=== PATIENT | male | born 1955 | race Caucasian/White ===

== ENCOUNTER 2018-07-03 15:00 | Outpatient (CLI) | payer BC ==
[~2018-07-03 15:00] MED LIST: Sodium Chloride 0.9% 15 ML NEB ONE
--- NOTE | 2018-07-04 00:37 | HP ---
HISTORY OF PRESENT ILLNESS: Mr. Travon Ballard is a very pleasant 63-year-old gentleman, accompanied by his mother, who presents to the [facility] for evaluation of right and left lower extremity edema associated with an ulceration of the left lateral lower leg. The patient states he has had ulcerations of the right and left lower extremities present on an intermittent basis for the past 3 years. The patient was referred to the Wound Center by Dr. Sherman on 06/09/2018. The patient has no other complaints today. He denies any fever or chills. PAST MEDICAL HISTORY: 1. Hypertension. 2. Obstructive sleep apnea. 3. History of hepatitis C. 4. Osteoarthritis. PAST SURGICAL HISTORY: Circumcision as an adult. MEDICATIONS: 1. Imipramine. 2. Hydrochlorothiazide. 3. Metoprolol. 4. Balanced B-100. 5. Allopurinol. 6. Hyzaar. 7. Bactrim. ALLERGIES: NO KNOWN DIAGNOSED ALLERGIES. SOCIAL HISTORY: Social history is negative for tobacco or EtOH use. FAMILY HISTORY: Family history is significant for coronary artery disease. The patient's father was diagnosed with coronary artery disease. PHYSICAL EXAMINATION: VITAL SIGNS: Temperature 97.8, pulse 75, respirations 21, blood pressure 150/68. GENERAL: A 63-year-old gentleman sitting on chair in examination room, in no acute distress. HEENT: Normocephalic and atraumatic. NECK: No nuchal rigidity. CHEST: Clear to auscultation. CV: Regular rate and rhythm. ABDOMEN: Soft. EXTREMITIES: An ulceration of the left lateral lower leg is present which measures approximately 3.0 x 4.0 cm. Granulation tissue was present within the wound margins. Nonviable tissue present within the wound margins was debrided with an excisional full-thickness debridement. No purulent drainage is associated with the granulating wound. Erythema of the left lower leg is present consistent with resolving cellulitis. No maceration of the skin of the periwound is noted. Dorsalis pedis pulse is palpable on the right and on the left. Edema of the right and left lower extremities is present on exam today. NEURO: Grossly nonfocal. ASSESSMENT AND PLAN: 1. Chronic venous hypertension with ulcer and inflammation: Xeroform gauze, Webril, and the 3M Coban 2-Layer Compression System will be applied to the ulceration of the left lower leg today. Webril and the 3M Coban 2- Layer Compression System will be applied to the right foot and lower leg also. The patient is to continue Bactrim as previously prescribed. I will see Mr. Ballard again in 1 week. 2. Hypertension. 3. Obstructive sleep apnea. 4. History of hepatitis C. 5. Osteoarthritis. Job ID: [id number]
== END 2018-07-03 15:01 | disposition home or self-care (01) ==
LOC: WCC 15:00
PROVIDERS: ATTEND Family Medicine
DX: I87.332 Chronic venous hypertension (idiopathic) with ulcer and inflammation of left lower extremity (principal); L97.929 Non-pressure chronic ulcer of unspecified part of left lower leg with unspecified severity; I10 Essential (primary) hypertension; G47.33 Obstructive sleep apnea (adult) (pediatric); M19.90 Unspecified osteoarthritis, unspecified site; Z86.19 Personal history of other infectious and parasitic diseases; Z98.890 Other specified postprocedural states; Z79.899 Other long term (current) drug therapy
CPT/HCPCS: 11042; 99203; A4218; G0463

== ENCOUNTER 2018-07-11 14:32 | Outpatient (CLI) | payer BC | END 2018-07-11 14:33 | disposition home or self-care (01) | LOC: WCC 14:32 | PROVIDERS: ATTEND Family Medicine | DX: I87.313 Chronic venous hypertension (idiopathic) with ulcer of bilateral lower extremity (principal); L97.929 Non-pressure chronic ulcer of unspecified part of left lower leg with unspecified severity; L97.919 Non-pressure chronic ulcer of unspecified part of right lower leg with unspecified severity | CPT/HCPCS: 29581 ==

== ENCOUNTER 2018-07-12 20:54 | Emergency (ER) | payer BC | END 2018-07-12 22:22 | disposition home or self-care (01) | LOC: ERS 20:54 | DX: M54.5 Low back pain (principal); M10.9 Gout, unspecified; I10 Essential (primary) hypertension; E66.9 Obesity, unspecified; F32.9 Major depressive disorder, single episode, unspecified; Z79.899 Other long term (current) drug therapy; Z79.82 Long term (current) use of aspirin | CPT/HCPCS: 99283 ==

== ENCOUNTER 2018-07-18 13:12 | Outpatient (CLI) | payer BC | END 2018-07-18 13:13 | disposition home or self-care (01) | LOC: WCC 13:12 | PROVIDERS: ATTEND Family Medicine | DX: I87.313 Chronic venous hypertension (idiopathic) with ulcer of bilateral lower extremity (principal) | CPT/HCPCS: 29581 ==

== ENCOUNTER 2018-07-24 15:43 | Outpatient (CLI) | payer BC | END 2018-07-24 15:44 | disposition home or self-care (01) | LOC: WCC 15:43 | PROVIDERS: ATTEND Family Medicine | DX: I87.313 Chronic venous hypertension (idiopathic) with ulcer of bilateral lower extremity (principal); L97.929 Non-pressure chronic ulcer of unspecified part of left lower leg with unspecified severity; L97.919 Non-pressure chronic ulcer of unspecified part of right lower leg with unspecified severity | CPT/HCPCS: 29581 ==

== ENCOUNTER 2018-07-30 14:51 | Outpatient (CLI) | payer BC ==
--- NOTE | 2018-07-30 17:11 | PRG ---
DATE OF SERVICE: 07/30/2018 HISTORY: Mr. Travon Ballard is a very pleasant 63-year-old gentleman, accompanied by his mother who presents to the [facility] for evaluation of right and left lower extremity edema associated with an ulceration of the left lateral lower leg. At the time of the patient's initial presentation to the Wound Center, Mr. Ballard stated that he had ulcerations of the right and left lower extremities present on an intermittent basis for the previous 3 years. The patient was referred to the Wound Center by Dr. Sherman on 06/09/2018. After being seen in the Wound Center, dressing changes of Xeroform, Webril, and the 3M Coban 2 Layer Compression System were initiated for the ulceration of the left lower leg. The patient has been receiving dressing changes of Webril and the 3M Coban 2 Layer Compression System for the right foot and lower leg. OBJECTIVE: VITAL SIGNS: Temperature 98.2, pulse 61, respirations 19, blood pressure 138/65. EXTREMITIES: The ulceration of the left lower leg has healed completely. No open wounds are present over the right or left lower legs. No cellulitis of the right or left lower leg is present. No maceration of the skin of the right or left lower leg is present. A dorsalis pedis pulse is palpable on the right and on the left. Edema of the right and left lower extremities is again noted on today's exam. Circumferences of the right lower extremity at the foot, ankle, and calf are 26 cm, 26 cm, and 48 cm. Circumferences of the left lower extremity at the foot, ankle, and calf are 24 cm, 25.5 cm, and 44 cm. ASSESSMENT AND PLAN: 1. Chronic venous hypertension with ulcer and inflammation. As stated above, the ulceration of the left lateral lower leg has healed completely. Webril and the 3M Coban 2 Layer Compression System will be applied to the right and left feet and lower legs today. I will see Mr. Ballard again in one week. The patient has been given a prescription for compression garments, knee-high, open or closed toe to yield a compression of 30 to 40 mmHg. 2. Lymphedema tarda. Arrangements will be made for the initiation of in-home lymphedema therapy with a pneumatic pump. The patient has hyperpigmentation of the skin of the right and left lower legs secondary to hemosiderin deposition. 3. Hypertension. 4. Obstructive sleep apnea. 5. History of hepatitis C. 6. Osteoarthritis. Job ID: [id number]
== END 2018-07-30 14:52 | disposition home or self-care (01) ==
LOC: WCC 14:51
PROVIDERS: ATTEND Family Medicine
DX: R60.0 Localized edema (principal); I89.0 Lymphedema, not elsewhere classified; I10 Essential (primary) hypertension; G47.33 Obstructive sleep apnea (adult) (pediatric); M19.90 Unspecified osteoarthritis, unspecified site; Z86.19 Personal history of other infectious and parasitic diseases

== ENCOUNTER 2018-08-06 14:36 | Outpatient (CLI) | payer BC ==
[2018-08-06] MEDS ORDERED: Sodium Chloride 0.9% 15 ML NEB ONE ×2 (15:43→20:05)
--- NOTE | 2018-08-06 16:51 | PRG ---
DATE OF SERVICE: 08/06/2018 HISTORY: Mr. Travon Ballard is a very pleasant 63-year-old gentleman, accompanied by his mother, who presents to the [facility] for evaluation of right and left lower extremity edema associated with an ulceration of the left lateral lower leg. At the time of the patient's initial presentation to the [facility] Center, Mr. Ballard stated that he had had ulcerations of the right and left lower extremities present on an intermittent basis for the previous 3 years. The patient was referred to the Wound Center by Dr. Sherman on 06/09/2018. After being seen in the Wound Center, dressing changes of Xeroform, Webril, and the 3M Coban 2 Layer Compression System were initiated for the ulceration of the left lower leg. The patient has been receiving dressing changes of Webril and the 3M Coban 2 Layer Compression System for the right foot and lower leg. PHYSICAL EXAMINATION: VITAL SIGNS: Temperature 97.9, pulse 60, respirations 20, blood pressure 152/70. EXTREMITIES: The ulceration of the left lower leg has healed completely and remains healed. No open wounds are present over the right or left lower leg. No cellulitis of the right or left lower leg is present. No maceration of the skin of the right or left lower leg is present. Edema of the right and left lower extremities is again noted on exam today. Circumferences of the right lower extremity at the ankle, calf, and knee are 36 cm, 42 cm, and 39 cm. Circumferences of the left lower extremity at the ankle, calf, and knee are 27 cm, 43.5 cm, and 42.5 cm. ASSESSMENT AND PLAN: 1. Chronic venous hypertension with ulcer and inflammation. As stated above, the ulceration of the left lateral lower leg has healed completely and remains healed. Webril and the 3M Coban 2 Layer Compression System will be applied to the right and left feet and lower legs today. I will see Mr. Ballard again in 1 week. The patient has been given a prescription again for compression garments, knee-high, open or closed toe to yield a compression of 30 to 40 mmHg. 2. Lymphedema tarda. Arrangements will be made for the initiation of in-home lymphedema therapy with a pneumatic pump. The patient has hyperpigmentation of the skin of the right and left lower leg secondary to hemosiderin deposition. Arrangements will also be made for evaluation for venous ablation. 3. Hypertension. 4. Obstructive sleep apnea. 5. History of hepatitis C. 6. Osteoarthritis. Job ID: [id number]
== END 2018-08-06 14:37 | disposition home or self-care (01) ==
LOC: WCC 14:36
PROVIDERS: ATTEND Family Medicine
DX: I87.323 Chronic venous hypertension (idiopathic) with inflammation of bilateral lower extremity (principal); I89.0 Lymphedema, not elsewhere classified; G47.33 Obstructive sleep apnea (adult) (pediatric); I10 Essential (primary) hypertension; M19.90 Unspecified osteoarthritis, unspecified site; Z86.19 Personal history of other infectious and parasitic diseases
CPT/HCPCS: A4218

== ENCOUNTER 2018-08-12 14:21 | Outpatient (CLI) | payer BC | END 2018-08-12 14:22 | disposition home or self-care (01) | LOC: WCC 14:21 | PROVIDERS: ATTEND Family Medicine | DX: I87.313 Chronic venous hypertension (idiopathic) with ulcer of bilateral lower extremity (principal); L97.929 Non-pressure chronic ulcer of unspecified part of left lower leg with unspecified severity; L97.919 Non-pressure chronic ulcer of unspecified part of right lower leg with unspecified severity | CPT/HCPCS: 99211; G0463 ==

== ENCOUNTER 2018-08-14 11:08 | Outpatient (CLI) | payer BC ==
--- NOTE | 2018-08-14 12:10 | PRG ---
DATE OF SERVICE: 08/14/2018 HISTORY: Mr. Travon Ballard is a very pleasant 63-year-old gentleman, accompanied by his mother, who presents to the [facility] Center for evaluation of right and left lower extremity associated with an ulceration of the left lateral lower leg. At the time of the patient's initial presentation to the Wound Center, Mr. Ballard stated that he has had ulcerations of the right and left lower extremities present on an intermittent basis for the previous 3 years. The patient was referred to the Wound Center by Dr. Sherman on 06/09/2018. After being seen in the Wound Center, dressing changes of Xeroform, Webril, and the 3M Coban 2 Layer Compression System were initiated for the ulceration of the left lower leg. The patient has been receiving dressing changes of Webril and the 3M Coban 2 Layer Compression System for the right foot and lower leg. PHYSICAL EXAMINATION: VITAL SIGNS: Stable, afebrile. EXTREMITIES: No open wounds are present over the right or left lower leg. No cellulitis of the right or left lower leg is present. No maceration of the skin of the right or left lower leg is present. Edema of the right and left lower extremities is again noted on exam today. Circumferences of the right lower extremity at the ankle, calf, and knee are 24.5 cm, 46 cm, and 42 cm. Circumferences of the left lower extremity at the ankle, calf, and knee are 25 cm, 48 cm, and 42 cm. Hyperpigmentation of the skin of the right and left lower legs is present secondary to hemosiderin deposition. ASSESSMENT AND PLAN: 1. Chronic venous hypertension with ulcer and inflammation. As stated above, the ulceration of the left lateral lower leg has healed completely and remains healed. The patient has obtained compression garments. The patient has been instructed to remove the garments at night. I will see Mr. Ballard again on 08/21/2018. 2. Lymphedema tarda. Arrangements will continue for the initiation of in-home lymphedema therapy with a pneumatic pump. As stated above, the patient has hyperpigmentation of the skin of the right and left lower legs secondary to hemosiderin deposition. 3. Hypertension. 4. Obstructive sleep apnea. 5. History of hepatitis C. 6. Osteoarthritis. Job ID: [id number]
== END 2018-08-14 11:09 | disposition home or self-care (01) ==
LOC: WCC 11:08
PROVIDERS: ATTEND Family Medicine
DX: I87.322 Chronic venous hypertension (idiopathic) with inflammation of left lower extremity (principal); I89.0 Lymphedema, not elsewhere classified; I10 Essential (primary) hypertension; G47.33 Obstructive sleep apnea (adult) (pediatric); M19.90 Unspecified osteoarthritis, unspecified site; Z86.19 Personal history of other infectious and parasitic diseases
CPT/HCPCS: 29581

== ENCOUNTER 2018-09-01 15:34 | Outpatient (CLI) | payer BC ==
[2018-09-01] MEDS ORDERED: Sodium Chloride 0.9% 15 ML NEB ONE (18:47)
--- NOTE | 2018-09-02 07:49 | PRG ---
DATE OF SERVICE: 09/01/2018 HISTORY: Mr. Travon Ballard is a very pleasant 63-year-old gentleman, accompanied by his mother and sister, who presents to the [facility] Center for evaluation of right and left lower extremity edema associated with an ulceration of the left lateral lower leg. At the time of the patient's initial presentation to the Wound Center, Mr. Ballard stated that he had ulcerations of the right and left lower extremities present on an intermittent basis for the previous 3 years. The patient was referred to the Wound Center by Dr. Sherman on 06/09/2018. After being seen in the Wound Center, dressing changes of Xeroform, Webril, and the 3M Coban 2 Layer Compression System were initiated for the ulceration of the left lower leg. The patient has been receiving dressing changes of Webril and the 3M Coban 2 Layer Compression System for the right foot and lower leg. PHYSICAL EXAMINATION: VITAL SIGNS: Temperature 98.0, pulse 60, respirations are 22, and blood pressure 172/75. EXTREMITIES: Two lesions are present over the right and left lower legs, one over the right lower leg and one over the left lower leg. A blister is present over the right lower leg. A wound is present over the left anterior lower leg, superficial, which measures approximately 4.0 x 2.3 cm. No cellulitis of the right or left lower leg is present. No maceration of the skin of the right or left lower leg is present. Edema of the right and left lower extremities is again noted on today's exam. Hyperpigmentation of the skin of the right and left lower legs is present secondary to hemosiderin deposition. ASSESSMENT AND PLAN: 1. Chronic venous hypertension with ulcer and inflammation. The ulceration previously present over the left lateral lower leg has healed completely and remains healed. PolyMem Silver followed by the 3M Coban 2 Layer Compression System will be applied to the lesions of the right and left lower legs today. Arrangements will be made for the home delivery of Farrowwraps. The patient has obtained compression garments, but has not been able to use them because of difficulty in applying the garments. I will see Mr. Ballard again in 1 week. 2. Lymphedema tarda. Arrangements were previously initiated for in-home lymphedema therapy with a pneumatic pump. As stated above, the patient has hyperpigmentation of the skin of the right and left lower leg secondary to hemosiderin deposition. 3. Hypertension. 4. Obstructive sleep apnea. 5. History of hepatitis C. 6. Osteoarthritis. Job ID: [id number]
== END 2018-09-01 15:35 | disposition home or self-care (01) ==
LOC: WCC 15:34
PROVIDERS: ATTEND Family Medicine
DX: I87.333 Chronic venous hypertension (idiopathic) with ulcer and inflammation of bilateral lower extremity (principal); L97.929 Non-pressure chronic ulcer of unspecified part of left lower leg with unspecified severity; L97.919 Non-pressure chronic ulcer of unspecified part of right lower leg with unspecified severity; I89.0 Lymphedema, not elsewhere classified; I10 Essential (primary) hypertension; G47.33 Obstructive sleep apnea (adult) (pediatric); M19.90 Unspecified osteoarthritis, unspecified site; Z86.19 Personal history of other infectious and parasitic diseases
CPT/HCPCS: 97602; A4218

== ENCOUNTER 2018-09-08 15:32 | Outpatient (CLI) | payer BC | END 2018-09-08 15:33 | disposition home or self-care (01) | LOC: WCC 15:32 | PROVIDERS: ATTEND Family Medicine | DX: I87.313 Chronic venous hypertension (idiopathic) with ulcer of bilateral lower extremity (principal) | CPT/HCPCS: 29581 ==

== ENCOUNTER 2018-09-15 14:53 | Outpatient (CLI) | payer BC | END 2018-09-15 14:54 | disposition home or self-care (01) | LOC: WCC 14:53 | PROVIDERS: ATTEND Family Medicine | DX: I87.311 Chronic venous hypertension (idiopathic) with ulcer of right lower extremity (principal); I87.312 Chronic venous hypertension (idiopathic) with ulcer of left lower extremity | CPT/HCPCS: 29581; A4218 ==

== ENCOUNTER 2018-10-30 10:35 | Outpatient (CLI) | payer BC ==
--- NOTE | 2018-10-30 17:17 | PRG ---
DATE OF SERVICE: 10/30/2018 HISTORY OF PRESENT ILLNESS: Mr. Travon Ballrad is a very pleasant 63-year-old gentleman, accompanied by his sister, who presents to the Wound Center for evaluation of venous ulcerations of the right and left lower legs. The patient has 1 ulceration over the right lower leg and 1 ulceration over the left lower leg. At the time of the patient's last visit, arrangements were made for the home delivery of FarrowWraps, which the patient apparently has been utilizing. The patient has no other complaints today. He denies any fever or chills. PHYSICAL EXAMINATION: VITAL SIGNS: Temperature 97.8, pulse 71, respirations 22, blood pressure 175/75. EXTREMITIES: One ulceration is present over the right lower leg, which measures approximately 8.0 x 4.0 cm. An ulceration is present over the left lower leg, which measures approximately 3.0 x 2.0 cm. Granulation tissue is present within the margins of each wound. No purulent drainage is associated with either wound. No cellulitis of the right or left lower leg is present. No maceration of the skin of the right or left lower leg is present. Edema of the right and left lower extremities is present on today's exam. Hyperpigmentation of the skin of the right and left lower legs is present secondary to hemosiderin deposition. ASSESSMENT AND PLAN: 1. Chronic venous hypertension with ulcerations and inflammation. Dressing changes of PolyMem Silver followed by the 3M Coban 2 Layer Compression System are to be performed 2 times per week after cleansing and irrigation with the assistance of Home Health. I will see Mr. Ballard again in 8 weeks. 2. Lymphedema tarda. Arrangements were previously initiated for in-home lymphedema therapy with a pneumatic pump. As stated above, the patient has hyperpigmentation of the skin of the right and left lower legs secondary to hemosiderin deposition. 3. Hypertension. 4. Obstructive sleep apnea. 5. History of hepatitis C. 6. Osteoarthritis. Job ID: [id number]
[2018-10-30] MEDS ORDERED: Sodium Chloride 0.9% 15 ML NEB ONE (17:22)
== END 2018-10-30 10:36 | disposition home or self-care (01) ==
LOC: WCC 10:35
PROVIDERS: ATTEND Family Medicine
DX: I87.332 Chronic venous hypertension (idiopathic) with ulcer and inflammation of left lower extremity (principal); L97.919 Non-pressure chronic ulcer of unspecified part of right lower leg with unspecified severity; I89.0 Lymphedema, not elsewhere classified; I10 Essential (primary) hypertension; G47.33 Obstructive sleep apnea (adult) (pediatric); M19.90 Unspecified osteoarthritis, unspecified site
CPT/HCPCS: 97602; A4218

== ENCOUNTER 2018-11-17 14:52 | Outpatient (CLI) | payer BC ==
--- NOTE | 2018-11-17 16:29 | PRG ---
DATE OF SERVICE: 11/17/2018 HISTORY: Mr. Travon Ballard is a very pleasant 63-year-old gentleman, accompanied by his sister, who presents to the Wound Center for evaluation of venous ulcerations of the right and left lower legs. The patient has one ulceration over the right lower leg and one ulceration over the left lower leg. The patient has received FarrowWraps. The patient's sister is presently trying to arrange for dressing changes with the assistance of Home Health. Mr. Ballard has no complaints today. He denies any fever or chills. PHYSICAL EXAMINATION: VITAL SIGNS: Temperature 97.5, pulse 59, blood pressure 172/79. EXTREMITIES: No ulcerations over the right or left lower leg are present. Both ulcerations present at the time of the patient's last visit have healed completely. Hyperpigmentation of the skin of the right and left lower legs is present secondary to hemosiderin deposition. ASSESSMENT AND PLAN: 1. Chronic venous hypertension with ulcers and inflammation as stated above, both ulcerations present at the time of the patient's last visit have healed completely. Arrangements will continue for dressing changes of the 3M Coban 2 Layer Compression System on a weekly basis with the assistance of Home Health. Mr. Ballard will be seen by Cardiology in the near future. The patient's sister states she will enquire as to whether the patient is a candidate for venous ablation. 2. Lymphedema tarda. Arrangements were previously initiated for in-home lymphedema therapy with a pneumatic pump. The patient and his sister state they would like to proceed with trying to acquire a lymphedema pump. 3. Hypertension. 4. Obstructive sleep apnea. 5. History of hepatitis C. 6. Osteoarthritis. Job ID: [id number]
== END 2018-11-17 14:53 | disposition home or self-care (01) ==
LOC: WCC 14:52
PROVIDERS: ATTEND Family Medicine
DX: Z09 Encounter for follow-up examination after completed treatment for conditions other than malignant neoplasm (principal); I89.0 Lymphedema, not elsewhere classified; M19.90 Unspecified osteoarthritis, unspecified site; G47.33 Obstructive sleep apnea (adult) (pediatric); I10 Essential (primary) hypertension; Z87.2 Personal history of diseases of the skin and subcutaneous tissue; Z86.19 Personal history of other infectious and parasitic diseases
CPT/HCPCS: 29581

== ENCOUNTER 2018-12-02 15:14 | Inpatient (IN) | payer BC ==
[2018-12-02 15:53] LABS: #Eosinphils 0.1 thou/uL (0.0-0.7); #Lymphocytes 1.4 thou/uL (1.20-3.40); #Neutrophils 10.9 thou/uL (1.40-6.50); %Basophils 0.3 % (0.0-1.0); %Eosinophils 0.4 % (0.0-10.0); %Lymphocytes 10.3 % (21.0-51.0); %Monocytes 7.4 % (0.0-10.0); %Neutrophils 81.6 % (42.0-75.0); Hemoglobin 13.1 g/dL (14.0-18.0); Mean Corpuscular Hemoglobin 31.6 pg (27.0-31.0); Mean Corpuscular Volume 95.6 fL (78.0-98.0); Mean Platelet Volume 6.4 fL (7.4-10.4); Platelet Count 285 thou/uL (130-400); RBC Distribution Width 14.2 % (11.5-14.5); Red Blood Cell (RBC) Count 4.16 mill/uL (4.70-6.10); White Blood Cell (WBC) Count 13.4 thou/uL (4.8-10.8)
[2018-12-02 16:11] LABS: ALT (SGPT) 25 U/L (8-55); AST (SGOT) 18 U/L (5-34); Albumin 3.8 g/dL (3.4-4.8); Alkaline Phosphatase 86 U/L (40-150); Anion Gap 13 mmol/L (10-20); BUN (Urea Nitrogen) 27 mg/dL (8.4-25.7); Bilirubin, Total 2.3 mg/dL (0.2-1.2); Calc. Creatinine Clearance 0 mL/min (70-130); Calcium 9.6 mg/dL (7.8-10.44); Carbon Dioxide 25 mmol/L (23-31); Chloride 104 mmol/L (98-107); Estimated GFR-MDRD 65; Globulin 3.4 g/dL (2.4-3.5); Glucose 129 mg/dL (80-115); Potassium 4.2 mmol/L (3.5-5.1); Protein, Total 7.2 g/dL (5.8-8.1); Sodium 138 mmol/L (136-145)
[2018-12-02 16:19] LABS: Bilirubin Small (Negative); Blood, Urine Moderate (Negative); Clarity CLEAR (Clear); Glucose, Urine (Dipstick) Negative (Negative); Leukocyte Trace (Negative); Nitrite Negative (Negative); Protein, Urine (Dipstick) Trace mg/dL (Neg-Trace)
[2018-12-02 16:21] LABS: Bacteria/HPF None Seen HPF (None Seen); Hyaline Casts/LPF 4-6 HYALINE CAST LPF (0-3 Hyaline); Pathc Cast-AUWi Flag 1.22 (0-2.49); Squamous Epithelial 0-3 HPF (0-3); WBC/HPF 0-3 HPF (0-3)
--- NOTE | 2018-12-02 16:38 | RAD ---
Chest one view HISTORY: Dyspnea. COMPARISON: 11/08/2010. FINDINGS: Cardiac silhouette is markedly enlarged. Dense bilateral infiltrates are predominantly cent ral. Pulmonary vasculature is engorged. Mediastinum is midline. No evidence of pneumothorax. IMPRESSION: Given the cardiomegaly, the dense Central infiltrates may be related to severe pulmonary edema. Superimposed consolidative or masslike process may still be present. Please consider close radiographic follow-up.
--- NOTE | 2018-12-02 16:48 | ULT ---
ULTRASOUND DOPPLER DUPLEX VENOUS BILATERAL LOWER EXTREMITIES: DATE: 12/02/2018 HISTORY: Bilateral lower extremity edema and dyspnea in 63-year-old male. Dr. Dangelo reported the finding of DVT by telephone to Dr. Hali Harrell of the emergency Department at 4 :34 PM on 12/02/2018. TECHNIQUE: Grayscale, color-flow, and spectral analysis, of the bilateral common femoral, profunda femoral, grea ter saphenous, femoral, popliteal, and posterior tibial, veins. FINDINGS: This study is limited because of body habitus, and because the patient is unable to lie supine becaus e of dyspnea. There is noncompressibility/partial compressibility, but with some blood flow present, in the left po sterior tibial vein, proximal portion of left popliteal vein, and questionably distal portion of left femoral vein. There is poor visualization or nonvisualization of the bilateral common femoral veins for reasons giv en above. No DVT found in right lower extremity. IMPRESSION: 1) positive for acute deep venous thrombosis in the left lower extremity. 2) bilateral common femoral veins could not be visualized for reasons given above.
[2018-12-02 16:58] LABS: INR-International Normal Ratio 1.4; Prothrombin Time 17.5 SEC (12.0-14.7)
[2018-12-02] MEDS ORDERED: Ondansetron PF 4 MG/2 ML Vial IVP PRN (18:07)
[2018-12-02] MEDS ORDERED: Ondansetron ODT 4 MG TAB SL PRN (18:07)
[2018-12-02] MEDS ORDERED: Albuterol Sulfate 2.5 mg/3 ml Neb NEB PRN (18:08)
[2018-12-02] MEDS ORDERED: Lorazepam 2 MG/ML VIAL SLOW IVP PRN (19:36)
[2018-12-02 20:07] LABS: Lactic Acid 1.4 mmol/L (0.5-2.2)
[2018-12-02 20:13] LABS: Troponin I Less than 0.010 ng/mL (< 0.028)
[2018-12-02] MEDS ORDERED: Furosemide 20 MG/2 ML VIAL SLOW IVP SCH (20:15)
[2018-12-02] MEDS: Apixaban 5 MG TAB PO SCH (20:30)
[2018-12-02] MEDS: cefTRIAXone\\ROCEPHIN 1 GM in Sodium Chloride 0.9% 100 ML IVPB SCH (20:31)
[2018-12-02] MEDS: Allopurinol 100 MG TAB PO SCH (20:31)
[2018-12-02] MEDS ORDERED: IMIPRAMINE PAMOATE 100 MG PO SCH (21:00)
[2018-12-02] MEDS: Azithromycin 500 MG in Sodium Chloride 0.9% 250 ML 250 ML IVPB SCH (21:28)
[2018-12-02 23:16] LABS: Troponin I Less than 0.010 ng/mL (< 0.028)
--- NOTE | 2018-12-03 02:00 | HP ---
HISTORY OF PRESENT ILLNESS: This patient is a 63-year-old male with some type of developmental delay and cognitive impairment, although seems to be very highly functional. The patient has been living with his mother for many years, who has been his primary caregiver. The patient presented to the emergency department today with shortness of breath. The patient has morbid obesity and chronic lower extremity stasis dermatitis with stasis ulcers, [facility]. The patient has reported dyspnea on exertion for a number of years according to his sister who is with him now. He has recently, however, become significantly worse. The patient's sister reports that he is followed with Dr. Bolaños and has had a number of tests recommended over the years, but the patient's mother has been somewhat resistant and even to the point of barrier to getting some of the workup done over the years. He apparently did recently have an echocardiogram on 11/14, which was reportedly negative. He also has recently been diagnosed with atrial fibrillation and has had some medications changed including Eliquis. The patient's mother has recently suffered another hip fracture and is out of the home and the patient is now staying by himself for the first time ever and apparently there was some anxiety associated with that. The patient's sister realized when the patient was calling her 20 times a day as part of his obsessive behavior that there was something really wrong with him, so they have followed up to check on him and his breathing has been worse. Therefore, he presented to the hospital. The patient has had a cough, but it has been nonproductive. He denies chest pains or fevers or chills. He has severe orthopnea. There was recommendations for further cardiac testing including stress testing, but the patient has not been able to consider those because he is unable to lie flat and has profound panic whenever he even attempts to do so. REVIEW OF SYSTEMS: The patient has been eating and drinking adequately. He has had a normal urine output. His bowels have been a bit sluggish. Denies other significant musculoskeletal symptoms. The remainder of systems were reviewed, all pertinent positives and negatives noted in the history of present illness. PAST MEDICAL HISTORY: Notable for the developmental delay, hypertension, obstructive sleep apnea, history of hepatitis C per the patient's records, although the family is not sure about that, and osteoarthritis, as well as chronic stasis dermatitis and chronic stasis ulcers of lower extremity. PAST SURGICAL HISTORY: Adult circumcision. FAMILY HISTORY: Notable for coronary artery disease in his father. SOCIAL HISTORY: The patient is a nonsmoker, nondrinker, and nondrug user. Other social history as noted above. His sister is only here part of the year and lives in [place] throughout the summer. For now, they would like to keep him full code, but will be considering their options there. HOME MEDICATIONS: Vitamin D, B complex vitamin, vitamin B12, Benadryl, Tylenol, hydrochlorothiazide, allopurinol, Eliquis 5 mg b.i.d., imipramine 100 mg at bedtime, metoprolol 25 mg daily, and amlodipine 10 mg daily. PHYSICAL EXAMINATION: GENERAL APPEARANCE: Age-appropriate male. He is morbidly obese. He is sitting up in a chair with a face mask oxygen on and appears to be comfortable, and not tachypneic. HEENT: PERRL. No acute lesions. NECK: Supple and symmetric with no lymphadenopathy, JVD, or bruits. HEART: Regular rate and rhythm. No murmurs, gallops, or rubs. LUNGS: Clear to auscultation. His lungs actually have diffuse scattered rales in all lung ramírez with diminished breath sounds. ABDOMEN: Soft, nontender, and nondistended. Positive bowel sounds. No masses. No organomegaly. EXTREMITIES: He has 2 to 3+ pitting edema from the level of the knee down. He has chronic stasis discoloration of both lower extremities. He has some weeping on the right with some superficial denuded areas on the right as well laterally on the calf. LABORATORY DATA: White count is 13.4, hemoglobin 13.1, platelets 285. INR 1.4. Sodium 138, potassium 4.2, chloride 104, CO2 is 25, BUN 27, creatinine is 1.14, glucose 129, lactic acid 2.2, calcium 9.6, total bilirubin is 2.3, AST 18, ALT 25, alkaline phosphatase 86. Troponin less than 0.01. Albumin 3.8. Urinalysis shows trace ketones, moderate blood, small bilirubin, trace leukocyte esterase, 7-10 red cells 0-3 white cells. Chest x-ray shows cardiomegaly, which is significant, central infiltrates may be related to severe pulmonary edema superimposed on consolidative or masslike process and recommended followup. Lower extremity venogram shows acute DVT in the left lower extremity. Bilateral common femoral veins could not be well visualized. IMPRESSION AND PLAN: 1. Acute hypoxic respiratory failure. Patient's initial saturations on presentation were in the 60s and documented in the 80s. He is still requiring significant amount of oxygen support. 2. Pulmonary infiltrates. Differential at this point includes pulmonary embolus with potential infarction based on the fact that he has a pulmonary embolus. The fact that he is on Eliquis for atrial fibrillation mitigates against that possibility. Also possibility of pneumonia with potential aspiration related to sleep and sleep apnea versus community-acquired pneumonia versus decompensated heart failure, although he has a normal BNP, which would mitigate against that as well. We will cover the patient with broad-spectrum antibiotics and give a dose of Lasix. 3. Cardiac: The patient has severe cardiomegaly based on his chest x-ray. The family reports that he recently had an echocardiogram, which was unremarkable. I attempted to reach out to Dr. Bolaños. We will continue to try to followup to see if he has insight. In the meantime, we will repeat the echocardiogram and give a dose of Lasix. 4. Deep venous thrombosis. The patient is already on appropriate dose of Eliquis. Not entirely clear how compliant he might have been with that recently, though he seems to have very good family support so far at home. 5. Obstructive sleep apnea. We will continue positive pressure support as needed. 6. Hypertension. Resume usual home medications, although I believe this patient would benefit from going off the amlodipine as it is very likely contributing to his lower extremity edema. Job ID: [id number]
[2018-12-03 06:52] LABS: #Eosinphils 0.1 thou/uL (0.0-0.7); #Lymphocytes 1.4 thou/uL (1.20-3.40); #Monocytes 1.7 thou/uL (0.11-0.59); #Neutrophils 13.2 thou/uL (1.40-6.50); %Basophils 0.2 % (0.0-1.0); %Eosinophils 0.4 % (0.0-10.0); %Lymphocytes 8.4 % (21.0-51.0); %Monocytes 10.6 % (0.0-10.0); %Neutrophils 80.4 % (42.0-75.0); Mean Corpuscular HGB CONC 32.5 g/dL (32.0-36.0); Mean Corpuscular Hemoglobin 31.3 pg (27.0-31.0); Mean Corpuscular Volume 96.3 fL (78.0-98.0); Mean Platelet Volume 6.3 fL (7.4-10.4); Platelet Count 293 thou/uL (130-400); RBC Distribution Width 14.2 % (11.5-14.5); Red Blood Cell (RBC) Count 3.83 mill/uL (4.70-6.10); White Blood Cell (WBC) Count 16.5 thou/uL (4.8-10.8)
[2018-12-03 07:09] LABS: Anion Gap 14 mmol/L (10-20); BUN (Urea Nitrogen) 25 mg/dL (8.4-25.7); Calc. Creatinine Clearance 171 mL/min (70-130); Calcium 9.3 mg/dL (7.8-10.44); Carbon Dioxide 25 mmol/L (23-31); Chloride 104 mmol/L (98-107); Estimated GFR-MDRD 74; Glucose 137 mg/dL (80-115); Sodium 139 mmol/L (136-145)
[2018-12-03] MEDS: Apixaban 5 MG TAB PO SCH ×2 (09:45→20:35)
[2018-12-03] MEDS: Allopurinol 100 MG TAB PO SCH ×2 (09:45→20:35)
[2018-12-03] MEDS: Amlodipine 10 MG TAB PO SCH (09:45)
[2018-12-03] MEDS: Hydrochlorothiazide 25 MG TAB PO SCH (09:46)
--- NOTE | 2018-12-03 10:39 | PRG ---
DATE OF SERVICE: 12/03/2018 SUBJECTIVE: The patient was seen and examined at the bedside. The patient's sister is present in the room during my visit. He is doing somewhat better since he was placed on oxygen, but he is not able to rest in a horizontal position, so he is sitting in the chair while we visit. OBJECTIVE: VITAL SIGNS: Blood pressure is 149/62, pulse is 66, respiratory rate is 20, O2 saturation is 99% on 5 L by nasal cannula. He is obese. His weight is 330 pounds. HEENT: His head is atraumatic and normocephalic. Pupils are responding to light properly. Sclerae are nonicteric. Conjunctivae are pinkish. Oral mucosa is moist. NECK: Obese. LUNGS: Bilateral rales and crackles present in the mid and lower parts of both lungs. HEART: S1 and S2, somewhat irregular. No S3. No S4. ABDOMEN: Obese, somewhat distended, and nontender. Bowel sounds are present. EXTREMITIES: 1 to 2+ peripheral edema present, both legs wrapped above both ankles. NEUROLOGIC: He is alert and oriented x3. There are no any motor deficits. He follows my commands. LABORATORY DATA: Labs showed white count of 16.5, hemoglobin 12.0, hematocrit 36.9, platelet count is 293,000. Chemistry within normal limits. Calcium 9.3. Three troponin-I within normal limits. Urinalysis showed 15 ketones, moderate blood, small amount of bilirubin, trace leukocyte esterases, 7 to 10 rbc's, 0 to 3 wbc's, hyaline casts 4 to 6. Microbiology, none. IMPRESSION: 1. Acute hypoxic respiratory failure, improved on O2. Etiology still unclear. Dr. Aguilar just saw the patient for Pulmonary consultation. Differential is wide. We are going to obtain echocardiogram. The patient received one dose of Lasix 20 mg IV push last night. We will wait for further management until we have more evidence of etiology of this process. For now, he will be covered with antibiotics and O2. 2. Cardiomegaly. Apparently, the patient was seen by Dr. Bolaños, approximately 2 weeks ago for Cardiology evaluation. He had echocardiogram done, but this was not good quality testing. He was started on apixaban at this time for atrial fibrillation, new onset. His EKG on admission showed wide QRS complex rhythm. We will obtain Cardiology consultation. 3. Deep venous thrombosis based on ultrasound/Doppler of the lower extremities. 4. Obstructive sleep apnea. 5. Hypertension. 6. Venous stasis of both lower extremities. Job ID: [id number]
--- NOTE | 2018-12-03 19:06 | CON ---
DATE OF CONSULTATION: 12/03/2018 INDICATION FOR CONSULTATION: A 63-year-old gentleman with lower extremity edema, shortness of breath, and DVTs. HISTORY OF PRESENT ILLNESS: This is a very unfortunate 63-year-old gentleman, who has been followed apparently by Dr. Bolaños in the past. He had an echocardiogram, which was within normal limits, presented here after he had increasing shortness of breath and lower extremity edema. He has had some problems for the last several years with lower extremity edema. He has been seen by the [facility] both over at [facility] and then now over here at [place] due to edema and swelling of the lower extremities with ulcerations or blistering, which is helped by wrapping the legs and diuretics. He is morbidly obese, weighing over 300 pounds. He denies any chest pain, but mainly complains of shortness of breath. He lives at home. Apparently, his sister to help take care of him. He has some degree of cognitive impairment and needs care at home. He is able to mobilize. However, he did tell me he used to work in the data entry email processor apparently at [employer], uncertain exactly what position he or what amount of work he would like able to do. He said he had a recent cough. He has a hard time lying down. Again, he sits in the chair most of the time and has edema all the way up actually to the abdomen, but he actually has again morbid obesity with a large pannus making very difficult to fully evaluate this patient. He apparently gives a history also of having sleep apnea in the past, but he does not wear CPAP mask. He did have evaluation at this time, which showed left lower extremity DVT. Further evaluation was difficult to determine. He has not had a CT scan to look for pulmonary emboli due to his morbid obesity. At this time, his breathing is improved. His BNP was not elevated. Cardiac enzymes were unremarkable. He did have an echocardiogram, which shows ejection fraction appeared to be normal as far as his left ventricular systolic function. The right ventricle did not appear to be dilated. He did have trace tricuspid valve regurgitation. Further information could not be obtained from the echocardiogram due to the poor quality images obtain secondary to the obesity. PAST MEDICAL HISTORY: Significant for some developmental delay. He has a history of sleep apnea, hepatitis C. According to the records, he has a history of hypertension. He has a history of chronic lower extremity edema and dermatitis as well as osteoarthritis. He has had a circumcision in the past. FAMILY HISTORY: Positive for coronary artery disease. SOCIAL HISTORY: There is history of alcohol or tobacco abuse. He worked in the past, but now pretty much stays at home and is taken care of by the family members. His sister is now previously was taken care of by his mother. MEDICATIONS: Prior to admission include: 1. Vitamins. 2. Tylenol. 3. Benadryl. 4. Allopurinol. 5. Hydrochlorothiazide. 6. Eliquis 5 mg b.i.d. 7. Imipramine 100 mg q.p.m. 8. Metoprolol 25 mg a day. 9. Amlodipine 10 mg a day. REVIEW OF SYSTEMS: He mainly complains of having the lower extremity edema and some shortness of breath and occasional cough and some occasional constipation. PHYSICAL EXAMINATION: GENERAL: Reveals a morbidly obese gentleman. His blood pressure is 162/75, heart rate was in the 60s and shows a right bundle-branch block with atrial fibrillation, respiratory rate 20 to 27, and O2 saturations were 91% to 93%. HEENT: Showed the head to be normocephalic and atraumatic. NECK: Carotid pulses are present. I do not hear any significant bruits. I do not see any obvious JVD. CHEST: He has breath sounds throughout. However, he did have some what appeared to be some rales on the right side. However, with coughing, this did resolve, but otherwise did not hear any gross abnormalities. CARDIOVASCULAR: The heart rate is somewhat slow and appeared to be regular, but on further evaluation, appears to be irregular. By my evaluation of the EKGs, this is slightly off and is irregular and appears to be atrial fibrillation. Did not have any gross murmurs. Heart sounds are somewhat difficult to auscultate due to again the morbid obesity. ABDOMEN: Shows morbid obesity. I cannot palpate any tenderness. He has ascites up to the lower abdominal area with a large pannus. I cannot palpate femoral pulses. EXTREMITIES: Showed 2+ lower extremity edema with large legs. Also, cannot palpate pedal pulses due to the edema and obesity. NEUROLOGIC: The patient appears to be somewhat mentally challenged or has some cognitive impairment, but is able to communicate. SKIN: Warm and dry. Lower extremities are wrapped in Kerlix, but are dry at this time. LABORATORY DATA: Shows a hemoglobin of 12 with a WBC of 16.5, hematocrit was 36.9 with a platelet count of 293,000. Chemistry showed negative cardiac enzymes. Blood sugar was 129, BUN was 27 with a creatinine of 1.14. Sodium was 138 with potassium of 4.2. His BNP was 96. EKG shows atrial fibrillation with a right bundle-branch block. The rate is under good control. The heart rate actually was in the 60s. IMPRESSION: 1. Deep venous thrombosis and probable pulmonary emboli. His chest x-ray did have some abnormalities with a large heart, which may be due also to the obesity from the positioning of the film. There is some type of abnormality noted also in the right chest area of uncertain etiology unclear what it is. He has already been seen by the gas tester and they will address this matter. As far as his deep venous thrombosis and possible pulmonary embolism, he has been treated with Eliquis. I would agree with this. 2. Possible history of congestive heart failure. If he certainly may have some right-sided failure due to sleep apnea, it would suggest he will be re-evaluated to wear CPAP mask and see if this will improve some of his symptoms. 3. Morbid obesity. It is difficult to treat this patient, but dietary consultation may be in order with the family. 4. Right bundle-branch block of uncertain etiology nor we do not know how long it has been there, but he appears to be otherwise stable. He is not a candidate for a cardiac catheterization at this time. 5. Atrial fibrillation. I would agree with the Eliquis at this time. His rate is under good control and we will continue the present medications unless he become symptomatic. Again, this most likely is due to most likely underlying sleep apnea, which has not been treated. We will be more than happy to continue to follow the patient with you, but at this time, I would agree with the present management with his medications. He has also been placed on antibiotics for probable cellulitis of the lower extremities. 6. Cellulitis, being treated by the primary care service. I would agree with diuretics to decrease some of the lower extremity edema. Job ID: [id number]
--- NOTE | 2018-12-03 19:33 | CON ---
DATE OF CONSULTATION: 12/03/2018 HISTORY OF PRESENT ILLNESS: Mr. Ballard is a 63-year-old male. History is obtained from his sister, who is in the room with him and a friend. She lives in [place] six months out of the year, so she is not really familiar with him, but says that he has been declining since she has been here. He has a learning disability and lives in [facility]. His mother lives there as well. She is having health issues and has broken her hip twice. He reportedly has recently been checked by Dr. Bolaños, but he cannot lay down flat without getting short of breath, so he did not have a chemical stress test. His family was told his echocardiogram looks good. He has a history of atrial fibrillation, and 2 to 3 weeks ago, was started on Eliquis. He was transported to the emergency room because of tachypnea and shortness of breath. She says he is better now, and he says he feels better. PAST MEDICAL HISTORY: Remarkable for; 1. Learning disability and obsessive behavior. 2. History of hypertension. 3. History of sleep apnea that he has probably had for close to 15 years according to family and friends. He has never agreed to be worked up for this or treated for. 4. History of hepatitis. 5. History of degenerative arthritis. 6. History of chronic lower extremity edema. FAMILY HISTORY: Positive for vascular disease. SOCIAL HISTORY: He is a nonsmoker, nondrinker. He does not use drugs. MEDICATIONS: Prior to admission, he is on; 1. Hydrochlorothiazide. 2. Allopurinol. 3. Eliquis. 4. Imipramine. 5. Metoprolol. 6. Amlodipine. REVIEW OF SYSTEMS: 10 point review of systems completed, essentially negative other than what is mentioned above per family. PHYSICAL EXAMINATION: GENERAL: He is an obese, pleasant gentleman, sitting in a chair, in no distress. VITAL SIGNS: Heart rate 64, blood pressure 162/54, respiratory rates in the 20s , and oximetry is 97%. HEENT: Pupils are equal. Sclerae are anicteric. NECK: Supple. There is no lymphadenopathy. LUNGS: Remarkable for crackles in both lung bases. HEART: Regular rhythm, S1 and S2 are slightly distant. I do not hear murmur. ABDOMEN: Soft, protuberant. No masses or tenderness is elicited. EXTREMITIES: Without clubbing, cyanosis, or edema. He does have stasis changes and he has wounds that are being addressed by Wound Care. LABORATORY DATA: White count 16.5, hemoglobin 12.0, and platelets 293. Electrolytes are normal. Creatinine is 1.02. Chest radiograph reviewed by me, consistent with pulmonary edema as well as cardiomegaly. He has a venogram done of the left lower extremity, which showed a clot. He had no clot in his right lower extremity. IMPRESSION: Deep vein thrombus. It is unusual to see a deep vein thrombosis in someone who has been on anticoagulants for 2 to 3 weeks. I would wonder if he did not have this clot in his leg prior to the initiation of Eliquis. I would recommend that we increase his Eliquis to the loading dose, but not discontinue using this. With regard to what radiographically appears to be congestive heart failure, I have recommended repeating his echocardiogram. It is unclear whether or not his blood pressure is controlled in his care environment. I doubt his radiographic infiltrates are infectious and if his cultures are negative and his radiograph improves with diuresis, I would consider stopping his antimicrobial therapy. TIME SPENT: This is a 50-minute consult, with greater than 50% of the time spent on the unit coordinating care. Job ID: [id number] GAMA
[2018-12-03] MEDS: cefTRIAXone\\ROCEPHIN 1 GM in Sodium Chloride 0.9% 100 ML IVPB SCH (20:36)
[2018-12-03] MEDS: Azithromycin 500 MG in Sodium Chloride 0.9% 250 ML 250 ML IVPB SCH (21:23)
[2018-12-04] MEDS: Amlodipine 10 MG TAB PO SCH (08:54)
[2018-12-04] MEDS: Allopurinol 100 MG TAB PO SCH ×2 (08:54→20:03)
[2018-12-04] MEDS: Hydrochlorothiazide 25 MG TAB PO SCH (08:57)
[2018-12-04] MEDS: Apixaban 5 MG TAB PO SCH ×2 (08:57→20:03)
--- NOTE | 2018-12-04 09:44 | RAD ---
Exam: Chest one view: HISTORY: Edema COMPARISON: 12/02/2018 There is very extensive abnormal alveolar opacity changes throughout both lungs evidence for extensiv e bilateral pneumonia or pulmonary edema. Cardiomegaly. No significant pleural effusion. IMPRESSION: Very extensive bilateral alveolar opacity changes showing some worsening or progression from the prio r study. Continued short-term follow-up.
--- NOTE | 2018-12-04 14:38 | PDOC.CTH ---
Cardiology Progress Note - Subjective The pt seen and examined. No overnight events. No cardiac complaints. He is on 5LNC. - Objective Vital Signs Temp Pulse BP BP Pulse Ox Pulse Ox Pulse Ox 12/04/18 10:59 98.8 F 12/04/18 08:54 65 147/62 H 12/04/18 08:42 109/59 L 74 L 93 L 91 L 12/04/18 07:16 98.0 F 12/04/18 04:00 97.5 F L Admit Weight 350 lb Weight 350 lb 12/03/18 12/04/18 12/05/18 06:59 06:59 06:59 Intake Total 1070 1250 Output Total 1100 2070 200 Balance -30 -820 -200 - Physical Examination General/Neuro: alert & oriented x3 Neck: no JVD present Lungs: other: (very diminished at bases) Heart: other: (irregular) Abdomen: soft Extremities: other: (3+ pitting BLE edema) - Telemetry Telemetry Rhythm: AFib - Labs Result Diagrams: 12/03/18 06:30 12/03/18 06:30 Troponin/CKMB Troponin I Less than 0.010 ng/mL (< 0.028) 12/02/18 22:35 - Assessment/Plan 1. Prox Afib - well controlled HR with Metoplrolol 25mg qd; He has been on Eliquis for a few wks by Dr Bolaños. On Eliquis 10mg BID for DVT/PE. 2. DVT/PE - on Eliquis 10mg BID by outside plant cable engineer 3. RBBB with unknown etiology - He is not a good candidate for Cath 4. HTN - stable 5. BLE Cellulitis - 6. Sleep Apnea - may need sleep study as outpt 7. Hep C - 8. Obese MAR reviewed * Echo on 12/03/2018 with EF 50-55%, normal Rt ventricle cavity and Lt atrium. Pt. seen and eval. by me. I agree with the A/P by the SENIOR DATA ANALYST. The BNP is < 100. The CXR looks worse. There are no significant rales on exam. Continue antibiotics, agree with diuretics but he may become intravascularly dehydrated. Still waiting on records from Dr. Arana's office. md everardo Review of Systems - Review of Systems Constitutional: reports: no symptoms reported EENTM: reports: no symptoms reported Respiratory: reports: no symptoms reported Cardiac (ROS): reports: no symptoms reported ABD/GI: reports: no symptoms reported : reports: no symptoms reported
[2018-12-04] MEDS ORDERED: Furosemide 40 MG/4 ML VIAL SLOW IVP SCH (15:15)
--- NOTE | 2018-12-04 15:26 | PRG ---
DATE OF SERVICE: 12/04/2018 SUBJECTIVE: The patient is seen and examined at the bedside. He is not doing as good as he was yesterday. He did some walking, which exhausted him and he became quite short of breath while doing this. OBJECTIVE: VITAL SIGNS: Blood pressure is 148/69, pulse is 60, respiratory rate is 23, O2 saturation is 93%. He is on 5 L by nasal cannula. His BMI is 50. His weight is 350 pounds. HEENT: His head is atraumatic and normocephalic. His eyes are PERRLA. Sclerae are nonicteric. Oral mucosa is moist. NECK: Obese. LUNGS: Breath sounds diminished at both bases. HEART: S1 and S2 distant. No S3, no S4. Irregular. ABDOMEN: Very obese, nontender. EXTREMITIES: 1 to 2+ peripheral edema, seen similar bilaterally. Both calves are wrapped for his venous stasis in this area. NEUROLOGICAL: He follows my commands. He moves his all extremities. There are no any motor deficits. LABORATORY DATA: None today. Yesterday, procalcitonin was 0.06. Microbiology, nothing. IMAGING STUDIES: Chest x-ray showed increased bilateral alveolar opacities. showed extremely difficult study due to morbid obesity. Estimated, visually, LVEF at 50% to 55% with normal size right ventricular cavity, left atrium normal size, and structurally normal aortic valve. IMPRESSION: 1. Acute hypoxic respiratory failure. 2. Cardiomegaly. 3. Deep venous thrombosis. 4. Obstructive sleep apnea. 5. Morbid obesity. 6. Hypertension. 7. Venous stasis of both lower extremities. 8. History of hepatitis C. PLAN: Discontinue antibiotics. His procalcitonin came back at 0.06. We will start him on Lasix 40 q.12 hours IV push one dose now. We will check his BMP and CBC tomorrow morning. It is still unclear what is the etiology of his pulmonary findings and respiratory failure. We will continue supportive care. Apixaban dose was increased to 10 mg twice a day. Continue supportive care and O2 supplementation. PT and wound care of his lower extremities. Job ID: [id number]
--- NOTE | 2018-12-04 16:32 | PRG ---
DATE OF SERVICE: 12/04/2018 SUBJECTIVE: Travon Ballard has no complaints. He is in a chair. He walked a little in the room today. OBJECTIVE: VITAL SIGNS: He is afebrile. Blood pressure 152/69, respiratory rate is in the 20s. LUNGS: Distant and clear. HEART: Regular rhythm. ABDOMEN: Soft. EXTREMITIES: Remarkable for stasis changes. IMPRESSION: Chest x-ray suggestive of congestive heart failure. He reportedly has normal left ventricular systolic function. Repeat chest x-ray today shows ongoing alveolar infiltrates, but he looks comfortable. Echocardiogram was of poor quality, but it was estimated that he had a normal EF. He has no history of aspirating. He is on no drugs that would give him these infiltrates. I doubt this is alveolar hemorrhage based on the history, but it is certainly still in the differential. We need to continue to try to diurese him and follow him with serial radiographs. Job ID: [id number]
[2018-12-04] MEDS: Docusate 100 MG CAP PO SCH (20:03)
[2018-12-05] MEDS: Acetaminophen 325 MG TAB PO PRN (01:07)
[2018-12-05 05:54] LABS: Anion Gap 15 mmol/L (10-20); BUN (Urea Nitrogen) 32 mg/dL (8.4-25.7); Calc. Creatinine Clearance 183 mL/min (70-130); Carbon Dioxide 26 mmol/L (23-31); Chloride 101 mmol/L (98-107); Potassium 3.7 mmol/L (3.5-5.1); Sodium 138 mmol/L (136-145)
[2018-12-05 05:55] LABS: Calcium 9.6 mg/dL (7.8-10.44); Estimated GFR-MDRD 81; Glucose 111 mg/dL (80-115)
[2018-12-05] MEDS: Furosemide 40 MG/4 ML VIAL SLOW IVP SCH ×2 (06:11→13:59)
[2018-12-05] MEDS: Allopurinol 100 MG TAB PO SCH ×2 (08:57→21:31)
[2018-12-05] MEDS: Amlodipine 10 MG TAB PO SCH (08:58)
[2018-12-05] MEDS: Apixaban 5 MG TAB PO SCH ×2 (08:58→21:30)
[2018-12-05] MEDS: Docusate 100 MG CAP PO SCH ×2 (08:59→21:30)
[2018-12-05] MEDS: Hydrochlorothiazide 25 MG TAB PO SCH (08:59)
--- NOTE | 2018-12-05 11:21 | PDOC.CTH ---
Cardiology Progress Note - Subjective The pt seen and examined. No overnight events. No cardiac complaints. - Objective Vital Signs Temp Pulse BP Pulse Ox 12/05/18 11:05 96.7 F L 12/05/18 08:58 65 141/61 H 12/05/18 08:00 95 12/05/18 07:43 97.4 F L 12/05/18 03:45 97.6 F 12/04/18 23:25 97.6 F Admit Weight 350 lb Weight 350 lb 12/04/18 12/05/18 12/06/18 06:59 06:59 06:59 Intake Total 1250 1440 Output Total 2070 2150 300 Balance -820 710 -300 - Physical Examination General/Neuro: alert & oriented x3 Neck: no JVD present Lungs: CTA (very diminished at bases) Heart: other: (irregular) Extremities: other: (Dressing to BLE) - Telemetry Telemetry Rhythm: AFib - Labs Result Diagrams: 12/03/18 06:30 12/05/18 04:31 Troponin/CKMB Troponin I Less than 0.010 ng/mL (< 0.028) 12/02/18 22:35 - Assessment/Plan 1. Prox Afib - well controlled HR with Metoplrolol 25mg qd; He has been on Eliquis for a few wks by Dr Bolaños. On Eliquis 10mg BID for DVT/PE. 2. DVT/PE - on Eliquis 10mg BID by women's health care nurse practitioner 3. RBBB with unknown etiology - He is not a good candidate for Cath 4. HTN - stable 5. BLE Cellulitis - 6. Sleep Apnea - His HR tends to be down to 40s during sleep possible due to Sleep apnea. may need sleep study as outpt 7. Hep C - 8. Obese MAR reviewed * Echo on 12/03/2018 with EF 50-55%, normal Rt ventricle cavity and Lt atrium. * Still waiting on records from Dr. Arana's office. Pt. seen and eval. by me. No significant change symptomatically. Sitting up in the chair sleeping with CPAP. He has severe sleep apnea and needs to wear the mask. He has anxiety as well as difficulty to breath when lying down. I spoke with Dr. Bolaños and he confirmed that the Echo from earlier this year indicated an EF of 50-55% With a BNP of < 100 this is not likely CHF. The infiltrates in the lungs are not typical pulmonary edema finings. The diuresis has not produced a significant urine output but the BUN:creat. ratio is increasing. continue antibiotics and supportive care. ( Dr. Bolaños did state that he was unable to perform a PET scan on this pt. as he was unable to lie down for the study). Review of Systems - Review of Systems Constitutional: reports: no symptoms reported EENTM: reports: no symptoms reported Respiratory: reports: no symptoms reported Cardiac (ROS): reports: no symptoms reported ABD/GI: reports: no symptoms reported : reports: no symptoms reported
--- NOTE | 2018-12-05 12:29 | PRG ---
DATE OF SERVICE: 12/05/2018 SUBJECTIVE: Mr. Ballard is in no distress. He is sitting in a chair. He is hypersomnolent. He is having obstructive apnea and walked into the room. I have asked Respiratory to place BiPAP on him. He has always had a learning disability, but according to his sister, she thinks he has been worse in the last few years. I have explained to her this may be secondary to sleep deprivation chronically with untreated sleep apnea. I explained yesterday's x-ray had not changed him much, but he looks clinically much better than his x-ray. I would not recommend bronchoscopy for lavage or biopsies at this point. I would continue to work on keeping him in negative fluid balance and repeat his x-ray early next week. OBJECTIVE: LUNGS: He has distant breath sounds on lung exam. HEART: Regular rhythm. ABDOMEN: Soft and protuberant. EXTREMITIES: His both lower extremities are wrapped because of his stasis. LABORATORY DATA: Sodium 138, potassium 3.7, chloride 101, bicarb 26, BUN 32, and creatinine 0.95. IMPRESSION AND PLAN: 1. Clinical presentation consistent with congestive heart failure. His echocardiogram was poor technically. I suspect he has diastolic heart failure. 2. Probable obstructive sleep apnea. He does not have an elevated bicarb on admission suggesting he is not a chronic hypo ventilator. 3. Learning disability. 4. Deep venous thrombosis in his leg that I suspect is old. He was started on anticoagulants for atrial fibrillation two weeks ago. We will continue to follow clinically along with the other physicians caring for him. Job ID: [id number]
--- NOTE | 2018-12-05 19:33 | PDOC.PN ---
- Subjective Encounter Start Date: 12/05/18 Encounter Start Time: 19:31 Subjective: feels ok but very somnolent to asnwer any Qs completly -: chart reviewed and care discussed w RN - Objective Resuscitation Status - Order Detail: 12/02/18 18:58 Resuscitation Status Routine Resuscitation Status: FULL: Full Resuscitation MAR Reviewed: Yes Vital Signs & Weight: Vital Signs (12 hours) Temp Pulse Resp BP Pulse Ox 12/05/18 15:10 96.4 F L 12/05/18 14:54 58 L 19 96 12/05/18 12:00 97 12/05/18 11:05 96.7 F L 12/05/18 08:58 65 141/61 H 12/05/18 08:00 95 12/05/18 07:43 97.4 F L Weight Admit Weight 350 lb Weight 350 lb Most Recent Monitor Data Heart Rate from ECG 57 NIBP 138/69 NIBP BP-Mean 92 Respiration from ECG 20 SpO2 97 I&O: 12/04/18 12/05/18 12/06/18 06:59 06:59 06:59 Intake Total 1250 1440 1200 Output Total 2070 2150 2150 Balance -674 -599 -854 Result Diagrams: 12/03/18 06:30 12/05/18 04:31 Phys Exam - Physical Examination sitting up in chair and very somnolent HEENT: moist MMs, oral pharynx no lesions Neck: no JVD Respiratory: no wheezing, no rales reduced at bases Cardiovascular: RRR, no significant murmur Gastrointestinal: soft, non-tender, no distention, positive bowel sounds obese Musculoskeletal: no edema, pulses present Neurological: non-focal, normal sensation, moves all 4 limbs Psychiatric: normal affect Skin: no rash Dx/Plan (1) Acute hypoxemic respiratory failure Code(s): J96.01 - ACUTE RESPIRATORY FAILURE WITH HYPOXIA Status: Acute Comment: Bipap on and off .brittnyley due to sleep apnea (2) DVT (deep venous thrombosis) Code(s): I82.409 - ACUTE EMBOLISM AND THOMBOS UNSP DEEP VN UNSP LOWER EXTREMITY Status: Chronic Comment: on eliquis (3) Pulmonary infiltrate Code(s): R91.8 - OTHER NONSPECIFIC ABNORMAL FINDING OF LUNG FIELD Status: Acute Comment: Off of antibiotic. management per Pulmonary.? hemorrhage .pt on chr Eliquis OAC (4) NGA (obstructive sleep apnea) Code(s): G47.33 - OBSTRUCTIVE SLEEP APNEA (ADULT) (PEDIATRIC) Status: Chronic (5) Hepatitis C Code(s): B19.20 - UNSPECIFIED VIRAL HEPATITIS C WITHOUT HEPATIC COMA Status: Chronic (6) Paroxysmal atrial fibrillation Code(s): I48.0 - PAROXYSMAL ATRIAL FIBRILLATION Status: Chronic Comment: rate controlledcont toprol. .on OAC (7) Chronic anticoagulation Code(s): Z79.01 - HALF-WAY (CURRENT) USE OF ANTICOAGULANTS Status: Chronic (8) Morbid obesity Code(s): E66.01 - MORBID (SEVERE) OBESITY DUE TO EXCESS CALORIES Status: Chronic (9) HTN (hypertension) Code(s): I10 - ESSENTIAL (PRIMARY) HYPERTENSION Status: Chronic Comment: stable - Plan PT/OT, respiratory therapy, incentive spirometry, out of bed/ambulate, DVT proph w/SCDs Unclear etiology of Dysnea but suspected NGA.? PE.? Pulmonary hemmorhage -: Cont supportoive care.defer to Pulmonary -: cardiac work up unremarkable.apprecite cardiology input -: am labs.HD stable but high risk of decompensation * .
[2018-12-06] MEDS: Furosemide 40 MG/4 ML VIAL SLOW IVP SCH ×2 (06:45→13:26)
--- NOTE | 2018-12-06 08:18 | PRG ---
DATE OF SERVICE: 12/06/2018 SUBJECTIVE: Mr. Ballard sitting up in the chair. He cannot even come close to lying flat due to shortness of breath. OBJECTIVE: VITAL SIGNS: His blood pressure 144/68, pulse is in the 50s to 60s, it is irregularly irregular. LUNGS: Clear. CARDIAC: Irregular. ABDOMEN: Morbidly obese. EXTREMITIES: Severe edema. DIAGNOSTIC DATA: Potassium is 3.7. BUN is 32, creatinine 0.95. ASSESSMENT: 1. Atrial fibrillation with a slow ventricular response. 2. Respiratory insufficiency. 3. Morbid obesity. 4. Some element of diastolic heart failure. 5. Obstructive sleep apnea. 6. Deep venous thrombosis, possibly old. PLAN: 1. Stop metoprolol. Heart rate is too low. 2. He is on intravenous diuretics. 3. Consideration for intubation is being given. It is best to do further testing including CT scanning. Job ID: [id number]
[2018-12-06] MEDS: Docusate 100 MG CAP PO SCH ×2 (08:39→19:50)
[2018-12-06] MEDS: Hydrochlorothiazide 25 MG TAB PO SCH (08:39)
[2018-12-06] MEDS: Amlodipine 10 MG TAB PO SCH (08:39)
[2018-12-06] MEDS: Allopurinol 100 MG TAB PO SCH ×2 (08:39→19:50)
[2018-12-06] MEDS: Apixaban 5 MG TAB PO SCH ×2 (08:39→19:50)
[2018-12-06] MEDS ORDERED: SYSTANE 3.5 GM TUBE EA EYE PRN (10:10)
[2018-12-06] MEDS ORDERED: Ventilator Sedation Protocol 1 EACH FS SCH (10:15)
[2018-12-06] MEDS ORDERED: Fentanyl BOLUS 250 ML IVPB PRN (10:27)
[2018-12-06] MEDS ORDERED: Lorazepam 2 MG/ML VIAL SLOW IVP PRN (10:27)
[2018-12-06] MEDS ORDERED: DISCONTINUE PREVIOUS NARCOTIC PAIN MEDICATIONS AND BENZODIAZEPINES FS SCH (10:27)
[2018-12-06] MEDS ORDERED: Propofol BOLUS 1,000 MG/100 ML VIAL IV PRN (10:27)
[2018-12-06] MEDS ORDERED: Morphine 2 MG/ML SYRINGE SLOW IVP PRN (10:27)
--- NOTE | 2018-12-06 10:44 | PRG ---
DATE OF SERVICE: 12/06/2018 SERVICE: Pulmonary Service. INTERVAL HISTORY: The patient is doing poorly from respiratory standpoint. Oxygen requirements seem to be going up. He is having a hard time tolerating breaks from the BiPAP. He is awake and alert. He indicates that he is working a little hard to breathe. We talked about doing a possible CT scan. We tested this out by lying him flat on bed. He was unable to tolerate this maneuver. As such, we re- attempted on BiPAP. Once again, he could not tolerate lying flat. He is less sleepy than he was yesterday. He did not have any fevers or chills. There were no significant overnight events. PHYSICAL EXAMINATION: VITAL SIGNS: Afebrile currently. Pulse 61, blood pressure 140/78, respirations 20, and saturation 99% on 40% FiO2 delivered via BiPAP. GENERAL: The patient is awake and alert. He is in mild respiratory distress. HEENT: Normocephalic and atraumatic. Sclerae white. Conjunctivae pink. Oral and nasal mucosa is moist without lesions. LUNGS: There is a decreased air entry. No prolonged expiratory phase appreciated. There is crackles present. HEART: Normal rate. Regular. ABDOMEN: Soft, nontender, and nondistended. Bowel sounds are positive. MUSCULOSKELETAL: No cyanosis or clubbing. There is bilateral lower extremity edema. His legs are wrapped. : No Ennis catheter. NEUROLOGIC: Grossly nonfocal. LABORATORY DATA: WBC 16.5, hemoglobin 12.0, and platelets 293,000. INR 1.4. Urinalysis is unremarkable. IMAGING: Chest x-ray demonstrates evidence of extensive pulmonary edema. There seems to be some sparing along the diaphragm, in the periphery of the lung. ASSESSMENT: 1. Acute on chronic hypoxic and hypercapnic respiratory failure. 2. Obstructive sleep apnea, horrendous. 3. Acute on chronic diastolic heart failure. 4. Pulmonary edema, quite extensive. 5. Deep venous thrombosis. DISCUSSION AND PLAN: Since the patient's oxygen requirements are trending upward despite the fact that he is adequately diuresing, I would like to get a CT scan of his chest. The only feasible way that we can do this; however, is by intubating him. I will check connective tissue disease processes including getting an ERIN, IgG4 subclass, anti-Catia-1 antibodies, ANCA, and rheumatoid factor. We will send off a respiratory virus panel looking for viral pathogens. I will also send off an HIV. We will repeat laboratories tomorrow morning. If there is significant infiltrates not characteristic of volume overload, we will likely proceed with a bronchoscopy in the next 24 to 48 hours. We will make plans to move him to the ICU on a nonemergent basis and electively intubate him for these procedures. Family has been updated at bedside. Critical care time: 30 minutes, unbundled from the procedures. Job ID: [id number] MTDD
--- NOTE | 2018-12-06 12:30 | PDOC.PN ---
- Subjective Encounter Start Date: 12/06/18 Encounter Start Time: 12:27 Patient seen and examined, no new issues or complaints, family at bedside, all questions answered. - Objective Resuscitation Status - Order Detail: 12/02/18 18:58 Resuscitation Status Routine Resuscitation Status: FULL: Full Resuscitation Vital Signs & Weight: Vital Signs (12 hours) Temp Pulse Resp Pulse Ox 12/06/18 11:22 97.4 F L 12/06/18 07:49 99 12/06/18 07:16 96.7 F L 12/06/18 02:22 50 L 17 100 Weight Admit Weight 350 lb Weight 342 lb Most Recent Monitor Data Heart Rate from ECG 52 NIBP 126/64 NIBP BP-Mean 84 Respiration from ECG 19 SpO2 97 I&O: 12/05/18 12/06/18 12/07/18 06:59 06:59 06:59 Intake Total 1440 1560 50 Output Total 2150 2850 875 Balance -710 -1290 -825 Result Diagrams: 12/03/18 06:30 12/05/18 04:31 Phys Exam - Physical Examination Constitutional: NAD morbidly obese HEENT: PERRLA, moist MMs, sclera anicteric Neck: no nodes, no JVD, supple Respiratory: no wheezing, no rales, no rhonchi Cardiovascular: RRR, no significant murmur, no rub Gastrointestinal: soft, non-tender, no distention, positive bowel sounds Musculoskeletal: pulses present, edema present Dx/Plan (1) Shortness of breath Code(s): R06.02 - SHORTNESS OF BREATH Status: Acute (2) Acute hypoxemic respiratory failure Code(s): J96.01 - ACUTE RESPIRATORY FAILURE WITH HYPOXIA Status: Acute Comment: Bipap on and off .ion due to sleep apnea (3) DVT (deep venous thrombosis) Code(s): I82.409 - ACUTE EMBOLISM AND THOMBOS UNSP DEEP VN UNSP LOWER EXTREMITY Status: Chronic Comment: on eliquis (4) HTN (hypertension) Code(s): I10 - ESSENTIAL (PRIMARY) HYPERTENSION Status: Chronic Comment: stable (5) Morbid obesity Code(s): E66.01 - MORBID (SEVERE) OBESITY DUE TO EXCESS CALORIES Status: Chronic (6) NGA (obstructive sleep apnea) Code(s): G47.33 - OBSTRUCTIVE SLEEP APNEA (ADULT) (PEDIATRIC) Status: Chronic (7) Paroxysmal atrial fibrillation Code(s): I48.0 - PAROXYSMAL ATRIAL FIBRILLATION Status: Chronic Comment: rate controlledcont toprol. .on OAC - Plan * cont bipap * CT scan pending for today * family advised to discuss code status with the patient and also consider starting paperwork for MPOA and living will * the patient needs to lose weight, if he does not then he is a very high risk for readmission as well as afib, pulmonary HTN, stroke, sudden , etc * no changes in plan of care for now * await work up which has been started * case and plan d/w patient's family at length, they understood and agreed with this plan.
[2018-12-06] MEDS ORDERED: Midazolam HCl 2 mg/2 ml Vial ONE (13:18)
[2018-12-06] MEDS: fentaNYL Citrate/PF 2,000 MCG in Sodium Chloride 0.9% 60 ML IV SCH (13:32)
--- NOTE | 2018-12-06 14:35 | CT ---
EXAM: CT of the chest without contrast HISTORY: Noncardiogenic pulmonary edema COMPARISON: None TECHNIQUE: Multiple contiguous axial images were obtained in a CT the chest without contrast. Coronal reformats were performed. FINDINGS: HEART: Global cardiomegaly. Atherosclerotic calcification in the coronary arteries. MEDIASTINUM: No hilar or mediastinal lymphadenopathy. Evaluation of the mediastinum is limited withou t IV contrast. LUNGS: An endotracheal tube is seen with its tip above the roland. Diffuse central airspace opacities are consistent with pulmonary edema. PLEURAL SPACE: No pneumothorax or pleural effusion. CHEST WALL SOFT TISSUES: Bilateral gynecomastia. OSSEOUS STRUCTURES: Degenerative changes in the spine. VISUALIZED SUBDIAPHRAGMATIC STRUCTURES: Calcified gallstones in the gallbladder. IMPRESSION: Findings above are consistent with pulmonary edema. The mildly enlarged heart could suggest a cardiac cause for the pulmonary edema.
[2018-12-06] MEDS: Propofol 1,000 MG/100 ML VIAL IV PRN ×2 (16:00→19:46)
[2018-12-06] MEDS: Micafungin 100 MG in Sodium Chloride 0.9% 100 ML IVPB SCH (16:01)
[2018-12-06 16:23] LABS: Bilirubin Negative (Negative); Blood, Urine Moderate (Negative); Clarity CLEAR (Clear); Glucose, Urine (Dipstick) Negative (Negative); Leukocyte Negative (Negative); Nitrite Negative (Negative); Protein, Urine (Dipstick) 30 mg/dL (Neg-Trace)
[2018-12-06 16:25] LABS: Bacteria/HPF None Seen HPF (None Seen); Hyaline Casts/LPF 7-10 HYALINE CAST LPF (0-3 Hyaline); Pathc Cast-AUWi Flag 1.63 (0-2.49); Squamous Epithelial 0-3 HPF (0-3); WBC/HPF 0-3 HPF (0-3)
[2018-12-06 16:37] LABS: Actual Bicarbonate (HCO3a) 34.1 mEq/L (22-28); Base Excess (BEa) 6.6 mEq/L (-2.0 to +3.0); Calcium, Ionized 1.21 mmol/L (1.12-1.30); Carboxyhemoglobin (COHb) 1.1 gm% (0.0-3.0); Potassium - ABG Lab 3.64 mmol/L (3.70-5.30); pH, Arterial 7.35 (7.35-7.45)
[2018-12-06 16:38] LABS: CO2 Tension 63.1 mmHg (35.0-45.0); Puncture Site RRA
[2018-12-06 16:39] LABS: ALV-art Gradient 280.925 (0-20)
[2018-12-06 17:15] LABS: BF Color Red; Body Fluid Source Bronchioalveol Lavag; Clarity Cloudy/Turbid (Clear); Tube # EDTA
[2018-12-06 17:16] LABS: BF WBC/Nonhematics Ct. - Manua 293 /cumm; RBC Count-Automated 26000 /cumm
[2018-12-06 17:31] LABS: BF Segmented Neutrophils 47 %; Cell Count Non Hematic 51 %; Lymphocytes 2 %
[2018-12-06] MEDS: Famotidine 20 MG TAB PO SCH (19:50)
--- NOTE | 2018-12-07 00:19 | OP ---
DATE OF PROCEDURE: 12/06/2018 SERVICE: Pulmonary Medicine. PROCEDURE PERFORMED: Emergent endotracheal intubation. CONSENT: Procedure was performed emergently secondary to clinical deterioration and respiratory failure. MEDICATIONS USED: 1. Etomidate 40 mg IV push. 2. Versed 2 mg IV push. PREPROCEDURE DIAGNOSES: 1. Acute hypoxic respiratory failure. 2. Pulmonary infiltrate. POSTPROCEDURE DIAGNOSES: 1. Acute hypoxic respiratory failure. 2. Pulmonary infiltrate. 3. Oropharyngeal candidiasis, extending to the supraglottic region. DESCRIPTION OF PROCEDURE: Vital sign monitoring was accomplished by noninvasive hemodynamic monitoring, pulse oximetry, and telemetry. In the supine position, the patient was preoxygenated with BiPAP and maintained with saturations of 100%. Following induction of anesthesia, #4 GlideScope was inserted through the mouth, offering clear identification of the posterior fornix and laryngeal structures with a grade 2 view. An endotracheal tube was visualized passing through the vocal cords. Placement was confirmed by condensation in the endotracheal tube, colorimetric capnography, and bi-axillary chest auscultation. The endotracheal tube was secured at 25 cm, measured at the teeth. The patient was placed on mechanical ventilation with good return of volumes. Postprocedure CT of the chest demonstrated good location for the endotracheal tube within the trachea. ESTIMATED BLOOD LOSS: 5 mL. COMPLICATIONS: Small tongue laceration with self-limited bleeding. Job ID: [id number]
--- NOTE | 2018-12-07 00:26 | OP ---
DATE OF PROCEDURE: 12/06/2018 SERVICE: Pulmonary Medicine. PROCEDURES PERFORMED: 1. Fiberoptic bronchoscopy with. a. Visual airway inspection. b. Bronchoalveolar lavage from the posterior segment of the right upper lobe. PREPROCEDURE DIAGNOSES: 1. Acute hypoxic respiratory failure. 2. Pulmonary infiltrate. POSTPROCEDURE DIAGNOSES: 1. Acute hypoxic respiratory failure. 2. Pulmonary infiltrate. MEDICATIONS USED: Please refer to nursing documentation for the boluses from the pump. PREANESTHESIA ASSESSMENT: H and P had been performed. The patient's medications and allergies were reviewed. Informed consent was obtained after discussing risks, benefits, and rationale for performing the procedure with the patient's next of kin. DESCRIPTION OF PROCEDURE: A time-out was performed, identifying the correct procedure and patient with name and date of . A diagnostic fiberoptic bronchoscope was introduced through the 7.5-Sami endotracheal tube. The roland was identified as being sharp. Extensive white plaques were present throughout the trachea and involve much of the left mainstem bronchus. There was significant frothy white and pink tinged secretions. These were vigorously suctioned throughout bilateral lung ramírez. The mucosa was friable throughout. A tracheobronchial tree inspection was then carried out with clear identification of the right upper lobe, right middle lobe, right lower lobe, left upper lobe, lingula, and left lower lobe. There was no discrete endobronchial disease identified. A BAL was subsequently performed from the posterior segment of the right upper lobe. Hemostasis was verified and the bronchoscope was subsequently removed from the patient. The endotracheal tube was left at 2-3 cm above the level of the roland. FINDINGS: 1. Roland is sharp. 2. No discrete endobronchial disease was identified. 3. White plaques which were easily scraped away were studding the majority of the trachea and extended into the left and right mainstem bronchus. They tapered off in the more distal airways. 4. Secretions were heavy and white/creamy and tinged with blood. SPECIMENS OBTAINED: BAL from the posterior segment of the right upper lobe for routine Gram stain and culture, fungal stain and culture, AFB smear and culture , and cell count. COMPLICATIONS: None. ESTIMATED BLOOD LOSS: 2 mL. FLUOROSCOPY TIME: None. DISPOSITION: The patient will remain on mechanical ventilation in the ICU. Job ID: [id number] [facility]
[2018-12-07] MEDS: Propofol 1,000 MG/100 ML VIAL IV PRN ×6 (01:02→23:30)
[2018-12-07] MEDS: fentaNYL Citrate/PF 2,000 MCG in Sodium Chloride 0.9% 60 ML IV SCH (01:09)
[2018-12-07] MEDS: Furosemide 40 MG/4 ML VIAL SLOW IVP SCH ×2 (05:50→13:42)
[2018-12-07 06:36] LABS: #Basophils 0.1 thou/uL (0.0-0.2); #Eosinphils 0.4 thou/uL (0.0-0.7); #Lymphocytes 1.4 thou/uL (1.20-3.40); #Monocytes 0.9 thou/uL (0.11-0.59); #Neutrophils 6.5 thou/uL (1.40-6.50); %Basophils 0.6 % (0.0-1.0); %Eosinophils 3.9 % (0.0-10.0); %Lymphocytes 15.5 % (21.0-51.0); %Monocytes 9.3 % (0.0-10.0); %Neutrophils 70.6 % (42.0-75.0); Hemoglobin 12.7 g/dL (14.0-18.0); Mean Corpuscular HGB CONC 32.6 g/dL (32.0-36.0); Mean Corpuscular Hemoglobin 31.5 pg (27.0-31.0); Mean Corpuscular Volume 96.7 fL (78.0-98.0); Mean Platelet Volume 6.2 fL (7.4-10.4); Platelet Count 343 thou/uL (130-400); RBC Distribution Width 13.7 % (11.5-14.5); Red Blood Cell (RBC) Count 4.03 mill/uL (4.70-6.10); White Blood Cell (WBC) Count 9.2 thou/uL (4.8-10.8)
[2018-12-07 06:57] LABS: Anion Gap 14 mmol/L (10-20); BUN (Urea Nitrogen) 36 mg/dL (8.4-25.7); Calc. Creatinine Clearance 148 mL/min (70-130); Calcium 9.5 mg/dL (7.8-10.44); Carbon Dioxide 30 mmol/L (23-31); Chloride 99 mmol/L (98-107); Estimated GFR-MDRD 65; Glucose 90 mg/dL (80-115); Magnesium 2.2 mg/dL (1.6-2.6); Phosphorus 4.7 mg/dL (2.3-4.7); Potassium 3.7 mmol/L (3.5-5.1); Sodium 139 mmol/L (136-145)
[2018-12-07 07:16] LABS: HIV (1/2) Antibody/Antigen Non-Reactive (NonReactive); HIV 1/2 INDEX 0.14 S/CO (<1.00)
[2018-12-07] MEDS: Amlodipine 10 MG TAB PO SCH (08:10)
[2018-12-07] MEDS: Apixaban 5 MG TAB PO SCH ×2 (08:10→20:29)
[2018-12-07] MEDS: Hydrochlorothiazide 25 MG TAB PO SCH (08:10)
[2018-12-07] MEDS: Famotidine 20 MG TAB PO SCH ×2 (08:10→20:29)
[2018-12-07] MEDS: Docusate 100 MG CAP PO SCH ×2 (08:11→20:29)
[2018-12-07] MEDS: Allopurinol 100 MG TAB PO SCH ×2 (08:11→20:29)
--- NOTE | 2018-12-07 11:55 | RAD ---
EXAM: Single view of the chest HISTORY: Edema COMPARISON: 12/04/2018 FINDINGS: Single view of the chest shows an enlarged cardiomediastinal silhouette. Diffuse mixed joce eolar/interstitial opacities have slightly improved compared to the prior exam. IMPRESSION: Improvement in pulmonary infiltrates.
--- NOTE | 2018-12-07 12:20 | PRG ---
DATE OF SERVICE: 12/07/2018 SERVICE: Pulmonary Medicine. INTERVAL HISTORY: The patient is doing okay from respiratory standpoint. He is breathing comfortably. His oxygen requirements have creeped up a little bit overnight. We went up on the PEEP and the FiO2, but otherwise, the evening was uneventful. PHYSICAL EXAMINATION: VITAL SIGNS: Afebrile. Pulse 63, blood pressure 129/66, respirations 16, and saturation 95% on room air. GENERAL: The patient is awake and alert. No apparent distress. LUNGS: Rhonchi are present in bilateral lung ramírez. There is decent air entry with no prolonged expiratory phase present. I do not appreciate any crackles. HEART: Normal rate, regular. ABDOMEN: Soft, nontender, and nondistended. Bowel sounds are positive. MUSCULOSKELETAL: No cyanosis or clubbing. There is 1+ pitting in the bilateral lower extremities. NEUROLOGIC: Grossly nonfocal. LABORATORY DATA: WBC 9.2, hemoglobin 12.7, platelets 343,000. Basic metabolic profile is otherwise unremarkable. Creatinine is gently trending up to 1.15, BUN 36. Phosphorus and magnesium both fall within the normal limits. Procalcitonin was previously unremarkable. The BAL had lots of red blood cells, many white blood cells. It was a non-hematologic cell predominant with 47% neutrophils. No significant lymphocytosis was present. HIV 1 and 2 were negative. Bronchoalveolar lavage has a negative culture to date. Urine cultures negative at 12 hours. Respiratory virus PCR is unremarkable. ASSESSMENT: 1. Acute on chronic hypoxic and hypercapnic respiratory failure. 2. Obstructive sleep apnea, horrendous. 3. Obesity hypoventilation syndrome. 4. Acute on chronic diastolic heart failure. 5. Pulmonary edema, cardiogenic versus noncardiogenic. 6. Deep venous thrombosis. 7. Thrush. 8. Significant cutaneous candidiasis. 9. Suspected fungal disease of the lung. DISCUSSION AND PLAN: We will continue supportive measures including ventilatory support. We will keep sedation as minimal as possible. We will continue our empiric antifungal coverage. Multiple laboratories looking into interstitial lung diseases are currently pending. If oxygen requirements continue to go up despite decreasing volume, broad-spectrum antibiotics and steroids will be considered. CRITICAL CARE TIME: 30 minutes. Job ID: [id number]
--- NOTE | 2018-12-07 12:46 | PDOC.PN ---
- Subjective Encounter Start Date: 12/07/18 Encounter Start Time: 12:43 Patient seen and examined, no new issues overnight, intubated. - Objective Resuscitation Status - Order Detail: 12/02/18 18:58 Resuscitation Status Routine Resuscitation Status: FULL: Full Resuscitation Vital Signs & Weight: Vital Signs (12 hours) Temp Pulse Resp BP Pulse Ox 12/07/18 12:00 99.0 F 15 12/07/18 10:12 63 129/66 12/07/18 10:00 17 12/07/18 08:10 62 120/55 L 12/07/18 08:00 17 93 L 12/07/18 07:00 98.6 F 12/07/18 06:39 62 128/68 12/07/18 06:00 17 12/07/18 04:00 99.4 F 17 12/07/18 02:13 56 L 12/07/18 02:00 17 Weight Admit Weight 350 lb Weight 343 lb 0.628 oz Most Recent Monitor Data Heart Rate from ECG 59 NIBP 113/56 NIBP BP-Mean 75 Respiration from ECG 17 SpO2 94 I&O: 12/06/18 12/07/18 12/08/18 06:59 06:59 06:59 Intake Total 1560 763.8 150 Output Total 2850 2380 1390 Balance -1290 -1616.2 -1240 Result Diagrams: 12/07/18 06:08 12/07/18 06:08 Phys Exam - Physical Examination Constitutional: NAD obese intubated HEENT: PERRLA distant heart sounds no respiratory distress, intubated Cardiovascular: RRR, no significant murmur, no rub Gastrointestinal: soft, non-tender, no distention, positive bowel sounds Musculoskeletal: pulses present, edema present Dx/Plan (1) Shortness of breath Code(s): R06.02 - SHORTNESS OF BREATH Status: Acute (2) Acute hypoxemic respiratory failure Code(s): J96.01 - ACUTE RESPIRATORY FAILURE WITH HYPOXIA Status: Acute Comment: Bipap on and off .ion due to sleep apnea (3) DVT (deep venous thrombosis) Code(s): I82.409 - ACUTE EMBOLISM AND THOMBOS UNSP DEEP VN UNSP LOWER EXTREMITY Status: Chronic Comment: on eliquis (4) HTN (hypertension) Code(s): I10 - ESSENTIAL (PRIMARY) HYPERTENSION Status: Chronic Comment: stable (5) Morbid obesity Code(s): E66.01 - MORBID (SEVERE) OBESITY DUE TO EXCESS CALORIES Status: Chronic (6) NGA (obstructive sleep apnea) Code(s): G47.33 - OBSTRUCTIVE SLEEP APNEA (ADULT) (PEDIATRIC) Status: Chronic (7) Paroxysmal atrial fibrillation Code(s): I48.0 - PAROXYSMAL ATRIAL FIBRILLATION Status: Chronic Comment: rate controlledcont toprol. .on OAC - Plan * lengthy discussion held with family yesterday, overall poor prognosis due to compliance issues * at this point in time will consult hospice services for evaluation, this was discussed with both sisters yesterday and they agreed * the patient needs to lose weight and have a sleep apnea study, its possible that chronic hypercarbia and hypoxia may be causing his changes in mental status , but unless he loses weight his overall prognosis remains poor * for now it was decided, after discussion with family, that the patient will be evaluated for hospice services and taking it day to day * patient intubated for now for airway protection, defer management to pulmonary * cont current medical plan of care otherwise with no changes
--- NOTE | 2018-12-07 12:47 | PRG ---
DATE OF SERVICE: SUBJECTIVE: Mr. Ballard required emergency intubation as this outlined in the chart. This occurred yesterday. He is not sleeping. He is on the ventilator. OBJECTIVE: VITAL SIGNS: Blood pressure 113/56, pulse is 60. LUNGS: Clear, but lung sounds are distant. CARDIAC: Distant heart sounds. ABDOMEN: Obese, nontender. EXTREMITIES: Uvqaepsf-eh-lesdfr edema. ASSESSMENT: 1. Respiratory failure. 2. Probable obesity hypoventilation syndrome. PLAN: He is continuing diuretics. He is on amlodipine for blood pressure. We will go ahead and reduce the dose of that as it does have a tendency to have him one retained fluid. Prognosis is guarded in this gentleman. Job ID: [id number]
[2018-12-07] MEDS: Micafungin 100 MG in Sodium Chloride 0.9% 100 ML IVPB SCH (14:02)
[2018-12-08] MEDS: Acetaminophen 325 MG TAB PO PRN (04:12)
[2018-12-08 04:44] LABS: #Basophils 0.1 thou/uL (0.0-0.2); #Eosinphils 0.2 thou/uL (0.0-0.7); #Lymphocytes 1.3 thou/uL (1.20-3.40); %Basophils 0.8 % (0.0-1.0); %Eosinophils 2.4 % (0.0-10.0); %Lymphocytes 13.8 % (21.0-51.0); %Monocytes 10.2 % (0.0-10.0); %Neutrophils 72.8 % (42.0-75.0); Hemoglobin 12.8 g/dL (14.0-18.0); Mean Corpuscular HGB CONC 32.8 g/dL (32.0-36.0); Mean Corpuscular Hemoglobin 31.6 pg (27.0-31.0); Mean Corpuscular Volume 96.2 fL (78.0-98.0); Mean Platelet Volume 6.2 fL (7.4-10.4); Platelet Count 367 thou/uL (130-400); RBC Distribution Width 13.6 % (11.5-14.5); Red Blood Cell (RBC) Count 4.06 mill/uL (4.70-6.10); White Blood Cell (WBC) Count 9.7 thou/uL (4.8-10.8)
[2018-12-08 05:05] LABS: Anion Gap 15 mmol/L (10-20); BUN (Urea Nitrogen) 33 mg/dL (8.4-25.7); Calc. Creatinine Clearance 141 mL/min (70-130); Calcium 9.8 mg/dL (7.8-10.44); Carbon Dioxide 33 mmol/L (23-31); Chloride 97 mmol/L (98-107); Estimated GFR-MDRD 63; Glucose 94 mg/dL (80-115); Potassium 3.8 mmol/L (3.5-5.1); Sodium 141 mmol/L (136-145)
[2018-12-08] MEDS: Furosemide 40 MG/4 ML VIAL SLOW IVP SCH ×2 (06:00→13:38)
[2018-12-08 06:34] LABS: Actual Bicarbonate (HCO3a) 32.7 mEq/L (22-28); Base Excess (BEa) 6.8 mEq/L (-2.0 to +3.0); CO2 Tension 51.5 mmHg (35.0-45.0); Calcium, Ionized 1.18 mmol/L (1.12-1.30); Carboxyhemoglobin (COHb) 1.2 gm% (0.0-3.0); Hemoglobin (Hb) 13.3 g/dL (14.0-18.0); O2 Tension (PaO2) 86.6 mmHg (> 80.0); Potassium - ABG Lab 3.82 mmol/L (3.70-5.30); pH, Arterial 7.42 (7.35-7.45)
[2018-12-08 06:38] LABS: Puncture Site RRA
[2018-12-08 06:39] LABS: ALV-art Gradient 155.615 (0-20)
[2018-12-08] MEDS: fentaNYL Citrate/PF 2,000 MCG in Sodium Chloride 0.9% 60 ML IV SCH (07:25)
[2018-12-08] MEDS: Allopurinol 100 MG TAB PO SCH ×2 (07:46→20:40)
[2018-12-08] MEDS: Amlodipine 5 MG TAB PO SCH (07:47)
[2018-12-08] MEDS: Docusate 100 MG CAP PO SCH ×2 (07:47→20:40)
[2018-12-08] MEDS: Hydrochlorothiazide 25 MG TAB PO SCH (07:47)
[2018-12-08] MEDS: Famotidine 20 MG TAB PO SCH ×2 (07:48→20:40)
[2018-12-08] MEDS: Apixaban 5 MG TAB PO SCH ×2 (07:52→20:40)
[2018-12-08] MEDS ORDERED: Apixaban 5 MG TAB PO SCH (08:00)
[2018-12-08] MEDS: Cefepime 1 GM in Sodium Chloride 0.9% 100 ML IVPB SCH ×2 (08:39→20:39)
--- NOTE | 2018-12-08 08:47 | PRG ---
DATE OF SERVICE: 12/08/2018 SUBJECTIVE: Morbidly obese gentleman, intubated, sedated on fentanyl and Diprivan. He has severe obstructive sleep apnea and x-ray shows findings consistent with cardiogenic edema. He has stasis. OBJECTIVE: VITAL SIGNS: Blood pressure is 136/57, pulse 72, saturations are 95%, respirations 20. He is afebrile. CHEST: Extensive rhonchi and crackles. CARDIAC: Sinus tach. ABDOMEN: Massive. NEUROLOGIC: He is sedated. LABORATORY DATA: His PO2 is 86, pCO2 is 51, pH 7.42 on a rate of 15, 43% FiO2 tidal volume. White count 9.7. His lytes are normal. He had bronch washings done, so far cultures are negative. IMPRESSION: 1. Respiratory failure. 2. Morbid obesity. 3. Sleep apnea. 4. Diastolic dysfunction. 5. Possibly superimposed pneumonia. PLAN: He is clearly not weanable at this stage. We will start low-dose nutrition and broad-spectrum antibiotics, diuretics, neb treatments. I am going to start low-dose steroids. One-half hour of critical care time. Job ID: [id number]
--- NOTE | 2018-12-08 09:03 | RAD ---
PORTABLE CHEST 1 VIEW: DATE: 12/08/2018. TIME: 3:19 a.m. HISTORY: Respiratory failure. FINDINGS: Comparison is made with the exam of the previous day. Interval placement of an endotracheal tube is seen with tip at the level of the clavicular heads. Bi lateral parenchymal opacities are again seen. No pneumothoraces or large effusions are identified. There is an orogastric tube which can be traced to the level of the distal esophagus and not definite ly into the stomach. This was brought to the attention of the patient's nurse, Toby Jain, at 8:24 a.m. (over the tel ephone). CODE CR POS: [facility]
--- NOTE | 2018-12-08 09:20 | PDOC.CTH ---
Cardiology Progress Note - Subjective Intubated, sedated. No pressors. On ABx, ACT - Objective Vital Signs Temp Pulse Resp BP Pulse Ox 12/08/18 07:47 72 136/57 L 12/08/18 07:27 18 94 L 12/08/18 07:00 100.1 F H 12/08/18 06:26 72 136/57 L 12/08/18 06:00 18 12/08/18 04:00 100.7 F H 12/08/18 03:58 18 12/08/18 02:25 71 146/63 H 12/08/18 00:00 99.6 F 12/07/18 22:10 72 138/56 L Admit Weight 350 lb Weight 334 lb 0.005 oz 12/07/18 12/08/18 12/09/18 06:59 06:59 06:59 Intake Total 763.8 831 0 Output Total 2380 3850 760 Balance -1616.2 -6805 -428 - Physical Examination General/Neuro: NAD Neck: no JVD present Lungs: CTA, unlabored respirations Heart: PMI normal Abdomen: NT/ND, soft Extremities: + femoral B - Labs Result Diagrams: 12/08/18 04:13 12/08/18 04:13 Troponin/CKMB Troponin I Less than 0.010 ng/mL (< 0.028) 12/02/18 22:35 - Assessment/Plan Respiratory failure DVT Morbid obesity Pneumonia Afib on ACT Cellulitis Abx ACT Respiratory support per pulmonary
--- NOTE | 2018-12-08 10:01 | PDOC.PN ---
- Subjective Encounter Start Date: 12/08/18 Encounter Start Time: 12:10 -: non-verbal Subjective: Patient remains sedated on the vent - Objective Resuscitation Status - Order Detail: 12/02/18 18:58 Resuscitation Status Routine Resuscitation Status: FULL: Full Resuscitation MAR Reviewed: Yes Vital Signs & Weight: Vital Signs (12 hours) Temp Pulse Resp BP Pulse Ox 12/08/18 07:47 72 136/57 L 12/08/18 07:27 18 94 L 12/08/18 07:00 100.1 F H 12/08/18 06:26 72 136/57 L 12/08/18 06:00 18 12/08/18 04:00 100.7 F H 12/08/18 03:58 18 12/08/18 02:25 71 146/63 H 12/08/18 00:00 99.6 F 12/07/18 22:10 72 138/56 L Weight Admit Weight 350 lb Weight 334 lb 0.005 oz Most Recent Monitor Data Heart Rate from ECG 71 NIBP 144/66 NIBP BP-Mean 92 Respiration from ECG 13 SpO2 94 I&O: 12/07/18 12/08/18 12/09/18 06:59 06:59 06:59 Intake Total 763.8 831 0 Output Total 2380 0490 760 Balance -1616.2 -3019 -760 Result Diagrams: 12/08/18 04:13 12/08/18 04:13 Phys Exam - Physical Examination HEENT: moist MMs Respiratory: no wheezing, no rales, no rhonchi Cardiovascular: RRR Gastrointestinal: soft, positive bowel sounds Musculoskeletal: no edema Neurological: non-focal Deviation from normal: sedated on vent Dx/Plan (1) Acute on chronic respiratory failure with hypoxia and hypercapnia Code(s): J96.21 - ACUTE AND CHRONIC RESPIRATORY FAILURE WITH HYPOXIA; J96.22 - ACUTE AND CHRONIC RESPIRATORY FAILURE WITH HYPERCAPNIA Status: Acute Comment : likely due to NGA, diastolic CHF, currently intubated and not weanable (2) Morbid obesity Code(s): E66.01 - MORBID (SEVERE) OBESITY DUE TO EXCESS CALORIES Status: Chronic (3) NGA (obstructive sleep apnea) Code(s): G47.33 - OBSTRUCTIVE SLEEP APNEA (ADULT) (PEDIATRIC) Status: Chronic (4) Diastolic CHF Code(s): I50.30 - UNSPECIFIED DIASTOLIC (CONGESTIVE) HEART FAILURE Status: Acute Comment: normal EF - Plan cont current plan of care, continue antibiotics, respiratory therapy see note from yesterday and discussion with family, will consult -: palliative care * . - Discharge Day Encounter end time: 12:25
[2018-12-08] MEDS: methylPREDNISolone Sod Succ 40 MG VIAL IVP SCH ×3 (11:12→23:46)
[2018-12-08] MEDS: Micafungin 100 MG in Sodium Chloride 0.9% 100 ML IVPB SCH (14:57)
[2018-12-08 21:06] LABS: IgG Subclass 4 30 mg/dL (2-96)
[2018-12-08] MEDS: Propofol 1,000 MG/100 ML VIAL IV PRN (22:16)
[2018-12-09] MEDS: Propofol 1,000 MG/100 ML VIAL IV PRN ×3 (01:33→16:45)
[2018-12-09 05:07] LABS: #Lymphocytes 0.6 thou/uL (1.20-3.40); #Monocytes 0.2 thou/uL (0.11-0.59); #Neutrophils 10.7 thou/uL (1.40-6.50); %Basophils 0.1 % (0.0-1.0); %Eosinophils 0.2 % (0.0-10.0); %Lymphocytes 4.9 % (21.0-51.0); %Monocytes 1.9 % (0.0-10.0); %Neutrophils 92.9 % (42.0-75.0); Hemoglobin 13.1 g/dL (14.0-18.0); Mean Corpuscular HGB CONC 32.3 g/dL (32.0-36.0); Mean Corpuscular Hemoglobin 30.9 pg (27.0-31.0); Mean Corpuscular Volume 95.7 fL (78.0-98.0); Mean Platelet Volume 6.4 fL (7.4-10.4); Platelet Count 400 thou/uL (130-400); RBC Distribution Width 13.4 % (11.5-14.5); Red Blood Cell (RBC) Count 4.23 mill/uL (4.70-6.10); White Blood Cell (WBC) Count 11.5 thou/uL (4.8-10.8)
[2018-12-09 05:27] LABS: Anion Gap 15 mmol/L (10-20); BUN (Urea Nitrogen) 42 mg/dL (8.4-25.7); Calc. Creatinine Clearance 118 mL/min (70-130); Calcium 10.1 mg/dL (7.8-10.44); Carbon Dioxide 32 mmol/L (23-31); Chloride 97 mmol/L (98-107); Estimated GFR-MDRD 52; Glucose 207 mg/dL (80-115); Potassium 4.1 mmol/L (3.5-5.1); Sodium 140 mmol/L (136-145)
[2018-12-09] MEDS: Furosemide 40 MG/4 ML VIAL SLOW IVP SCH ×2 (05:54→13:06)
[2018-12-09] MEDS: methylPREDNISolone Sod Succ 40 MG VIAL IVP SCH ×3 (05:54→16:44)
[2018-12-09] MEDS: Hydrochlorothiazide 25 MG TAB PO SCH (07:56)
[2018-12-09] MEDS: Famotidine 20 MG TAB PO SCH ×2 (07:56→20:39)
[2018-12-09] MEDS: Docusate 100 MG CAP PO SCH ×2 (07:56→20:40)
[2018-12-09] MEDS: Apixaban 5 MG TAB PO SCH ×2 (07:56→20:39)
[2018-12-09] MEDS: Amlodipine 5 MG TAB PO SCH (07:56)
[2018-12-09] MEDS: Cefepime 1 GM in Sodium Chloride 0.9% 100 ML IVPB SCH ×2 (07:57→20:38)
[2018-12-09] MEDS: Allopurinol 100 MG TAB PO SCH ×2 (07:57→20:39)
--- NOTE | 2018-12-09 08:15 | PDOC.CTH ---
Cardiology Progress Note - Subjective The pt seen and examined. No overnight events. He is on Vent with vent sedation. - Objective Vital Signs Temp Pulse Resp BP Pulse Ox 12/09/18 07:56 75 12/09/18 07:04 75 15 96 12/09/18 06:59 14 96 12/09/18 06:00 14 12/09/18 04:00 100.3 F H 12 12/09/18 02:55 74 142/57 H 12/09/18 02:00 14 12/09/18 00:20 75 143/54 H 12/09/18 00:00 99.9 F H 14 12/08/18 22:00 79 14 148/70 H Admit Weight 350 lb Weight 327 lb 9.71 oz 12/08/18 12/09/18 12/10/18 06:59 06:59 06:59 Intake Total 831 1033.9 0 Output Total 3850 2805 160 Balance -3019 -1771.1 -160 - Physical Examination Lungs: other: (diminished at bases) Heart: other: (irregular) Abdomen: soft Extremities: other: (generalized edema; dressing to BLE) - Telemetry Telemetry Rhythm: AFib - Labs Result Diagrams: 12/09/18 04:52 12/09/18 04:52 Troponin/CKMB Troponin I Less than 0.010 ng/mL (< 0.028) 12/02/18 22:35 - Assessment/Plan 1. Prox Afib - well controlled HR with Metoplrolol 25mg qd; He has been on Eliquis for a few wks by Dr Bolaños. On Eliquis 10mg BID for DVT/PE since (may change to 5mg BID on 12/10/2018). 2. DVT/PE - on Eliquis 10mg BID by tax specialist 3. RBBB with unknown etiology - He is not a good candidate for Cath 4. HTN - stable 5. BLE Cellulitis - 6. Sleep Apnea with S/p intubation 7. Hep C - 8. Obese MAR reviewed * Echo on 12/03/2018 with EF 50-55%, normal Rt ventricle cavity and Lt atrium. * Per Dr Bolaños - Echo from earlier this year indicated an EF of 50-55% - He was unable to perform a PET scan on this pt. as he was unable to lie down for the study). Pt. seen and eval. by me. He is on the ventilator and comfortable. the CXR has improved over last week. I agree with the A/P by the DENTAL MECHANIC.He has severe sleep apnea and diastolic CHF. Continue present therapy but he may be getting to a dry weight for him. BUN/Cret is increasing. Will continue to follow carefully. Chest clear anteriorly. RRR this AM, apears to be sinus this AM. md everardo Review of Systems - Review of Systems Constitutional: reports: see HPI
--- NOTE | 2018-12-09 09:30 | RAD ---
CHEST ONE VIEW: Comparison: 12-08-18 History: Infiltrate follow up. FINDINGS: Redemonstration of an endotracheal tube. Nasogastric tube is also identified, the distal tip difficul t to evaluate. Heart is enlarged. There are patchy interstitial alveolar opacities throughout the sally g parenchyma. No pneumothorax or pleural effusion. IMPRESSION: 1. Persistent opacification lung parenchyma suggesting alveolar and interstitial infiltrate. 2. Endotracheal tube is unchanged. 3. Nasogastric tube is difficult to assess and the confirmation that this nasogastric tube is extende d beyond the diaphragm is difficult to determine on this exam. Correlate clinically. This recommendat ion was made on 12-08-18 as well. Code T POS: [facility]
--- NOTE | 2018-12-09 09:42 | PDOC.PN ---
- Subjective Encounter Start Date: 12/09/18 Encounter Start Time: 11:20 Subjective: Patient remains intubated and sedated. No events overnight. - Objective Resuscitation Status - Order Detail: 12/02/18 18:58 Resuscitation Status Routine Resuscitation Status: FULL: Full Resuscitation MAR Reviewed: Yes Vital Signs & Weight: Vital Signs (12 hours) Temp Pulse Resp BP Pulse Ox 12/09/18 07:56 75 12/09/18 07:04 75 15 96 12/09/18 06:59 14 96 12/09/18 06:00 14 12/09/18 04:00 100.3 F H 12 12/09/18 02:55 74 142/57 H 12/09/18 02:00 14 12/09/18 00:20 75 143/54 H 12/09/18 00:00 99.9 F H 14 12/08/18 22:00 79 14 148/70 H Weight Admit Weight 350 lb Weight 327 lb 9.71 oz Most Recent Monitor Data Heart Rate from ECG 80 NIBP 162/74 NIBP BP-Mean 103 Respiration from ECG 29 SpO2 95 I&O: 12/08/18 12/09/18 12/10/18 06:59 06:59 06:59 Intake Total 831 1033.9 0 Output Total 3850 2805 490 Balance -3019 -1771.1 -490 Result Diagrams: 12/09/18 04:52 12/09/18 04:52 Phys Exam - Physical Examination sedated on vent HEENT: moist MMs Respiratory: no rales, no rhonchi good air movement on the vent Cardiovascular: RRR, no significant murmur Gastrointestinal: soft, positive bowel sounds stasis ulcers to BLE Deviation from normal: sedated on vent Dx/Plan (1) Acute on chronic respiratory failure with hypoxia and hypercapnia Code(s): J96.21 - ACUTE AND CHRONIC RESPIRATORY FAILURE WITH HYPOXIA; J96.22 - ACUTE AND CHRONIC RESPIRATORY FAILURE WITH HYPERCAPNIA Status: Acute Comment : likely due to NGA, diastolic CHF, currently intubated and not weanable (2) Morbid obesity Code(s): E66.01 - MORBID (SEVERE) OBESITY DUE TO EXCESS CALORIES Status: Chronic (3) NGA (obstructive sleep apnea) Code(s): G47.33 - OBSTRUCTIVE SLEEP APNEA (ADULT) (PEDIATRIC) Status: Chronic (4) Diastolic CHF Code(s): I50.30 - UNSPECIFIED DIASTOLIC (CONGESTIVE) HEART FAILURE Status: Acute Comment: normal EF (5) DVT (deep venous thrombosis) Code(s): I82.409 - ACUTE EMBOLISM AND THOMBOS UNSP DEEP VN UNSP LOWER EXTREMITY Status: Chronic Comment: on eliquis initiation dose, can convert to 5mg BID 12/10 per cardiology (6) Paroxysmal atrial fibrillation Code(s): I48.0 - PAROXYSMAL ATRIAL FIBRILLATION Status: Chronic Comment: rate controlledcont toprol. On OAC (7) HTN (hypertension) Code(s): I10 - ESSENTIAL (PRIMARY) HYPERTENSION Status: Chronic Comment: stable (8) Hepatitis C Code(s): B19.20 - UNSPECIFIED VIRAL HEPATITIS C WITHOUT HEPATIC COMA Status: Chronic - Plan cont current plan of care, continue antibiotics, respiratory therapy wean vent as directed by Dr. Aguilar * . - Discharge Day Encounter end time: 11:30
[2018-12-09] MEDS: Micafungin 100 MG in Sodium Chloride 0.9% 100 ML IVPB SCH (14:10)
--- NOTE | 2018-12-09 15:44 | PRG ---
DATE OF SERVICE: 12/09/2018 SUBJECTIVE: Travon Ballard apparently deteriorated on Saturday and required intubation. He is stabilized over the weekend. He has been kept sedated. OBJECTIVE: VITAL SIGNS: His blood pressure is 135/54, heart rate is 81, and respiratory rates in the teens. GENERAL: His sedation is held. He apparently will awake. LUNGS: Clear anteriorly. HEART: Regular rhythm. S1 and S2 are normal. ABDOMEN: Soft and nontender. EXTREMITIES: Without clubbing, cyanosis, or edema. LABORATORY DATA: White count 11.5, hemoglobin 13.1, and platelets 400,000. Sodium 140, potassium 4.1, chloride 97, bicarb 32, BUN 42, and creatinine 1.38. Intake and outputs negative 1770. He has had a negative fluid balance of at least 1 L every day since the . Blood gas, pH 7.42, pCO2 of 51, and pO2 of 86. There is no blood gas today. IMPRESSION AND PLAN: Radiograph findings consistent with pulmonary edema, although we would have expected improvement in his x-ray. Other alveolar filling process is certainly in the differential including alveolar hemorrhage given recent initiation of anticoagulants. We will check a chest x-ray in the morning. If it is not improving, may consider bronchoscopy in the morning with lavage of his middle lobe looking for hemosiderin-laden macrophages. We may consider decreased ventilatory support. CRITICAL CARE TIME: 30 minutes. Job ID: [id number]
[2018-12-09 16:09] LABS: Cytoplasmic (C-ANCA) <1:20 titer (Neg:<1:20); Myeloperoxidase AutoAbs <9.0 U/mL (0.0-9.0); Perinuclear (P-ANCA) <1:20 titer (Neg:<1:20); Proteinase-3 AutoAbs Less than 3.5 U/mL (0.0-3.5)
[2018-12-09] MEDS: fentaNYL Citrate/PF 2,000 MCG in Sodium Chloride 0.9% 60 ML IV SCH (16:45)
[2018-12-09] MEDS: Acetaminophen 325 MG TAB PO PRN (20:39)
[2018-12-10] MEDS: methylPREDNISolone Sod Succ 40 MG VIAL IVP SCH ×4 (00:11→18:14)
[2018-12-10] MEDS: Acetaminophen 325 MG TAB PO PRN ×4 (01:35→22:00)
[2018-12-10] MEDS: Propofol 1,000 MG/100 ML VIAL IV PRN (03:59)
[2018-12-10] MEDS: Furosemide 40 MG/4 ML VIAL SLOW IVP SCH (05:06)
[2018-12-10 05:29] LABS: Anion Gap 13 mmol/L (10-20); BUN (Urea Nitrogen) 60 mg/dL (8.4-25.7); Calc. Creatinine Clearance 100 mL/min (70-130); Carbon Dioxide 36 mmol/L (23-31); Chloride 97 mmol/L (98-107); Estimated GFR-MDRD 43; Glucose 239 mg/dL (80-115); Potassium 3.8 mmol/L (3.5-5.1); Sodium 142 mmol/L (136-145)
[2018-12-10 05:40] LABS: Band 8 % (5-11); Hemoglobin 13.5 g/dL (14.0-18.0); Lymphocytes 5 % (21-51); MDiff Complete? YES; Mean Corpuscular Hemoglobin 29.9 pg (27.0-31.0); Mean Corpuscular Volume 96.4 fL (78.0-98.0); Mean Platelet Volume 6.5 fL (7.4-10.4); Monocytes 3 % (0-10); Neutrophil 84 % (42-75); Platelet Count 455 thou/uL (130-400); Red Blood Cell (RBC) Count 4.51 mill/uL (4.70-6.10); White Blood Cell (WBC) Count 17.9 thou/uL (4.8-10.8)
[2018-12-10 07:01] LABS: Actual Bicarbonate (HCO3a) 37.6 mEq/L (22-28); Base Excess (BEa) 10.9 mEq/L (-2.0 to +3.0); CO2 Tension 58.6 mmHg (35.0-45.0); Carboxyhemoglobin (COHb) 1.3 gm% (0.0-3.0); Hemoglobin (Hb) 13.8 g/dL (14.0-18.0); O2 Tension (PaO2) 105.7 mmHg (> 80.0); Potassium - ABG Lab 3.65 mmol/L (3.70-5.30); pH, Arterial 7.43 (7.35-7.45)
[2018-12-10 07:03] LABS: Puncture Site RRA
--- NOTE | 2018-12-10 07:51 | RAD ---
XR Chest 1 View Portable HISTORY: Respiratory failure COMPARISON: Previous day FINDINGS: No significant interval change is seen since the previous day's exam IMPRESSION: Stable exam
[2018-12-10] MEDS: Cefepime 1 GM in Sodium Chloride 0.9% 100 ML IVPB SCH ×2 (09:13→20:13)
[2018-12-10] MEDS: Amlodipine 5 MG TAB PO SCH (09:17)
[2018-12-10] MEDS: Famotidine 20 MG TAB PO SCH ×2 (09:17→20:14)
[2018-12-10] MEDS: Docusate 100 MG CAP PO SCH ×2 (09:17→20:14)
[2018-12-10] MEDS: Hydrochlorothiazide 25 MG TAB PO SCH (09:17)
[2018-12-10] MEDS: Apixaban 5 MG TAB PO SCH ×2 (09:19→20:14)
[2018-12-10] MEDS: Allopurinol 100 MG TAB PO SCH ×2 (09:19→20:14)
--- NOTE | 2018-12-10 11:03 | PDOC.CTH ---
Cardiology Progress Note - Subjective The pt seen and examined. No overnight events. He is still on Vent with Vent sedation. - Objective Vital Signs Temp Pulse Resp BP Pulse Ox 12/10/18 09:17 77 150/70 H 12/10/18 07:00 98.7 F 12/10/18 06:54 77 150/70 H 12/10/18 06:50 76 15 96 12/10/18 06:00 13 12/10/18 04:00 99.0 F 10 L 12/10/18 02:21 90 164/65 H 12/10/18 02:00 13 12/10/18 00:05 98 152/66 H 12/10/18 00:00 102.4 F H 17 Admit Weight 350 lb Weight 328 lb 4.293 oz 12/09/18 12/10/18 12/11/18 06:59 06:59 06:59 Intake Total 1033.9 1626 Output Total 2805 2565 250 Balance -1771.1 -939 -250 - Physical Examination Lungs: other: (diminished at bases) Heart: other: (irregular) Abdomen: soft Extremities: other: (No edema to BLE) - Telemetry Telemetry Rhythm: Afib with stable HR - Labs Result Diagrams: 12/10/18 04:24 12/10/18 04:24 Troponin/CKMB Troponin I Less than 0.010 ng/mL (< 0.028) 12/02/18 22:35 - Assessment/Plan 1. Prox Afib - well controlled HR with Metoplrolol 25mg qd; He has been on Eliquis for a few wks by Dr Bolaños. On Eliquis 10mg BID for DVT/PE since (may change to 5mg BID on 12/10/2018). 2. DVT/PE - on Eliquis 10mg BID by maternal fetal physician 3. RBBB with unknown etiology - He is not a good candidate for Cath 4. HTN - stable 5. BLE Cellulitis - 6. Sleep Apnea with S/p intubation 7. Hep C - 8. Obese 9. Elevated BUN/Cr level - decrease Lasix 40mg IV from BID to qd MAR reviewed * Echo on 12/03/2018 with EF 50-55%, normal Rt ventricle cavity and Lt atrium. * Per Dr Bolaños - Echo from earlier this year indicated an EF of 50-55% - He was unable to perform a PET scan on this pt. as he was unable to lie down for the study). Pt. seen and eval. by me. I agree with the A/P by the SWEEPER DRIVER. Still on ventilator. He has converted to NSR. Chest clear anteriorly. RRR. gjm Review of Systems - Review of Systems Constitutional: reports: see HPI
--- NOTE | 2018-12-10 12:03 | PDOC.PN ---
- Subjective Encounter Start Date: 12/10/18 Encounter Start Time: 12:00 Subjective: Patient remains intubated and sedated. Spiked a fever to 102 overnight. -: No bowel movements. - Objective Resuscitation Status - Order Detail: 12/02/18 18:58 Resuscitation Status Routine Resuscitation Status: FULL: Full Resuscitation MAR Reviewed: Yes Vital Signs & Weight: Vital Signs (12 hours) Temp Pulse Resp BP Pulse Ox 12/10/18 11:25 99 170/77 H 12/10/18 09:17 77 150/70 H 12/10/18 07:00 98.7 F 12/10/18 06:54 77 150/70 H 12/10/18 06:50 76 15 96 12/10/18 06:00 13 12/10/18 04:00 99.0 F 10 L 12/10/18 02:21 90 164/65 H 12/10/18 02:00 13 12/10/18 00:05 98 152/66 H Weight Admit Weight 350 lb Weight 328 lb 4.293 oz Most Recent Monitor Data Heart Rate from ECG 76 NIBP 145/66 NIBP BP-Mean 92 Respiration from ECG 12 SpO2 96 I&O: 12/09/18 12/10/18 12/11/18 06:59 06:59 06:59 Intake Total 1033.9 1626 Output Total 2805 2565 250 Balance -1771.1 -939 -250 Result Diagrams: 12/10/18 04:24 12/10/18 04:24 Phys Exam - Physical Examination HEENT: moist MMs ET tube in place Respiratory: no wheezing, no rales, no rhonchi Cardiovascular: RRR Gastrointestinal: soft, positive bowel sounds Musculoskeletal: no edema Deviation from normal: sedated on the vent Dx/Plan (1) Sepsis Code(s): A41.9 - SEPSIS, UNSPECIFIED ORGANISM Status: Acute Comment: Worsening leukocytosis, creatinine, and fever to 102 overnight . On Cefepime since 12/08/18. (2) Acute on chronic respiratory failure with hypoxia and hypercapnia Code(s): J96.21 - ACUTE AND CHRONIC RESPIRATORY FAILURE WITH HYPOXIA; J96.22 - ACUTE AND CHRONIC RESPIRATORY FAILURE WITH HYPERCAPNIA Status: Acute Comment : likely due to NGA, diastolic CHF, currently intubated and not weanable (3) Morbid obesity Code(s): E66.01 - MORBID (SEVERE) OBESITY DUE TO EXCESS CALORIES Status: Chronic (4) NGA (obstructive sleep apnea) Code(s): G47.33 - OBSTRUCTIVE SLEEP APNEA (ADULT) (PEDIATRIC) Status: Chronic (5) Diastolic CHF Code(s): I50.30 - UNSPECIFIED DIASTOLIC (CONGESTIVE) HEART FAILURE Status: Acute Comment: normal EF (6) DVT (deep venous thrombosis) Code(s): I82.409 - ACUTE EMBOLISM AND THOMBOS UNSP DEEP VN UNSP LOWER EXTREMITY Status: Chronic Comment: on eliquis initiation dose, converted to 5mg BID per cardiology recs (7) Paroxysmal atrial fibrillation Code(s): I48.0 - PAROXYSMAL ATRIAL FIBRILLATION Status: Chronic Comment: rate controlledcont toprol. On OAC (8) HTN (hypertension) Code(s): I10 - ESSENTIAL (PRIMARY) HYPERTENSION Status: Chronic Comment: stable (9) Hepatitis C Code(s): B19.20 - UNSPECIFIED VIRAL HEPATITIS C WITHOUT HEPATIC COMA Status: Chronic (10) Acute renal failure (ARF) Status: Acute Comment: possibly ATN - Plan cont current plan of care, continue antibiotics, respiratory therapy diuresing well, spiking fever and increased WBC concerning for infection -: on Cefepime, already on DVT prophylaxis with Eliquis * . - Discharge Day Encounter end time: 12:15
[2018-12-10 15:40] LABS: ANA Symphony (Qualitative) Negative (Negative); ANA Symphony (Quantitative) 0.1 Ratio (< 0.7 Negative); CCP IgG Antibody 0.8 EliAU/mL (<7 Negative); EliA RAS New Method **** NEW METHOD ****; Jo-1 IgG Antibody Less than 0.3 EliAU/mL (<7 Negative); Rheumatoid Factor IgA Antibody 8.4 IU/mL (<14 Negative); Rheumatoid Factor IgM Antibody Less than 0.5 IU/mL (<3.5 Negative); dsDNA IgG Antibody 0.6 IU/mL (<10 Negative)
--- NOTE | 2018-12-10 15:50 | PRG ---
DATE OF SERVICE: 12/10/2018 SUBJECTIVE: Mr. Ballard is little agitated if he is allowed to awaken. We started Precedex today and tried to wean him off propofol. He is doing well with pressure support ventilation. OBJECTIVE: VITAL SIGNS: Blood pressure 147/61, heart rate 88, respiratory rate in the teens, minute volume is 8 to 9 L a minute. LUNGS: Distant and clear. HEART: Regular rate and rhythm. ABDOMEN: Soft and nontender. EXTREMITIES: With chronic stasis changes. DIAGNOSTIC DATA: Chest radiograph still shows bilateral infiltrates. Bronchial lavage is growing multiple organisms. IMPRESSION: 1. Diffuse infiltrates, most likely secondary to diastolic dysfunction. 2. Untreated sleep apnea. 3. Life-threatening obesity. 4. Chronic stasis changes in bilateral lower extremities. 5. History of deep venous thrombosis diagnosed this admission, but probably present longer. Met with his sister and answered all of her questions. We will continue broad antimicrobial therapy for now, although I believe his infiltrates are secondary to alveolar edema. Alveolar hemorrhage is in the differential. Does not have a history suggestive of an immunocompromised host type infection. Cell count on his lavage showed 26,000 red cells, 293 white cells. His ankle workup and vasculitis workup were negative. His HIV was negative. I would consider doing another bronchoscopy to send to cytology looking for hemosiderin in his macrophages. Critical care time is 35 minutes. Job ID: [id number] MTDD
[2018-12-10] MEDS: Micafungin 100 MG in Sodium Chloride 0.9% 100 ML IVPB SCH (16:59)
[2018-12-11] MEDS: methylPREDNISolone Sod Succ 40 MG VIAL IVP SCH ×4 (00:48→18:00)
[2018-12-11] MEDS: Acetaminophen 325 MG TAB PO PRN ×4 (02:15→19:50)
[2018-12-11 05:57] LABS: #Lymphocytes 0.7 thou/uL (1.20-3.40); #Monocytes 0.9 thou/uL (0.11-0.59); %Eosinophils 0.2 % (0.0-10.0); %Lymphocytes 5.3 % (21.0-51.0); %Monocytes 6.3 % (0.0-10.0); %Neutrophils 88.3 % (42.0-75.0); Hemoglobin 14.2 g/dL (14.0-18.0); Mean Corpuscular HGB CONC 31.1 g/dL (32.0-36.0); Mean Corpuscular Hemoglobin 30.1 pg (27.0-31.0); Mean Platelet Volume 6.7 fL (7.4-10.4); Platelet Count 431 thou/uL (130-400); RBC Distribution Width 14.2 % (11.5-14.5); Red Blood Cell (RBC) Count 4.72 mill/uL (4.70-6.10); White Blood Cell (WBC) Count 13.6 thou/uL (4.8-10.8)
[2018-12-11 07:06] LABS: Actual Bicarbonate (HCO3a) 38.8 mEq/L (22-28); Base Excess (BEa) 13.4 mEq/L (-2.0 to +3.0); CO2 Tension 50.7 mmHg (35.0-45.0); Calcium, Ionized 1.22 mmol/L (1.12-1.30); Carboxyhemoglobin (COHb) 1.2 gm% (0.0-3.0); Hemoglobin (Hb) 15.2 g/dL (14.0-18.0); O2 Tension (PaO2) 70.2 mmHg (> 80.0); Potassium - ABG Lab 3.71 mmol/L (3.70-5.30)
[2018-12-11 07:07] LABS: ALV-art Gradient 151.625 (0-20); Puncture Site RRA
--- NOTE | 2018-12-11 07:54 | RAD ---
Single frontal view chest COMPARISON: Previous day INDICATION: Ventilated patient FINDINGS: Endotracheal tube remains in place, tip is at level of thoracic inlet. There is enlargement of cardiac silhouette with bilateral interstitial prominence and perihilar alveolar opacification. Shallow depth of inspiration limits visualization of lung bases. Extrinsic artifacts limit detail. IMPRESSION: Evidence of fluid overload.
[2018-12-11] MEDS ORDERED: Furosemide 40 MG/4 ML VIAL SLOW IVP SCH (09:00)
[2018-12-11 09:15] LABS: Fungus Stain Final report (.)
[2018-12-11] MEDS: Cefepime 1 GM in Sodium Chloride 0.9% 100 ML IVPB SCH ×2 (09:40→19:51)
[2018-12-11] MEDS: Allopurinol 100 MG TAB PO SCH ×2 (09:41→19:50)
[2018-12-11] MEDS: Amlodipine 5 MG TAB PO SCH (09:42)
[2018-12-11] MEDS: Apixaban 5 MG TAB PO SCH ×2 (09:42→19:50)
[2018-12-11] MEDS: Famotidine 20 MG TAB PO SCH ×2 (09:42→19:50)
[2018-12-11] MEDS: Hydrochlorothiazide 25 MG TAB PO SCH (09:42)
[2018-12-11] MEDS: Docusate 100 MG CAP PO SCH ×2 (09:42→19:59)
[2018-12-11] MEDS: fentaNYL Citrate/PF 2,000 MCG in Sodium Chloride 0.9% 60 ML IV SCH (10:42)
[2018-12-11 11:41] LABS: Chloride 99 mmol/L (98-107); Potassium 3.8 mmol/L (3.5-5.1); Sodium 145 mmol/L (136-145)
[2018-12-11 11:42] LABS: Calcium 10.2 mg/dL (7.8-10.44); Glucose 242 mg/dL (80-115)
[2018-12-11 11:44] LABS: Anion Gap 16 mmol/L (10-20); Carbon Dioxide 34 mmol/L (23-31)
[2018-12-11 11:46] LABS: Calc. Creatinine Clearance 109 mL/min (70-130); Estimated GFR-MDRD 47
[2018-12-11 11:47] LABS: BUN (Urea Nitrogen) 69 mg/dL (8.4-25.7)
--- NOTE | 2018-12-11 13:32 | PDOC.PN ---
- Subjective Encounter Start Date: 12/11/18 Encounter Start Time: 11:15 Subjective: sedated on vent -: not in distress - Objective Resuscitation Status - Order Detail: 12/02/18 18:58 Resuscitation Status Routine Resuscitation Status: FULL: Full Resuscitation MAR Reviewed: Yes Vital Signs & Weight: Vital Signs (12 hours) Temp Pulse Resp BP Pulse Ox 12/11/18 12:56 102 H 165/80 H 12/11/18 12:55 102 H 20 93 L 12/11/18 10:42 101 H 175/87 H 12/11/18 10:00 19 12/11/18 09:42 99 173/84 H 12/11/18 08:00 21 H 12/11/18 06:52 94 164/72 H 12/11/18 06:51 98 19 93 L 12/11/18 06:00 19 12/11/18 04:00 100.1 F H 19 12/11/18 02:35 98 179/84 H 12/11/18 02:00 19 Weight Admit Weight 350 lb Weight 332 lb 7.313 oz Most Recent Monitor Data Heart Rate from ECG 97 NIBP 144/70 NIBP BP-Mean 94 Respiration from ECG 22 SpO2 93 I&O: 12/10/18 12/11/18 12/12/18 06:59 06:59 06:59 Intake Total 1626 1537 Output Total 2565 2485 Balance -939 948 Result Diagrams: 12/11/18 04:34 12/11/18 07:50 Phys Exam - Physical Examination HEENT: PERRLA, sclera anicteric Neck: no JVD, supple Respiratory: no wheezing rales+ Cardiovascular: RRR, no significant murmur Gastrointestinal: soft, no distention, positive bowel sounds Musculoskeletal: pulses present, edema present Neurological: non-focal, moves all 4 limbs Dx/Plan (1) Acute on chronic respiratory failure with hypoxia and hypercapnia Code(s): J96.21 - ACUTE AND CHRONIC RESPIRATORY FAILURE WITH HYPOXIA; J96.22 - ACUTE AND CHRONIC RESPIRATORY FAILURE WITH HYPERCAPNIA Status: Acute Comment : likely due to NGA, diastolic CHF, currently intubated (2) Acute renal failure (ARF) Status: Acute (3) Diastolic CHF Code(s): I50.30 - UNSPECIFIED DIASTOLIC (CONGESTIVE) HEART FAILURE Status: Acute Comment: normal EF (4) DVT (deep venous thrombosis) Code(s): I82.409 - ACUTE EMBOLISM AND THOMBOS UNSP DEEP VN UNSP LOWER EXTREMITY Status: Chronic Qualifiers: DVT location: lower extremity Chronicity: acute Laterality: left Comment: on eliquis 5mg BID (5) HTN (hypertension) Code(s): I10 - ESSENTIAL (PRIMARY) HYPERTENSION Status: Chronic Qualifiers: Hypertension type: essential hypertension Qualified Code(s): I10 - Essential (primary) hypertension Comment: stable (6) Hepatitis C Code(s): B19.20 - UNSPECIFIED VIRAL HEPATITIS C WITHOUT HEPATIC COMA Status: Chronic Qualifiers: Viral hepatitis chronicity: chronic Hepatic coma status: without hepatic coma Qualified Code(s): B18.2 - Chronic viral hepatitis C (7) Morbid obesity Code(s): E66.01 - MORBID (SEVERE) OBESITY DUE TO EXCESS CALORIES Status: Chronic Comment: bmi of 47 (8) NGA (obstructive sleep apnea) Code(s): G47.33 - OBSTRUCTIVE SLEEP APNEA (ADULT) (PEDIATRIC) Status: Chronic (9) Paroxysmal atrial fibrillation Code(s): I48.0 - PAROXYSMAL ATRIAL FIBRILLATION Status: Chronic Comment: rate controlled, On OAC - Plan is on iv diuretic, has lost 18 lbs since admission -: weaning per pulm adv, might need trach if not weanable with morbid obesity -: on cefepime, steroids, micafungin, eliquis, norvasc and zoloft -: will need PT on bed when more awake and follows verbal stimuli -: renal function holding up * . Review of Systems - Medications/Allergies Allergies/Adverse Reactions: Allergies Allergy/AdvReac Type Severity Reaction Status Date / Time adhesive tape Allergy Verified 12/02/18 18:35 Medications: Current Medications Acetaminophen (Tylenol) 650 mg PO Q4H PRN PRN Reason: Headache/Fever or Pain Last Admin: 12/11/18 10:26 Dose: 650 mg Albuterol/Ipratropium (Duoneb) 3 ml NEB [id number] [facility] Last Admin: 12/11/18 12:55 Dose: 3 ml Allopurinol (Zyloprim) 100 mg PO BID [facility] Last Admin: 12/11/18 09:41 Dose: 100 mg Amlodipine Besylate (Norvasc) 5 mg PO DAILY [facility] Last Admin: 12/11/18 09:42 Dose: 5 mg Apixaban (Eliquis) 5 mg PO BID [facility] Last Admin: 12/11/18 09:42 Dose: 5 mg Diphenhydramine HCl (Benadryl) 25 mg PO HS PRN PRN Reason: Allergies Docusate Sodium (Colace) 100 mg PO BID [facility] Last Admin: 12/11/18 09:42 Dose: 100 mg Famotidine (Pepcid) 20 mg PO BID [facility] Last Admin: 12/11/18 09:42 Dose: 20 mg Furosemide (Lasix) 40 mg SLOW IVP DAILY [facility] Last Admin: 12/11/18 09:42 Dose: 40 mg Hydrochlorothiazide (Hydrochlorothiazide) 25 mg PO DAILY [facility] Last Admin: 12/11/18 09:42 Dose: 25 mg Fentanyl Citrate 2,000 mcg/ (Sodium Chloride) 100 mls @ 0 mls/hr IV INF [facility]; Protocol Stop: 01/05/19 10:27 Last Admin: 12/11/18 10:42 Dose: 100 mls Fentanyl Citrate (Fentanyl Bolus) 250 mls @ 0 mls/hr IVPB PRN PRN PRN Reason: Breakthrough pain/agitation Stop: 01/05/19 10:27 Micafungin Sodium 100 mg/ (Sodium Chloride) 100 mls @ 100 mls/hr IVPB Q24HR [facility] Last Admin: 12/10/18 16:59 Dose: 100 mls Cefepime HCl 1 gm/ Sodium (Chloride) 100 mls @ 200 mls/hr IVPB Q12HR [facility] Last Admin: 12/11/18 09:40 Dose: 100 mls Dexmedetomidine HCl 400 mcg/ (Sodium Chloride) 100 mls @ 0 mls/hr IVPB INF [facility] Last Admin: 12/11/18 09:40 Dose: 100 mls Lorazepam (Ativan) 0.5 mg SLOW IVP Q6H PRN PRN Reason: Anxiety/Agitation Last Admin: 12/06/18 10:00 Dose: 0.5 mg Lorazepam (Ativan) 2 mg SLOW IVP Q1H PRN PRN Reason: Breakthrough agitation Stop: 01/05/19 10:27 Last Admin: 12/07/18 14:02 Dose: 2 mg Methylprednisolone Sodium Succinate (Solu-Medrol) 40 mg IVP Q6HR [facility] Last Admin: 12/11/18 11:56 Dose: 40 mg Mineral Oil/White Petrolatum (Systane Nighttime Eye Ointment) 0 gm EA EYE PRN PRN PRN Reason: Dry Eyes Miscellaneous Medication (Ventilator Sedation Protocol) 1 each FS ONE [facility] Stop: 01/05/19 10:16 Morphine Sulfate (Morphine) 2 mg SLOW IVP Q1H PRN PRN Reason: BREAKTHROUGH PAIN/Agitation Stop: 01/05/19 10:27 Discontinue Previous Narcotic Pain Medications And Benzodiazepines 1 each FS .ONE [facility] Stop: 01/05/19 10:27 Sertraline HCl (Zoloft) 50 mg PO DAILY [facility] Last Admin: 12/11/18 09:41 Dose: 50 mg Sodium Chloride (Flush - Normal Saline) 10 ml IVF Q12HR [facility] Last Admin: 12/11/18 09:42 Dose: 10 ml Sodium Chloride (Flush - Normal Saline) 10 ml IVF PRN PRN PRN Reason: Saline Flush Last Admin: 12/06/18 10:02 Dose: 10 ml
[2018-12-11] MEDS: Micafungin 100 MG in Sodium Chloride 0.9% 100 ML IVPB SCH (15:16)
[2018-12-11] MEDS ORDERED: Ibuprofen 100 MG/5 ML UDCUP PO PRN (15:27)
[2018-12-11] MEDS ORDERED: Dextrose 5% in Water 1,000 ML IV PRN (16:57)
[2018-12-11] MEDS ORDERED: Dextrose 50% Abboject 50 ML SYRINGE IVP PRN (16:57)
[2018-12-11] MEDS: Vancomycin HCl 1 GM in Premix Bag 1 BAG IVPB SCH (17:14)
[2018-12-11] MEDS: HumaLOG 300 UNITS/3 ML VIAL SC PRN (17:14)
[2018-12-11] MEDS: Bisacodyl 10 MG SUPP PR PRN (17:59)
[2018-12-11] MEDS: Acetaminophen 650 MG/20.3 ML UDCUP PER TUBE PRN (17:59)
--- NOTE | 2018-12-11 18:44 | PRG ---
DATE OF SERVICE: 12/11/2018 SUBJECTIVE: Travon Ballard remains mechanically ventilated. Hemodynamically stable overnight. OBJECTIVE: VITAL SIGNS: ,He has had no low BP with diuresis respiratory rate is in 20s, minute volume is 8 to 9 L a minute. LUNGS: Clear. HEART: Regular rhythm. S1 and S2 are distant. ABDOMEN: Soft and nontender. EXTREMITIES: Without clubbing, cyanosis, or edema. LABORATORY DATA: White count 13.6, hemoglobin 14.2, platelets 431. Sodium 145, potassium 3.8, chloride 99, bicarb 34, BUN 69, and creatinine 1.52. Chest radiographs improved. PH 7.5, CO2 of 50, PO2 of 70. Via cell count, his bronchial lavage showed 26,000 red cells. This may be indicative of some degree of alveolar hemorrhage leading to his pulmonary infiltrate. I feel that he likely has diastolic dysfunction and some degree of alveolar hemorrhage since he was recently started on anticoagulants. He may have had elevated nocturnal blood pressures with his untreated sleep apnea. In any event, we will continue to try to progress slowly toward weaning as his radiograph improves. He appears to be stable at this time. CRITICAL CARE TIME: 30 minutes. Job ID: [id number] MTDD
--- NOTE | 2018-12-11 19:43 | PDOC.CTH ---
Cardiology Progress Note - Objective Vital Signs Temp Pulse Resp BP Pulse Ox 12/11/18 18:28 102 H 162/86 H 12/11/18 16:00 22 H 12/11/18 15:00 103.2 F H 12/11/18 14:27 102 H 167/82 H 12/11/18 14:00 24 H 12/11/18 12:56 102 H 165/80 H 12/11/18 12:55 102 H 20 93 L 12/11/18 12:00 101.4 F H 23 H 12/11/18 10:42 101 H 175/87 H 12/11/18 10:00 19 12/11/18 09:42 99 173/84 H 12/11/18 08:00 101.2 F H 21 H 97 Admit Weight 350 lb Weight 332 lb 7.313 oz 12/10/18 12/11/18 12/12/18 06:59 06:59 06:59 Intake Total 1626 1537 180 Output Total 2565 2485 1065 Balance -939 -948 -885 - Labs Result Diagrams: 12/11/18 04:34 12/11/18 07:50 Troponin/CKMB Troponin I Less than 0.010 ng/mL (< 0.028) 12/02/18 22:35 - Assessment/Plan 1. Parox. Afib - converted to NSR.well controlled HR with Metoplrolol 25mg qd; He has been on Eliquis for a few wks by Dr Bolaños. On Eliquis 10mg BID for DVT/PE since 12/03/2018 (may change to 5mg BID on 12/10/2018). 2. DVT/PE - on Eliquis 10mg BID by administrative supervisor 3. CHF/PNA. Pulmonary infiltrates. continue diuretics and antibiotics. 4. HTN - stable 5. BLE Cellulitis - 6. Sleep Apnea . S/p intubation 7. Hep C - 8. Obese 9. Elevated BUN/Cr level - decrease Lasix 10. Fever. He remains on antibiotics. 11. RBBB MAR reviewed * Echo on 12/03/2018 with EF 50-55%, normal Rt ventricle cavity and Lt atrium. * Per Dr Bolaños - Echo from earlier this year indicated an EF of 50-55% - He was unable to perform a PET scan on this pt. as he was unable to lie down for the study).
[2018-12-11] MEDS ORDERED: Insulin Glargine 10 UNITS in Pre-Filled Syringe SC SCH (21:00)
[2018-12-12] MEDS: methylPREDNISolone Sod Succ 40 MG VIAL IVP SCH ×4 (00:08→18:18)
[2018-12-12] MEDS: HumaLOG 300 UNITS/3 ML VIAL SC PRN ×4 (00:09→16:55)
[2018-12-12 04:48] LABS: Band 9 % (5-11); Hemoglobin 16.7 g/dL (14.0-18.0); Lymphocytes 7 % (21-51); MDiff Complete? YES; Mean Corpuscular HGB CONC 30.5 g/dL (32.0-36.0); Mean Corpuscular Hemoglobin 29.7 pg (27.0-31.0); Mean Corpuscular Volume 97.3 fL (78.0-98.0); Metamyelocyte 1 % (0-0); Monocytes 5 % (0-10); Neutrophil 78 % (42-75); Platelet Count 394 thou/uL (130-400); Platelet Morphology Comment Appears Adequate; RBC Distribution Width 14.3 % (11.5-14.5); Red Blood Cell (RBC) Count 5.61 mill/uL (4.70-6.10); White Blood Cell (WBC) Count 11.9 thou/uL (4.8-10.8)
[2018-12-12 04:59] LABS: Anion Gap 16 mmol/L (10-20); BUN (Urea Nitrogen) 88 mg/dL (8.4-25.7); Calc. Creatinine Clearance 77 mL/min (70-130); Calcium 10.1 mg/dL (7.8-10.44); Carbon Dioxide 33 mmol/L (23-31); Chloride 102 mmol/L (98-107); Estimated GFR-MDRD 32; Glucose 339 mg/dL (80-115); Potassium 3.4 mmol/L (3.5-5.1); Sodium 148 mmol/L (136-145)
[2018-12-12] MEDS: Vancomycin HCl 1 GM in Premix Bag 1 BAG IVPB SCH (05:12)
[2018-12-12 07:25] LABS: Actual Bicarbonate (HCO3a) 34.2 mEq/L (22-28); Base Excess (BEa) 8.2 mEq/L (-2.0 to +3.0); CO2 Tension 51.4 mmHg (35.0-45.0); Carboxyhemoglobin (COHb) 0.9 gm% (0.0-3.0); Hemoglobin (Hb) 16.7 g/dL (14.0-18.0); O2 Tension (PaO2) 96.5 mmHg (> 80.0); Potassium - ABG Lab 3.36 mmol/L (3.70-5.30); pH, Arterial 7.44 (7.35-7.45)
[2018-12-12 07:27] LABS: Puncture Site RB
--- NOTE | 2018-12-12 08:52 | PDOC.CTH ---
Cardiology Progress Note - Subjective The pt seen and examined. No overnight events. On Vent with vent sedation. - Objective Vital Signs Temp Pulse Resp BP 12/12/18 07:58 75 136/81 12/12/18 06:00 12 12/12/18 04:00 99.6 F 21 H 12/12/18 02:08 81 138/75 12/12/18 02:00 16 12/12/18 00:05 94 171/89 H 12/12/18 00:00 102.9 F H 18 12/11/18 22:13 97 174/90 H 12/11/18 22:00 23 H Admit Weight 350 lb Weight 327 lb 13.238 oz 12/11/18 12/12/18 12/13/18 06:59 06:59 06:59 Intake Total 1537 1781.1 Output Total 2485 2235 Balance -948 -453.9 - Physical Examination Lungs: other: (diminished at bases) Heart: RRR Abdomen: soft Extremities: other: (No edema to BLE) - Telemetry Telemetry Rhythm: SR - Labs Result Diagrams: 12/12/18 04:04 12/12/18 04:04 Troponin/CKMB Troponin I Less than 0.010 ng/mL (< 0.028) 12/02/18 22:35 - Assessment/Plan 1. Parox. Afib - converted to NSR. well controlled HR with Metoplrolol 25mg qd; He has been on Eliquis for a few wks by Dr Bolaños. On Eliquis 5mg BID. 2. DVT/PE - on Eliquis 5mg BID; by make up man 3. CHF/PNA. Pulmonary infiltrates. continue diuretics and antibiotics. 4. HTN - stable 5. BLE Cellulitis - 6. Sleep Apnea . S/p intubation 7. Hep C - 8. Obese 9. Elevated BUN/Cr level - decrease Lasix to 20mg via NG tube daily. 10. Fever. He remains on antibiotics. 11. RBBB MAR reviewed * Echo on 12/03/2018 with EF 50-55%, normal Rt ventricle cavity and Lt atrium. * Per Dr Bolaños - Echo from earlier this year indicated an EF of 50-55% - He was unable to perform a PET scan on this pt. as he was unable to lie down for the study). Pt. seen and eval. by me. I agree with the A/P by the ENFORCEMENT SAFETY OFFICER. Chest clear anteriorly. RRR. Minimal edema. Review of Systems - Review of Systems Constitutional: reports: see HPI
[2018-12-12] MEDS ORDERED: Furosemide 20 MG TAB PO SCH (09:00)
[2018-12-12] MEDS ORDERED: methylPREDNISolone Sod Succ 40 MG VIAL IVP SCH (09:08)
--- NOTE | 2018-12-12 09:31 | RAD ---
PORTABLE CHEST: Date: 12/12/18 HISTORY: Respiratory distress. COMPARISON: 12/11/18 study. FINDINGS: Patient is markedly rotated on this study. Heart size is enlarged. Pulmonary vessels and parahilar ma rkings appear slightly more prominent, but this is probably just technique related. Endotracheal tube is in satisfactory position. The tip of the NG tube is difficult to visualize on this exam. IMPRESSION: Cardiomegaly. Parahilar markings appear more prominent, but the patient is severely rotated. I am not certain how much of this is related to technique. Follow-up chest film would be recommended. POS: [facility]
[2018-12-12] MEDS: Apixaban 5 MG TAB PO SCH ×2 (10:01→21:10)
[2018-12-12] MEDS: Famotidine 20 MG TAB PO SCH ×2 (10:01→21:10)
[2018-12-12] MEDS: Docusate 100 MG CAP PO SCH ×2 (10:01→21:10)
[2018-12-12] MEDS: Allopurinol 100 MG TAB PO SCH ×2 (10:01→21:10)
[2018-12-12] MEDS: Amlodipine 5 MG TAB PO SCH (10:02)
[2018-12-12] MEDS: Insulin Glargine 15 UNITS in Pre-Filled Syringe 1 EACH SC SCH ×2 (10:02→21:10)
[2018-12-12] MEDS: Cefepime 1 GM in Sodium Chloride 0.9% 100 ML IVPB SCH ×2 (10:03→21:09)
[2018-12-12] MEDS ORDERED: Bacteriostatic Water 30 ML VIAL FS PRN (10:04)
[2018-12-12] MEDS: Sodium Chloride 0.45% 1,000 ML IV SCH (10:05)
--- NOTE | 2018-12-12 10:29 | PRG ---
DATE OF SERVICE: 12/12/2018 SUBJECTIVE: Mr. Ballard is unchanged. When he is sedated, he hypoventilates. If he is allowed to awaken even on Precedex, he gets hypertensive, tachycardic, and tachypneic. OBJECTIVE: VITAL SIGNS: Heart rate is 75, blood pressure 136/81, respiratory rate is 14. LUNGS: Clear are anteriorly and distant. HEART: Regular rhythm, distant, S1, S2. ABDOMEN: Soft and nontender. EXTREMITIES: Without clubbing, cyanosis, or edema. LABORATORY DATA: White count 11.9, hemoglobin 16.7, platelets 394. His creatinine is up to 2.14. His BUN is up to 88. His intake and output -948. He is -8 L since the and that should be 16+ pounds. I do not believe the bed scale weights are accurate. He weighs 332 today, but weighed 328 yesterday, and then lost a liter of fluid equivalent to 2.2 pounds. Chest radiograph is probably rotated. This is being repeated. Still has diffuse infiltrates. IMPRESSION: 1. Respiratory failure. 2. Untreated obstructive sleep apnea. 3. Probably diastolic dysfunction induced pulmonary edema mixed with alveolar hemorrhage given slow resolution of pulmonary infiltrates and the red cell predominant on bronchial lavage. 4. Significant learning disability. 5. Life-threatening obesity. 6. Acute on chronic kidney disease aggravated by diuresis. I have stopped his diuretics. His vasculitis workup is negative. He was febrile all day yesterday and grew coagulase-negative Staph and a Strep out of his bronchoalveolar lavage. The Dunia that grew out is likely a colonizer. His acid-fast smears were negative. I added vancomycin yesterday and he appears to have defervesced. I switched him to Zyvox today because of his rise in creatinine. I really have a hard time believing that we will be able to successfully wean him from mechanical ventilation without a tracheostomy. We will continue supportive care. We will leave him on his current ventilator settings and reassess renal function tomorrow. Continue antimicrobial therapy at night, and at this point in time, he is not weanable. CRITICAL CARE TIME: 30 minutes. Job ID: [id number]
--- NOTE | 2018-12-12 11:30 | RAD ---
AP CHEST: 12/12/18 HISTORY: Follow-up film earlier today which was suboptimal. Comparison made to that exam performed at 4:13 a.m. Current exam is better positioned. ET tube appears adequately positioned above roland. There is card iomegaly and mild vascular congestion with evidence of mild interstitial edema. Probable small effusi ons. IMPRESSION: Cardiomegaly with congestive changes. POS: [facility]
[2018-12-12] MEDS: Linezolid 600 MG in Premix Bag 1 BAG IVPB SCH ×2 (11:32→21:09)
--- NOTE | 2018-12-12 14:26 | PDOC.PN ---
- Subjective Encounter Start Date: 12/12/18 Encounter Start Time: 11:45 Subjective: on vent, mild sedation - Objective Resuscitation Status - Order Detail: 12/02/18 18:58 Resuscitation Status Routine Resuscitation Status: FULL: Full Resuscitation MAR Reviewed: Yes Vital Signs & Weight: Vital Signs (12 hours) Temp Pulse Pulse Pulse Resp BP BP 12/12/18 12:39 75 145/88 H 12/12/18 12:00 15 12/12/18 10:40 75 174/92 H 12/12/18 10:15 85 74 174/93 H 12/12/18 10:02 75 144/85 H 12/12/18 10:00 17 12/12/18 08:00 12 12/12/18 07:58 75 136/81 12/12/18 06:00 12 12/12/18 04:00 99.6 F 21 H BP Pulse Ox Pulse Ox 12/12/18 12:39 12/12/18 12:00 12/12/18 10:40 12/12/18 10:15 139/80 96 96 12/12/18 10:02 12/12/18 10:00 12/12/18 08:00 12/12/18 07:58 12/12/18 06:00 12/12/18 04:00 Weight Admit Weight 350 lb Weight 327 lb 13.238 oz Most Recent Monitor Data Heart Rate from ECG 77 NIBP 154/90 NIBP BP-Mean 111 Respiration from ECG 15 SpO2 94 I&O: 12/11/18 12/12/18 12/13/18 06:59 06:59 06:59 Intake Total 1537 1781.1 Output Total 2485 2235 Balance -948 -453.9 Result Diagrams: 12/12/18 04:04 12/12/18 04:04 Additional Labs: Accuchecks 12/12/18 12/12/18 12/12/18 10:11 05:24 00:10 POC Glucose 386 H 337 H 283 H 12/11/18 17:11 POC Glucose 270 H Phys Exam - Physical Examination HEENT: PERRLA, sclera anicteric Neck: no JVD, supple Respiratory: no wheezing, no rales rhonchi++ Cardiovascular: RRR, no significant murmur Gastrointestinal: soft, non-tender, positive bowel sounds Musculoskeletal: no edema, pulses present Neurological: non-focal, moves all 4 limbs Dx/Plan (1) Acute on chronic respiratory failure with hypoxia and hypercapnia Code(s): J96.21 - ACUTE AND CHRONIC RESPIRATORY FAILURE WITH HYPOXIA; J96.22 - ACUTE AND CHRONIC RESPIRATORY FAILURE WITH HYPERCAPNIA Status: Acute Comment : likely due to NGA, diastolic CHF, currently intubated (2) Acute renal failure (ARF) Status: Acute (3) Diastolic CHF Code(s): I50.30 - UNSPECIFIED DIASTOLIC (CONGESTIVE) HEART FAILURE Status: Acute Comment: normal EF (4) DVT (deep venous thrombosis) Code(s): I82.409 - ACUTE EMBOLISM AND THOMBOS UNSP DEEP VN UNSP LOWER EXTREMITY Status: Chronic Qualifiers: DVT location: lower extremity Chronicity: acute Laterality: left Comment: on eliquis 5mg BID (5) HTN (hypertension) Code(s): I10 - ESSENTIAL (PRIMARY) HYPERTENSION Status: Chronic Qualifiers: Hypertension type: essential hypertension Qualified Code(s): I10 - Essential (primary) hypertension Comment: stable (6) Hepatitis C Code(s): B19.20 - UNSPECIFIED VIRAL HEPATITIS C WITHOUT HEPATIC COMA Status: Chronic Qualifiers: Viral hepatitis chronicity: chronic Hepatic coma status: without hepatic coma Qualified Code(s): B18.2 - Chronic viral hepatitis C (7) Morbid obesity Code(s): E66.01 - MORBID (SEVERE) OBESITY DUE TO EXCESS CALORIES Status: Chronic Comment: bmi of 47 (8) NGA (obstructive sleep apnea) Code(s): G47.33 - OBSTRUCTIVE SLEEP APNEA (ADULT) (PEDIATRIC) Status: Chronic (9) Paroxysmal atrial fibrillation Code(s): I48.0 - PAROXYSMAL ATRIAL FIBRILLATION Status: Chronic Comment: rate controlled, On OAC - Plan is on zyvox, cefepime, micafungin, steroids, nebs -: off lasix due to litzy -: continue eliquis, zoloft, lantus 15 u bid and norvasc -: weaning as tolerated -: prognosis guarded, mother is caregiver and 80 yrs old, pt has intell disabi * . Review of Systems - Medications/Allergies Allergies/Adverse Reactions: Allergies Allergy/AdvReac Type Severity Reaction Status Date / Time adhesive tape Allergy Verified 12/02/18 18:35 Medications: Current Medications Acetaminophen (Tylenol) 650 mg PO Q4H PRN PRN Reason: Headache/Fever or Pain Last Admin: 12/11/18 19:50 Dose: 650 mg Acetaminophen (Tylenol Elixir) 1,000 mg PER TUBE Q6H PRN PRN Reason: Fever > 101 Last Admin: 12/11/18 17:59 Dose: 1,000 mg Albuterol/Ipratropium (Duoneb) 3 ml NEB [id number] [facility] Last Admin: 12/12/18 12:38 Dose: 3 ml Allopurinol (Zyloprim) 100 mg PO BID [facility] Last Admin: 12/12/18 10:01 Dose: 100 mg Amlodipine Besylate (Norvasc) 5 mg PO DAILY [facility] Last Admin: 12/12/18 10:02 Dose: 5 mg Apixaban (Eliquis) 5 mg PO BID [facility] Last Admin: 12/12/18 10:01 Dose: 5 mg Bisacodyl (Dulcolax) 10 mg MD PRN PRN PRN Reason: Constipation Last Admin: 12/11/18 17:59 Dose: 10 mg Dextrose/Water (Dextrose 50%) 25 gm IVP PRN PRN PRN Reason: HYPOGLYCEMIA PROTOCOL Diphenhydramine HCl (Benadryl) 25 mg PO HS PRN PRN Reason: Allergies Docusate Sodium (Colace) 100 mg PO BID [facility] Last Admin: 12/12/18 10:01 Dose: 100 mg Famotidine (Pepcid) 20 mg PO BID [facility] Last Admin: 12/12/18 10:01 Dose: 20 mg Glucagon (Glucagon) 1 mg IM PRN PRN PRN Reason: HYPOGLYCEMIA PROTOCOL Fentanyl Citrate 2,000 mcg/ (Sodium Chloride) 100 mls @ 0 mls/hr IV INF [facility]; Protocol Stop: 01/05/19 10:27 Last Admin: 12/11/18 10:42 Dose: 100 mls Fentanyl Citrate (Fentanyl Bolus) 250 mls @ 0 mls/hr IVPB PRN PRN PRN Reason: Breakthrough pain/agitation Stop: 01/05/19 10:27 Micafungin Sodium 100 mg/ (Sodium Chloride) 100 mls @ 100 mls/hr IVPB Q24HR [facility] Last Admin: 12/11/18 15:16 Dose: 100 mls Cefepime HCl 1 gm/ Sodium (Chloride) 100 mls @ 200 mls/hr IVPB Q12HR [facility] Last Admin: 12/12/18 10:03 Dose: 100 mls Dexmedetomidine HCl 400 mcg/ (Sodium Chloride) 100 mls @ 0 mls/hr IVPB INF [facility] Last Admin: 12/12/18 13:06 Dose: 100 mls Dextrose/Water (D5w) 1,000 mls @ 0 mls/hr IV INF PRN PRN Reason: HYPOGLYCEMIA PROTOCOL Sodium Chloride (1/2 Normal Saline) 1,000 mls @ 50 mls/hr IV .Q20H [facility] Last Admin: 12/12/18 10:05 Dose: 1,000 mls Insulin Glargine 15 units/ (Miscellaneous Medication) 0.15 mls @ 0 mls/hr SC BID [facility] Last Admin: 12/12/18 10:02 Dose: 0.15 mls Linezolid 600 mg/ Device 300 mls @ 150 mls/hr IVPB Q12HR [facility] Last Admin: 12/12/18 11:32 Dose: 300 mls Insulin Human Lispro (Humalog) 0 units SC .MODERATE SLIDING SC PRN; Protocol PRN Reason: MODERATE SLIDING SCALE Last Admin: 12/12/18 10:12 Dose: 10 unit Lorazepam (Ativan) 0.5 mg SLOW IVP Q6H PRN PRN Reason: Anxiety/Agitation Last Admin: 12/06/18 10:00 Dose: 0.5 mg Lorazepam (Ativan) 2 mg SLOW IVP Q1H PRN PRN Reason: Breakthrough agitation Stop: 01/05/19 10:27 Last Admin: 12/07/18 14:02 Dose: 2 mg Methylprednisolone Sodium Succinate (Solu-Medrol) 20 mg IVP Q6HR [facility] Last Admin: 12/12/18 11:33 Dose: 20 mg Mineral Oil/White Petrolatum (Systane Nighttime Eye Ointment) 0 gm EA EYE PRN PRN PRN Reason: Dry Eyes Miscellaneous Medication (Ventilator Sedation Protocol) 1 each FS ONE [facility] Stop: 01/05/19 10:16 Morphine Sulfate (Morphine) 2 mg SLOW IVP Q1H PRN PRN Reason: BREAKTHROUGH PAIN/Agitation Stop: 01/05/19 10:27 Discontinue Previous Narcotic Pain Medications And Benzodiazepines 1 each FS .ONE [facility] Stop: 01/05/19 10:27 Sertraline HCl (Zoloft) 50 mg PO DAILY [facility] Last Admin: 12/12/18 10:02 Dose: 50 mg Sodium Chloride (Flush - Normal Saline) 10 ml IVF Q12HR [facility] Last Admin: 12/12/18 10:21 Dose: 10 ml Sodium Chloride (Flush - Normal Saline) 10 ml IVF PRN PRN PRN Reason: Saline Flush Last Admin: 12/06/18 10:02 Dose: 10 ml Sterile Water (Bacteriostatic Water) 1 ml FS PRN PRN PRN Reason: RECONSTITUTION
[2018-12-12] MEDS: Micafungin 100 MG in Sodium Chloride 0.9% 100 ML IVPB SCH (16:15)
[2018-12-12] MEDS: Bisacodyl 10 MG SUPP PR PRN (18:19)
--- NOTE | 2018-12-12 21:39 | CON ---
DATE OF CONSULTATION: 12/12/2018 REASON FOR CONSULT: Acute kidney injury. REASON FOR ADMISSION: Shortness of breath. HISTORY OF PRESENT ILLNESS: A 63-year-old male who is admitted with shortness of breath. Nephrology was consulted for acute kidney injury. His creatinine on admission was 1.1 and this morning was 2.1 and he was started on IV fluids. He was also on Lasix. PAST MEDICAL HISTORY: Positive for developmental delay, hypertension, obstructive sleep apnea, hepatitis C. PAST SURGICAL HISTORY: Circumcision. HOME MEDICATIONS: 1. Vitamin B complex. 2. Tylenol. 3. Hydrochlorothiazide. 4. Allopurinol. 5. Eliquis. 6. Imipramine. 7. Amlodipine. 8. Metoprolol. ALLERGIES: ADHESIVE TAPE. SOCIAL HISTORY: No smoking, alcohol, or illicit drugs. FAMILY HISTORY: No history of kidney disease. REVIEW OF SYSTEMS: Could not be obtained as the patient is sedated. PHYSICAL EXAMINATION: GENERAL: This is an obese male, in no apparent distress. VITAL SIGNS: Temperature 96, pulse 81, respiratory rate . HEENT: Intubated. CV: S1, S2 heard. RESPIRATORY: Clear anteriorly. GI: Abdomen is obese. MUSCULOSKELETAL: 1+ edema. Dermatologic: No skin rash. NEUROLOGICAL: Sedated. PSYCHIATRIC: Not assessed. LABORATORY DATA: Potassium 3.4, BUN is 88, creatinine is 2.1. ASSESSMENT AND PLAN: 1. Acute kidney injury. Agree with hydration and holding the Lasix for now. 2. Hypokalemia, replaced. 3. Metabolic alkalosis. 4. Anemia. 5. Acute hypoxic respiratory failure. 6. Continue IV fluids. Avoid nephrotoxins. We will follow. Job ID: [id number]
[2018-12-12] MEDS: fentaNYL Citrate/PF 2,000 MCG in Sodium Chloride 0.9% 60 ML IV SCH (21:56)
[2018-12-13] MEDS: methylPREDNISolone Sod Succ 40 MG VIAL IVP SCH ×5 (00:05→23:44)
[2018-12-13] MEDS: HumaLOG 300 UNITS/3 ML VIAL SC PRN ×5 (00:20→23:57)
[2018-12-13 05:52] LABS: #Lymphocytes 0.7 thou/uL (1.20-3.40); %Eosinophils 0.1 % (0.0-10.0); %Lymphocytes 4.3 % (21.0-51.0); %Monocytes 6.6 % (0.0-10.0); Hemoglobin 16.8 g/dL (14.0-18.0); Mean Corpuscular HGB CONC 31.7 g/dL (32.0-36.0); Mean Corpuscular Hemoglobin 30.4 pg (27.0-31.0); Mean Platelet Volume 7.2 fL (7.4-10.4); Platelet Count 303 thou/uL (130-400); RBC Distribution Width 13.8 % (11.5-14.5); Red Blood Cell (RBC) Count 5.53 mill/uL (4.70-6.10); White Blood Cell (WBC) Count 15.7 thou/uL (4.8-10.8)
[2018-12-13 06:11] LABS: Anion Gap 15 mmol/L (10-20); BUN (Urea Nitrogen) 88 mg/dL (8.4-25.7); Calc. Creatinine Clearance 96 mL/min (70-130); Calcium 9.9 mg/dL (7.8-10.44); Carbon Dioxide 34 mmol/L (23-31); Chloride 103 mmol/L (98-107); Estimated GFR-MDRD 41; Glucose 393 mg/dL (80-115); Potassium 3.7 mmol/L (3.5-5.1); Sodium 148 mmol/L (136-145)
[2018-12-13 06:28] LABS: Band 11 % (5-11); Lymphocytes 2 % (21-51); Monocytes 6 % (0-10)
[2018-12-13 07:43] LABS: Actual Bicarbonate (HCO3a) 37.1 mEq/L (22-28); CO2 Tension 57.5 mmHg (35.0-45.0); Calcium, Ionized 1.28 mmol/L (1.12-1.30); Carboxyhemoglobin (COHb) 0.8 gm% (0.0-3.0); Hemoglobin (Hb) 17.1 g/dL (14.0-18.0); O2 Tension (PaO2) 97.5 mmHg (> 80.0); Potassium - ABG Lab 3.63 mmol/L (3.70-5.30); pH, Arterial 7.43 (7.35-7.45)
[2018-12-13 07:49] LABS: Puncture Site RR
[2018-12-13 07:50] LABS: ALV-art Gradient 115.825 (0-20)
[2018-12-13] MEDS: Sodium Chloride 0.45% 1,000 ML IV SCH (08:00)
[2018-12-13] MEDS ORDERED: Pancrelipase DR 12000 1 CAP PER TUBE PRN (09:12)
[2018-12-13] MEDS ORDERED: Sodium Bicarbonate Tab 325 MG TAB PER TUBE PRN (09:12)
[2018-12-13] MEDS: Linezolid 600 MG in Premix Bag 1 BAG IVPB SCH ×2 (09:50→20:40)
[2018-12-13] MEDS: Docusate 100 MG CAP PO SCH ×2 (09:50→20:42)
[2018-12-13] MEDS: Amlodipine 5 MG TAB PO SCH (09:51)
[2018-12-13] MEDS: Allopurinol 100 MG TAB PO SCH ×2 (09:51→20:42)
[2018-12-13] MEDS: Famotidine 20 MG TAB PO SCH ×2 (09:51→20:42)
[2018-12-13] MEDS: Apixaban 5 MG TAB PO SCH ×2 (09:51→20:42)
[2018-12-13] MEDS: Cefepime 1 GM in Sodium Chloride 0.9% 100 ML IVPB SCH ×2 (09:56→20:41)
[2018-12-13] MEDS: Insulin Glargine 15 UNITS in Pre-Filled Syringe 1 EACH SC SCH ×2 (09:56→20:42)
--- NOTE | 2018-12-13 10:06 | PRG ---
DATE OF SERVICE: 12/13/2018 SUBJECTIVE: A 63-year-old morbidly obese gentleman, who remains intubated on the vent. OBJECTIVE: VITAL SIGNS: Blood pressure is 127/69, pulse 89, sats 96%, and temperature is 97. I's and O's have been consistently 1781 in and 2235 out negative. CHEST: Bilateral rhonchi. CARDIAC: Normal S1 and S2. No gallops. ABDOMEN: Soft. LABORATORY DATA: His lab shows creatinine of 1.7, BUN 88, and glucose 347. PO2 was 97, pCO2 of 57.43, and white count 15,000. IMAGING STUDIES: His last chest x-ray shows evidence of cardiomegaly, nonspecific increased interstitial markings. IMPRESSION: Respiratory failure, severe deconditioning, renal failure, untreated sleep apnea, diastolic dysfunction, and mental retardation. PLAN: He is not weanable at this stage. Apparently, he needs a trach and a PEG because of his severe sleep apnea and noncompliance. In the meantime, continue broad-spectrum antibiotics, neb treatments, supportive care, and steroids. One-half hour of critical time. Job ID: [id number]
--- NOTE | 2018-12-13 10:12 | RAD ---
CHEST 1 VIEW: COMPARISON: /[id number]. HISTORY: Ventilated patient. Respiratory distress. FINDINGS: Redemonstration of an endotracheal tube. There does appear to be a possible nasogastric tube, but th e distal tip cannot be adequately assessed. There are persistent diminished lung volumes with inters titial opacities. Stable cardiac silhouette. No pneumothorax. IMPRESSION: No significant interval change. Suboptimal evaluation of what is presumed to be nasogastric tube. CODE T POS: OFF
--- NOTE | 2018-12-13 13:00 | PRG ---
DATE OF SERVICE: 12/13/2018 SUBJECTIVE: The patient is seen and examined at the bedside. Family is at the bedside. The patient is seen in ICU and remains intubated and did not respond to my verbal commands or stimuli. He is looking fluffy in his arms and making urine. He is on IV fluids this morning. OBJECTIVE: GENERAL: This is a morbidly obese male, intubated, seen in the ICU. VITAL SIGNS: Temperature 97.9, pulse 90, respiratory rate 18, blood pressure 130/78. HEENT: Intubated. CV: S1, S2 heard. RESPIRATORY: Clear. GI: Abdomen is distended, obese. MUSCULOSKELETAL: 1 to 2+ edema. DERMATOLOGIC: No skin rash. NEUROLOGICAL: Sedated. LABORATORY DATA: Hemoglobin is 16.8. Potassium is 3.7, BUN is 88, creatinine is 1.7 from 2.1 from yesterday. ASSESSMENT AND PLAN: 1. Acute kidney injury on chronic kidney disease stage 3. Renal function with slight improvement. We will stop hydration given his edematous status and we will monitor. 2. Acute hypoxic respiratory failure. Follow up with Pulmonary and Critical Care team. 3. Hypokalemia. 4. Metabolic alkalosis and anemia. 5. Morbid obesity. 6. Hypernatremia. We will stop IV fluids and monitor renal function. We will follow. Job ID: [id number]
--- NOTE | 2018-12-13 15:49 | PDOC.PN ---
- Subjective Encounter Start Date: 12/13/18 Encounter Start Time: 15:47 Subjective: Morbidly obese admitted with worsening SOB. Failed NIPPV and was intubated. -: STill intubated. - Objective Resuscitation Status - Order Detail: 12/02/18 18:58 Resuscitation Status Routine Resuscitation Status: FULL: Full Resuscitation Vital Signs & Weight: Vital Signs (12 hours) Pulse Resp BP Pulse Ox 12/13/18 14:55 103 H 138/78 12/13/18 14:00 24 H 12/13/18 12:25 94 150/84 H 12/13/18 12:00 15 12/13/18 11:28 90 130/78 12/13/18 10:00 14 12/13/18 09:51 80 160/86 H 12/13/18 09:00 16 12/13/18 08:00 12 96 12/13/18 07:25 85 127/69 12/13/18 05:56 10 L 12/13/18 04:00 10 L Weight Admit Weight 350 lb Weight 329 lb 9.457 oz Most Recent Monitor Data Heart Rate from ECG 100 NIBP 138/78 NIBP BP-Mean 98 Respiration from ECG 23 SpO2 96 I&O: 12/12/18 12/13/18 12/14/18 06:59 06:59 06:59 Intake Total 1781.1 3115.8 30 Output Total 2235 2105 Balance -453.9 1010.8 30 Result Diagrams: 12/13/18 05:22 12/13/18 05:22 Additional Labs: Accuchecks 12/13/18 12/13/18 12/13/18 12:19 06:11 00:19 POC Glucose 271 H 347 H 340 H 12/12/18 16:51 POC Glucose 362 H Phys Exam - Physical Examination Sedated and mechanically ventilated ET tube in place Ventilator transmitteed breath sound noted Cardiovascular: RRR Gastrointestinal: soft, no distention, positive bowel sounds obese mild to moderated edema of the extremities noted sedated Deviation from normal: venous statis changes of distal legs noted Dx/Plan (1) Fungal pneumonia Code(s): B49 - UNSPECIFIED MYCOSIS; J17 - PNEUMONIA IN DISEASES CLASSIFIED ELSEWHERE Status: Acute (2) Hyperglycemia Code(s): R73.9 - HYPERGLYCEMIA, UNSPECIFIED Status: Acute (3) Acute on chronic respiratory failure with hypoxia and hypercapnia Code(s): J96.21 - ACUTE AND CHRONIC RESPIRATORY FAILURE WITH HYPOXIA; J96.22 - ACUTE AND CHRONIC RESPIRATORY FAILURE WITH HYPERCAPNIA Status: Acute Comment : likely due to NGA, diastolic CHF, currently intubated (4) Acute renal failure (ARF) Status: Acute (5) Diastolic CHF Code(s): I50.30 - UNSPECIFIED DIASTOLIC (CONGESTIVE) HEART FAILURE Status: Acute Comment: normal EF (6) Pulmonary infiltrate Code(s): R91.8 - OTHER NONSPECIFIC ABNORMAL FINDING OF LUNG FIELD Status: Acute Comment: Off of antibiotic. management per Pulmonary.? hemorrhage .pt on chr Eliquis OAC (7) Sepsis Code(s): A41.9 - SEPSIS, UNSPECIFIED ORGANISM Status: Acute Comment: Worsening leukocytosis, creatinine, and fever to 102 overnight . On Cefepime since 12/08/18. (8) Chronic anticoagulation Code(s): Z79.01 - ROUTE SALESMAN (CURRENT) USE OF ANTICOAGULANTS Status: Chronic (9) DVT (deep venous thrombosis) Code(s): I82.409 - ACUTE EMBOLISM AND THOMBOS UNSP DEEP VN UNSP LOWER EXTREMITY Status: Chronic Qualifiers: DVT location: lower extremity Chronicity: acute Laterality: left Comment: on eliquis 5mg BID (10) HTN (hypertension) Code(s): I10 - ESSENTIAL (PRIMARY) HYPERTENSION Status: Chronic Qualifiers: Hypertension type: essential hypertension Qualified Code(s): I10 - Essential (primary) hypertension Comment: stable (11) Hepatitis C Code(s): B19.20 - UNSPECIFIED VIRAL HEPATITIS C WITHOUT HEPATIC COMA Status: Chronic Qualifiers: Viral hepatitis chronicity: chronic Hepatic coma status: without hepatic coma Qualified Code(s): B18.2 - Chronic viral hepatitis C (12) Morbid obesity Code(s): E66.01 - MORBID (SEVERE) OBESITY DUE TO EXCESS CALORIES Status: Chronic Comment: bmi of 47 (13) NGA (obstructive sleep apnea) Code(s): G47.33 - OBSTRUCTIVE SLEEP APNEA (ADULT) (PEDIATRIC) Status: Chronic (14) Paroxysmal atrial fibrillation Code(s): I48.0 - PAROXYSMAL ATRIAL FIBRILLATION Status: Chronic Comment: rate controlled, On OAC - Plan Mechanical ventilation as per Pulm/critical care. -: Change sliding scale to high dose. Continue lantus -: Continue broad spectrum antimicrobial. -: Will consider ID to help with choice of antimicrobial * .
[2018-12-13] MEDS: Micafungin 100 MG in Sodium Chloride 0.9% 100 ML IVPB SCH (16:00)
[2018-12-13] MEDS ORDERED: Sodium Chloride 0.45% 1,000 ML IV SCH (16:30)
--- NOTE | 2018-12-14 02:29 | PDOC.EVN ---
Event Note - Event Note Event Note: RN called - BP in 190s. Will try 10 mg IV Hydralazine. Also increase Amlodipine to 5 mg BID.
[2018-12-14] MEDS ORDERED: hydrALAZINE 20 MG/ML VIAL SLOW IVP SCH (02:30)
[2018-12-14 04:57] LABS: Anion Gap 16 mmol/L (10-20); BUN (Urea Nitrogen) 86 mg/dL (8.4-25.7); Calc. Creatinine Clearance 83 mL/min (70-130); Calcium 9.9 mg/dL (7.8-10.44); Carbon Dioxide 33 mmol/L (23-31); Chloride 107 mmol/L (98-107); Estimated GFR-MDRD 37; Glucose 312 mg/dL (80-115); Potassium 3.8 mmol/L (3.5-5.1); Sodium 152 mmol/L (136-145)
[2018-12-14] MEDS: methylPREDNISolone Sod Succ 40 MG VIAL IVP SCH ×3 (05:33→17:56)
[2018-12-14] MEDS: HumaLOG 300 UNITS/3 ML VIAL SC PRN ×3 (05:34→18:09)
[2018-12-14 05:37] LABS: Band 4 % (5-11); Hemoglobin 15.8 g/dL (14.0-18.0); Lymphocytes 1 % (21-51); MDiff Complete? YES; Mean Corpuscular HGB CONC 31.1 g/dL (32.0-36.0); Mean Corpuscular Hemoglobin 30.4 pg (27.0-31.0); Mean Corpuscular Volume 97.7 fL (78.0-98.0); Mean Platelet Volume 7.8 fL (7.4-10.4); Metamyelocyte 1 % (0-0); Monocytes 4 % (0-10); Neutrophil 90 % (42-75); Platelet Count 305 thou/uL (130-400); Platelet Morphology Comment Appears Adequate; RBC Morphology Normal; Red Blood Cell (RBC) Count 5.21 mill/uL (4.70-6.10); White Blood Cell (WBC) Count 19.6 thou/uL (4.8-10.8)
[2018-12-14 07:49] LABS: Actual Bicarbonate (HCO3a) 35.3 mEq/L (22-28); Base Excess (BEa) 11.1 mEq/L (-2.0 to +3.0); CO2 Tension 43.8 mmHg (35.0-45.0); Calcium, Ionized 1.28 mmol/L (1.12-1.30); Carboxyhemoglobin (COHb) 1.1 gm% (0.0-3.0); O2 Tension (PaO2) 67.2 mmHg (> 80.0); Potassium - ABG Lab 3.56 mmol/L (3.70-5.30); pH, Arterial 7.52 (7.35-7.45)
[2018-12-14 07:50] LABS: Puncture Site RRA
--- NOTE | 2018-12-14 08:49 | RAD ---
CHEST 1 VIEW: HISTORY: Respiratory distress. Ventilated patient. FINDINGS: Redemonstration of an endotracheal tube. Nasogastric tube is incompletely evaluated. Stable cardiac silhouette. Persistent opacities of the lung parenchyma with diminished lung volumes. IMPRESSION: No significant change. Persistent limited evaluation of nasogastric tube. Dedicated imaging to eval uate the distal tip of the nasogastric tube is recommended. Results of the study were discussed with the patient's Tony nurse 12/14/2018 at 8:39 a.m. CODE CR POS: OFF
[2018-12-14] MEDS: Cefepime 1 GM in Sodium Chloride 0.9% 100 ML IVPB SCH ×2 (09:05→20:31)
[2018-12-14] MEDS: Docusate 100 MG CAP PO SCH ×2 (09:06→20:32)
[2018-12-14] MEDS: Apixaban 5 MG TAB PO SCH ×2 (09:06→20:32)
[2018-12-14] MEDS: Allopurinol 100 MG TAB PO SCH ×2 (09:06→20:32)
[2018-12-14] MEDS: Famotidine 20 MG TAB PO SCH ×2 (09:07→20:32)
[2018-12-14] MEDS: Amlodipine 5 MG TAB PO SCH ×2 (09:07→20:32)
[2018-12-14] MEDS: Insulin Glargine 15 UNITS in Pre-Filled Syringe 1 EACH SC SCH (09:07)
--- NOTE | 2018-12-14 09:59 | PRG ---
DATE OF SERVICE: 12/14/2018 SUBJECTIVE: This morning, he is intubated on the vent, sedated, encephalopathic. OBJECTIVE: VITAL SIGNS: Blood pressure 156/73, pulse 78, saturations are 93%, and respirations 20. CHEST: Decreased breath sounds. No wheezing. CARDIAC: Normal S1 and S2. No gallops. ABDOMEN: No masses. EXTREMITIES: Trace edema. LABORATORY DATA: White count 19,000, H and H unremarkable, and platelet count normal. PO2 of 67, pCO2 of 43, pH of 7.52 on a rate of 8, 40%, pressure port 11. Creatinine is 1.87, BUN 86, and sodium 152. IMPRESSION: 1. Respiratory failure. 2. Morbid obesity. 3. Sleep apnea. 4. Mentally retarded. 5. Azotemia, probably prerenal. 6. Probably right lower lobe pneumonia, pleural effusion. PLAN: He is day #11 in the hospital. They are going to make a decision regarding trach and PEG and comfort care. Otherwise, pulmonary new not weanable. Needs some free water. Continue antibiotics, broad-spectrum. One-half hour of critical care time. Job ID: [id number]
[2018-12-14] MEDS: Linezolid 600 MG in Premix Bag 1 BAG IVPB SCH ×2 (10:46→20:30)
[2018-12-14] MEDS ORDERED: Insulin Glargine 3 UNITS in Pre-Filled Syringe 1 EACH SC SCH (11:30)
[2018-12-14] MEDS: Dextrose 5% in Water 1,000 ML IV SCH (11:46)
--- NOTE | 2018-12-14 12:39 | PRG ---
DATE OF SERVICE: 12/14/2018 SUBJECTIVE: The patient is seen and examined at bedside. Seen in the ICU. He remains intubated, nonverbal, and not responding. OBJECTIVE: GENERAL: This is a morbidly obese white male, seen in the ICU, intubated. VITAL SIGNS: Temperature is 100.7, pulse , and blood pressure 139/68. HEENT: Intubated. CARDIOVASCULAR: S1 and S2 heard. RESPIRATORY: Clear anteriorly. GASTROINTESTINAL: Abdomen is obese, soft. MUSCULOSKELETAL: 2+ edema. DERMATOLOGIC: No skin rash. NEUROLOGICAL: Intubated, sedated. LABORATORY DATA: Sodium 142, BUN is 86, and creatinine is 1.8. ASSESSMENT AND PLAN: 1. Acute kidney injury, stable. 2. Hypernatremia. We will add free water as tolerated. 3. History of hyperglycemia. We recommend to increase insulin and monitor glucose closely. 4. Hypokalemia, replace. 5. Acute hypoxic respiratory failure . 6. Morbid obesity. Poor prognosis. Renal function is stable. We will add free water if tolerated. We will follow. Job ID: [id number]
--- NOTE | 2018-12-14 13:42 | PDOC.PN ---
- Subjective Encounter Start Date: 12/14/18 Encounter Start Time: 13:41 Subjective: No new problem. Still intubated. - Objective Resuscitation Status - Order Detail: 12/02/18 18:58 Resuscitation Status Routine Resuscitation Status: FULL: Full Resuscitation Vital Signs & Weight: Vital Signs (12 hours) Temp Pulse Resp BP Pulse Ox 12/14/18 12:00 100.0 F H 17 12/14/18 11:16 67 169/69 H 12/14/18 10:00 18 12/14/18 09:07 78 174/78 H 12/14/18 08:00 100.7 F H 23 H 85 L 12/14/18 07:39 78 156/73 H 12/14/18 06:00 21 H 12/14/18 04:00 100.2 F H 21 H 12/14/18 02:45 73 196/93 H 12/14/18 02:43 73 12/14/18 02:00 13 Weight Admit Weight 350 lb Weight 311 lb 1.156 oz Most Recent Monitor Data Heart Rate from ECG 78 NIBP 198/84 NIBP BP-Mean 122 Respiration from ECG 16 SpO2 93 I&O: 12/13/18 12/14/18 12/15/18 06:59 06:59 06:59 Intake Total 3115.8 4117.6 60 Output Total 2105 2100 615 Balance 1010.8 2017.6 -555 Result Diagrams: 12/14/18 04:13 12/14/18 04:13 Additional Labs: Accuchecks 12/14/18 12/14/18 12/14/18 11:46 08:30 05:32 POC Glucose 240 H 247 H 256 H 12/13/18 12/13/18 23:58 18:45 POC Glucose 295 H 257 H Phys Exam - Physical Examination Sedated. HEENT: PERRLA, moist MMs ET tube in place ventilator transmitted sound noted Cardiovascular: RRR Gastrointestinal: soft, non-tender, no distention, positive bowel sounds obese Upper extremity L>R edema. No obvious edema of the legs noted sedated Dx/Plan (1) Acute on chronic respiratory failure with hypoxia and hypercapnia Code(s): J96.21 - ACUTE AND CHRONIC RESPIRATORY FAILURE WITH HYPOXIA; J96.22 - ACUTE AND CHRONIC RESPIRATORY FAILURE WITH HYPERCAPNIA Status: Acute Comment : likely due to NGA, diastolic CHF, currently intubated (2) Fungal pneumonia Code(s): B49 - UNSPECIFIED MYCOSIS; J17 - PNEUMONIA IN DISEASES CLASSIFIED ELSEWHERE Status: Acute (3) Hyperglycemia Code(s): R73.9 - HYPERGLYCEMIA, UNSPECIFIED Status: Acute (4) Acute renal failure (ARF) Status: Acute (5) Diastolic CHF Code(s): I50.30 - UNSPECIFIED DIASTOLIC (CONGESTIVE) HEART FAILURE Status: Acute Comment: normal EF (6) Pulmonary infiltrate Code(s): R91.8 - OTHER NONSPECIFIC ABNORMAL FINDING OF LUNG FIELD Status: Acute Comment: Off of antibiotic. management per Pulmonary.? hemorrhage .pt on chr Eliquis OAC (7) Sepsis Code(s): A41.9 - SEPSIS, UNSPECIFIED ORGANISM Status: Acute Comment: Worsening leukocytosis, creatinine, and fever to 102 overnight 12/09-. On Cefepime since 12/08/18. (8) Chronic anticoagulation Code(s): Z79.01 - SHELTER (CURRENT) USE OF ANTICOAGULANTS Status: Chronic (9) DVT (deep venous thrombosis) Code(s): I82.409 - ACUTE EMBOLISM AND THOMBOS UNSP DEEP VN UNSP LOWER EXTREMITY Status: Chronic Qualifiers: DVT location: lower extremity Chronicity: acute Laterality: left Comment: on eliquis 5mg BID (10) HTN (hypertension) Code(s): I10 - ESSENTIAL (PRIMARY) HYPERTENSION Status: Chronic Qualifiers: Hypertension type: essential hypertension Qualified Code(s): I10 - Essential (primary) hypertension Comment: stable (11) Hepatitis C Code(s): B19.20 - UNSPECIFIED VIRAL HEPATITIS C WITHOUT HEPATIC COMA Status: Chronic Qualifiers: Viral hepatitis chronicity: chronic Hepatic coma status: without hepatic coma Qualified Code(s): B18.2 - Chronic viral hepatitis C (12) Morbid obesity Code(s): E66.01 - MORBID (SEVERE) OBESITY DUE TO EXCESS CALORIES Status: Chronic Comment: bmi of 47 (13) NGA (obstructive sleep apnea) Code(s): G47.33 - OBSTRUCTIVE SLEEP APNEA (ADULT) (PEDIATRIC) Status: Chronic (14) Paroxysmal atrial fibrillation Code(s): I48.0 - PAROXYSMAL ATRIAL FIBRILLATION Status: Chronic Comment: rate controlled, On OAC (15) Hypernatremia Code(s): E87.0 - HYPEROSMOLALITY AND HYPERNATREMIA Status: Acute - Plan Increase free water flushes via NG tube. -: Start IVP hydralazine for acute BP spikes. -: Continue amlodipine. -: Continue antimicrobial and other suipportive care. -: Monitor renal function. Continue to hold diuretics * .
[2018-12-14] MEDS: Micafungin 100 MG in Sodium Chloride 0.9% 100 ML IVPB SCH (15:00)
[2018-12-14] MEDS: Insulin Glargine 18 UNITS in Pre-Filled Syringe 1 EACH SC SCH (20:32)
[2018-12-14] MEDS: fentaNYL Citrate/PF 2,000 MCG in Sodium Chloride 0.9% 60 ML IV SCH (22:11)
[2018-12-15] MEDS: HumaLOG 300 UNITS/3 ML VIAL SC PRN ×5 (00:30→18:45)
[2018-12-15] MEDS: methylPREDNISolone Sod Succ 40 MG VIAL IVP SCH ×4 (01:07→21:22)
[2018-12-15 05:18] LABS: BUN (Urea Nitrogen) 77 mg/dL (8.4-25.7); Calc. Creatinine Clearance 87 mL/min (70-130); Calcium 9.6 mg/dL (7.8-10.44); Estimated GFR-MDRD 39; Glucose 325 mg/dL (80-115)
[2018-12-15 05:27] LABS: Anion Gap 14 mmol/L (10-20); Carbon Dioxide 35 mmol/L (23-31); Chloride 109 mmol/L (98-107); Potassium 3.7 mmol/L (3.5-5.1); Sodium 154 mmol/L (136-145)
[2018-12-15 05:49] LABS: Band 9 % (5-11); Hemoglobin 15.1 g/dL (14.0-18.0); Lymphocytes 4 % (21-51); MDiff Complete? YES; Mean Corpuscular HGB CONC 31.7 g/dL (32.0-36.0); Mean Corpuscular Hemoglobin 30.9 pg (27.0-31.0); Mean Corpuscular Volume 97.2 fL (78.0-98.0); Mean Platelet Volume 8.1 fL (7.4-10.4); Monocytes 3 % (0-10); Neutrophil 84 % (42-75); Platelet Count 230 thou/uL (130-400); RBC Distribution Width 14.1 % (11.5-14.5); Red Blood Cell (RBC) Count 4.88 mill/uL (4.70-6.10); White Blood Cell (WBC) Count 21.3 thou/uL (4.8-10.8)
[2018-12-15 07:11] LABS: Actual Bicarbonate (HCO3a) 35.3 mEq/L (22-28); CO2 Tension 44.5 mmHg (35.0-45.0); Calcium, Ionized 1.25 mmol/L (1.12-1.30); Carboxyhemoglobin (COHb) 1.5 gm% (0.0-3.0); Hemoglobin (Hb) 15.1 g/dL (14.0-18.0); O2 Tension (PaO2) 89.7 mmHg (> 80.0); Potassium - ABG Lab 3.88 mmol/L (3.70-5.30); pH, Arterial 7.52 (7.35-7.45)
[2018-12-15 07:14] LABS: ALV-art Gradient 139.875 (0-20); Puncture Site RRA
--- NOTE | 2018-12-15 08:38 | RAD ---
CHEST 1 VIEW: INDICATION: Intubation. COMPARISON: Prior exam dated 12/14/2018. FINDINGS: Cardiomegaly with pulmonary vascular congestion and small bilateral pleural effusions, right greater than left persist. No pneumothorax is evident. IMPRESSION: Stable exam. POS: BH
--- NOTE | 2018-12-15 09:37 | PDOC.PN ---
- Subjective Encounter Start Date: 12/15/18 Encounter Start Time: 09:36 - Objective Resuscitation Status - Order Detail: 12/02/18 18:58 Resuscitation Status Routine Resuscitation Status: FULL: Full Resuscitation MAR Reviewed: Yes Vital Signs & Weight: Vital Signs (12 hours) Temp Pulse Resp BP Pulse Ox 12/15/18 07:00 99.1 F 85 189/71 H 12/15/18 06:56 84 23 H 93 L 12/15/18 06:00 16 12/15/18 04:00 100.1 F H 14 12/15/18 02:39 73 12/15/18 02:00 18 12/15/18 00:00 98.1 F 28 H 12/14/18 23:45 75 16 94 L 12/14/18 22:04 88 12/14/18 22:00 16 Weight Admit Weight 350 lb Weight 312 lb 6.32 oz Most Recent Monitor Data Heart Rate from ECG 70 NIBP 149/73 NIBP BP-Mean 98 Respiration from ECG 17 SpO2 93 I&O: 12/14/18 12/15/18 12/16/18 06:59 06:59 06:59 Intake Total 4117.6 3895.6 Output Total 2100 2250 135 Balance 2017.6 1645.6 -135 Result Diagrams: 12/15/18 04:15 12/15/18 04:15 Additional Labs: Accuchecks 12/15/18 12/15/18 12/14/18 06:35 00:26 18:03 POC Glucose 301 H 272 H 265 H 12/14/18 11:46 POC Glucose 240 H Radiology Reviewed by me: Yes (cxr-cardiomegaly,, PVC) Phys Exam - Physical Examination Neck: no JVD coarse BS, post rales Cardiovascular: RRR, no significant murmur Gastrointestinal: soft, positive bowel sounds Musculoskeletal: edema present Dx/Plan (1) Acute and chronic respiratory failure with hypoxia Code(s): J96.21 - ACUTE AND CHRONIC RESPIRATORY FAILURE WITH HYPOXIA Status: Acute Comment: likely due to NGA, diastolic CHF, currently intubated and not weanable (2) Acute renal failure (ARF) Status: Acute (3) Diastolic CHF Code(s): I50.30 - UNSPECIFIED DIASTOLIC (CONGESTIVE) HEART FAILURE Status: Acute Qualifiers: Heart failure chronicity: acute Qualified Code(s): I50.31 - Acute diastolic (congestive) heart failure Comment: normal EF (4) Hyperglycemia Code(s): R73.9 - HYPERGLYCEMIA, UNSPECIFIED Status: Acute (5) Hypernatremia Code(s): E87.0 - HYPEROSMOLALITY AND HYPERNATREMIA Status: Acute (6) Chronic anticoagulation Code(s): Z79.01 - CARE HOME (CURRENT) USE OF ANTICOAGULANTS Status: Chronic (7) HTN (hypertension) Code(s): I10 - ESSENTIAL (PRIMARY) HYPERTENSION Status: Chronic Qualifiers: Hypertension type: essential hypertension Qualified Code(s): I10 - Essential (primary) hypertension Comment: stable (8) Morbid obesity Code(s): E66.01 - MORBID (SEVERE) OBESITY DUE TO EXCESS CALORIES Status: Chronic Comment: bmi of 47 (9) NGA (obstructive sleep apnea) Code(s): G47.33 - OBSTRUCTIVE SLEEP APNEA (ADULT) (PEDIATRIC) Status: Chronic (10) Paroxysmal atrial fibrillation Code(s): I48.0 - PAROXYSMAL ATRIAL FIBRILLATION Status: Chronic Comment: rate controlled, On OAC - Plan poor prognosis. discussed with sister. will discuss with Dr Bo -: vent dependent -: cont free water for hypernatremia, azotemia -: cont amlodipine for HTN -: cont eliquis for DVT * .
[2018-12-15] MEDS: Apixaban 5 MG TAB PO SCH ×2 (09:41→21:24)
[2018-12-15] MEDS: Allopurinol 100 MG TAB PO SCH ×2 (09:43→21:23)
[2018-12-15] MEDS: Docusate 100 MG CAP PO SCH ×2 (09:43→21:24)
[2018-12-15] MEDS: Amlodipine 5 MG TAB PO SCH ×2 (09:48→21:23)
[2018-12-15] MEDS: Famotidine 20 MG TAB PO SCH ×2 (09:48→21:24)
[2018-12-15] MEDS: Cefepime 1 GM in Sodium Chloride 0.9% 100 ML IVPB SCH ×2 (09:49→21:25)
[2018-12-15] MEDS: Dextrose 5% in Water 1,000 ML IV SCH ×3 (09:59→20:07)
[2018-12-15] MEDS: Insulin Glargine 18 UNITS in Pre-Filled Syringe 1 EACH SC SCH ×2 (10:05→21:24)
--- NOTE | 2018-12-15 11:36 | PDOC.CTH ---
Cardiology Progress Note - Subjective The pt seen and examined. No overnight events. On Vent with vent sedation. - Objective Vital Signs Temp Pulse Pulse Pulse Resp BP BP 12/15/18 10:36 83 188/85 H 12/15/18 09:48 85 189/71 H 12/15/18 08:54 115 H 98 173/86 H 12/15/18 07:00 99.1 F 85 189/71 H 12/15/18 06:56 84 23 H 12/15/18 06:00 16 12/15/18 04:00 100.1 F H 14 12/15/18 02:39 73 12/15/18 02:00 18 12/15/18 00:00 98.1 F 28 H 12/14/18 23:45 75 16 BP Pulse Ox Pulse Ox 12/15/18 10:36 12/15/18 09:48 12/15/18 08:54 149/73 H 94 L 12/15/18 07:00 12/15/18 06:56 93 L 12/15/18 06:00 12/15/18 04:00 12/15/18 02:39 12/15/18 02:00 12/15/18 00:00 12/14/18 23:45 94 L Admit Weight 350 lb Weight 312 lb 6.32 oz 12/14/18 12/15/18 12/16/18 06:59 06:59 06:59 Intake Total 4117.6 3895.6 Output Total 2100 2250 135 Balance 2017.6 1645.6 -135 - Physical Examination Lungs: CTA (diminished at bases) Heart: other: (irregular) Abdomen: soft Extremities: other: (No edema to BLE) - Telemetry Telemetry Rhythm: Afib - Labs Result Diagrams: 12/15/18 04:15 12/15/18 15:20 Troponin/CKMB Troponin I Less than 0.010 ng/mL (< 0.028) 12/02/18 22:35 - Assessment/Plan 1. Parox. Afib - converted to NSR. well controlled HR with No BBlocker. On Eliquis 5mg BID. Will start Coreg 6.25mg BID from today 2. DVT/PE - on Eliquis 5mg BID; by junior software engineer 3. CHF/PNA. Pulmonary infiltrates. On antibiotics. 4. HTN - Start Coreg 6.25mg BID from today 5. BLE Cellulitis - well controlled; 6. Sleep Apnea . S/p intubation 7. Hep C - 8. Obese 9. Elevated BUN/Cr level - decrease Lasix to 20mg via NG tube daily. 10. Fever. He remains on antibiotics. 11. RBBB MAR reviewed * Echo on 12/03/2018 with EF 50-55%, normal Rt ventricle cavity and Lt atrium. * Per Dr Bolaños - Echo from earlier this year indicated an EF of 50-55% - He was unable to perform a PET scan on this pt. as he was unable to lie down for the study). Pt. seen and eval, by me. I agree with the A/P by the FRAME TABLE OPERATOR HELPER. Family is at the bedside. It appears that they are making a decision to remove the ventilator. Chest clear anteriorly. RRR. No edema. Poor prognosis. [email or web address] Review of Systems - Review of Systems Constitutional: reports: see HPI
--- NOTE | 2018-12-15 12:05 | PRG ---
DATE OF SERVICE: 12/15/2018 SUBJECTIVE: A 63-year-old gentleman, being seen for acute kidney injury. The patient is intubated. OBJECTIVE: CONSTITUTIONAL: Awake, alert, in no acute distress. VITAL SIGNS: Pulse 85, breathing 16, blood pressure 173/86. GENERAL APPEARANCE AND MENTAL STATUS: Fair. HEAD/NECK: Normocephalic. Atraumatic. EYES: EOMI. No deformity. EARS: Clear. No ulcers. NOSE: Intact. No lesions. MOUTH: Clear. No discharge. THROAT: Clear. No exudate. LUNGS: Clear. No crackles. CARDIAC: S1, S2. No rub. ABDOMEN: Benign. Bowel sounds positive. GENITALIA/RECTUM: Ennis absent. BACK/EXTREMITIES: Edema 0+. NEUROLOGICAL: Alert and motor intact. SKIN: LYMPHATICS: LABORATORY DATA: Labs reviewed. IMPRESSION AND PLAN: 1. Chronic kidney disease stage 3, stable. 2. Acute kidney injury, stable. 3. Hypernatremia. We would recommend increasing the D5W to 155 an hour and follow sodium later this afternoon. Job ID: [id number]
[2018-12-15] MEDS ORDERED: hydrALAZINE 20 MG/ML VIAL SLOW IVP PRN (12:26)
[2018-12-15] MEDS ORDERED: Labetalol 5 MG/ML SYRINGE (IV ROOM) SLOW IVP PRN (12:27)
[2018-12-15] MEDS: Linezolid 600 MG in Premix Bag 1 BAG IVPB SCH ×2 (12:33→22:57)
[2018-12-15] MEDS: Acetaminophen 650 MG/20.3 ML UDCUP PER TUBE PRN (12:35)
[2018-12-15] MEDS: hydrALAZINE 20 MG/ML VIAL SLOW IVP PRN ×2 (12:50→16:24)
[2018-12-15 15:50] LABS: Anion Gap 13 mmol/L (10-20); BUN (Urea Nitrogen) 73 mg/dL (8.4-25.7); Calc. Creatinine Clearance 85 mL/min (70-130); Calcium 9.7 mg/dL (7.8-10.44); Carbon Dioxide 35 mmol/L (23-31); Chloride 107 mmol/L (98-107); Estimated GFR-MDRD 38; Glucose 414 mg/dL (80-115); Potassium 3.5 mmol/L (3.5-5.1); Sodium 151 mmol/L (136-145)
--- NOTE | 2018-12-15 16:19 | PRG ---
DATE OF SERVICE: 12/15/2018 SUBJECTIVE: Mr. Ballard remains mechanically ventilated. His minute volume is 19 L, on pressure support and PEEP. Still receiving some sedation. OBJECTIVE: VITAL SIGNS: Heart rate is 84, blood pressure is 136/77, respiratory rates in the high 20s to low 30s, and blood pressure is 172/77. Intake and output have been positive last 3 days. LUNGS: Clear. HEART: Regular rhythm. ABDOMEN: Soft. EXTREMITIES: Without asymmetry. Do have stasis changes. IMPRESSION: 1. Respiratory failure. 2. Untreated sleep apnea. 3. Probable diastolic dysfunction. 4. Hypertension. 5. Obesity. I have recommended weaning from mechanical ventilation. It is unlikely be successful without a tracheostomy. The sister is contemplating just palliative care and withdrawal support. I spent approximately 30 minutes discussing the options with her. She will think about all of the things we discussed, and we will touch base again in the morning. CRITICAL CARE TIME: 30 minutes. Job ID: [id number]
[2018-12-15] MEDS: Carvedilol 6.25 MG TAB PO SCH (16:33)
[2018-12-15] MEDS: Micafungin 100 MG in Sodium Chloride 0.9% 100 ML IVPB SCH (16:36)
[2018-12-16] MEDS: methylPREDNISolone Sod Succ 40 MG VIAL IVP SCH ×3 (00:13→12:35)
[2018-12-16] MEDS: HumaLOG 300 UNITS/3 ML VIAL SC PRN ×5 (00:17→23:46)
[2018-12-16] MEDS: Dextrose 5% in Water 1,000 ML IV SCH ×4 (04:50→19:50)
[2018-12-16 05:38] LABS: Band 4 % (5-11); Lymphocytes 6 % (21-51); MDiff Complete? YES; Mean Corpuscular HGB CONC 31.3 g/dL (32.0-36.0); Mean Corpuscular Hemoglobin 30.6 pg (27.0-31.0); Mean Corpuscular Volume 97.8 fL (78.0-98.0); Mean Platelet Volume 8.4 fL (7.4-10.4); Monocytes 3 % (0-10); Neutrophil 87 % (42-75); Platelet Count 200 thou/uL (130-400); Platelet Morphology Comment Appears Adequate; RBC Distribution Width 14.4 % (11.5-14.5); Red Blood Cell (RBC) Count 4.91 mill/uL (4.70-6.10)
[2018-12-16 05:39] LABS: Anion Gap 12 mmol/L (10-20); BUN (Urea Nitrogen) 64 mg/dL (8.4-25.7); Calc. Creatinine Clearance 99 mL/min (70-130); Calcium 9.6 mg/dL (7.8-10.44); Carbon Dioxide 35 mmol/L (23-31); Chloride 110 mmol/L (98-107); Estimated GFR-MDRD 45; Glucose 223 mg/dL (80-115); Potassium 3.5 mmol/L (3.5-5.1); Sodium 153 mmol/L (136-145)
[2018-12-16 07:18] LABS: Actual Bicarbonate (HCO3a) 33.1 mEq/L (22-28); Base Excess (BEa) 9.1 mEq/L (-2.0 to +3.0); Hemoglobin (Hb) 15.7 g/dL (14.0-18.0); O2 Tension (PaO2) 74.6 mmHg (> 80.0); pH, Arterial 7.51 (7.35-7.45)
[2018-12-16 07:19] LABS: Calcium, Ionized 1.27 mmol/L (1.12-1.30); Carboxyhemoglobin (COHb) 1.2 gm% (0.0-3.0); Puncture Site RRA
--- NOTE | 2018-12-16 07:22 | RAD ---
CHEST 2 VIEWS: Date: 12/16/18 INDICATION: History of intubation. COMPARISON: Prior exam dated 12/15/18. IMPRESSION: Cardiomegaly and pulmonary vascular congestion stable. ET tube and gastric catheter are unchanged. No pneumothorax evident. POS: BH
[2018-12-16] MEDS: Carvedilol 6.25 MG TAB PO SCH (09:14)
[2018-12-16] MEDS: Apixaban 5 MG TAB PO SCH (09:15)
[2018-12-16] MEDS: Famotidine 20 MG TAB PO SCH (09:15)
[2018-12-16] MEDS: Allopurinol 100 MG TAB PO SCH (09:15)
[2018-12-16] MEDS: Amlodipine 5 MG TAB PO SCH (09:16)
[2018-12-16] MEDS: Cefepime 1 GM in Sodium Chloride 0.9% 100 ML IVPB SCH (09:16)
[2018-12-16] MEDS: Docusate 100 MG CAP PO SCH (09:20)
[2018-12-16] MEDS: Insulin Glargine 18 UNITS in Pre-Filled Syringe 1 EACH SC SCH ×2 (09:22→21:03)
--- NOTE | 2018-12-16 10:09 | PDOC.CTH ---
Cardiology Progress Note - Objective Vital Signs Temp Pulse Resp BP Pulse Ox 12/16/18 09:16 82 191/94 H 12/16/18 09:14 191/94 H 12/16/18 09:13 82 191/94 H 12/16/18 07:04 82 159/83 H 12/16/18 06:57 80 21 H 93 L 12/16/18 06:00 17 12/16/18 04:00 99 F 17 12/16/18 02:28 83 188/82 H 12/16/18 02:00 26 H 12/16/18 00:09 79 187/81 H 12/16/18 00:00 99.1 F 25 H 12/15/18 22:20 76 173/83 H Admit Weight 3.478 oz Weight 326 lb 4.546 oz 12/15/18 12/16/18 12/17/18 06:59 06:59 06:59 Intake Total 3895.6 3424.5 Output Total 2250 1885 Balance 1645.6 1539.5 - Labs Result Diagrams: 12/16/18 04:55 12/16/18 04:55 Troponin/CKMB Troponin I Less than 0.010 ng/mL (< 0.028) 12/02/18 22:35 - Assessment/Plan 1. Parox. Afib - maintaining NSR. well controlled HR with No BBlocker. On Eliquis 5mg BID. On Coreg 6.25mg BID . 2. DVT/PE - on Eliquis 5mg BID; by forestry farm laborer 3. CHF/PNA. Pulmonary infiltrates. On antibiotics. 4. HTN - Coreg 6.25mg BID 5. BLE Cellulitis - well controlled; 6. Sleep Apnea . Severe. S/p intubation 7. Hep C - 8. Obese 9. Elevated BUN/Cr level - decrease Lasix to 20mg via NG tube daily. 10. Fever. He remains on antibiotics. 11. RBBB 12. Respiratory failure. Family to decide about removing from the ventilator vs tracheostomy. This is a difficult situation as the pt. may not be able to care for the tracheostomy. HAIDER reviewed * Echo on 12/03/2018 with EF 50-55%, normal Rt ventricle cavity and Lt atrium. * Per Dr Bolaños - Echo from earlier this year indicated an EF of 50-55% poor prognosis.
[2018-12-16] MEDS: Linezolid 600 MG in Premix Bag 1 BAG IVPB SCH (11:30)
--- NOTE | 2018-12-16 11:51 | PDOC.PN ---
- Subjective Encounter Start Date: 12/16/18 Encounter Start Time: 11:48 Subjective: intubated - Objective Resuscitation Status - Order Detail: 12/02/18 18:58 Resuscitation Status Routine Resuscitation Status: FULL: Full Resuscitation MAR Reviewed: Yes Vital Signs & Weight: Vital Signs (12 hours) Temp Pulse Resp BP Pulse Ox 12/16/18 10:35 67 173/77 H 12/16/18 10:00 23 H 12/16/18 09:16 82 191/94 H 12/16/18 09:14 191/94 H 12/16/18 09:13 82 191/94 H 12/16/18 08:00 18 12/16/18 07:04 82 159/83 H 12/16/18 07:00 100.8 F H 12/16/18 06:57 80 21 H 93 L 12/16/18 06:00 17 12/16/18 04:00 99 F 17 12/16/18 02:28 83 188/82 H 12/16/18 02:00 26 H 12/16/18 00:09 79 187/81 H 12/16/18 00:00 99.1 F 25 H Weight Admit Weight 3.478 oz Weight 326 lb 4.546 oz Most Recent Monitor Data Heart Rate from ECG 71 NIBP 157/79 NIBP BP-Mean 105 Respiration from ECG 30 SpO2 93 I&O: 12/15/18 12/16/18 12/17/18 06:59 06:59 06:59 Intake Total 3895.6 3424.5 220 Output Total 2250 1885 290 Balance 1645.6 1539.5 -70 Result Diagrams: 12/16/18 04:55 12/16/18 04:55 Additional Labs: Accuchecks 12/16/18 12/15/18 12/15/18 00:18 21:21 18:26 POC Glucose 210 H 237 H 327 H 12/15/18 12:44 POC Glucose 398 H Phys Exam - Physical Examination Neck: no JVD coarse BS Cardiovascular: RRR, no significant murmur Gastrointestinal: soft, positive bowel sounds Musculoskeletal: edema present anasarca Dx/Plan (1) Acute and chronic respiratory failure with hypoxia Code(s): J96.21 - ACUTE AND CHRONIC RESPIRATORY FAILURE WITH HYPOXIA Status: Acute Comment: likely due to NGA, diastolic CHF, currently intubated and not weanable (2) Acute renal failure (ARF) Status: Acute (3) Diastolic CHF Code(s): I50.30 - UNSPECIFIED DIASTOLIC (CONGESTIVE) HEART FAILURE Status: Acute Qualifiers: Heart failure chronicity: acute Qualified Code(s): I50.31 - Acute diastolic (congestive) heart failure Comment: normal EF (4) Hyperglycemia Code(s): R73.9 - HYPERGLYCEMIA, UNSPECIFIED Status: Acute (5) Hypernatremia Code(s): E87.0 - HYPEROSMOLALITY AND HYPERNATREMIA Status: Acute (6) Chronic anticoagulation Code(s): Z79.01 - [facility] (CURRENT) USE OF ANTICOAGULANTS Status: Chronic (7) HTN (hypertension) Code(s): I10 - ESSENTIAL (PRIMARY) HYPERTENSION Status: Chronic Qualifiers: Hypertension type: essential hypertension Qualified Code(s): I10 - Essential (primary) hypertension Comment: stable (8) Morbid obesity Code(s): E66.01 - MORBID (SEVERE) OBESITY DUE TO EXCESS CALORIES Status: Chronic Comment: bmi of 47 (9) NGA (obstructive sleep apnea) Code(s): G47.33 - OBSTRUCTIVE SLEEP APNEA (ADULT) (PEDIATRIC) Status: Chronic (10) Paroxysmal atrial fibrillation Code(s): I48.0 - PAROXYSMAL ATRIAL FIBRILLATION Status: Chronic Comment: rate controlled, On OAC - Plan family in discussion with palliative -: possible extubation today * .
[2018-12-16] MEDS: Furosemide 40 MG/4 ML VIAL ONE ×3 (12:35→12:38)
[2018-12-16] MEDS ORDERED: Furosemide 100 MG/10 ML VIAL SLOW IVP SCH (12:45)
--- NOTE | 2018-12-16 13:22 | PRG ---
DATE OF SERVICE: 12/16/2018 SUBJECTIVE: A 63-year-old gentleman, being seen for acute kidney injury. The patient is intubated. OBJECTIVE: CONSTITUTIONAL: The patient is resting. VITAL SIGNS: Afebrile, pulse 69, breathing 16, and blood pressure 157/75. GENERAL APPEARANCE AND MENTAL STATUS: Fair. HEAD/NECK: Normocephalic. Atraumatic. EYES: EOMI. No deformity. EARS: Clear. No ulcers. NOSE: Intact. No lesions. MOUTH: Clear. No discharge. THROAT: Clear. No exudate. LUNGS: Clear. No crackles. CARDIAC: S1, S2. No rub. ABDOMEN: Benign. Bowel sounds positive. GENITALIA/RECTUM: Ennis absent. BACK/EXTREMITIES: Edema 0+. NEUROLOGICAL: Alert and motor intact. SKIN: LYMPHATICS: LABORATORY DATA: Showed hemoglobin 15, creatinine 1.5. IMPRESSION AND PLAN: 1. Hypernatremia. Recommend D5W. Rechecking sodium later today. 2. Acute kidney injury, resolved. 3. No indication for dialysis. I will sign off on this patient once sodium has improved. Job ID: [id number]
[2018-12-16] MEDS ORDERED: Morphine 10 MG/ML VIAL SLOW IVP PRN (14:00)
[2018-12-16 15:09] LABS: Sodium 152 mmol/L (136-145)
--- NOTE | 2018-12-16 16:49 | PDOC.EVN ---
Event Note - Event Note Event Note: extubated earlier per cat and dog bather. responds to stimuli, VSS
--- NOTE | 2018-12-16 17:55 | PRG ---
DATE OF SERVICE: 12/16/2018 SUBJECTIVE: Mr. Ballard was clinically unchanged. His family elected to extubate him and proceed forward with comfort care. He is given an 80 mg dose of Lasix IV prior to extubation to hopefully preload reducing. He appears comfortable, but appears very weak. He is adequately protecting his airway at this time. He is interacting sluggishly with his family. This is, I believe the correct choice from management standpoint given his severe learning disability. OBJECTIVE: VITAL SIGNS: He is afebrile. Blood pressure 144/67 and heart rate is in the 60s. LUNGS: Clear. HEART: Regular rhythm. ABDOMEN: Soft. EXTREMITIES: Without any new findings. He still has stasis changes. LABORATORY DATA: White count 21.0, hemoglobin 15.0, platelets 200,000. Sodium 153, potassium 3.5, chloride 110, bicarb 35, BUN 64, and creatinine 1.57. IMPRESSION: 1. Diastolic heart failure with alveolar hemorrhage. 2. Poorly controlled hypertension as an outpatient. 3. Untreated sleep apnea. It is unlikely to comply with CPAP in survive this. 4. Hyperchloremia and hypernatremia, it is iatrogenic. 5. Acute on chronic kidney disease. 6. Diabetes. 7. Venous stasis. PLAN: We will continue with comfort care measures. Per family's wishes, he remains a do not resuscitate patient. If he is stable overnight, he could be considered for placement in a hospice situation. If he improves, then we can continue to try to find his medication, but I am sure this will be for not given the fact that his mother is incapable of taking care of him and he has a significant learning disability. Job ID: [id number]
[2018-12-16] MEDS: Enalaprilat Dihydrate 1.25 MG/ML VIAL SLOW IVP SCH ×2 (18:13→23:47)
[2018-12-16] MEDS ORDERED: Dextrose 5% in Water 1,000 ML IV PRN (18:17)
[2018-12-17] MEDS: Dextrose 5% in Water 1,000 ML IV SCH ×4 (01:11→17:43)
[2018-12-17] MEDS: Enalaprilat Dihydrate 1.25 MG/ML VIAL SLOW IVP SCH ×3 (05:14→17:43)
[2018-12-17] MEDS: HumaLOG 300 UNITS/3 ML VIAL SC PRN ×3 (05:14→17:44)
[2018-12-17] MEDS: methylPREDNISolone Sod Succ 40 MG VIAL IVP SCH (08:56)
[2018-12-17] MEDS: Insulin Glargine 18 UNITS in Pre-Filled Syringe 1 EACH SC SCH ×2 (08:58→21:24)
[2018-12-17] MEDS ORDERED: Enoxaparin Sodium 40 MG/0.4 ML SYRINGE SC SCH (09:00)
[2018-12-17 12:20] LABS: Anion Gap 10 mmol/L (10-20); BUN (Urea Nitrogen) 50 mg/dL (8.4-25.7); Calc. Creatinine Clearance 134 mL/min (70-130); Calcium 9.1 mg/dL (7.8-10.44); Carbon Dioxide 36 mmol/L (23-31); Chloride 105 mmol/L (98-107); Estimated GFR-MDRD 61; Glucose 232 mg/dL (80-115); Potassium 3.3 mmol/L (3.5-5.1); Sodium 148 mmol/L (136-145)
--- NOTE | 2018-12-17 12:56 | PDOC.CTH ---
Cardiology Progress Note - Subjective The pt seen and examined. No overnight events. He is resting well in bed - Objective Vital Signs Temp Pulse Resp BP Pulse Ox 12/17/18 07:51 90 L 12/17/18 07:29 91 L 12/17/18 07:27 75 16 91 L 12/17/18 07:00 99.2 F 12/17/18 05:14 144/73 H 12/17/18 04:00 99.2 F Admit Weight 3.478 oz Weight 325 lb 6.436 oz 12/16/18 12/17/18 12/18/18 06:59 06:59 06:59 Intake Total 3424.5 4135.5 120 Output Total 1885 3490 300 Balance 1539.5 645.5 -180 - Physical Examination Neck: no JVD present Lungs: other: (diminished at bases) Heart: other: (irregular) Abdomen: soft Extremities: other: (No edema to BLE) - Telemetry Telemetry Rhythm: Afib with RH 70s - Labs Result Diagrams: 12/16/18 04:55 12/17/18 11:45 Troponin/CKMB Troponin I Less than 0.010 ng/mL (< 0.028) 12/02/18 22:35 - Assessment/Plan 1. Parox. Afib - maintaining NSR. well controlled HR. Will resume Coreg 6.25mg BID for Afib and HTN. May resume Eliquis 5mg BID 2. DVT/PE - by community planner; Eliquis is on hold for comfort care measures. 3. CHF/PNA. Pulmonary infiltrates. On antibiotics. 4. HTN - resume Coreg 6.25mg BID from today 5. BLE Cellulitis - well controlled; 6. Sleep Apnea . Severe. S/p intubation 7. Hep C - 8. Obese 9. Elevated BUN/Cr level - decrease Lasix to 20mg via NG tube daily. 10. Fever. He remains on antibiotics. 11. RBBB 12. Respiratory failure and Extubated on 12/16/2018 - stable with 3LNC; DNAR; MAR reviewed * Echo on 12/03/2018 with EF 50-55%, normal Rt ventricle cavity and Lt atrium. * Per Dr Bolaños - Echo from earlier this year indicated an EF of 50-55% poor prognosis. Pt. seen and eval. by me. I agree with the A/P by the GEAR MACHINE OPERATOR. He is doing better this afternoon. Answering questions. Chest clear anterior. Irreg. Minimal edema.Resume prior meds. May need to consider CPAP [email or web address] Review of Systems - Review of Systems Constitutional: reports: see HPI
--- NOTE | 2018-12-17 13:08 | PDOC.PN ---
- Subjective Encounter Start Date: 12/17/18 Encounter Start Time: 13:06 Subjective: opens eyes to verbal stimuli - Objective Resuscitation Status - Order Detail: 12/16/18 13:24 Resuscitation Status Routine Resuscitation Status: DNAR: NO Resuscitation Discussed with: consent discussed with sister and Dr. Jeff MALONEY Reviewed: Yes Vital Signs & Weight: Vital Signs (12 hours) Temp Pulse Resp BP Pulse Ox 12/17/18 07:51 90 L 12/17/18 07:29 91 L 12/17/18 07:27 75 16 91 L 12/17/18 07:00 99.2 F 12/17/18 05:14 144/73 H 12/17/18 04:00 99.2 F Weight Admit Weight 3.478 oz Weight 325 lb 6.436 oz Most Recent Monitor Data Heart Rate from ECG 81 NIBP 163/80 NIBP BP-Mean 107 Respiration from ECG 20 SpO2 92 I&O: 12/16/18 12/17/18 12/18/18 06:59 06:59 06:59 Intake Total 3424.5 4135.5 120 Output Total 1885 3490 300 Balance 1539.5 645.5 -180 Result Diagrams: 12/16/18 04:55 12/17/18 11:45 Additional Labs: Accuchecks 12/17/18 12/17/18 12/16/18 11:51 05:15 23:46 POC Glucose 198 H 175 H 211 H 12/16/18 12/16/18 21:02 16:30 POC Glucose 274 H 226 H Phys Exam - Physical Examination Neck: no JVD grossly clear Cardiovascular: irregular Gastrointestinal: soft distant BS Musculoskeletal: edema present Dx/Plan (1) Acute and chronic respiratory failure with hypoxia Code(s): J96.21 - ACUTE AND CHRONIC RESPIRATORY FAILURE WITH HYPOXIA Status: Acute Comment: likely due to NGA, diastolic CHF, currently intubated and not weanable (2) Acute renal failure (ARF) Status: Resolved Qualifiers: Acute renal failure type: unspecified Qualified Code(s): N17.9 - Acute kidney failure, unspecified (3) Diastolic CHF Code(s): I50.30 - UNSPECIFIED DIASTOLIC (CONGESTIVE) HEART FAILURE Status: Acute Qualifiers: Heart failure chronicity: acute Qualified Code(s): I50.31 - Acute diastolic (congestive) heart failure Comment: normal EF (4) Hyperglycemia Code(s): R73.9 - HYPERGLYCEMIA, UNSPECIFIED Status: Acute (5) Hypernatremia Code(s): E87.0 - HYPEROSMOLALITY AND HYPERNATREMIA Status: Acute (6) Chronic anticoagulation Code(s): Z79.01 - [facility] (CURRENT) USE OF ANTICOAGULANTS Status: Chronic (7) HTN (hypertension) Code(s): I10 - ESSENTIAL (PRIMARY) HYPERTENSION Status: Chronic Qualifiers: Hypertension type: essential hypertension Qualified Code(s): I10 - Essential (primary) hypertension Comment: stable (8) Morbid obesity Code(s): E66.01 - MORBID (SEVERE) OBESITY DUE TO EXCESS CALORIES Status: Chronic Comment: bmi of 47 (9) NGA (obstructive sleep apnea) Code(s): G47.33 - OBSTRUCTIVE SLEEP APNEA (ADULT) (PEDIATRIC) Status: Chronic (10) Paroxysmal atrial fibrillation Code(s): I48.0 - PAROXYSMAL ATRIAL FIBRILLATION Status: Chronic Comment: rate controlled, On OAC - Plan post extubation -: cont accu/ss/ LA insulin -: cont coreg/ hydralazine -: cont solu-medrol -: prognosis poor * .
[2018-12-17] MEDS ORDERED: Potassium Chloride 20 MEQ TAB PO SCH (13:15)
[2018-12-17] MEDS ORDERED: Morphine 2 MG/ML SYRINGE SLOW IVP PRN (13:19)
[2018-12-17] MEDS ORDERED: Morphine 10 MG/ML VIAL SLOW IVP PRN (13:20)
[2018-12-17] MEDS ORDERED: Sodium Chloride 0.9% 1,000 ML IV SCH (13:30)
[2018-12-17] MEDS ORDERED: hydrALAZINE 20 MG/ML VIAL SLOW IVP PRN ×4 (14:25→14:30)
--- NOTE | 2018-12-17 14:52 | PRG ---
DATE OF SERVICE: 12/17/2018 SUBJECTIVE: This is a 63-year-old gentleman, being seen for acute kidney disease. The patient denies nausea, vomiting, or chest pain. OBJECTIVE: CONSTITUTIONAL: The patient is awake and alert. VITAL SIGNS: Pulse 75, breathing 16, blood pressure 121/57. GENERAL APPEARANCE AND MENTAL STATUS: Fair. HEAD/NECK: Normocephalic. Atraumatic. EYES: EOMI. No deformity. EARS: Clear. No ulcers. NOSE: Intact. No lesions. MOUTH: Clear. No discharge. THROAT: Clear. No exudate. LUNGS: Clear. No crackles. CARDIAC: S1, S2. No rub. ABDOMEN: Benign. Bowel sounds positive. GENITALIA/RECTUM: Ennis absent. BACK/EXTREMITIES: Edema 0+. NEUROLOGICAL: Alert and motor intact. SKIN: LYMPHATICS: LABORATORY DATA: Labs show hemoglobin 15. Sodium 148, creatinine 1.2. ASSESSMENT AND PLAN: 1. Acute kidney injury, resolved. 2. Chronic kidney disease, stage 3, stable. 3. Hypokalemia. Recommend 40 mEq of K. 4. Hypernatremia, improving. Continue D5 water. I will sign off on this patient. Please reconsult as needed. Job ID: [id number]
[2018-12-17] MEDS ORDERED: Carvedilol 3.125 MG TAB PO SCH (17:00)
[2018-12-17] MEDS: Carvedilol 6.25 MG TAB PO SCH (17:43)
[2018-12-17] MEDS ORDERED: Acetaminophen 1,000 MG in Premix Bag 1 BAG IVPB SCH (18:00)
--- NOTE | 2018-12-17 18:47 | PRG ---
DATE OF SERVICE: 12/17/2018 SUBJECTIVE: Travon Ballard surprisingly continues to improve. He was actually being fed when I rounded on him today. He actually smiled and does not look he is fatigued, dizzy looked yesterday evening after extubation. OBJECTIVE: VITAL SIGNS: He is afebrile, heart rate 77, and blood pressure 168/84. LUNGS: Unchanged. HEART: Unchanged. ABDOMEN: Unchanged. LABORATORY DATA: No new lab today. IMPRESSION: 1. Hypertensive diastolic dysfunction. 2. Untreated sleep apnea. He says he will try to wear CPAP tonight. We have an auto titrating CPAP, so we will set that up. Hopefully, it is available. 3. Hypertension. 4. Alveolar hemorrhage with diastolic dysfunction. 5. Learning disability. 6. Do not resuscitate status. Continue with supportive care. Job ID: [id number]
[2018-12-17] MEDS ORDERED: Amlodipine 5 MG TAB PO SCH (21:00)
[2018-12-18] MEDS: Enalaprilat Dihydrate 1.25 MG/ML VIAL SLOW IVP SCH ×2 (00:08→05:45)
[2018-12-18] MEDS: Dextrose 5% in Water 1,000 ML IV SCH (00:13)
[2018-12-18 05:23] LABS: Anion Gap 13 mmol/L (10-20); BUN (Urea Nitrogen) 47 mg/dL (8.4-25.7); Calc. Creatinine Clearance 170 mL/min (70-130); Calcium 8.9 mg/dL (7.8-10.44); Carbon Dioxide 31 mmol/L (23-31); Chloride 104 mmol/L (98-107); Estimated GFR-MDRD 81; Glucose 203 mg/dL (80-115); Potassium 3.2 mmol/L (3.5-5.1); Sodium 145 mmol/L (136-145)
--- NOTE | 2018-12-18 08:36 | PDOC.CTH ---
Cardiology Progress Note - Subjective The pt seen and examined. No overnight events. No cardiac complaints. The pt' s family concerns whether the pt is on any anti-anxiety medication. - Objective Vital Signs Temp Pulse Resp BP BP Pulse Ox 12/18/18 07:40 98.8 F 74 20 155/75 H 91 L 12/18/18 06:23 70 16 12/18/18 05:45 164/82 H 12/18/18 04:00 97.7 F 66 20 164/82 H 95 12/18/18 03:27 95 12/18/18 00:08 165/90 H 12/18/18 00:00 97.7 F 70 20 165/90 H 93 L 12/17/18 23:35 95 12/17/18 23:18 64 20 93 L Admit Weight 3.478 oz Weight 325 lb 6.436 oz 12/17/18 12/18/18 12/19/18 06:59 06:59 06:59 Intake Total 4135.5 1701 Output Total 3490 1890 Balance 645.5 -189 - Physical Examination General/Neuro: other: (A&O to self) Lungs: other: (diminished at bases) Heart: RRR Abdomen: soft Extremities: other: (2-3+ non-pitting BLE edema) - Labs Result Diagrams: 12/16/18 04:55 12/18/18 04:42 Troponin/CKMB Troponin I Less than 0.010 ng/mL (< 0.028) 12/02/18 22:35 - Assessment/Plan 1. Parox. Afib - maintaining NSR. well controlled HR with Coreg 6.25mg BID for Afib and HTN. On Xarelto 10mg qd; 2. DVT/PE - by bingo clerk; On Xarelto 10mg qd 3. CHF vs PNA - Pulmonary infiltrates. On antibiotics. 4. HTN - will start Lisinopril/HCTZ 10/12.5mg qd from this AM. 5. BLE Cellulitis - 2-3+ Non-pitting BLE edema; MAGY wrap to the site. edema has improved. 6. Severe Sleep Apnea with S/p intubation - He required Bipap last night per family 7. Hep C - 8. Obese 9. Elevated BUN/Cr level - Encourage to have fluid 10. Fever - stable 11. RBBB 12. Respiratory failure and Extubated on 12/16/2018 - stable with 3LNC; DNAR; 13. Hypokalemia - Kcl 40 mEq today MAR reviewed * Echo on 12/03/2018 with EF 50-55%, normal Rt ventricle cavity and Lt atrium. * Per Dr Bolaños - Echo from earlier this year indicated an EF of 50-55% Review of Systems - Review of Systems Constitutional: reports: no symptoms reported EENTM: reports: no symptoms reported Respiratory: reports: no symptoms reported Cardiac (ROS): reports: no symptoms reported ABD/GI: reports: no symptoms reported
[2018-12-18] MEDS ORDERED: Potassium Chloride 20 MEQ TAB PO SCH ×2 (09:00→09:30)
[2018-12-18] MEDS: Insulin Glargine 18 UNITS in Pre-Filled Syringe 1 EACH SC SCH ×2 (09:53→20:57)
[2018-12-18] MEDS: methylPREDNISolone Sod Succ 40 MG VIAL IVP SCH (09:53)
[2018-12-18] MEDS: Rivaroxaban 10 MG TAB PO SCH (09:53)
[2018-12-18] MEDS: Carvedilol 6.25 MG TAB PO SCH ×2 (09:53→16:05)
[2018-12-18] MEDS: Lisinopril/Hydrochlorothiazide 10 mg/12.5 mg Tablet PO SCH (10:00)
--- NOTE | 2018-12-18 10:09 | PDOC.PN ---
- Subjective Encounter Start Date: 12/18/18 Encounter Start Time: 10:07 Subjective: awake, verbally responsive, does not follow directions - Objective Resuscitation Status - Order Detail: 12/16/18 13:24 Resuscitation Status Routine Resuscitation Status: DNAR: NO Resuscitation Discussed with: consent discussed with sister and Dr. Jeff MALONEY Reviewed: Yes Vital Signs & Weight: Vital Signs (12 hours) Temp Pulse Resp BP BP Pulse Ox 12/18/18 07:40 98.8 F 74 20 155/75 H 91 L 12/18/18 06:23 70 16 12/18/18 05:45 164/82 H 12/18/18 04:00 97.7 F 66 20 164/82 H 95 12/18/18 03:27 95 12/18/18 00:08 165/90 H 12/18/18 00:00 97.7 F 70 20 165/90 H 93 L 12/17/18 23:35 95 12/17/18 23:18 64 20 93 L Weight Admit Weight 3.478 oz Weight 325 lb 6.436 oz Most Recent Monitor Data Heart Rate from ECG 81 NIBP 168/84 NIBP BP-Mean 112 Respiration from ECG 28 SpO2 93 I&O: 12/17/18 12/18/18 12/19/18 06:59 06:59 06:59 Intake Total 4135.5 1701 Output Total 3490 1890 Balance 645.5 -189 Result Diagrams: 12/16/18 04:55 12/18/18 04:42 Additional Labs: Accuchecks 12/18/18 12/18/18 12/17/18 05:43 05:09 20:29 POC Glucose 165 H 171 H 191 H 12/17/18 12/17/18 16:20 11:51 POC Glucose 248 H 198 H Phys Exam - Physical Examination Neck: no JVD Respiratory: clear to auscultation bilateral Cardiovascular: RRR, no significant murmur Gastrointestinal: soft, positive bowel sounds Musculoskeletal: no edema Dx/Plan (1) Acute and chronic respiratory failure with hypoxia Code(s): J96.21 - ACUTE AND CHRONIC RESPIRATORY FAILURE WITH HYPOXIA Status: Resolved Comment: likely due to NGA, diastolic CHF, currently intubated and not weanable (2) Acute renal failure (ARF) Status: Resolved Qualifiers: Acute renal failure type: unspecified Qualified Code(s): N17.9 - Acute kidney failure, unspecified (3) Diastolic CHF Code(s): I50.30 - UNSPECIFIED DIASTOLIC (CONGESTIVE) HEART FAILURE Status: Acute Qualifiers: Heart failure chronicity: acute Qualified Code(s): I50.31 - Acute diastolic (congestive) heart failure Comment: normal EF (4) Hyperglycemia Code(s): R73.9 - HYPERGLYCEMIA, UNSPECIFIED Status: Resolved (5) Hypernatremia Code(s): E87.0 - HYPEROSMOLALITY AND HYPERNATREMIA Status: Acute (6) Chronic anticoagulation Code(s): Z79.01 - [facility] (CURRENT) USE OF ANTICOAGULANTS Status: Chronic (7) HTN (hypertension) Code(s): I10 - ESSENTIAL (PRIMARY) HYPERTENSION Status: Chronic Qualifiers: Hypertension type: essential hypertension Qualified Code(s): I10 - Essential (primary) hypertension Comment: stable (8) Morbid obesity Code(s): E66.01 - MORBID (SEVERE) OBESITY DUE TO EXCESS CALORIES Status: Chronic Comment: bmi of 47 (9) NGA (obstructive sleep apnea) Code(s): G47.33 - OBSTRUCTIVE SLEEP APNEA (ADULT) (PEDIATRIC) Status: Chronic (10) Paroxysmal atrial fibrillation Code(s): I48.0 - PAROXYSMAL ATRIAL FIBRILLATION Status: Chronic Comment: rate controlled, On OAC - Plan cont coreg, lisinopril -: cont accu/ss lantus -: PT/OT/CM * .
[2018-12-18] MEDS: HumaLOG 300 UNITS/3 ML VIAL SC PRN (12:59)
--- NOTE | 2018-12-18 13:02 | PRG ---
DATE OF SERVICE: 12/18/2018 SUBJECTIVE: This is a 63-year-old gentleman being seen for acute kidney injury. The patient denies any nausea, vomiting, or chest pains. OBJECTIVE: CONSTITUTIONAL: The patient is awake and alert. VITAL SIGNS: Afebrile, pulse 72, breathing 16, blood pressure 155/75. GENERAL APPEARANCE AND MENTAL STATUS: Fair. HEAD/NECK: Normocephalic. Atraumatic. EYES: EOMI. No deformity. EARS: Clear. No ulcers. NOSE: Intact. No lesions. MOUTH: Clear. No discharge. THROAT: Clear. No exudate. LUNGS: Clear. No crackles. CARDIAC: S1, S2. No rub. ABDOMEN: Benign. Bowel sounds positive. GENITALIA/RECTUM: Ennis absent. BACK/EXTREMITIES: Edema 0+. NEUROLOGICAL: Alert and motor intact. SKIN: LYMPHATICS: LABORATORY DATA: Reviewed. ASSESSMENT AND PLAN: 1. Acute kidney injury, resolved. 2. Hypertension, stable. 3. Anemia, stable. 4. Chronic kidney disease, stage 3, stable. 5. Hypernatremia, resolved. 6. Hypokalemia, recommend high potassium diet. I will sign off on this patient. Please reconsult as needed. Job ID: [id number]
[2018-12-18 15:03] VITALS: BMI 52.5
[2018-12-19] MEDS: Carvedilol 6.25 MG TAB PO SCH ×2 (07:50→16:50)
[2018-12-19] MEDS: Rivaroxaban 10 MG TAB PO SCH (07:50)
[2018-12-19] MEDS: methylPREDNISolone Sod Succ 40 MG VIAL IVP SCH (07:50)
[2018-12-19] MEDS: Lisinopril/Hydrochlorothiazide 10 mg/12.5 mg Tablet PO SCH (07:51)
[2018-12-19] MEDS ORDERED: Potassium Chloride 20 MEQ TAB PO SCH (10:00)
[2018-12-19] MEDS: Insulin Glargine 18 UNITS in Pre-Filled Syringe 1 EACH SC SCH ×2 (11:43→20:22)
--- NOTE | 2018-12-19 14:35 | PDOC.PN ---
- Subjective Encounter Start Date: 12/19/18 Encounter Start Time: 14:33 Nellie Brice was seen today in follow-up of respiratory failure. He was extubated a few days ago. He is awake and alert. No complaints today. - Objective Resuscitation Status - Order Detail: 12/16/18 13:24 Resuscitation Status Routine Resuscitation Status: DNAR: NO Resuscitation Discussed with: consent discussed with sister and Dr. Aguilar MAR Reviewed: Yes Vital Signs & Weight: Vital Signs (12 hours) Temp Pulse Resp BP BP Pulse Ox 12/19/18 13:04 86 16 93 L 12/19/18 11:00 99.5 F 68 18 148/77 H 90 L 12/19/18 08:00 94 L 12/19/18 07:53 98.0 F 70 18 131/74 90 L 12/19/18 07:51 72 12/19/18 07:50 108/63 12/19/18 07:27 72 18 92 L 12/19/18 03:10 94 L Weight Admit Weight 343 lb 0.628 oz Weight 325 lb 6.436 oz Most Recent Monitor Data Heart Rate from ECG 81 NIBP 168/84 NIBP BP-Mean 112 Respiration from ECG 28 SpO2 93 I&O: 12/18/18 12/19/18 12/20/18 06:59 06:59 06:59 Intake Total 1701 3050 Output Total 1890 1075 400 Balance -189 1975 -400 Result Diagrams: 12/16/18 04:55 12/18/18 04:42 Additional Labs: Accuchecks 12/19/18 12/19/18 12/18/18 11:48 04:31 19:58 POC Glucose 143 H 134 H 183 H 12/18/18 16:52 POC Glucose 165 H Phys Exam - Physical Examination HEENT: PERRLA Respiratory: no wheezing, no rales, no rhonchi, clear to auscultation bilateral Cardiovascular: RRR, no significant murmur, no rub Gastrointestinal: soft, non-tender, no distention, positive bowel sounds Musculoskeletal: no edema, pulses present Dx/Plan (1) Acute on chronic respiratory failure with hypoxia and hypercapnia Code(s): J96.21 - ACUTE AND CHRONIC RESPIRATORY FAILURE WITH HYPOXIA; J96.22 - ACUTE AND CHRONIC RESPIRATORY FAILURE WITH HYPERCAPNIA Status: Acute Comment : likely due to NGA, diastolic CHF, currently intubated (2) Diastolic CHF Code(s): I50.30 - UNSPECIFIED DIASTOLIC (CONGESTIVE) HEART FAILURE Status: Acute Qualifiers: Heart failure chronicity: acute Qualified Code(s): I50.31 - Acute diastolic (congestive) heart failure Comment: normal EF (3) HTN (hypertension) Code(s): I10 - ESSENTIAL (PRIMARY) HYPERTENSION Status: Chronic Qualifiers: Hypertension type: essential hypertension Qualified Code(s): I10 - Essential (primary) hypertension Comment: stable (4) Hepatitis C Code(s): B19.20 - UNSPECIFIED VIRAL HEPATITIS C WITHOUT HEPATIC COMA Status: Chronic Qualifiers: Viral hepatitis chronicity: chronic Hepatic coma status: without hepatic coma Qualified Code(s): B18.2 - Chronic viral hepatitis C (5) Paroxysmal atrial fibrillation Code(s): I48.0 - PAROXYSMAL ATRIAL FIBRILLATION Status: Chronic Comment: rate controlled, On OAC (6) Acute kidney injury Code(s): N17.9 - ACUTE KIDNEY FAILURE, UNSPECIFIED Status: Resolved - Plan * Acute on chronic respiratory failure- improved- his respiratory status has been stable off the ventilator * Possible alveolar hemorrhage- * Diastolic CHF- compensated * HTN- blood pressure is stable * Acute kidney injury- resolved * Awaiting placement.
--- NOTE | 2018-12-19 17:08 | PRG ---
DATE OF SERVICE: 12/19/2018 SUBJECTIVE: Travon Ballard is doing well. He says he is wearing his BiPAP. He says he is willing to continue wearing it. OBJECTIVE: VITAL SIGNS: He is afebrile. Heart rate is in the 60s to 80s, respiratory rates in the teens, oximetry is 93% on 3 L, blood pressure 148/77. LUNGS: Clear. HEART: Regular rhythm. ABDOMEN: Soft. EXTREMITIES: With stasis changes. LABORATORY DATA: He has no new lab. IMPRESSION AND PLAN: 1. Diastolic heart failure. 2. Pulmonary hemorrhage with diastolic heart failure. 3. Anticoagulation prior to admission. 4. Deep venous thrombosis, likely partially treated in old, already on Eliquis for 2 weeks on presentation. Because of his pulmonary hemorrhage, I had him on prophylactic dose of Xarelto given that he will probably be more compliant with the once-a-day drug. 5. Sleep apnea. 6. Life-threatening obesity. 7. Do not resuscitate status. He is actually terminally extubated and has continued to improve slightly on a daily basis. We will continue supportive care. Job ID: [id number]
[2018-12-19] MEDS ORDERED: hydrALAZINE 25 MG TAB PO PRN (17:09)
[2018-12-19] MEDS: Famotidine 20 MG TAB PO SCH (20:20)
[2018-12-20] MEDS: HumaLOG 300 UNITS/3 ML VIAL SC PRN ×2 (05:26→16:10)
[2018-12-20 06:17] LABS: Anion Gap 12 mmol/L (10-20); BUN (Urea Nitrogen) 44 mg/dL (8.4-25.7); Calc. Creatinine Clearance 186 mL/min (70-130); Calcium 8.5 mg/dL (7.8-10.44); Carbon Dioxide 25 mmol/L (23-31); Chloride 106 mmol/L (98-107); Estimated GFR-MDRD 89; Glucose 182 mg/dL (80-115); Potassium 3.3 mmol/L (3.5-5.1); Sodium 140 mmol/L (136-145)
[2018-12-20 06:37] LABS: Band 4 % (5-11); Hemoglobin 14.4 g/dL (14.0-18.0); Lymphocytes 8 % (21-51); MDiff Complete? YES; Mean Corpuscular HGB CONC 32.4 g/dL (32.0-36.0); Mean Corpuscular Hemoglobin 31.2 pg (27.0-31.0); Mean Corpuscular Volume 96.3 fL (78.0-98.0); Mean Platelet Volume 8.7 fL (7.4-10.4); Monocytes 6 % (0-10); Neutrophil 82 % (42-75); Platelet Count 195 thou/uL (130-400); RBC Distribution Width 15.1 % (11.5-14.5); White Blood Cell (WBC) Count 20.4 thou/uL (4.8-10.8)
[2018-12-20] MEDS: Lisinopril/Hydrochlorothiazide 10 mg/12.5 mg Tablet PO SCH (08:06)
[2018-12-20] MEDS: Loperamide HCl 2 MG CAP PO PRN (08:06)
[2018-12-20] MEDS: Rivaroxaban 10 MG TAB PO SCH (08:06)
[2018-12-20] MEDS: predniSONE 20 MG TAB PO SCH (08:07)
[2018-12-20] MEDS: Carvedilol 6.25 MG TAB PO SCH ×2 (08:07→16:03)
[2018-12-20] MEDS: Famotidine 20 MG TAB PO SCH ×2 (08:07→20:32)
[2018-12-20] MEDS: Insulin Glargine 18 UNITS in Pre-Filled Syringe 1 EACH SC SCH ×2 (08:07→20:36)
--- NOTE | 2018-12-20 17:42 | PDOC.PN ---
- Subjective Encounter Start Date: 12/20/18 Encounter Start Time: 15:30 Mr. Ballard is still confused. He appears comfortable however, and does not appear to be in pain, nor having any difficulty with breathing. - Objective Resuscitation Status - Order Detail: 12/16/18 13:24 Resuscitation Status Routine Resuscitation Status: DNAR: NO Resuscitation Discussed with: consent discussed with sister and Dr. Aguilar MAR Reviewed: Yes Vital Signs & Weight: Vital Signs (12 hours) Temp Pulse Resp BP BP Pulse Ox 12/20/18 16:03 172/80 H 12/20/18 15:12 97.4 F L 62 18 94 L 12/20/18 08:07 139/75 12/20/18 08:06 59 L 139/75 12/20/18 08:05 91 L 12/20/18 07:07 99.2 F 59 L 18 139/75 91 L 12/20/18 06:57 59 L 16 93 L Weight Admit Weight 343 lb 0.628 oz Weight 325 lb 6.436 oz Most Recent Monitor Data Heart Rate from ECG 81 NIBP 168/84 NIBP BP-Mean 112 Respiration from ECG 28 SpO2 93 I&O: 12/19/18 12/20/18 12/21/18 06:59 06:59 06:59 Intake Total 3050 360 Output Total 1075 925 Balance 1975 -565 Result Diagrams: 12/20/18 05:34 12/20/18 05:34 Additional Labs: Accuchecks 12/20/18 12/20/18 12/20/18 15:36 11:42 04:14 POC Glucose 193 H 177 H 179 H 12/19/18 19:28 POC Glucose 182 H Phys Exam - Physical Examination HEENT: PERRLA Respiratory: no wheezing, no rales, no rhonchi, clear to auscultation bilateral Cardiovascular: RRR, no significant murmur, no rub Gastrointestinal: soft, non-tender, no distention, positive bowel sounds Musculoskeletal: pulses present, edema present chronic venous stasis Dx/Plan (1) Acute on chronic respiratory failure with hypoxia and hypercapnia Code(s): J96.21 - ACUTE AND CHRONIC RESPIRATORY FAILURE WITH HYPOXIA; J96.22 - ACUTE AND CHRONIC RESPIRATORY FAILURE WITH HYPERCAPNIA Status: Acute Comment : likely due to NGA, diastolic CHF, currently intubated (2) Diastolic CHF Code(s): I50.30 - UNSPECIFIED DIASTOLIC (CONGESTIVE) HEART FAILURE Status: Acute Qualifiers: Heart failure chronicity: acute Qualified Code(s): I50.31 - Acute diastolic (congestive) heart failure Comment: normal EF (3) HTN (hypertension) Code(s): I10 - ESSENTIAL (PRIMARY) HYPERTENSION Status: Chronic Qualifiers: Hypertension type: essential hypertension Qualified Code(s): I10 - Essential (primary) hypertension Comment: stable (4) Hepatitis C Code(s): B19.20 - UNSPECIFIED VIRAL HEPATITIS C WITHOUT HEPATIC COMA Status: Chronic Qualifiers: Viral hepatitis chronicity: chronic Hepatic coma status: without hepatic coma Qualified Code(s): B18.2 - Chronic viral hepatitis C (5) Paroxysmal atrial fibrillation Code(s): I48.0 - PAROXYSMAL ATRIAL FIBRILLATION Status: Chronic Comment: rate controlled, On OAC (6) Acute kidney injury Code(s): N17.9 - ACUTE KIDNEY FAILURE, UNSPECIFIED Status: Resolved - Plan * Encephalopathy- likely multi-factoral- from his acute illness as well as medication related. will continue to tiny steroids as tolerated. * Acute on chronic respiratory failure- improved. * HTN- blood pressure is a bit labile * Chronic diastolic heart failure- compensated * Severe decondition- continue PT/OT * Begin discharge planning
--- NOTE | 2018-12-20 19:39 | PRG ---
DATE OF SERVICE: 12/20/2018 SUBJECTIVE: Travon Ballard was sit and up in bed. His mother is at his bedside. He is in no distress. He says he wore his BiPAP last night. OBJECTIVE: VITAL SIGNS: He is afebrile, heart rate in the 60s, blood pressure 172/80, and 18 was his respiratory rate. He is continuously asking for orange juice, which I have asked the nurses to get for him. His length of life will not be determined by his blood sugars. LUNGS: Clear. HEART: Regular rhythm. ABDOMEN: Soft and massive. EXTREMITIES: With stasis changes. LABORATORY DATA: White count is 20.4, hemoglobin 14.4, and platelets 195. Sodium 140, potassium 3.3, chloride 106, bicarb 25, BUN 44, creatinine 0.87, and glucose 182. IMPRESSION: 1. Status post respiratory failure with diastolic heart failure. 2. Uncontrolled hypertension, it is improving. 3. Alveolar hemorrhage associated with hypertensive pulmonary edema and diastolic dysfunction. 4. Deep venous thrombosis, that was probably present prior to admission. He had been on Eliquis for 2 weeks prior to admission. I am hesitant to restart full-dose Eliquis and I would recommend that we continue with prophylactic dose of Eliquis for now and then consider increasing the dose if he makes it to a point of being discharged. The only issue there will be whether or not he is stable on his feet. I doubt he will anytime soon be ambulatory and not without significant fall risk, so I would continue with prophylactic dose of Eliquis. Other problems include untreated sleep apnea. He has been empirically treated with nocturnal BiPAP. 5. He has diabetes and life-threatening obesity. He has a do not resuscitate status and we actually terminally extubated him and he surprised us and rallied and actually is quite stable at this point in time. We will continue supportive care. The next step is placement. Job ID: [id number]
[2018-12-20] MEDS: diphenhydrAMINE 25 MG CAP PO PRN (21:22)
[2018-12-21] MEDS: Rivaroxaban 10 MG TAB PO SCH (08:02)
[2018-12-21] MEDS: Lisinopril/Hydrochlorothiazide 10 mg/12.5 mg Tablet PO SCH (08:02)
[2018-12-21] MEDS: Loperamide HCl 2 MG CAP PO PRN (08:02)
[2018-12-21] MEDS: Famotidine 20 MG TAB PO SCH ×2 (08:03→19:39)
[2018-12-21] MEDS: predniSONE 20 MG TAB PO SCH (08:03)
[2018-12-21] MEDS: Carvedilol 6.25 MG TAB PO SCH ×2 (08:03→17:53)
[2018-12-21] MEDS: Insulin Glargine 18 UNITS in Pre-Filled Syringe 1 EACH SC SCH ×2 (08:04→19:41)
[2018-12-21] MEDS: Lorazepam 0.5 MG TAB PO PRN (08:53)
[2018-12-21] MEDS: Lorazepam 0.5 MG TAB PO SCH ×2 (09:38→19:39)
[2018-12-21 09:52] LABS: #Eosinphils 0.2 thou/uL (0.0-0.7); #Lymphocytes 1.4 thou/uL (1.20-3.40); #Neutrophils 19.7 thou/uL (1.40-6.50); %Basophils 0.2 % (0.0-1.0); %Eosinophils 0.9 % (0.0-10.0); %Lymphocytes 6.3 % (21.0-51.0); %Monocytes 4.6 % (0.0-10.0); %Neutrophils 88.1 % (42.0-75.0); Hemoglobin 15.6 g/dL (14.0-18.0); Mean Corpuscular HGB CONC 32.7 g/dL (32.0-36.0); Mean Corpuscular Hemoglobin 31.1 pg (27.0-31.0); Mean Corpuscular Volume 95.1 fL (78.0-98.0); Mean Platelet Volume 8.3 fL (7.4-10.4); Platelet Count 202 thou/uL (130-400); RBC Distribution Width 15.4 % (11.5-14.5); Red Blood Cell (RBC) Count 5.02 mill/uL (4.70-6.10); White Blood Cell (WBC) Count 22.3 thou/uL (4.8-10.8)
[2018-12-21] MEDS: Haloperidol 5 MG TAB PO SCH ×2 (09:54→19:40)
[2018-12-21] MEDS: Floranex Packet PO SCH (09:54)
[2018-12-21 10:11] LABS: Anion Gap 14 mmol/L (10-20); BUN (Urea Nitrogen) 32 mg/dL (8.4-25.7); Calc. Creatinine Clearance 205 mL/min (70-130); Calcium 8.8 mg/dL (7.8-10.44); Carbon Dioxide 25 mmol/L (23-31); Chloride 103 mmol/L (98-107); Estimated GFR-MDRD Greater than 90; Glucose 136 mg/dL (80-115); Magnesium 2.1 mg/dL (1.6-2.6); Sodium 139 mmol/L (136-145)
[2018-12-21 10:14] LABS: Potassium 2.9 mmol/L (3.5-5.1)
[2018-12-21] MEDS: HumaLOG 300 UNITS/3 ML VIAL SC PRN (12:29)
--- NOTE | 2018-12-21 17:20 | PDOC.PN ---
- Subjective Encounter Start Date: 12/21/18 Encounter Start Time: 14:00 Mr. Ballard was seen today in follow-up of respiratory failure. He was reported to be a bit confused last night. He is sleeping when I came to see him. - Objective Resuscitation Status - Order Detail: 12/16/18 13:24 Resuscitation Status Routine Resuscitation Status: DNAR: NO Resuscitation Discussed with: consent discussed with sister and Dr. Aguilar MAR Reviewed: Yes Vital Signs & Weight: Vital Signs (12 hours) Temp Pulse Resp BP BP Pulse Ox 12/21/18 12:54 64 22 H 90 L 12/21/18 08:03 155/60 H 12/21/18 08:02 64 155/60 H 12/21/18 08:00 90 L 12/21/18 07:39 97.9 F 64 19 155/60 H 90 L Weight Admit Weight 343 lb 0.628 oz Weight 325 lb 6.436 oz Most Recent Monitor Data Heart Rate from ECG 81 NIBP 168/84 NIBP BP-Mean 112 Respiration from ECG 28 SpO2 93 I&O: 12/20/18 12/21/18 12/22/18 06:59 06:59 06:59 Intake Total 360 1200 Output Total 925 1650 Balance -565 -450 Result Diagrams: 12/21/18 09:14 12/21/18 09:14 Additional Labs: Accuchecks 12/21/18 12/21/18 12/20/18 11:30 04:18 20:15 POC Glucose 210 H 131 H 191 H Phys Exam - Physical Examination HEENT: PERRLA Respiratory: no wheezing, no rales, no rhonchi, clear to auscultation bilateral Cardiovascular: RRR, no significant murmur, no rub Gastrointestinal: soft, non-tender, no distention, positive bowel sounds Musculoskeletal: pulses present, edema present + chronic venous stasis changes Dx/Plan (1) Acute on chronic respiratory failure with hypoxia and hypercapnia Code(s): J96.21 - ACUTE AND CHRONIC RESPIRATORY FAILURE WITH HYPOXIA; J96.22 - ACUTE AND CHRONIC RESPIRATORY FAILURE WITH HYPERCAPNIA Status: Acute Comment : likely due to NGA, diastolic CHF, currently intubated (2) Diastolic CHF Code(s): I50.30 - UNSPECIFIED DIASTOLIC (CONGESTIVE) HEART FAILURE Status: Acute Qualifiers: Heart failure chronicity: acute Qualified Code(s): I50.31 - Acute diastolic (congestive) heart failure Comment: normal EF (3) HTN (hypertension) Code(s): I10 - ESSENTIAL (PRIMARY) HYPERTENSION Status: Chronic Qualifiers: Hypertension type: essential hypertension Qualified Code(s): I10 - Essential (primary) hypertension Comment: stable (4) Hepatitis C Code(s): B19.20 - UNSPECIFIED VIRAL HEPATITIS C WITHOUT HEPATIC COMA Status: Chronic Qualifiers: Viral hepatitis chronicity: chronic Hepatic coma status: without hepatic coma Qualified Code(s): B18.2 - Chronic viral hepatitis C (5) Paroxysmal atrial fibrillation Code(s): I48.0 - PAROXYSMAL ATRIAL FIBRILLATION Status: Chronic Comment: rate controlled, On OAC (6) Acute kidney injury Code(s): N17.9 - ACUTE KIDNEY FAILURE, UNSPECIFIED Status: Resolved - Plan * Acute respiratory failure- improved * metabolic encephalopathy- due to his acute illness- difficult to assess any improvement at this time, but I suspect this will take days to weeks before seeing any significant change * HTN- blood pressure is stable * Chronic diastolic heart failure- stable * PAF- stable .
[2018-12-21] MEDS ORDERED: Potassium Chloride 20 MEQ TAB PO SCH (17:30)
--- NOTE | 2018-12-21 20:03 | PRG ---
DATE OF SERVICE: 12/21/2018 SUBJECTIVE: Travon Ballard has been more combative and confused. He would not wear his BiPAP last night. I told his sister that I was going to place him on p.o. Haldol twice a day. She says that he took Haldol for many years, but his mother took him off it because she did not like the drug. This makes me wonder whether or not some of his disability is not related to chronic untreated schizophrenia. Given that they are orders, there may be some component of paranoia. There is no way I can figure this out. OBJECTIVE: GENERAL: He is medically stable. VITAL SIGNS: He is afebrile. Heart rate is in the 50s, respiratory rate is in the teens to low 20s, oximetry is 90% to 95% today on 3 L, and blood pressure 145/68 this afternoon. Intake and outputs negative 450. LUNGS: Clear. HEART: Regular rhythm. ABDOMEN: Soft. EXTREMITIES: Without asymmetry. He says he still has edema and stasis changes that he will always have. NEURO: Nonfocal. LABORATORY DATA: White count 22.3, hemoglobin 15.6, and platelets 202. Sodium 139, potassium 2.9, chloride 103, bicarb 25, BUN 32, and creatinine 0.79. IMPRESSION AND PLAN: 1. Acute on chronic respiratory failure with hypoxia. 2. Untreated sleep apnea. 3. Status post mechanical ventilation. 4. Diastolic heart failure. 5. Alveolar hemorrhage. 6. Deep venous thrombosis that was likely old. He had been on anticoagulants for 2 weeks prior to admission and I suspect that he had uncontrolled hypertension leading to alveolar hemorrhage combined with his pulmonary edema. 7. Poorly-controlled hypertension, likely aggravated by untreated sleep apnea. 8. Morbid obesity. 9. Hypokalemia. 10. Diabetes. The issues around placement and control of his emotions. He cannot go home. His mother is already in assisted living at [facility] and has some degree of dementia. They had an extremely dysfunctional codependent relationship and they from what I can tell and have been told were hoarders actually with part of their house with the roof caved in. He cannot go back to that environment and placement is the next step. Hopefully, the Haldol with a low dose of Ativan will lead to clinical improvement gradually. I will put a p.r.n. for IM Haldol as well. Job ID: [id number]
[2018-12-22] MEDS: Haloperidol Lactate 5 MG/ML VIAL IM PRN ×2 (00:47→23:05)
[2018-12-22 06:25] LABS: Anion Gap 11 mmol/L (10-20); BUN (Urea Nitrogen) 26 mg/dL (8.4-25.7); Calc. Creatinine Clearance 208 mL/min (70-130); Calcium 8.8 mg/dL (7.8-10.44); Carbon Dioxide 28 mmol/L (23-31); Chloride 104 mmol/L (98-107); Estimated GFR-MDRD Greater than 90; Glucose 149 mg/dL (80-115); Sodium 140 mmol/L (136-145)
[2018-12-22 06:29] LABS: Potassium 2.9 mmol/L (3.5-5.1)
[2018-12-22] MEDS ORDERED: Potassium Chloride 20 MEQ TAB PO SCH ×2 (07:00→08:00)
[2018-12-22] MEDS: Lisinopril/Hydrochlorothiazide 10 mg/12.5 mg Tablet PO SCH (08:37)
[2018-12-22] MEDS: Floranex Packet PO SCH (08:40)
[2018-12-22] MEDS: Haloperidol 5 MG TAB PO SCH (08:43)
[2018-12-22] MEDS: Insulin Glargine 18 UNITS in Pre-Filled Syringe 1 EACH SC SCH ×2 (08:44→23:12)
[2018-12-22] MEDS: Rivaroxaban 10 MG TAB PO SCH (08:44)
[2018-12-22] MEDS: Carvedilol 6.25 MG TAB PO SCH ×2 (08:47→17:39)
[2018-12-22] MEDS: predniSONE 20 MG TAB PO SCH (08:47)
[2018-12-22] MEDS: Famotidine 20 MG TAB PO SCH ×2 (08:48→20:19)
[2018-12-22] MEDS: Lorazepam 0.5 MG TAB PO SCH ×2 (09:30→20:20)
--- NOTE | 2018-12-22 12:33 | PDOC.PN ---
- Subjective Encounter Start Date: 12/22/18 Encounter Start Time: 12:32 Mr. Ballard was seen today in follow-up of metabolic encephalopathy. He is drowsy this morning after he was given Ativan. He is still having some confusion. - Objective Resuscitation Status - Order Detail: 12/16/18 13:24 Resuscitation Status Routine Resuscitation Status: DNAR: NO Resuscitation Discussed with: consent discussed with sister and Dr. Aguilar MAR Reviewed: Yes Vital Signs & Weight: Vital Signs (12 hours) Temp Pulse Resp BP BP Pulse Ox 12/22/18 12:17 97.9 F 53 L 20 163/74 H 93 L 12/22/18 08:47 170/80 H 12/22/18 08:37 63 170/80 H 12/22/18 08:07 52 L 16 12/22/18 08:00 97.8 F 68 20 170/80 H 100 Weight Admit Weight 343 lb 0.628 oz Weight 325 lb 6.436 oz Most Recent Monitor Data Heart Rate from ECG 81 NIBP 168/84 NIBP BP-Mean 112 Respiration from ECG 28 SpO2 93 I&O: 12/21/18 12/22/18 12/23/18 06:59 06:59 06:59 Intake Total 1200 1440 450 Output Total 1650 1000 600 Balance -450 440 -150 Result Diagrams: 12/21/18 09:14 12/22/18 05:31 Additional Labs: Accuchecks 12/22/18 12/22/18 12/21/18 12:13 05:09 19:27 POC Glucose 181 H 145 H 155 H 12/21/18 16:59 POC Glucose 145 H Phys Exam - Physical Examination HEENT: PERRLA, sclera anicteric Respiratory: no rales, no rhonchi, wheezing present, clear to auscultation bilateral + bilateral wheeze Cardiovascular: RRR, no significant murmur, no rub Gastrointestinal: soft, non-tender, no distention, positive bowel sounds Musculoskeletal: pulses present, edema present + venous stasis changes Dx/Plan (1) Metabolic encephalopathy Code(s): G93.41 - METABOLIC ENCEPHALOPATHY Status: Acute (2) Acute on chronic respiratory failure with hypoxia and hypercapnia Code(s): J96.21 - ACUTE AND CHRONIC RESPIRATORY FAILURE WITH HYPOXIA; J96.22 - ACUTE AND CHRONIC RESPIRATORY FAILURE WITH HYPERCAPNIA Status: Acute Comment : likely due to NGA, diastolic CHF, currently intubated (3) Diastolic CHF Code(s): I50.30 - UNSPECIFIED DIASTOLIC (CONGESTIVE) HEART FAILURE Status: Acute Qualifiers: Heart failure chronicity: acute Qualified Code(s): I50.31 - Acute diastolic (congestive) heart failure Comment: normal EF (4) HTN (hypertension) Code(s): I10 - ESSENTIAL (PRIMARY) HYPERTENSION Status: Chronic Qualifiers: Hypertension type: essential hypertension Qualified Code(s): I10 - Essential (primary) hypertension Comment: stable (5) Hepatitis C Code(s): B19.20 - UNSPECIFIED VIRAL HEPATITIS C WITHOUT HEPATIC COMA Status: Chronic Qualifiers: Viral hepatitis chronicity: chronic Hepatic coma status: without hepatic coma Qualified Code(s): B18.2 - Chronic viral hepatitis C (6) Paroxysmal atrial fibrillation Code(s): I48.0 - PAROXYSMAL ATRIAL FIBRILLATION Status: Chronic Comment: rate controlled, On OAC (7) Acute kidney injury Code(s): N17.9 - ACUTE KIDNEY FAILURE, UNSPECIFIED Status: Resolved - Plan * Metabolic encephalopathy- this waxes and wanes. It is unclear what his baseline is. * Continue the current treatment * Acute on chronic diastolic heart failure- compensated * NGA- continue nocturnal bipap. * DM- blood glucose is stable * HTN- blood pressure is elevated- will schedule Hydralazine and increase the dose * Currently working on discharge plans
[2018-12-22] MEDS: Potassium Chloride 20 MEQ TAB PO SCH ×2 (12:36→17:38)
--- NOTE | 2018-12-22 12:57 | PRG ---
DATE OF SERVICE: 12/22/2018 SUBJECTIVE: The patient is sleeping. Family is at the bedside. Palliative care requested that we cut back on some of the sedative medication. OBJECTIVE: VITAL SIGNS: Temperature 97.9, pulse 53, blood pressure 163/74, and O2 saturation 93%. HEENT: Unremarkable. NECK: No JVD. CHEST: Fairly clear anteriorly. CARDIAC: S1, S2. Regular. ABDOMEN: Soft. EXTREMITIES: No edema. LABORATORY DATA: Sodium 140, potassium 2.9, chloride 104, CO2 of 28, BUN 26, creatinine 0.7, and glucose 148. ASSESSMENT: 1. Delirium. 2. Status post acute on chronic hypoxic respiratory failure. 3. Probable underlying obstructive sleep apnea that is untreated. 4. Diastolic heart failure. 5. Status post alveolar hemorrhage. 6. History of deep venous thrombosis. 7. Poorly-controlled hypertension. PLAN: Discontinue the scheduled Haldol, try clonazepam instead, because apparently benzodiazepines helps the situation more. Hopefully, he will begin to wake up and perhaps be cooperative with these changes. Job ID: [id number]
--- NOTE | 2018-12-22 13:15 | PDOC.PALCO ---
Palliative Care Consult - Consult Details Requesting Physician: Dr chang Reason for Consult: assistance with communication prognosis/disease Family Members Present: Patient sister "Renata" and honorio support Perla - Pertinent HPI Chronic history of Cardiovascular, pulmonary, renal, disease processes as well as morbidly obese. Patient was intubated and terminal wean performed last week, currently patient able to maintain airway by his own support. Patient has lived with his mother and reported by sister to have cognitive impairment in making decisions. Currently his mother is in a facility post hip fracture x2 to same hip. - Pertinent PMH Metabolic encephalopathy, HTN, CHF, Afib, sleep apnea, Hep C, morbid obesity. - Social History Smoking Status: Unknown if ever smoked Living Situation: with family/parents - Medications MAR Reviewed: Yes - Allergies Allergies/Adverse Reactions: Allergies Allergy/AdvReac Type Severity Reaction Status Date / Time adhesive tape Allergy Verified 12/02/18 18:35 - Subjective Patient sleeping upon arrival, arousable but returned to sleep state. Lethargic , unable to determine orientation beyond self. Labored respirations, tejeda in place with dark clear urine. No agitation at time of visit, however has had episodes of agitation and aggression that require medication secondary to inability to redirect behavior. Patient respirations labored, with accessory muscle use. Chronically ill appearing. PT/OT visit this morning which patient tolerated as per sister. - Objective Vital Signs: Vital Signs - Most Recent Temp Pulse Resp BP Pulse Ox 97.9 F 53 L 20 163/74 H 93 L 12/22/18 12:17 12/22/18 12:17 12/22/18 12:17 12/22/18 12:17 12/22/18 12:17 Palliative Performance Scale: 30 - Physical Exam Constitutional: confusion Deviation from normal: lethargic HEENT: PERRLA Deviation from normal: labored breathing, cyanotic appearance to toenails bilaterally Cardiovascular: RRR Deviation from normal: Pitting edema to extremities. Gastrointestinal: soft Musculoskeletal: pulses present, edema present Deviation from normal: lethargic Deviation from normal: healing ulcer to lower right extremite, pallor, delayed cap refill. - Problem List (1) Acute on chronic respiratory failure with hypoxia and hypercapnia Code(s): J96.21 - ACUTE AND CHRONIC RESPIRATORY FAILURE WITH HYPOXIA; J96.22 - ACUTE AND CHRONIC RESPIRATORY FAILURE WITH HYPERCAPNIA Current Visit: Yes Status: Acute (2) Metabolic encephalopathy Code(s): G93.41 - METABOLIC ENCEPHALOPATHY Current Visit: Yes Status: Acute (3) Shortness of breath Code(s): R06.02 - SHORTNESS OF BREATH Current Visit: Yes Status: Acute (4) Morbid obesity Code(s): E66.01 - MORBID (SEVERE) OBESITY DUE TO EXCESS CALORIES Current Visit : Yes Status: Chronic - Plan/Recommendations Plan: *Spoke with Dr Domingo and discussed patient will transition to skilled care or if not appropriate transition to Hospice. Discussed with Patient sister Renata who is decision maker at the current time. *Discussed with Dr Pedraza changing patient Haldol to PRN and Clonazepam q 12 0.5mg. Will monitor to ensure patient has increase in alert state and managed anxiety/aggression. *Encouraged sister to rely on support provided by outside resources of family and friends. *Spoke with CM on unit in relation to status of Skilled placement, which remains pending. [40] minutes spent on this encounter with >50% of the time in counseling and coordination of care. Thank you for this very appropriate consult.
[2018-12-22] MEDS ORDERED: Ziprasidone 20 MG CAP PO SCH (14:35)
[2018-12-22] MEDS: hydrALAZINE 25 MG TAB PO SCH ×2 (15:01→20:20)
[2018-12-22] MEDS: Lorazepam 0.5 MG TAB PO PRN (15:02)
[2018-12-22] MEDS: clonazePAM 1 MG TAB PO SCH (20:20)
[2018-12-23] MEDS: diphenhydrAMINE 25 MG CAP PO PRN (02:28)
[2018-12-23] MEDS ORDERED: Ziprasidone 20 MG CAP PO SCH (08:00)
[2018-12-23] MEDS: Carvedilol 6.25 MG TAB PO SCH ×2 (08:16→16:52)
[2018-12-23] MEDS: hydrALAZINE 25 MG TAB PO SCH ×4 (08:16→20:03)
[2018-12-23] MEDS: Rivaroxaban 10 MG TAB PO SCH (08:16)
[2018-12-23] MEDS: clonazePAM 1 MG TAB PO SCH ×2 (08:17→20:03)
[2018-12-23] MEDS: predniSONE 20 MG TAB PO SCH (08:17)
[2018-12-23] MEDS: Famotidine 20 MG TAB PO SCH ×2 (08:17→20:03)
[2018-12-23] MEDS: Lorazepam 0.5 MG TAB PO SCH ×2 (08:17→20:03)
[2018-12-23] MEDS: Insulin Glargine 18 UNITS in Pre-Filled Syringe 1 EACH SC SCH ×2 (08:22→20:04)
--- NOTE | 2018-12-23 09:40 | PRG ---
DATE OF SERVICE: 12/23/2018 SUBJECTIVE: The patient is awake this morning. He is somewhat confused, but pleasant. OBJECTIVE: VITAL SIGNS: Temperature 97.8, pulse 58, respiratory rate 24, O2 saturation 94%, and blood pressure 159/82. GENERAL: He is a morbidly obese male, in no acute distress. HEENT: Unremarkable. NECK: No JVD. CHEST: Clear anteriorly. CARDIAC: S1 and S2. Regular. ABDOMEN: Morbidly obese. EXTREMITIES: Edematous. LABORATORY DATA: No labs were obtained today. ASSESSMENT: 1. Delirium, which seems to be somewhat better. 2. Obstructive sleep apnea/obesity hypoventilation syndrome, which has not been worked up with the formal sleep study before. 3. Diastolic heart failure. 4. Status post alveolar hemorrhage. 5. History of deep venous thrombosis. 6. Poorly controlled hypertension. PLAN: His psychiatric medications were adjusted yesterday. Basically, we are now just giving him some time. I think, we should work towards stopping his steroids. Job ID: [id number]
[2018-12-23 11:23] LABS: Anion Gap 14 mmol/L (10-20); BUN (Urea Nitrogen) 20 mg/dL (8.4-25.7); Calc. Creatinine Clearance 210 mL/min (70-130); Calcium 9.3 mg/dL (7.8-10.44); Carbon Dioxide 23 mmol/L (23-31); Chloride 103 mmol/L (98-107); Estimated GFR-MDRD Greater than 90; Glucose 127 mg/dL (80-115); Potassium 4.1 mmol/L (3.5-5.1); Sodium 136 mmol/L (136-145)
--- NOTE | 2018-12-23 13:43 | PDOC.PN ---
- Subjective Encounter Start Date: 12/23/18 Encounter Start Time: 13:41 Mr. Ballard was seen today in follow-up of respiratory failure and encephalopathy. He is a bit calmer today. No new complaints. - Objective Resuscitation Status - Order Detail: 12/16/18 13:24 Resuscitation Status Routine Resuscitation Status: DNAR: NO Resuscitation Discussed with: consent discussed with sister and Dr. Aguilar MAR Reviewed: Yes Vital Signs & Weight: Vital Signs (12 hours) Temp Pulse Resp BP Pulse Ox 12/23/18 11:31 68 162/76 H 12/23/18 07:56 97.8 F 68 24 H 159/82 H 94 L 12/23/18 06:35 54 L 18 98 12/23/18 04:32 97.7 F 66 20 189/61 H 92 L Weight Admit Weight 343 lb 0.628 oz Weight 325 lb 6.436 oz Most Recent Monitor Data Heart Rate from ECG 81 NIBP 168/84 NIBP BP-Mean 112 Respiration from ECG 28 SpO2 93 I&O: 12/22/18 12/23/18 12/24/18 06:59 06:59 06:59 Intake Total 1440 1410 Output Total 1000 1250 Balance 440 160 Result Diagrams: 12/21/18 09:14 12/23/18 10:53 Additional Labs: Accuchecks 12/23/18 12/23/18 12/22/18 11:32 04:37 19:26 POC Glucose 124 H 100 201 H 12/22/18 17:27 POC Glucose 158 H Phys Exam - Physical Examination HEENT: PERRLA Respiratory: no wheezing, no rales, no rhonchi, clear to auscultation bilateral Cardiovascular: RRR, no significant murmur, no rub Gastrointestinal: soft, non-tender, no distention, positive bowel sounds Musculoskeletal: pulses present, edema present edema has improved, chronic venous stasis changes Neurological: moves all 4 limbs Dx/Plan (1) Metabolic encephalopathy Code(s): G93.41 - METABOLIC ENCEPHALOPATHY Status: Acute (2) Acute on chronic respiratory failure with hypoxia and hypercapnia Code(s): J96.21 - ACUTE AND CHRONIC RESPIRATORY FAILURE WITH HYPOXIA; J96.22 - ACUTE AND CHRONIC RESPIRATORY FAILURE WITH HYPERCAPNIA Status: Acute Comment : likely due to NGA, diastolic CHF, currently intubated (3) Diastolic CHF Code(s): I50.30 - UNSPECIFIED DIASTOLIC (CONGESTIVE) HEART FAILURE Status: Acute Qualifiers: Heart failure chronicity: acute Qualified Code(s): I50.31 - Acute diastolic (congestive) heart failure Comment: normal EF (4) HTN (hypertension) Code(s): I10 - ESSENTIAL (PRIMARY) HYPERTENSION Status: Chronic Qualifiers: Hypertension type: essential hypertension Qualified Code(s): I10 - Essential (primary) hypertension Comment: stable (5) Hepatitis C Code(s): B19.20 - UNSPECIFIED VIRAL HEPATITIS C WITHOUT HEPATIC COMA Status: Chronic Qualifiers: Viral hepatitis chronicity: chronic Hepatic coma status: without hepatic coma Qualified Code(s): B18.2 - Chronic viral hepatitis C (6) Paroxysmal atrial fibrillation Code(s): I48.0 - PAROXYSMAL ATRIAL FIBRILLATION Status: Chronic Comment: rate controlled, On OAC (7) Acute kidney injury Code(s): N17.9 - ACUTE KIDNEY FAILURE, UNSPECIFIED Status: Resolved - Plan * Acute on chronic diastolic heart failure- improved * Encephalopathy-waxes and wanes, but in my opinion it is improving ( sister may not agree ) * HTN - blood pressure has been elevated- Hydralazine was increased yesterday * NGA- continue nocturnal BiPAP * Discharge planning is in progress
[2018-12-23] MEDS: Lisinopril/Hydrochlorothiazide 10 mg/12.5 mg Tablet PO SCH (14:26)
[2018-12-23] MEDS: Potassium Chloride 20 MEQ TAB PO SCH ×2 (14:29→16:54)
[2018-12-23] MEDS: Floranex Packet PO SCH (14:29)
[2018-12-23] MEDS: Lorazepam 0.5 MG TAB PO PRN (16:52)
[2018-12-23] MEDS: Ziprasidone 20 MG CAP PO SCH (20:03)
[2018-12-24] MEDS ORDERED: Ondansetron ODT 4 MG TAB PO PRN (00:57)
[2018-12-24] MEDS: Carvedilol 6.25 MG TAB PO SCH ×2 (08:43→18:25)
[2018-12-24] MEDS: Floranex Packet PO SCH (08:43)
[2018-12-24] MEDS: Potassium Chloride 20 MEQ TAB PO SCH ×2 (08:47→18:25)
[2018-12-24] MEDS: Lisinopril/Hydrochlorothiazide 10 mg/12.5 mg Tablet PO SCH (08:47)
[2018-12-24] MEDS: predniSONE 20 MG TAB PO SCH (08:47)
[2018-12-24] MEDS: hydrALAZINE 25 MG TAB PO SCH ×3 (08:47→20:23)
[2018-12-24] MEDS: Famotidine 20 MG TAB PO SCH ×2 (08:47→20:23)
[2018-12-24] MEDS: Rivaroxaban 10 MG TAB PO SCH (08:47)
[2018-12-24] MEDS: Lorazepam 0.5 MG TAB PO SCH ×2 (08:52→20:23)
[2018-12-24] MEDS: clonazePAM 1 MG TAB PO SCH (08:52)
[2018-12-24] MEDS: Insulin Glargine 18 UNITS in Pre-Filled Syringe 1 EACH SC SCH ×2 (08:52→20:23)
--- NOTE | 2018-12-24 10:00 | PRG ---
DATE OF SERVICE: 12/24/2018 SUBJECTIVE: The patient is doing well, still having episodes of combativeness intermixed with deep somnolence. OBJECTIVE: VITAL SIGNS: Temperature 98.7, pulse 59, respirations 20, O2 sat 95%, and blood pressure 160/67. HEENT: Unremarkable. NECK: No adenopathy or JVD. LUNGS: Clear anteriorly. ABDOMEN: Obese, soft, and nontender. EXTREMITIES: No edema. ASSESSMENT: Persistent encephalopathy that may be aggravated by the current medications he is getting. PLAN: 1. I will go ahead and stop his Klonopin. 2. He continues on anticoagulation for his history of DVT. 3. Awaiting resolution of encephalopathy. Job ID: [id number]
--- NOTE | 2018-12-24 16:35 | PDOC.PN ---
- Subjective Encounter Start Date: 12/24/18 Encounter Start Time: 16:30 Subjective: f/u for metabolic encephalopathy with variable improvement. -: No new issues noted. - Objective Resuscitation Status - Order Detail: 12/16/18 13:24 Resuscitation Status Routine Resuscitation Status: DNAR: NO Resuscitation Discussed with: consent discussed with sister and Dr. Jeff MALONEY Reviewed: Yes Vital Signs & Weight: Vital Signs (12 hours) Temp Pulse Resp BP Pulse Ox 12/24/18 14:50 57 L 12/24/18 13:57 57 L 18 99 12/24/18 08:47 59 L 12/24/18 08:45 98.7 F 59 L 20 160/67 H 95 12/24/18 08:00 95 12/24/18 07:55 63 18 94 L Weight Admit Weight 343 lb 0.628 oz Weight 325 lb 6.436 oz Most Recent Monitor Data Heart Rate from ECG 81 NIBP 168/84 NIBP BP-Mean 112 Respiration from ECG 28 SpO2 93 I&O: 12/23/18 12/24/18 12/25/18 06:59 06:59 06:59 Intake Total 1410 1660 Output Total 1250 1275 Balance 160 385 Result Diagrams: 12/21/18 09:14 12/23/18 10:53 Additional Labs: Accuchecks 12/24/18 12/24/18 12/24/18 11:31 03:50 00:47 POC Glucose 192 H 127 H 127 H 12/23/18 12/23/18 19:09 16:52 POC Glucose 132 H 154 H Phys Exam - Physical Examination lethargic HEENT: PERRLA, sclera anicteric, oral pharynx no lesions Neck: no nodes, no JVD, supple, full ROM Respiratory: no wheezing, no rales, no rhonchi, clear to auscultation bilateral S1, S2 Cardiovascular: RRR, no significant murmur, no rub, gallop Gastrointestinal: soft, non-tender, no distention, positive bowel sounds chronic venous stasis changes Musculoskeletal: pulses present, edema present Neurological: moves all 4 limbs Skin: normal turgor, cap refill <2 seconds Dx/Plan (1) Metabolic encephalopathy Code(s): G93.41 - METABOLIC ENCEPHALOPATHY Status: Acute Comment: Multifactorial, mild improvement, follow clinically (2) DVT (deep venous thrombosis) Code(s): I82.409 - ACUTE EMBOLISM AND THOMBOS UNSP DEEP VN UNSP LOWER EXTREMITY Status: Chronic Qualifiers: DVT location: lower extremity Chronicity: acute Laterality: left Comment: Continue Xarelto (3) HTN (hypertension) Code(s): I10 - ESSENTIAL (PRIMARY) HYPERTENSION Status: Chronic Qualifiers: Hypertension type: essential hypertension Qualified Code(s): I10 - Essential (primary) hypertension Comment: stable, continue Coreg, Hydralazine and Lisinopril/HCTZ (4) Hepatitis C Code(s): B19.20 - UNSPECIFIED VIRAL HEPATITIS C WITHOUT HEPATIC COMA Status: Chronic Qualifiers: Viral hepatitis chronicity: chronic Hepatic coma status: without hepatic coma Qualified Code(s): B18.2 - Chronic viral hepatitis C (5) Morbid obesity Code(s): E66.01 - MORBID (SEVERE) OBESITY DUE TO EXCESS CALORIES Status: Chronic Comment: bmi of 47 (6) Acute and chronic respiratory failure with hypoxia Code(s): J96.21 - ACUTE AND CHRONIC RESPIRATORY FAILURE WITH HYPOXIA Status: Resolved Comment: likely due to NGA, diastolic CHF, currently intubated and not weanable - Plan PT/OT, social services manager, DVT proph w/SCDs Stable currently -: Continue supportive mgmt -: CM for SNF options -: Palliative care assistance appreciated -: ? D/C in 24h * .
[2018-12-24] MEDS: Ziprasidone 20 MG CAP PO SCH (20:27)
[2018-12-25] MEDS: hydrALAZINE 25 MG TAB PO SCH ×3 (09:03→20:20)
[2018-12-25] MEDS: Lisinopril/Hydrochlorothiazide 10 mg/12.5 mg Tablet PO SCH (09:03)
[2018-12-25] MEDS: Floranex Packet PO SCH (09:03)
[2018-12-25] MEDS: Rivaroxaban 10 MG TAB PO SCH (09:03)
[2018-12-25] MEDS: Famotidine 20 MG TAB PO SCH ×2 (09:03→20:20)
[2018-12-25] MEDS: Potassium Chloride 20 MEQ TAB PO SCH ×2 (09:03→16:03)
[2018-12-25] MEDS: predniSONE 20 MG TAB PO SCH (09:04)
[2018-12-25] MEDS: Insulin Glargine 18 UNITS in Pre-Filled Syringe 1 EACH SC SCH ×2 (09:04→20:21)
[2018-12-25] MEDS: Carvedilol 6.25 MG TAB PO SCH ×2 (09:04→16:03)
--- NOTE | 2018-12-25 09:52 | PRG ---
DATE OF SERVICE: 12/25/2018 SUBJECTIVE: The patient is somnolent, but appears comfortable. OBJECTIVE: VITAL SIGNS: Temperature is 98.6, pulse is 47 and 63, O2 saturation 98% on 2 L, respiratory rate 16. HEENT: Unremarkable. NECK: No JVD. CHEST: Fairly clear anteriorly. CARDIAC: S1 and S2. Regular. ABDOMEN: Soft. EXTREMITIES: Edematous lower extremities. LABORATORY DATA: No labs were obtained today. ASSESSMENT: 1. Continued encephalopathy. 2. Deep vein thrombosis. 3. Probably obstructive sleep apnea/obesity hypoventilation syndrome. PLAN: 1. The patient is apparently not wearing his BiPAP at night. 2. He is also refusing his nebulization treatments. I am going to go ahead and stop his scheduled p.o. Ativan and also probably need to stop the p.r.n. Haldol. Job ID: [id number]
[2018-12-25] MEDS: Lorazepam 0.5 MG TAB PO PRN ×2 (14:02→20:21)
--- NOTE | 2018-12-25 15:27 | PDOC.PALCO ---
Palliative Care Consult - Consult Details Requesting Physician: Dr Marie Reason for Consult: assistance with communication prognosis/disease - Pertinent HPI Patient with hypoxic respiratory failure, CHF, Hep C, Morbid obesity. Follow up visit to assess patient status, and discussion with family in relation to disease progression. - Pertinent PMH Patient previously known to have cognitive impairment and has lived with his mother. Patient with hypoxic resp failure, CHF, Hep C, Morbid Obesity. Sister is POA. Currently CM attempting to obtain placement for patient in facility. - Allergies Allergies/Adverse Reactions: Allergies Allergy/AdvReac Type Severity Reaction Status Date / Time adhesive tape Allergy Verified 12/02/18 18:35 - Objective Vital Signs: Vital Signs - Most Recent Temp Pulse Resp BP Pulse Ox 97.8 F 62 18 159/73 H 99 12/25/18 10:55 12/25/18 14:01 12/25/18 10:55 12/25/18 14:01 12/25/18 10:55 Palliative Performance Scale: 30 - Physical Exam Constitutional: confusion Deviation from normal: lethargic HEENT: moist MMs, EOMI Deviation from normal: diminished lung sounds to lower lobes, cyanotic nailbeds Gastrointestinal: positive bowel sounds Musculoskeletal: edema present Deviation from normal: confusion - Problem List (1) Acute on chronic respiratory failure with hypoxia and hypercapnia Code(s): J96.21 - ACUTE AND CHRONIC RESPIRATORY FAILURE WITH HYPOXIA; J96.22 - ACUTE AND CHRONIC RESPIRATORY FAILURE WITH HYPERCAPNIA Current Visit: Yes Status: Acute (2) Metabolic encephalopathy Code(s): G93.41 - METABOLIC ENCEPHALOPATHY Current Visit: Yes Status: Acute (3) Shortness of breath Code(s): R06.02 - SHORTNESS OF BREATH Current Visit: Yes Status: Acute (4) Morbid obesity Code(s): E66.01 - MORBID (SEVERE) OBESITY DUE TO EXCESS CALORIES Current Visit : Yes Status: Chronic - Plan/Recommendations Plan: Patient had clonazepam and haldol discontinued. Patient remains on Ativan PRN for agitation and Geodon. Patient with lethargy and significant weakness. Difficulty moving extremities. Continued discussion with sister of patient and his mother that ability to return to independent living at this time in not optimal. [60] minutes spent on this encounter with >50% of the time in counseling and coordination of care. Thank you for this very appropriate consult.
--- NOTE | 2018-12-25 17:50 | CT ---
EXAM: CT brain without contrast HISTORY: Unequal pupil size COMPARISON: None TECHNIQUE: Multiple contiguous axial images were obtained and a CT of the brain without contrast. FINDINGS: The brain is normal in morphology and attenuation without focal lesions or confluent areas of infarction. There is no evidence of hydrocephalus, intracranial hemorrhage, or extra-axial fluid collection. The calvarium and overlying soft tissues are unremarkable. Mucosal thickening is seen in the maxillar y sinuses. The other visualized paranasal sinuses and mastoid air cells are well aerated. IMPRESSION: No evidence of acute intracranial abnormality
--- NOTE | 2018-12-25 18:42 | PDOC.PN ---
- Subjective Encounter Start Date: 12/25/18 Encounter Start Time: 18:35 Subjective: f/u for metabolic encephalopathy, deconditioning. Family states they notice -: pupils were unequal today. No trauma or injury noted. Eating pureed -: diet better today. - Objective Resuscitation Status - Order Detail: 12/16/18 13:24 Resuscitation Status Routine Resuscitation Status: DNAR: NO Resuscitation Discussed with: consent discussed with sister and Dr. Jeff MALONEY Reviewed: Yes Vital Signs & Weight: Vital Signs (12 hours) Temp Pulse Resp BP BP Pulse Ox 12/25/18 16:07 98 F 67 18 168/74 H 95 12/25/18 16:03 168/74 H 12/25/18 14:01 62 159/73 H 12/25/18 10:55 97.8 F 59 L 18 159/73 H 99 12/25/18 09:10 97.6 F 60 18 164/78 H 99 12/25/18 09:04 153/83 H 12/25/18 09:03 66 153/83 H Weight Admit Weight 343 lb 0.628 oz Weight 325 lb 6.436 oz Most Recent Monitor Data Heart Rate from ECG 81 NIBP 168/84 NIBP BP-Mean 112 Respiration from ECG 28 SpO2 93 I&O: 12/24/18 12/25/18 12/26/18 06:59 06:59 06:59 Intake Total 1660 1320 Output Total 1275 500 300 Balance 385 -500 1020 Result Diagrams: 12/21/18 09:14 12/23/18 10:53 Additional Labs: Accuchecks 12/25/18 12/25/18 12/25/18 16:08 10:55 04:35 POC Glucose 187 H 124 H 112 H 12/24/18 19:17 POC Glucose 155 H Radiology Reviewed by me: Yes (CT brain - no acute process) Phys Exam - Physical Examination alert, responds slowly to questions, nods L pupil 5mm,R pupil 3mm, decreased reaction to light mild scleral injection HEENT: moist MMs, oral pharynx no lesions Neck: no nodes, no JVD, supple, full ROM Respiratory: no wheezing, no rales, no rhonchi, clear to auscultation bilateral S1, S2 Cardiovascular: RRR, no significant murmur, no rub, gallop obese Gastrointestinal: soft, non-tender, no distention, positive bowel sounds Musculoskeletal: pulses present, edema present Neurological: moves all 4 limbs Skin: normal turgor, cap refill <2 seconds Dx/Plan (1) Anisocoria Code(s): H57.02 - ANISOCORIA Status: Acute Comment: CT brain negative, consult Ophthalmology to r/o increased IOP (2) Metabolic encephalopathy Code(s): G93.41 - METABOLIC ENCEPHALOPATHY Status: Acute Comment: Multifactorial, mild improvement, follow clinically, near baseline functional status per family report (3) DVT (deep venous thrombosis) Code(s): I82.409 - ACUTE EMBOLISM AND THOMBOS UNSP DEEP VN UNSP LOWER EXTREMITY Status: Chronic Qualifiers: DVT location: lower extremity Chronicity: acute Laterality: left Comment: Continue Xarelto (4) HTN (hypertension) Code(s): I10 - ESSENTIAL (PRIMARY) HYPERTENSION Status: Chronic Qualifiers: Hypertension type: essential hypertension Qualified Code(s): I10 - Essential (primary) hypertension Comment: stable, continue Coreg, Hydralazine and Lisinopril/HCTZ (5) Hepatitis C Code(s): B19.20 - UNSPECIFIED VIRAL HEPATITIS C WITHOUT HEPATIC COMA Status: Chronic Qualifiers: Viral hepatitis chronicity: chronic Hepatic coma status: without hepatic coma Qualified Code(s): B18.2 - Chronic viral hepatitis C (6) Morbid obesity Code(s): E66.01 - MORBID (SEVERE) OBESITY DUE TO EXCESS CALORIES Status: Chronic Comment: bmi of 47 (7) Acute and chronic respiratory failure with hypoxia Code(s): J96.21 - ACUTE AND CHRONIC RESPIRATORY FAILURE WITH HYPOXIA Status: Chronic Comment: likely due to NGA, diastolic CHF, currently intubated and not weanable - Plan plan discussed w/ family, PT/OT, social work coordinator, speech therapy, respiratory therapy Stable currently -: Consult Ophthalmology -: Limit sedating medications and psychotropes -: OOB/PT -: CM for SNF options * .
[2018-12-25] MEDS: Acetaminophen 325 MG TAB PO PRN (20:21)
[2018-12-26] MEDS: Potassium Chloride 20 MEQ TAB PO SCH (07:46)
[2018-12-26] MEDS: hydrALAZINE 25 MG TAB PO SCH ×3 (07:46→21:47)
[2018-12-26] MEDS: Carvedilol 6.25 MG TAB PO SCH ×2 (07:46→17:48)
[2018-12-26] MEDS: Rivaroxaban 10 MG TAB PO SCH (07:46)
[2018-12-26] MEDS: predniSONE 20 MG TAB PO SCH (07:46)
[2018-12-26] MEDS: Floranex Packet PO SCH (07:46)
[2018-12-26] MEDS: Lisinopril/Hydrochlorothiazide 10 mg/12.5 mg Tablet PO SCH (07:46)
[2018-12-26] MEDS: Insulin Glargine 18 UNITS in Pre-Filled Syringe 1 EACH SC SCH ×2 (07:47→21:55)
[2018-12-26] MEDS: Famotidine 20 MG TAB PO SCH ×2 (07:47→21:47)
--- NOTE | 2018-12-26 11:24 | PRG ---
DATE OF SERVICE: 12/26/2018 SUBJECTIVE: The patient is very inappropriate with speech. Does not appear to be in any distress. OBJECTIVE: VITAL SIGNS: Temperature 96, pulse 81, and blood pressure 180/64. HEENT: Unremarkable. NECK: No adenopathy or JVD. LUNGS: Clear, but distant. CARDIAC: S1 and S2, regular. ABDOMEN: Morbidly obese. EXTREMITIES: No edema. ASSESSMENT: 1. Encephalopathy. 2. Probable underlying obstructive sleep apnea/obesity hypoventilation syndrome, but noncompliant with CPAP. PLAN: No additional recommendations at this time. We will sign off. Please re-call if further assistance needed. Job ID: [id number]
[2018-12-26 12:02] LABS: #Eosinphils 0.1 thou/uL (0.0-0.7); #Lymphocytes 0.5 thou/uL (1.20-3.40); #Monocytes 0.6 thou/uL (0.11-0.59); #Neutrophils 16.5 thou/uL (1.40-6.50); %Basophils 0.3 % (0.0-1.0); %Eosinophils 0.3 % (0.0-10.0); %Monocytes 3.4 % (0.0-10.0); Hemoglobin 14.8 g/dL (14.0-18.0); Mean Corpuscular HGB CONC 32.3 g/dL (32.0-36.0); Mean Corpuscular Hemoglobin 30.5 pg (27.0-31.0); Mean Corpuscular Volume 94.4 fL (78.0-98.0); Mean Platelet Volume 7.4 fL (7.4-10.4); Platelet Count 243 thou/uL (130-400); RBC Distribution Width 16.4 % (11.5-14.5); Red Blood Cell (RBC) Count 4.84 mill/uL (4.70-6.10); White Blood Cell (WBC) Count 17.8 thou/uL (4.8-10.8)
[2018-12-26 12:22] LABS: Anion Gap 14 mmol/L (10-20); BUN (Urea Nitrogen) 28 mg/dL (8.4-25.7); Calc. Creatinine Clearance 157 mL/min (70-130); Calcium 9.7 mg/dL (7.8-10.44); Carbon Dioxide 21 mmol/L (23-31); Chloride 105 mmol/L (98-107); Estimated GFR-MDRD 73; Glucose 159 mg/dL (80-115); Sodium 135 mmol/L (136-145)
--- NOTE | 2018-12-26 14:01 | PRG ---
DATE OF SERVICE: 12/26/2018 SUBJECTIVE: The patient had hematuria this morning and Nephrology was consulted for evaluation. Urology is also seeing the patient. OBJECTIVE: GENERAL: This is a well built male, in no acute distress. VITAL SIGNS: Temperature 97. Heart rate 62. Respiratory rate 18. Blood pressure 174/81. HEENT: Atraumatic, normocephalic. Oral mucosa is moist NECK: Supple. CARDIOVASCULAR: S1, S2 heard. Rate and rhythm regular. RESPIRATORY: Clear to auscultation. GASTROINTESTINAL: Abdomen is soft. MUSCULOSKELETAL: No tenderness. No edema. DERMATOLOGIC: No skin rash. NEUROLOGIC: Alert and awake and oriented X3. No focal neurologic deficits. Moving all the extremities. PSYCHIATRIC: Mood and affect normal. LABORATORY DATA: Potassium 5.0, BUN is 28, creatinine 1.03. Hemoglobin is 14.8. ASSESSMENT AND PLAN: 1. Acute kidney injury on chronic kidney stage 2, stable labs. 2. Hematuria. Following with Urology. 3. Hyperkalemia. Limit potassium intake. 4. Hyponatremia, better. 5. Anemia, stable. Labs are stable. I will sign off. Please call back with any questions. Follow with Urology for hematuria. Job ID: [id number]
--- NOTE | 2018-12-26 14:41 | CON ---
DATE OF CONSULTATION: 12/26/2018 CHIEF COMPLAINT: The patient was evaluated for unequal pupils and possible glaucoma. He has been in the hospital some time and is somewhat mentally disabled. The family had noticed the unequal pupils only recently. PHYSICAL EXAMINATION: On examination, visual acuity was counting fingers only at about 2 or 3 feet with each eye, and this may represent more of his intellectual ability rather than his visual ability. Intraocular pressure with the Conrado-Pen was 24 mmHg and 22 mmHg with the right eye and 19 mmHg and 23 mmHg with the left eye. The ocular motility was aligned and appeared to have full range of motion, although he did not easily follow instructions as far as motility. The right pupil was about 4 mm and the left pupil was about 5 mm in diameter. Both pupils did react to light, although the left pupil was more slow to react. I could detect no afferent pupillary defect. The lids were equal in elevation. The corneas were clear. The lenses probably have some nuclear sclerotic changes of the lens. The pupils were dilated by me for fundoscopy. Fundoscopy showed normal rim color and no optic nerve elevation, and a cup/disc ratio of about 0.4. There was no retinal abnormality such as retinal hemorrhages, lipid deposits, or increased macular pigmentation. ASSESSMENT: He does have unequal pupils. Presumably, this is not a long-term status. 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 I do not see any other neurologic defect, and he definitely does not have glaucoma. Job ID: [id number] [facility]
--- NOTE | 2018-12-26 16:18 | CT ---
"PRELIMINARY REPORT" CT abdomen and pelvis with and without contrast (CT urogram protocol) 12/26/2018 COMPARISON: CT of abdomen and pelvis 11/09/2010. HISTORY: Hematuria TECHNIQUE: Axial CT imaging at 5 mm intervals from lung bases through pubic symphysis with and withou t contrast. Coronal reformatted imaging of the urographic phase provided. FINDINGS: Incompletely imaged somewhat nodular appearing parenchymal opacity is noted within the ante rior aspect of the right lower lobe inferiorly, less conspicuous than on 12/06/2018 CT examination. Small bilateral pleural effusions are noted. There is no free intraperitoneal air. Coronary arterial calcification is present, incompletely imaged. The gallbladder contains numerous calcified stones. The liver and spleen appear unremarkable. There i s mild pancreatic parenchymal atrophy. No renal mass is seen on either side. The contrast media is delayed with respect to filling the renal collecting system, still only partially filling the collecting system with no significant extension into the ureters 20 minutes following injection. No evidence for obstructive uropathy on either side. The urinary bladder is distended and contains ai r, likely associated with Ennis catheterization. Of note, the prostate gland is lobulated and herniates into the bladder base. The balloon for the Ennis catheter is blown up within the prostate. There is mild stranding of the fat adjacent to the urinary bladder which suggest a degree of inflamma tory change. Limited assessment of the bowel without contrast media demonstrates no evidence for obstruction. There is a lobulated soft tissue mass lesion with internal areas of calcification and internal cystic components within the mesentery of the mid right abdomen. This mass measures at least 13.2 cm in craniocaudal dimension, 11.4 cm in transverse dimension, and 9.5 cm in AP dimension. Of note, this ma ss appears grossly unchanged in size when compared to the prior CT examination performed 11/09/2010. The vascular structures appear patent. No lymphadenopathy is noted within the abdomen or the pelvis. Review of the osseous structures demonstrates multilevel lower lumbar spine disc space narrowing with degenerative endplate change and bilateral multilevel facet hypertrophy. No filling defect is seen within the renal pelvis on either side. Neither ureter is well opacified wi th contrast media. IMPRESSION: 1. The Ennis balloon is inflated within the prostatic urethra. There is distention of the urinary job dder with probable associated perivesicular fat stranding. 2. Cholelithiasis 3. Nonspecific mesenteric mass within the right abdomen as detailed above. 4. Dr. Dorsey made aware at 4:20 p.m. on 12/26/18. CODE T Transcribed Date/Time: 12/26/2018 5:16 PM
--- NOTE | 2018-12-26 16:34 | PDOC.PN ---
- Subjective Encounter Start Date: 12/26/18 Encounter Start Time: 16:15 Subjective: f/u for encephalopathy, deconditioning, unequal pupil size and -: gross hematuria after pulling out Tejeda cath last pm. - Objective Resuscitation Status - Order Detail: 12/16/18 13:24 Resuscitation Status Routine Resuscitation Status: DNAR: NO Resuscitation Discussed with: consent discussed with sister and Dr. Jeff MALONEY Reviewed: Yes Vital Signs & Weight: Vital Signs (12 hours) Temp Pulse Resp BP BP BP BP 12/26/18 16:00 97.6 F 63 18 188/85 H 12/26/18 12:45 12/26/18 11:00 97.6 F 66 18 189/94 H 12/26/18 09:07 166/83 H 198/103 H 12/26/18 07:46 71 188/94 H 12/26/18 07:45 12/26/18 07:14 97.9 F 71 18 188/94 H 12/26/18 05:38 98.4 F 71 20 142/80 H BP Pulse Ox 12/26/18 16:00 95 12/26/18 12:45 175/81 H 12/26/18 11:00 97 12/26/18 09:07 12/26/18 07:46 12/26/18 07:45 96 12/26/18 07:14 96 12/26/18 05:38 94 L Weight Admit Weight 343 lb 0.628 oz Weight 325 lb 6.436 oz Most Recent Monitor Data Heart Rate from ECG 81 NIBP 168/84 NIBP BP-Mean 112 Respiration from ECG 28 SpO2 93 I&O: 12/25/18 12/26/18 12/27/18 06:59 06:59 06:59 Intake Total 1570 Output Total 500 750 Balance -500 820 Result Diagrams: 12/26/18 11:45 12/26/18 11:45 Additional Labs: Accuchecks 12/26/18 12/26/18 12/25/18 11:50 05:42 19:15 POC Glucose 136 H 108 177 H 12/25/18 16:08 POC Glucose 187 H Radiology Reviewed by me: Yes (CT abd/pel - tejeda balloon in urethra, mesenteric mass unchanged since 2010) Phys Exam - Physical Examination alert, responsive L pupil > R pupil HEENT: sclera anicteric, oral pharynx no lesions Neck: no nodes, no JVD, supple, full ROM diminished in bases Respiratory: no wheezing, no rales, no rhonchi S1, S2 Cardiovascular: RRR, no significant murmur, no rub, gallop obese Gastrointestinal: soft, non-tender, no distention, positive bowel sounds Musculoskeletal: pulses present, edema present Neurological: normal sensation Skin: normal turgor, cap refill <2 seconds Deviation from normal: Tejeda in place with gross hematuria Dx/Plan (1) Anisocoria Code(s): H57.02 - ANISOCORIA Status: Acute Comment: CT brain negative, Ophthalmology recommending conservative mgmt and glaucoma r/o (2) Metabolic encephalopathy Code(s): G93.41 - METABOLIC ENCEPHALOPATHY Status: Acute Comment: Multifactorial, mild improvement, follow clinically, near baseline functional status per family report (3) DVT (deep venous thrombosis) Code(s): I82.409 - ACUTE EMBOLISM AND THOMBOS UNSP DEEP VN UNSP LOWER EXTREMITY Status: Chronic Qualifiers: DVT location: lower extremity Chronicity: acute Laterality: left Comment: Hold Xarelto due to gross hematuria (4) HTN (hypertension) Code(s): I10 - ESSENTIAL (PRIMARY) HYPERTENSION Status: Chronic Qualifiers: Hypertension type: essential hypertension Qualified Code(s): I10 - Essential (primary) hypertension Comment: stable, continue Coreg, Hydralazine and Lisinopril/HCTZ (5) Hepatitis C Code(s): B19.20 - UNSPECIFIED VIRAL HEPATITIS C WITHOUT HEPATIC COMA Status: Chronic Qualifiers: Viral hepatitis chronicity: chronic Hepatic coma status: without hepatic coma Qualified Code(s): B18.2 - Chronic viral hepatitis C (6) Morbid obesity Code(s): E66.01 - MORBID (SEVERE) OBESITY DUE TO EXCESS CALORIES Status: Chronic Comment: bmi of 47 (7) Acute and chronic respiratory failure with hypoxia Code(s): J96.21 - ACUTE AND CHRONIC RESPIRATORY FAILURE WITH HYPOXIA Status: Chronic Comment: likely due to NGA, diastolic CHF, currently intubated and not weanable (8) Gross hematuria Status: Acute Comment: Secondary to Tejeda trauma on Xarelto, appreciate Urology assistance, CBI, hold Xarelto - Plan PT/OT, access services librarian, speech therapy, respiratory therapy Stable currently -: CBI/IVF's -: D/C KCL -: Hold Xarelto -: PT/OT for mobilization * AM lab: BMP, CBC
[2018-12-26] MEDS ORDERED: ISOVUE-370 76%-LOCM 1 ML ONE (17:06)
[2018-12-26] MEDS: Sodium Chloride 0.9% 1,000 ML IV SCH (17:47)
--- NOTE | 2018-12-26 22:08 | CON ---
DATE OF CONSULTATION: 12/26/2018 REASON FOR CONSULTATION: Regarding hematuria, traumatic Ennis catheter tug. HISTORY OF PRESENT ILLNESS: Mr. Ballard is a 63-year-old morbidly obese male, with cognitive impairment, possible developmental delay, minimally functional due to morbid obesity, bedridden with history of chronic lower extremity venous stasis edema, followed by Wound Care as an outpatient. He presented to the [place] emergency room, December 02, complaining of shortness of breath. He is followed by Dr. Bolaños, previous echocardiogram done, November 2018, which was reported negative per review of chart. Much of his history is obtained per chart, nurse, and hospitalist assist as the patient is a poor historian. He has a history of DVT, atrial fibrillation, on Xarelto daily. Per review of ER records, he had a Ennis catheter or straight cath with 60 mL of residual and specimen was sent, which was clear with no evidence of gross hematuria. Review of chart, performed as well as speaking with primary service and nursing staff, it is unclear to me why the patient has a persistent indwelling urethral Ennis catheter as there is no prior history of urinary retention of record. He himself states that he denies having sensation of incomplete void, prior gross hematuria, prior history of urinary retention. It may be that due to encephalopathy that he has an indwelling Ennis catheter to continue, however, there is no history of urinary retention. I did review his chart demonstrating normal kidney function, patient has a history of hepatitis C with multiple body tattoos. He was being monitored by Palliative Care to transition to hospice due to his comorbidities, body habitus, etc., however, the patient's family has changed his dispo to DNR to transfer to a assisted facility as he has limited family support and he is unable to care for himself. Per nursing staff, Ennis catheter was tugged, nurse noticed that the Ennis catheter was sticking out more than usual consistent with a traumatic Ennis catheter removal/pull She deflated the balloon and removed the Ennis catheter and there was gross hematuria. A 16-Romanian Ennis catheter was replaced by nursing staff per nurse however, has had gross hematuria. I did ask her to flush prior to me examining her and she did evacuate a tiny clot and subsequent urine has been draining. PAST MEDICAL HISTORY: Includes developmental delay, hypertension, atrial fibrillation, hepatitis C, multiple body tattoos, osteoarthritis, chronic venous stasis, morbid obesity, adult circumcision. FAMILY HISTORY: Positive for coronary artery disease. SOCIAL HISTORY: Nonsmoker, nondrinker, nondrug user. History of multiple body tattoos, sister only lives part of the year in town, lives in [place] throughout the summer. DNR status. HOME MEDICATIONS: Include; 1. Vitamin B12. 2. Benadryl. 3. Tylenol. 4. Hydrochlorothiazide. 5. Allopurinol. 6. Eliquis 5 mg one p.o. b.i.d. 7. Imipramine at bedtime. 8. Metoprolol. 9. Amlodipine 10 mg one p.o. daily. Current medications include; 1. Tylenol. 2. Floranex. 3. Dulcolax. 4. Coreg. 5. Benadryl. 6. Pepcid. 7. Glucagon. 8. Lisinopril and hydrochlorothiazide. 9. Apresoline. 10. Hydralazine. 11. Insulin. 12. Normodyne. 13. Imodium. 14. Ativan. 15. Zofran. 16. K-Dur. 17. Prednisone. 18. Xarelto 10 mg one p.o. daily provided at 9:00 a.m. 19. I did initiate Flomax and Avodart on consultation. PHYSICAL EXAMINATION: VITAL SIGNS: Stable. He is afebrile, 1570 in, 750 out. GENERAL: The patient is alert, oriented x1. Poor historian. No family at bedside. HEENT: Grossly unremarkable. HEART: Regular, however, distant. LUNGS: Also distant due to his body habitus. ABDOMEN: Morbidly obese. There are multiple body tattoos. There is some prominence of the left upper quadrant subcutaneous tissue of unclear etiology. Diastasis of the rectus is noted. : His penis is buried due to morbid obesity. He is uncircumcised. A 16- Romanian Ennis catheter remains in situ, and there is gross hematuria, transparent red. I did irrigate his Ennis catheter. There is some resistance irrigating the Ennis, however, I was able to irrigate with no subsequent clots. It did clear with subsequent irrigation, but however, he continues to have hematuria due to Xarelto and recent traumatic Ennis catheter tugging. EXTREMITIES: Gross venous stasis and lower extremity edema, nontender. NEUROLOGIC: Unable to assess as he is bedridden. PSYCHIATRIC: Also difficult as he appears to have developmental delay, however, answers appropriately and is cooperative to physical exam. Digital rectal exam demonstrates no discrete nodularity, volume about 30 to 40 g. IMAGING AND LABS: White count has been persistently elevated, previously 22, currently 17, hemoglobin 14 which is relatively stable for the last few days. Platelet 243. INR is 1.4. Creatinine is 1.0. Total bilirubin is 2.3, otherwise alkaline phosphatase is unremarkable. UA on arrival, December 06, demonstrates 30 protein, moderate blood, 11 to 20 rbc's, 0 to 3 wbc's. HIV negative. Blood culture negative. Urine culture negative. CT of the brain dated December 25, 2018; No acute abnormality. Lower extremity Doppler, December 02, 2018: Positive for DVT of the left lower extremity. CT scan December 06, 2018, of the chest, demonstrates pulmonary edema, mildly enlarged heart without cardiac cause of pulmonary edema. Echocardiogram, December 03, 2018, EF 50% to 55%. Valves grossly unremarkable. CT of the abdomen and pelvis with contrast dated October 2010: Mass neoplasm measuring 11 x 7 x 11 cm with central attenuation of necrosis concerning for lymphoma, leiomyosarcoma, other sarcoma, possibly carcinoid given presence of calcification, numerous gallstones. Kidney is unremarkable. Bladder, grossly unremarkable. Per my review, CT prostate volume about 35/40 g. Diverticulitis. IMPRESSION AND PLAN: Mr. Ballard is a 63-year-old with morbid obesity with history of 1. Atrial fibrillation. 2. History of left lower extremity deep venous thrombosis, on Xarelto. 3. Sleep apnea. 4. Limited mobility due to body habitus, lower extremity edema, chronic in nature. 5. Indwelling urethral Ennis catheter with traumatic catheter removal due to encephalopathy resulting in gross hematuria. 6. Abdominal mass as above, not addressed. I did irrigate his Ennis catheter bedside above, he will have persistent hematuria prolonged as he is on chronic anticoagulation due to deep venous thrombosis. DW primary service Dr. Reinoso, hospitalist, given presenting hematuria and persistent bleed that will ensue with anticoagulation, medical approval to hold Eliquis until hematuria clears. I did advise regarding consideration of [place] filter as an alternative option. will initiate Avodart, Flomax as it is unclear to me regarding his voiding status, although on initial presentation, there is no evidence of urinary retention of concern. As such, if hematuria clears, I would recommend indwelling Ennis catheter to be removed under my discretion. Restaging CT advised due to previous history of abdominal mass. Gentle IV fluids to expedite clearing of his urine. Fluids and holding Xarelto were approved by Medical Service. addendum: Call regarding CT results demonstrating grossly unchanged right upper quadrant soft tissue mass previously biopsied as vascular benign tumor per review of old [facility]. However CT T demonstrates Ennis catheter balloon in the prostatic urethra with distended bladder. I return to see the patient urgently. Pre-existing Ennis catheter was removed. 22 Romanian three-way Ennis catheter was passed. Placed on CBI with transparent red urine. CBI at a moderate rate with clearing. No subsequent clots were appreciated. He tolerated the procedure well. We'll monitor patient on CBI and daily CBC. Job ID: [id number] [facility]TDD
[2018-12-26] MEDS: Acetaminophen 325 MG TAB PO PRN (22:23)
[2018-12-26] MEDS: diphenhydrAMINE 25 MG CAP PO PRN (22:23)
[2018-12-27 05:35] LABS: Mean Corpuscular HGB CONC 32.1 g/dL (32.0-36.0); Mean Corpuscular Hemoglobin 31.3 pg (27.0-31.0); Mean Corpuscular Volume 97.7 fL (78.0-98.0); Mean Platelet Volume 7.4 fL (7.4-10.4); Platelet Count 196 thou/uL (130-400); RBC Distribution Width 16.4 % (11.5-14.5); Red Blood Cell (RBC) Count 4.15 mill/uL (4.70-6.10); White Blood Cell (WBC) Count 17.8 thou/uL (4.8-10.8)
[2018-12-27 05:39] LABS: Band 2 % (5-11); Lymphocytes 13 % (21-51); MDiff Complete? YES; Metamyelocyte 1 % (0-0); Monocytes 6 % (0-10); Neutrophil 78 % (42-75); Platelet Morphology Comment Appears Adequate; RBC Morphology Normal
[2018-12-27] MEDS: Sodium Chloride 0.9% 1,000 ML IV SCH ×2 (05:39→16:46)
[2018-12-27 05:50] LABS: Anion Gap 12 mmol/L (10-20); BUN (Urea Nitrogen) 23 mg/dL (8.4-25.7); Calc. Creatinine Clearance 193 mL/min (70-130); Calcium 9.2 mg/dL (7.8-10.44); Carbon Dioxide 24 mmol/L (23-31); Chloride 107 mmol/L (98-107); Estimated GFR-MDRD Greater than 90; Glucose 66 mg/dL (80-115); Sodium 139 mmol/L (136-145)
[2018-12-27] MEDS: Famotidine 20 MG TAB PO SCH ×2 (08:48→20:04)
[2018-12-27] MEDS: Carvedilol 6.25 MG TAB PO SCH ×2 (08:48→16:46)
[2018-12-27] MEDS: predniSONE 20 MG TAB PO SCH (08:48)
[2018-12-27] MEDS: Floranex Packet PO SCH (08:48)
[2018-12-27] MEDS: Insulin Glargine 18 UNITS in Pre-Filled Syringe 1 EACH SC SCH ×2 (08:49→20:05)
[2018-12-27] MEDS: Lisinopril/Hydrochlorothiazide 10 mg/12.5 mg Tablet PO SCH (08:49)
[2018-12-27] MEDS: hydrALAZINE 25 MG TAB PO SCH ×3 (08:49→20:04)
[2018-12-27] MEDS: Tamsulosin HCl 0.4 MG CAP PO SCH (08:49)
[2018-12-27] MEDS: Dutasteride 0.5 MG CAP PO SCH (08:55)
--- NOTE | 2018-12-27 11:54 | PDOC.PN ---
- Subjective Encounter Start Date: 12/27/18 Encounter Start Time: 11:52 Patient seen and examined, no new issues or complaints. All questions answered. - Objective Resuscitation Status - Order Detail: 12/16/18 13:24 Resuscitation Status Routine Resuscitation Status: DNAR: NO Resuscitation Discussed with: consent discussed with sister and Dr. Aguilar Vital Signs & Weight: Vital Signs (12 hours) Temp Pulse Resp BP BP BP Pulse Ox 12/27/18 08:49 62 163/72 H 12/27/18 08:48 163/72 H 12/27/18 07:34 97.8 F 65 20 163/72 H 94 L 12/27/18 00:01 97.6 F 66 18 154/83 H Weight Admit Weight 343 lb 0.628 oz Weight 325 lb 6.436 oz Most Recent Monitor Data Heart Rate from ECG 81 NIBP 168/84 NIBP BP-Mean 112 Respiration from ECG 28 SpO2 93 I&O: 12/26/18 12/27/18 12/28/18 06:59 06:59 06:59 Intake Total 1570 7140 Output Total 750 72197 Balance 820 -5035 Result Diagrams: 12/27/18 04:24 12/27/18 04:24 Additional Labs: Accuchecks 12/27/18 12/27/18 12/26/18 11:34 05:56 21:56 POC Glucose 79 76 168 H 12/26/18 12/26/18 16:09 11:50 POC Glucose 148 H 136 H Phys Exam - Physical Examination Constitutional: NAD HEENT: PERRLA, moist MMs, sclera anicteric Neck: no nodes, no JVD, supple Respiratory: no wheezing, no rales, no rhonchi Cardiovascular: RRR, no significant murmur, no rub Gastrointestinal: soft, non-tender, no distention, positive bowel sounds Musculoskeletal: pulses present, edema present Dx/Plan (1) Shortness of breath Code(s): R06.02 - SHORTNESS OF BREATH Status: Acute (2) Acute hypoxemic respiratory failure Code(s): J96.01 - ACUTE RESPIRATORY FAILURE WITH HYPOXIA Status: Acute Comment: Bipap on and off .likley due to sleep apnea (3) DVT (deep venous thrombosis) Code(s): I82.409 - ACUTE EMBOLISM AND THOMBOS UNSP DEEP VN UNSP LOWER EXTREMITY Status: Chronic Qualifiers: DVT location: lower extremity Chronicity: acute Laterality: left Comment: Hold Xarelto due to gross hematuria (4) HTN (hypertension) Code(s): I10 - ESSENTIAL (PRIMARY) HYPERTENSION Status: Chronic Qualifiers: Hypertension type: essential hypertension Qualified Code(s): I10 - Essential (primary) hypertension Comment: stable, continue Coreg, Hydralazine and Lisinopril/HCTZ (5) Morbid obesity Code(s): E66.01 - MORBID (SEVERE) OBESITY DUE TO EXCESS CALORIES Status: Chronic Comment: bmi of 47 (6) NGA (obstructive sleep apnea) Code(s): G47.33 - OBSTRUCTIVE SLEEP APNEA (ADULT) (PEDIATRIC) Status: Chronic (7) Paroxysmal atrial fibrillation Code(s): I48.0 - PAROXYSMAL ATRIAL FIBRILLATION Status: Chronic Comment: rate controlled, On OAC - Plan * pending placement * no changes in plan of care for now * DC once placement arranged
--- NOTE | 2018-12-27 12:28 | PRG ---
DATE OF SERVICE: 12/27/2018 SUBJECTIVE: The patient is somnolent, a sitter at bedside. Per sitter, the patient has been trying to get out of bed, moving his leg, at times tugging on his catheter. I recommend we continue to monitor him with a sitter at bedside due to prevent recurrent trauma of the Ennis catheter. OBJECTIVE: VITAL SIGNS: Stable. I's and O's, he is on a low drip CBI and urine output is yellow. ABDOMEN: Morbidly obese. No rigidity. No rebound. : There is some old dry blood at the meatus. However, no active oozing from the meatus is appreciated. EXTREMITIES: Gross venous stasis. No calf tenderness grossly appreciated. PERTINENT LABORATORY DATA: White count 17, hemoglobin decreased from 14.8 to 13 , platelet 196. Renal function stable at 0.84. IMPRESSION AND PLAN: 1. Mr. Ballard is a 63-year-old morbidly obese male with history of developmental delay, presented with metabolic encephalopathy, with history of atrial fibrillation, history of left lower extremity deep venous thrombosis, on Xarelto on hold due to gross hematuria and traumatic Ennis catheter removal. 2. Sleep apnea. 3. Limited mobility due to body habitus. 4. Restaging CT demonstrating previous Ennis catheter replaced with balloon inflated in the prostatic fossa. Yesterday, I spent significant amount at bedside replacing his Ennis catheter, he has a 3-way Ennis catheter on CBI. With medical approval , his Xarelto is on hold due to traumatic catheter removal and gross hematuria. There is a decrease in hemoglobin, however, hematuria is improved. If urine output remains clear, I will hold the CBI and monitor his urine output off CBI. Once urine output has been clear off CBI, for minimum 24 hours, we can re-initiate his Xarelto and monitor for recurrent bleeding. There is no significant documentation of urinary retention that I can find in chart. Initially when he presented to the emergency room, catheter was placed with 60 mL of urine output remained. Empirically, I did provide Avodart and Flomax to continue. I would recommend patient stay in-house as he needs a voiding trial prior to discharge to senior care, as I do not recommend indwelling Ennis catheter upon discharge due to increased risk of recurrent urethral Ennis catheter trauma, increased risk of recurrent bleed due to chronic anticoagulation. Spoke with his sister power of sheeter machine operator regarding patient's disposition. Clinical status updated as his urologic issues of traumatic Ennis catheter and gross hematuria of concern. I expressed my concern regarding patient's medical clinical history, quality-of- life issues. She states that she would like to revisit with palliative hospice care as she is reconsidering this. Consult initiated to reconsult for dispo hospice/ comfort care only, she does not desire her brother to undergo procedures requiring anesthesia. Agree as he is high risk Job ID: [id number] [facility]
--- NOTE | 2018-12-27 15:43 | EKG ---
Test Reason : SOB Blood Pressure : / mmHG Vent. Rate : 069 BPM Atrial Rate : 065 BPM P-R Int : 000 ms QRS Dur : 178 ms QT Int : 450 ms P-R-T Axes : 000 -82 050 degrees QTc Int : 482 ms Wide QRS rhythm Left axis deviation Right bundle branch block Abnormal ECG T wave inversion V1,V2,aVR Left axis deviation No ST elevation/OK Confirmed by JONI Miranda, GABRIELA ([id number]), photograph editor BRISEIDA MCHUGH ([id number]) on 12/27/2018 3:43:15 PM Referred By: Confirmed By:GABRIELA QUINONES M.D.
[2018-12-28] MEDS: Sodium Chloride 0.9% 1,000 ML IV SCH ×2 (08:26→20:13)
[2018-12-28] MEDS: Tamsulosin HCl 0.4 MG CAP PO SCH (08:27)
[2018-12-28] MEDS: Famotidine 20 MG TAB PO SCH ×2 (08:27→20:13)
[2018-12-28] MEDS: Floranex Packet PO SCH (08:27)
[2018-12-28] MEDS: hydrALAZINE 25 MG TAB PO SCH ×3 (08:27→20:12)
[2018-12-28] MEDS: Carvedilol 6.25 MG TAB PO SCH ×2 (08:27→16:26)
[2018-12-28] MEDS: Dutasteride 0.5 MG CAP PO SCH (08:27)
[2018-12-28] MEDS: predniSONE 20 MG TAB PO SCH (08:27)
[2018-12-28] MEDS: Lisinopril/Hydrochlorothiazide 10 mg/12.5 mg Tablet PO SCH (08:27)
[2018-12-28] MEDS: Insulin Glargine 18 UNITS in Pre-Filled Syringe 1 EACH SC SCH ×2 (08:35→20:13)
[2018-12-28 11:11] LABS: Hemoglobin 13.1 g/dL (14.0-18.0); Mean Corpuscular HGB CONC 32.4 g/dL (32.0-36.0); Mean Corpuscular Hemoglobin 31.5 pg (27.0-31.0); Mean Corpuscular Volume 97.1 fL (78.0-98.0); Mean Platelet Volume 7.5 fL (7.4-10.4); Platelet Count 165 thou/uL (130-400); RBC Distribution Width 16.2 % (11.5-14.5); Red Blood Cell (RBC) Count 4.17 mill/uL (4.70-6.10); White Blood Cell (WBC) Count 13.6 thou/uL (4.8-10.8)
--- NOTE | 2018-12-28 11:27 | PRG ---
DATE OF SERVICE: 12/28/2018 SUBJECTIVE: The patient is alert. Denies having obstructive urinary symptoms prior to arrival to the hospital. Denies chest pain or shortness of breath. Sitter at bedside. OBJECTIVE: VITAL SIGNS: Stable. He is afebrile. Is and Os, 3725 of urine output. ABDOMEN: Morbidly obese. Ennis catheter adequately secured. IMPRESSION AND PLAN: 1. Mr. Ballard is a 63-year-old male with history of morbid obesity, developmental delay, metabolic encephalopathy, history of atrial fibrillation, left lower extremity deep vein thrombosis on Xarelto, on hold due to gross hematuria due to traumatic Ennis catheter removal. 2. Limited mobility due to body habitus. 3. Traumatic Ennis catheter with gross hematuria. Repeat Ennis catheter had been placed in the prostatic urethra. I did replace a new 22-Vietnamese three-way. CBI has been turned off as of this morning per my request, and urine output remains clear. We will continue to monitor the patient off Xarelto as he has been medically cleared to do so. Upon my reassessment of the patient tomorrow morning, if urine output remains clear for 24 hours, we will restart his Xarelto. He will need to be monitored regarding tolerability of restarting his anticoagulation prior to discharge for voiding trial. As he did have a traumatic Ennis catheter removal , I would recommend the patient stay in-house for a voiding trial sometime next week. Continue Avodart and Flomax. Case Management has been reconsulted regarding reconsideration of Palliative Hospice Care. Job ID: [id number] [facility]
--- NOTE | 2018-12-28 12:22 | PDOC.PN ---
- Subjective Encounter Start Date: 12/28/18 Encounter Start Time: 12:20 Patient seen and examined, no new issues or complaints. - Objective Resuscitation Status - Order Detail: 12/16/18 13:24 Resuscitation Status Routine Resuscitation Status: DNAR: NO Resuscitation Discussed with: consent discussed with sister and Dr. Aguilar Vital Signs & Weight: Vital Signs (12 hours) Temp Pulse Resp BP BP Pulse Ox 12/28/18 12:11 98.5 F 56 L 20 168/77 H 93 L 12/28/18 08:27 55 L 171/78 H 12/28/18 07:25 97.9 F 55 L 20 171/78 H 96 Weight Admit Weight 343 lb 0.628 oz Weight 325 lb 6.436 oz Most Recent Monitor Data Heart Rate from ECG 81 NIBP 168/84 NIBP BP-Mean 112 Respiration from ECG 28 SpO2 93 I&O: 12/27/18 12/28/18 12/29/18 06:59 06:59 06:59 Intake Total 7140 3000 Output Total 0766321 0855 Balance -5142 -134 Result Diagrams: 12/28/18 10:50 12/27/18 04:24 Additional Labs: Accuchecks 12/28/18 12/28/18 12/27/18 11:58 03:21 19:28 POC Glucose 106 88 103 12/27/18 16:05 POC Glucose 121 H Phys Exam - Physical Examination Constitutional: NAD obese HEENT: PERRLA, moist MMs, sclera anicteric Neck: no nodes, no JVD Respiratory: no wheezing, no rales, no rhonchi Cardiovascular: RRR, no significant murmur, no rub Gastrointestinal: soft, non-tender, no distention, positive bowel sounds Musculoskeletal: pulses present, edema present Dx/Plan (1) Shortness of breath Code(s): R06.02 - SHORTNESS OF BREATH Status: Acute (2) Acute hypoxemic respiratory failure Code(s): J96.01 - ACUTE RESPIRATORY FAILURE WITH HYPOXIA Status: Acute Comment: Bipap on and off .ion due to sleep apnea (3) DVT (deep venous thrombosis) Code(s): I82.409 - ACUTE EMBOLISM AND THOMBOS UNSP DEEP VN UNSP LOWER EXTREMITY Status: Chronic Qualifiers: DVT location: lower extremity Chronicity: acute Laterality: left Comment: Hold Xarelto due to gross hematuria (4) HTN (hypertension) Code(s): I10 - ESSENTIAL (PRIMARY) HYPERTENSION Status: Chronic Qualifiers: Hypertension type: essential hypertension Qualified Code(s): I10 - Essential (primary) hypertension Comment: stable, continue Coreg, Hydralazine and Lisinopril/HCTZ (5) Morbid obesity Code(s): E66.01 - MORBID (SEVERE) OBESITY DUE TO EXCESS CALORIES Status: Chronic Comment: bmi of 47 (6) NGA (obstructive sleep apnea) Code(s): G47.33 - OBSTRUCTIVE SLEEP APNEA (ADULT) (PEDIATRIC) Status: Chronic (7) Paroxysmal atrial fibrillation Code(s): I48.0 - PAROXYSMAL ATRIAL FIBRILLATION Status: Chronic Comment: rate controlled, On OAC - Plan * lengthy discussion had with patient and sister (Renata, via phone at [phone]) * family and patient would like to pursue hospice, will place case management consult for evaluation * cont with current management for now * case and plan d/w patient at length as well as Renata via phone, they understood and agreed with this plan.
[2018-12-28] MEDS: Acetaminophen 325 MG TAB PO PRN (14:19)
[2018-12-29] MEDS: Acetaminophen 325 MG TAB PO PRN (03:18)
[2018-12-29 05:12] LABS: #Basophils 0.1 thou/uL (0.0-0.2); #Eosinphils 0.1 thou/uL (0.0-0.7); #Lymphocytes 1.7 thou/uL (1.20-3.40); #Monocytes 0.8 thou/uL (0.11-0.59); #Neutrophils 9.4 thou/uL (1.40-6.50); %Basophils 0.8 % (0.0-1.0); %Eosinophils 1.2 % (0.0-10.0); %Lymphocytes 13.8 % (21.0-51.0); %Monocytes 6.8 % (0.0-10.0); %Neutrophils 77.3 % (42.0-75.0); Hemoglobin 13.1 g/dL (14.0-18.0); Mean Corpuscular HGB CONC 32.7 g/dL (32.0-36.0); Mean Corpuscular Hemoglobin 31.4 pg (27.0-31.0); Mean Corpuscular Volume 96.3 fL (78.0-98.0); Mean Platelet Volume 7.6 fL (7.4-10.4); Platelet Count 179 thou/uL (130-400); RBC Distribution Width 16.1 % (11.5-14.5); Red Blood Cell (RBC) Count 4.16 mill/uL (4.70-6.10); White Blood Cell (WBC) Count 12.1 thou/uL (4.8-10.8)
[2018-12-29 05:20] LABS: ALT (SGPT) 77 U/L (8-55); AST (SGOT) 32 U/L (5-34); Albumin 2.8 g/dL (3.4-4.8); Alkaline Phosphatase 64 U/L (40-150); Anion Gap 13 mmol/L (10-20); BUN (Urea Nitrogen) 18 mg/dL (8.4-25.7); Bilirubin, Direct 0.9 mg/dL (0.1-0.3); Bilirubin, Total 2.3 mg/dL (0.2-1.2); Calc. Creatinine Clearance 238 mL/min (70-130); Calcium 8.9 mg/dL (7.8-10.44); Carbon Dioxide 22 mmol/L (23-31); Chloride 105 mmol/L (98-107); Estimated GFR-MDRD Greater than 90; Glucose 80 mg/dL (80-115); Potassium 3.6 mmol/L (3.5-5.1); Protein, Total 5.3 g/dL (5.8-8.1); Sodium 136 mmol/L (136-145)
--- NOTE | 2018-12-29 07:58 | PRG ---
DATE OF SERVICE: 12/29/2018 SUBJECTIVE: The patient is resting. OBJECTIVE: VITAL SIGNS: Stable. Afebrile. Urine output 2100, concentrated yellow. CBI has been held for 24 hours. ABDOMEN: Morbidly obese. GENITOURINARY: Ennis catheter adequately secured. PERTINENT LABORATORY DATA: White count 12, hemoglobin stable at 13, and platelet 179. Creatinine 0.6. IMPRESSION AND PLAN: Mr. Ballard is a 63-year-old male with history of morbid obesity, urologic issues of gross hematuria secondary to replacement of Ennis catheter with Ennis balloon inflated in the prostatic urethra. Ennis catheter replaced at bedside. He was monitored on CBI. With Xarelto held, hematuria has resolved. Stable of CBI for 24 hours. Continue indwelling Ennis catheter, catheter will be removed per my discretion. May resume his Xarelto and monitor for recurrence of gross hematuria. Case Management has been consulted regarding consideration for palliative hospice care. Continue Avodart and Flomax. Job ID: [id number] [facility]
[2018-12-29] MEDS: hydrALAZINE 25 MG TAB PO SCH ×3 (09:55→20:58)
[2018-12-29] MEDS: Tamsulosin HCl 0.4 MG CAP PO SCH (09:55)
[2018-12-29] MEDS: Famotidine 20 MG TAB PO SCH ×2 (09:55→20:58)
[2018-12-29] MEDS: Floranex Packet PO SCH (09:56)
[2018-12-29] MEDS: Carvedilol 6.25 MG TAB PO SCH ×2 (09:56→18:17)
[2018-12-29] MEDS: Rivaroxaban 10 MG TAB PO SCH (09:56)
[2018-12-29] MEDS: predniSONE 20 MG TAB PO SCH (09:56)
[2018-12-29] MEDS: Insulin Glargine 18 UNITS in Pre-Filled Syringe 1 EACH SC SCH ×2 (09:57→21:01)
[2018-12-29] MEDS: Dutasteride 0.5 MG CAP PO SCH ×2 (09:57→11:48)
[2018-12-29] MEDS: Lisinopril/Hydrochlorothiazide 10 mg/12.5 mg Tablet PO SCH (10:05)
[2018-12-29] MEDS: Sodium Chloride 0.9% 1,000 ML IV SCH ×2 (11:48→23:58)
--- NOTE | 2018-12-29 18:43 | PDOC.PN ---
- Subjective Encounter Start Date: 12/29/18 Encounter Start Time: 13:00 Doing ok. No complaints. Says he would like to go to a facility to be with his mother. - Objective Resuscitation Status - Order Detail: 12/16/18 13:24 Resuscitation Status Routine Resuscitation Status: DNAR: NO Resuscitation Discussed with: consent discussed with sister and Dr. Aguilar Vital Signs & Weight: Vital Signs (12 hours) Temp Pulse Resp BP BP Pulse Ox 12/29/18 18:17 175/79 H 12/29/18 16:00 97.6 F 58 L 20 175/79 H 93 L 12/29/18 15:00 58 L 173/72 H 12/29/18 12:00 98.4 F 46 L 20 160/73 H 93 L 12/29/18 10:05 173/71 H 12/29/18 09:56 173/71 H 12/29/18 09:55 56 L 173/71 H 12/29/18 07:27 98.4 F 56 L 20 173/71 H 93 L Weight Admit Weight 343 lb 0.628 oz Weight 325 lb 6.436 oz Most Recent Monitor Data Heart Rate from ECG 81 NIBP 168/84 NIBP BP-Mean 112 Respiration from ECG 28 SpO2 93 I&O: 12/28/18 12/29/18 12/30/18 06:59 06:59 06:59 Intake Total 3000 2880 Output Total 3725 2100 Balance -725 780 Result Diagrams: 12/29/18 04:03 12/29/18 04:03 Additional Labs: Accuchecks 12/29/18 12/29/18 12/29/18 16:46 11:17 05:43 POC Glucose 118 H 81 81 12/28/18 19:25 POC Glucose 125 H Phys Exam - Physical Examination Constitutional: NAD Respiratory: no wheezing, no rales, no rhonchi Cardiovascular: RRR, no significant murmur, no rub Gastrointestinal: soft, non-tender, no distention, positive bowel sounds Musculoskeletal: no edema Chronic stasis. Dx/Plan (1) Acute on chronic respiratory failure with hypoxia and hypercapnia Code(s): J96.21 - ACUTE AND CHRONIC RESPIRATORY FAILURE WITH HYPOXIA; J96.22 - ACUTE AND CHRONIC RESPIRATORY FAILURE WITH HYPERCAPNIA Status: Acute Comment : likely due to NGA, diastolic CHF, currently intubated (2) Diastolic CHF Code(s): I50.30 - UNSPECIFIED DIASTOLIC (CONGESTIVE) HEART FAILURE Status: Acute Qualifiers: Heart failure chronicity: acute Qualified Code(s): I50.31 - Acute diastolic (congestive) heart failure Comment: normal EF (3) HTN (hypertension) Code(s): I10 - ESSENTIAL (PRIMARY) HYPERTENSION Status: Chronic Qualifiers: Hypertension type: essential hypertension Qualified Code(s): I10 - Essential (primary) hypertension Comment: stable, continue Coreg, Hydralazine and Lisinopril/HCTZ (4) Morbid obesity Code(s): E66.01 - MORBID (SEVERE) OBESITY DUE TO EXCESS CALORIES Status: Chronic Comment: bmi of 47 (5) NGA (obstructive sleep apnea) Code(s): G47.33 - OBSTRUCTIVE SLEEP APNEA (ADULT) (PEDIATRIC) Status: Chronic (6) Paroxysmal atrial fibrillation Code(s): I48.0 - PAROXYSMAL ATRIAL FIBRILLATION Status: Chronic Comment: rate controlled, On OAC (7) Acute renal failure (ARF) Status: Resolved Qualifiers: Acute renal failure type: unspecified Qualified Code(s): N17.9 - Acute kidney failure, unspecified (8) Hematuria Code(s): R31.9 - HEMATURIA, UNSPECIFIED Status: Acute (9) DVT (deep venous thrombosis) Code(s): I82.409 - ACUTE EMBOLISM AND THOMBOS UNSP DEEP VN UNSP LOWER EXTREMITY Status: Chronic Qualifiers: DVT location: lower extremity Chronicity: acute Laterality: left Comment: Hold Xarelto due to gross hematuria - Plan * Close to discharge. * Discussed with Urology. * Patient had Ennis placed earlier in stay for unclear reasons. * Had pulled the Ennis out himself. Reinsertion resulted in balloon inflation in the prostate. * Had hematuria, CBI with resolution. * Now back on the Xarelto with no further hematuria. * Given his mental status there is concern that he will pull the Ennis out again. * Therefore, the plan is to allow time for a spontaneous voiding trial after Ennis removed in a few days.
--- NOTE | 2018-12-30 07:28 | PRG ---
DATE OF SERVICE: 12/30/2018 SUBJECTIVE: The patient is resting, arousable. Sitter at bedside. OBJECTIVE: VITAL SIGNS: Stable, afebrile. I's and O's, urine output clear. 3 -way Ennis catheter in place, 2275 of urine output. ABDOMEN: Morbidly obese. No rigidity. No rebound. No suprapubic tenderness. PERTINENT LABS: Hemoglobin stable yesterday at 13. IMPRESSION AND PLAN: 1. Mr. Ballard is a 63-year-old male with history of morbid obesity, limited mobility with history of deep venous thrombosis, atrial fibrillation on Xarelto. 2. History of traumatic Ennis catheter removal. 3. Unclear regarding reason why patient has an indwelling Ennis catheter on admission. Urine output is clear, tolerating Xarelto. As there is traumatic Ennis catheter removal last week, I recommend indwelling Ennis catheter cont for now as this will allow it to heal. Pending his course this week, I will initiate a voiding trial, likely morning. I would like to keep the patient in-house thereafter to monitor his voiding status. I would prefer the patient to be disposed without indwelling Ennis catheter as there is high risk of recurrent hematuria, traumatic Ennis catheter removal. Continue Avodart and Flomax. Discussed with hospitalist . Dispo hospice, palliative care pending. Job ID: [id number] MTDD
[2018-12-30] MEDS: Insulin Glargine 18 UNITS in Pre-Filled Syringe 1 EACH SC SCH ×2 (09:00→20:16)
[2018-12-30] MEDS: hydrALAZINE 25 MG TAB PO SCH ×3 (09:00→20:14)
[2018-12-30] MEDS: Carvedilol 6.25 MG TAB PO SCH ×3 (09:00→18:55)
--- NOTE | 2018-12-30 09:30 | PDOC.PALFU ---
Palliative Care Follow-up Note Continued follow up with patient sister to discuss and revisit patient health status, and desired goals of care. Meeting with patient sister to further discuss considering placement for her brother other than [facility]. Agreed to expand options for placement. Discussion/review that patient was terminally extubated and not expected to live, however he is able to support respiratory system on his own, remains refusing BiPap. Discussed palliation of health conditions as previously identified.
[2018-12-30] MEDS: Lisinopril/Hydrochlorothiazide 10 mg/12.5 mg Tablet PO SCH (14:58)
[2018-12-30] MEDS: predniSONE 20 MG TAB PO SCH (15:02)
[2018-12-30] MEDS: Rivaroxaban 10 MG TAB PO SCH (15:02)
[2018-12-30] MEDS: Dutasteride 0.5 MG CAP PO SCH (15:02)
[2018-12-30] MEDS: Famotidine 20 MG TAB PO SCH ×2 (15:02→20:14)
[2018-12-30] MEDS: Tamsulosin HCl 0.4 MG CAP PO SCH (15:02)
[2018-12-30] MEDS: Sodium Chloride 0.9% 1,000 ML IV SCH (15:03)
[2018-12-30] MEDS: Floranex Packet PO SCH (15:04)
--- NOTE | 2018-12-30 15:47 | PDOC.PN ---
- Subjective Encounter Start Date: 12/30/18 Encounter Start Time: 15:00 Without complaint. Sister present. Says he has been sleeping a lot today. Has done this in the past. - Objective Resuscitation Status - Order Detail: 12/16/18 13:24 Resuscitation Status Routine Resuscitation Status: DNAR: NO Resuscitation Discussed with: consent discussed with sister and Dr. Aguilar Vital Signs & Weight: Vital Signs (12 hours) Temp Pulse Resp BP BP BP Pulse Ox 12/30/18 15:01 46 L 12/30/18 14:58 58 L 12/30/18 11:15 98.2 F 46 L 18 175/71 H 95 12/30/18 09:00 46 L 137/70 12/30/18 08:00 92 L 12/30/18 07:35 98 F 48 L 20 146/73 H 92 L 12/30/18 04:29 98.4 F 46 L 20 161/75 H 93 L Weight Admit Weight 343 lb 0.628 oz Weight 325 lb 6.436 oz Most Recent Monitor Data Heart Rate from ECG 81 NIBP 168/84 NIBP BP-Mean 112 Respiration from ECG 28 SpO2 93 I&O: 12/29/18 12/30/18 12/31/18 06:59 06:59 06:59 Intake Total 2880 2745 Output Total 2100 2275 Balance 780 470 Result Diagrams: 12/29/18 04:03 12/29/18 04:03 Additional Labs: Accuchecks 12/30/18 12/30/18 12/29/18 11:12 04:34 19:13 POC Glucose 77 84 204 H 12/29/18 16:46 POC Glucose 118 H Phys Exam - Physical Examination Constitutional: NAD Morbidly obese. Respiratory: no wheezing, no rales, no rhonchi Cardiovascular: RRR, no significant murmur, no rub Gastrointestinal: soft, non-tender, no distention Musculoskeletal: no edema Neurological: non-focal Deviation from normal: Cognitive impairment. Mild to moderate. Dx/Plan (1) Acute on chronic respiratory failure with hypoxia and hypercapnia Code(s): J96.21 - ACUTE AND CHRONIC RESPIRATORY FAILURE WITH HYPOXIA; J96.22 - ACUTE AND CHRONIC RESPIRATORY FAILURE WITH HYPERCAPNIA Status: Acute Comment : likely due to NGA, diastolic CHF, currently intubated (2) Diastolic CHF Code(s): I50.30 - UNSPECIFIED DIASTOLIC (CONGESTIVE) HEART FAILURE Status: Acute Qualifiers: Heart failure chronicity: acute Qualified Code(s): I50.31 - Acute diastolic (congestive) heart failure Comment: normal EF (3) HTN (hypertension) Code(s): I10 - ESSENTIAL (PRIMARY) HYPERTENSION Status: Chronic Qualifiers: Hypertension type: essential hypertension Qualified Code(s): I10 - Essential (primary) hypertension Comment: stable, continue Coreg, Hydralazine and Lisinopril/HCTZ (4) Morbid obesity Code(s): E66.01 - MORBID (SEVERE) OBESITY DUE TO EXCESS CALORIES Status: Chronic Comment: bmi of 47 (5) NGA (obstructive sleep apnea) Code(s): G47.33 - OBSTRUCTIVE SLEEP APNEA (ADULT) (PEDIATRIC) Status: Chronic (6) Paroxysmal atrial fibrillation Code(s): I48.0 - PAROXYSMAL ATRIAL FIBRILLATION Status: Chronic Comment: rate controlled, On OAC (7) Acute renal failure (ARF) Status: Resolved Qualifiers: Acute renal failure type: unspecified Qualified Code(s): N17.9 - Acute kidney failure, unspecified (8) Hematuria Code(s): R31.9 - HEMATURIA, UNSPECIFIED Status: Acute (9) DVT (deep venous thrombosis) Code(s): I82.409 - ACUTE EMBOLISM AND THOMBOS UNSP DEEP VN UNSP LOWER EXTREMITY Status: Chronic Qualifiers: DVT location: lower extremity Chronicity: acute Laterality: left Comment: Hold Xarelto due to gross hematuria (10) Pulmonary alveolar hemorrhage Code(s): R04.89 - HEMORRHAGE FROM OTHER SITES IN RESPIRATORY PASSAGES Status: Acute (11) Chronic anticoagulation Code(s): Z79.01 - CHIEF BANK EXAMINER (CURRENT) USE OF ANTICOAGULANTS Status: Chronic - Plan * Stable from a cardiopulm perspective. * Working through the Ennis issues. * Back on anticoagulation with no further hematuria. * Placement once he has the Ennis out on or Saturday.
--- NOTE | 2018-12-31 07:47 | PRG ---
DATE OF SERVICE: 12/31/2018 SUBJECTIVE: The patient is alert and awake. Sitter at bedside. OBJECTIVE: VITAL SIGNS: Stable. ABDOMEN: Morbidly obese. Urine output, concentrated yellow clear. No current labs. Disposition, the patient has been accepted to [facility]. IMPRESSION AND PLAN: Mr. Ballard is a 63-year-old morbidly obese male with history of, 1. Atrial fibrillation. 2. History of lower extremity deep venous thrombosis, on Xarelto. 3. History of traumatic Ennis catheter removal, replacement, previously on CBI. He is tolerating Xarelto with no recurrence of gross hematuria. He has been on Flomax, Avodart since admission per my orders. I will initiate a voiding trial tomorrow and will need to monitor thereafter to ensure he empties adequately. If no significant postvoid residual of concern, then he will be cleared to be discharged to [facility]. Until then, please hold discharge until cleared by . Ennis catheter will be removed tomorrow morning per my request order in chart. will monitor the patient tomorrow for a voiding status. [facility] ID: [id number] [facility]
[2018-12-31] MEDS: Rivaroxaban 10 MG TAB PO SCH (08:12)
[2018-12-31] MEDS: predniSONE 20 MG TAB PO SCH (08:12)
[2018-12-31] MEDS: Carvedilol 6.25 MG TAB PO SCH ×2 (08:13→15:38)
[2018-12-31] MEDS: Tamsulosin HCl 0.4 MG CAP PO SCH (08:13)
[2018-12-31] MEDS: hydrALAZINE 25 MG TAB PO SCH ×3 (08:13→20:34)
[2018-12-31] MEDS: Famotidine 20 MG TAB PO SCH ×2 (08:13→20:21)
[2018-12-31] MEDS: Lisinopril/Hydrochlorothiazide 10 mg/12.5 mg Tablet PO SCH (08:14)
[2018-12-31] MEDS: Floranex Packet PO SCH (08:14)
[2018-12-31] MEDS: Insulin Glargine 18 UNITS in Pre-Filled Syringe 1 EACH SC SCH ×2 (08:15→20:35)
[2018-12-31] MEDS: Dutasteride 0.5 MG CAP PO SCH (10:39)
[2018-12-31] MEDS ORDERED: Escitalopram Oxalate 10 mg Tablet PO SCH (14:00)
--- NOTE | 2018-12-31 14:48 | PDOC.PN ---
- Subjective Encounter Start Date: 12/31/18 Encounter Start Time: 10:45 Doing ok. No new complaints. - Objective Resuscitation Status - Order Detail: 12/16/18 13:24 Resuscitation Status Routine Resuscitation Status: DNAR: NO Resuscitation Discussed with: consent discussed with sister and Dr. Aguilar Vital Signs & Weight: Vital Signs (12 hours) Temp Pulse Resp BP BP Pulse Ox 12/31/18 08:14 56 L 164/73 H 12/31/18 08:13 56 L 164/73 H 12/31/18 06:53 97.8 F 56 L 19 164/73 H 93 L 12/31/18 04:00 97.8 F 56 L 16 165/73 H 96 Weight Admit Weight 343 lb 0.628 oz Weight 325 lb 6.436 oz Most Recent Monitor Data Heart Rate from ECG 81 NIBP 168/84 NIBP BP-Mean 112 Respiration from ECG 28 SpO2 93 I&O: 12/30/18 12/31/18 01/01/19 06:59 06:59 06:59 Intake Total 2745 840 Output Total 2275 1775 Balance 470 -935 Result Diagrams: 12/29/18 04:03 12/29/18 04:03 Additional Labs: Accuchecks 12/31/18 12/31/18 12/30/18 11:17 04:09 19:16 POC Glucose 97 80 121 H 12/30/18 16:29 POC Glucose 76 Phys Exam - Physical Examination Constitutional: NAD Morbidly obese. Respiratory: no wheezing, no rales, no rhonchi Cardiovascular: RRR, no significant murmur, no rub Gastrointestinal: soft, non-tender, no distention, positive bowel sounds Musculoskeletal: no edema Stasis bronzing. Dx/Plan (1) Acute on chronic respiratory failure with hypoxia and hypercapnia Code(s): J96.21 - ACUTE AND CHRONIC RESPIRATORY FAILURE WITH HYPOXIA; J96.22 - ACUTE AND CHRONIC RESPIRATORY FAILURE WITH HYPERCAPNIA Status: Acute Comment : likely due to NGA, diastolic CHF, currently intubated (2) Diastolic CHF Code(s): I50.30 - UNSPECIFIED DIASTOLIC (CONGESTIVE) HEART FAILURE Status: Acute Qualifiers: Heart failure chronicity: acute Qualified Code(s): I50.31 - Acute diastolic (congestive) heart failure Comment: normal EF (3) HTN (hypertension) Code(s): I10 - ESSENTIAL (PRIMARY) HYPERTENSION Status: Chronic Qualifiers: Hypertension type: essential hypertension Qualified Code(s): I10 - Essential (primary) hypertension Comment: stable, continue Coreg, Hydralazine and Lisinopril/HCTZ (4) Morbid obesity Code(s): E66.01 - MORBID (SEVERE) OBESITY DUE TO EXCESS CALORIES Status: Chronic Comment: bmi of 47 (5) NGA (obstructive sleep apnea) Code(s): G47.33 - OBSTRUCTIVE SLEEP APNEA (ADULT) (PEDIATRIC) Status: Chronic (6) Paroxysmal atrial fibrillation Code(s): I48.0 - PAROXYSMAL ATRIAL FIBRILLATION Status: Chronic Comment: rate controlled, On OAC (7) Acute renal failure (ARF) Status: Resolved Qualifiers: Acute renal failure type: unspecified Qualified Code(s): N17.9 - Acute kidney failure, unspecified (8) Hematuria Code(s): R31.9 - HEMATURIA, UNSPECIFIED Status: Acute (9) DVT (deep venous thrombosis) Code(s): I82.409 - ACUTE EMBOLISM AND THOMBOS UNSP DEEP VN UNSP LOWER EXTREMITY Status: Chronic Qualifiers: DVT location: lower extremity Chronicity: acute Laterality: left Comment: Hold Xarelto due to gross hematuria (10) Pulmonary alveolar hemorrhage Code(s): R04.89 - HEMORRHAGE FROM OTHER SITES IN RESPIRATORY PASSAGES Status: Acute (11) Chronic anticoagulation Code(s): Z79.01 - INTERMEDIATE (CURRENT) USE OF ANTICOAGULANTS Status: Chronic - Plan * Patient's sister and surrogate is concerned about his need for treatment of depression. * Difficult assessment, but she knows him best. * Concerned about giving imipramine given the cardiac situation. High risk of arrhythmia. * Will start escitalopram. * Discussed with Urology. * Will DC the Ennis tomorrow and give voiding trial.
--- NOTE | 2018-12-31 15:02 | PDOC.PALFU ---
Palliative Care Follow-up Note Sister requested further conversation in relation to her brother and navigating his cormorbid health considerations. Sister is requesting that Imipramine be restarted prior to his discharge to shelter later this week. Patient was on Imipramine for several years prior to recent admission. Discussed at length the concern to reinitiate this medication and its significant cardiac risk factors. Discussion also in relation to explaining to patient discharge from hospital to shelter and not to his private home. Will educate patient on plan of care after tejeda is removed. I will contact Dr Kapoor to discuss antidepressant and best decision for patient. Plan: *Contact Dr Singh in regards to resuming medication for depression *Communicate to [facility] RN plan to educate patient in regards to discharge from hospital
[2018-12-31] MEDS: Acetaminophen 325 MG TAB PO PRN (15:38)
[2019-01-01] MEDS ORDERED: Carvedilol 25 MG TAB ONE (07:57)
[2019-01-01] MEDS ORDERED: hydrALAZINE 25 MG TAB ONE (07:57)
[2019-01-01] MEDS ORDERED: Rivaroxaban 10 MG TAB ONE (07:57)
[2019-01-01] MEDS ORDERED: Famotidine 20 MG TAB ONE (07:57)
[2019-01-01] MEDS ORDERED: Tamsulosin HCl 0.4 MG CAP ONE (07:57)
[2019-01-01] MEDS: Carvedilol 6.25 MG TAB PO SCH ×2 (10:12→16:21)
[2019-01-01] MEDS: predniSONE 20 MG TAB PO SCH (10:12)
[2019-01-01] MEDS: Lisinopril/Hydrochlorothiazide 10 mg/12.5 mg Tablet PO SCH (10:13)
[2019-01-01] MEDS: Insulin Glargine 18 UNITS in Pre-Filled Syringe 1 EACH SC SCH ×2 (10:13→21:25)
[2019-01-01] MEDS: hydrALAZINE 25 MG TAB PO SCH ×3 (10:13→20:18)
[2019-01-01] MEDS: Famotidine 20 MG TAB PO SCH ×2 (10:13→20:18)
[2019-01-01] MEDS: Floranex Packet PO SCH (10:13)
[2019-01-01] MEDS: Dutasteride 0.5 MG CAP PO SCH (10:13)
[2019-01-01] MEDS: Rivaroxaban 10 MG TAB PO SCH (10:14)
[2019-01-01] MEDS: Tamsulosin HCl 0.4 MG CAP PO SCH (10:14)
--- NOTE | 2019-01-01 11:09 | PRG ---
DATE OF SERVICE: 12/31/2018 SUBJECTIVE: The patient is alert, awake, however very confused. He states that he is being held hostage. However, he appears to be oriented x2, trying to get out of bed. Ennis catheter has been removed this morning, not yet voided. Denies sensation of incomplete void. PHYSICAL EXAMINATION: VITAL SIGNS: Stable. He is afebrile. Urine output yesterday was 1500. ABDOMEN: Morbidly obese. No rigidity. No rebound. IMPRESSION AND PLAN: 1. A 63-year-old morbidly obese male with history of atrial fibrillation. 2. History of deep venous thrombosis. 3. Limited mobility with history of traumatic Ennis catheter placement, previously on CBI. Voiding trial in progress. No anticholinergics advised. Continue with Flomax and Avodart. He will need to be monitored for his voiding status, cleared by prior to discharge regarding his voiding status. Nursing to call me regarding postvoid residual scan. Job ID: [id number] addendum. Spoke with nurse, patient has voided spontaneously without significant issues. No significant postvoid residual. Patient cleared from perspective to be discharged. Continue Flomax Avodart as an outpatient. [facility]ITAL[facility]
--- NOTE | 2019-01-01 14:49 | PDOC.PALFU ---
Palliative Care Follow-up Note Palliative care follow up at sisters request for patient. Renata states patient had and increase in anxiety, upon arrival of visit with her and the mother. Upon my arrival patient was calm, awake alert and free of complaints. Sitter states anxiety resolved once family left. Communicated with sister we will hold off on PRN medications for now related to anxiety. Ennis removed this morning at 4am, patient voiding without difficulty and has no urinary complaints. Dr Singh started patient on 10mg Lexapro po qd for depression.
--- NOTE | 2019-01-01 20:40 | PDOC.PN ---
- Subjective Encounter Start Date: 01/01/19 Encounter Start Time: 11:10 Doing ok. Says he "can't stop peeing" once catheter was removed. No other complaints. - Objective Resuscitation Status - Order Detail: 12/16/18 13:24 Resuscitation Status Routine Resuscitation Status: DNAR: NO Resuscitation Discussed with: consent discussed with sister and Dr. Aguilar Vital Signs & Weight: Vital Signs (12 hours) Temp Pulse Resp BP BP Pulse Ox 01/01/19 20:18 83 149/77 H 01/01/19 19:08 98.4 F 83 16 149/77 H 90 L 01/01/19 16:21 60 01/01/19 10:13 60 01/01/19 10:12 60 Weight Admit Weight 343 lb 0.628 oz Weight 325 lb 6.436 oz Most Recent Monitor Data Heart Rate from ECG 81 NIBP 168/84 NIBP BP-Mean 112 Respiration from ECG 28 SpO2 93 I&O: 12/31/18 01/01/19 01/02/19 06:59 06:59 06:59 Intake Total 840 Output Total 1775 1500 Balance -935 -1500 Result Diagrams: 12/29/18 04:03 12/29/18 04:03 Additional Labs: Accuchecks 01/01/19 01/01/19 01/01/19 19:13 15:50 11:36 POC Glucose 145 H 91 113 H 01/01/19 12/31/18 05:27 20:33 POC Glucose 120 H 142 H Phys Exam - Physical Examination Constitutional: NAD Obese Respiratory: no wheezing, no rales, no rhonchi, clear to auscultation bilateral Cardiovascular: RRR, no significant murmur, no rub Gastrointestinal: soft, non-tender, no distention Musculoskeletal: no edema stasis bronzing. Psychiatric: normal affect Dx/Plan (1) Acute on chronic respiratory failure with hypoxia and hypercapnia Code(s): J96.21 - ACUTE AND CHRONIC RESPIRATORY FAILURE WITH HYPOXIA; J96.22 - ACUTE AND CHRONIC RESPIRATORY FAILURE WITH HYPERCAPNIA Status: Acute Comment : likely due to NGA, diastolic CHF, currently intubated (2) Diastolic CHF Code(s): I50.30 - UNSPECIFIED DIASTOLIC (CONGESTIVE) HEART FAILURE Status: Acute Qualifiers: Heart failure chronicity: acute Qualified Code(s): I50.31 - Acute diastolic (congestive) heart failure Comment: normal EF (3) HTN (hypertension) Code(s): I10 - ESSENTIAL (PRIMARY) HYPERTENSION Status: Chronic Qualifiers: Hypertension type: essential hypertension Qualified Code(s): I10 - Essential (primary) hypertension Comment: stable, continue Coreg, Hydralazine and Lisinopril/HCTZ (4) Morbid obesity Code(s): E66.01 - MORBID (SEVERE) OBESITY DUE TO EXCESS CALORIES Status: Chronic Comment: bmi of 47 (5) NGA (obstructive sleep apnea) Code(s): G47.33 - OBSTRUCTIVE SLEEP APNEA (ADULT) (PEDIATRIC) Status: Chronic (6) Paroxysmal atrial fibrillation Code(s): I48.0 - PAROXYSMAL ATRIAL FIBRILLATION Status: Chronic Comment: rate controlled, On OAC (7) Acute renal failure (ARF) Status: Resolved Qualifiers: Acute renal failure type: unspecified Qualified Code(s): N17.9 - Acute kidney failure, unspecified (8) Hematuria Code(s): R31.9 - HEMATURIA, UNSPECIFIED Status: Acute (9) DVT (deep venous thrombosis) Code(s): I82.409 - ACUTE EMBOLISM AND THOMBOS UNSP DEEP VN UNSP LOWER EXTREMITY Status: Chronic Qualifiers: DVT location: lower extremity Chronicity: acute Laterality: left Comment: Hold Xarelto due to gross hematuria (10) Pulmonary alveolar hemorrhage Code(s): R04.89 - HEMORRHAGE FROM OTHER SITES IN RESPIRATORY PASSAGES Status: Acute (11) Chronic anticoagulation Code(s): Z79.01 - SKILLED NURSING (CURRENT) USE OF ANTICOAGULANTS Status: Chronic - Plan * Had initiated escitalopram, but order not apparent. * Communicated with Palliative Care. Will start that now. * Has no significant evidence of depression now, but his sister who knows him best feels like this is an issue. * Awaiting placement. * Ennis out today. If he voids well, DC tomorrow.
--- NOTE | 2019-01-02 07:37 | PRG ---
DATE OF SERVICE: 01/02/2019 SUBJECTIVE: The patient without complaints, doing well. Denies dysuria, gross hematuria, sensation of incomplete void. OBJECTIVE: VITAL SIGNS: Stable. Afebrile. The patient has been voiding in his brief, urine output clear. PVR is minimal, zero. per nursing ABDOMEN: Morbidly obese. : Uncircumcised. No blood at the meatus. Diaper saturated with yellow urine. LABORATORY DATA: No current labs. IMPRESSION AND PLAN: 1. Mr. Ballard is a 63-year-old male with history of morbid obesity, limited mobility. 2. History of atrial fibrillation. 3. History of deep venous thrombosis, on Xarelto. 4. History of traumatic Ennis catheter removal, no prior history of documented postvoid residual. Initial Ennis catheter placement. Reason is unclear. Nevertheless, he sustained a traumatic Ennis catheter removal self-inflicted, with subsequent catheter placed by nursing staff with balloon inflated in the prostatic fossa. He has been on Flomax, Avodart, catheter has been removed with no subsequent gross hematuria recurrence. No retention continue his Avodart and Flomax as an outpatient. FINAL DISPOSITION: Pending. alf placement is pending regarding palliative hospice care. followup p.r.n. Cleared from perspective to be discharged. will sign off. Job ID: [id number] [facility]
[2019-01-02] MEDS: Insulin Glargine 18 UNITS in Pre-Filled Syringe 1 EACH SC SCH (07:43)
[2019-01-02] MEDS: Lisinopril/Hydrochlorothiazide 10 mg/12.5 mg Tablet PO SCH (07:43)
[2019-01-02] MEDS: Dutasteride 0.5 MG CAP PO SCH (07:44)
[2019-01-02] MEDS: Famotidine 20 MG TAB PO SCH (07:44)
[2019-01-02] MEDS: Rivaroxaban 10 MG TAB PO SCH (07:44)
[2019-01-02] MEDS: Floranex Packet PO SCH (07:44)
[2019-01-02] MEDS: Tamsulosin HCl 0.4 MG CAP PO SCH (07:44)
[2019-01-02] MEDS: predniSONE 20 MG TAB PO SCH (07:45)
[2019-01-02] MEDS: hydrALAZINE 25 MG TAB PO SCH (07:45)
[2019-01-02] MEDS: Carvedilol 6.25 MG TAB PO SCH (07:46)
[2019-01-02 08:36] VITALS: BP 178/99; TEMP 98.6
[2019-01-02] MEDS ORDERED: Escitalopram Oxalate 10 mg Tablet PO SCH (09:00)
--- NOTE | 2019-01-03 19:29 | DIS ---
DATE OF ADMISSION: 12/02/2018 DATE OF DISCHARGE: 01/02/2019 DISCHARGE DIAGNOSES: 1. Acute hypoxic respiratory failure. 2. Pulmonary hemorrhage. 3. Deep vein thrombosis in the lower extremity. 4. Obstructive sleep apnea with noncompliance with CPAP. 5. Metabolic encephalopathy. 6. Chronic congenital cognitive impairment. 7. Hematuria, likely related to some Ennis trauma. 8. Anisocoria, benign. 9. Paroxysmal atrial fibrillation, converted to sinus rhythm. 10. Chronic hepatitis C. 11. Morbid obesity. 12. Depression and anxiety. HISTORY OF PRESENT ILLNESS: This patient is a 63-year-old male with some congenital cognitive impairment, who has been living with his mother and according to family, has had somewhat dysfunctional codependency with his mother who has essentially avoided follow-through due to suspicions of the medical environment. The patient had previously been diagnosed with a DVT of the lower extremity and had been placed on anticoagulation. Subsequently, his mother had been institutionalized in some type of assisted setting. The patient was living independently. He then developed some worsening shortness of breath and dyspnea and presented to the emergency department. HOSPITAL COURSE: The patient was admitted to the intermediate care unit with acute hypoxic respiratory failure. His chest x-ray showed dense central infiltrates concerning for severe pulmonary edema superimposed on a consolidated masslike process that could still potentially be present. Unfortunately, the patient was unable to lie flat in order to get any followup CT imaging. He did have echocardiogram performed, which revealed limitations from his obesity, but an ejection fraction estimated at 50% to 55% and otherwise, relatively normal. He was seen in consultation by Cardiology, who felt he might have some right-sided heart failure given his morbid obesity and evidence of obstructive sleep apnea, which had not been previously treated. The patient also had new onset atrial fibrillation , but had spontaneous conversion to sinus rhythm and the patient was already on anticoagulation, so no further interventions were entertained at that time. Ultimately, the patient did undergo CT scanning of the chest on the after being intubated and it showed evidence of again some findings consistent with dense pulmonary edema. Ultimately, however, it was felt that this was likely due to pulmonary hemorrhage in a patient who was on anticoagulation and had unchecked obstructive sleep apnea. The patient was maintained on the ventilator support until his respiratory status did ultimately improve. The patient ultimately was capable being extubated and maintained his respiratory status fairly well. The patient's atrial fibrillation remained in sinus rhythm. He maintained on anticoagulation throughout until he developed some hematuria and was briefly interrupted but then resumed. The patient was thought to have some cellulitis early on in the lower extremities as well. He appeared to have chronic stasis dermatitis of lower extremities. He was covered appropriately with antibiotics and had resolution of the inflammatory symptoms. The patient had a Ennis catheter placed presumably when he was intubated. He had some hematuria, underwent a CT scan, which failed to reveal any significant evidence of pathology. Unfortunately, the patient did remove his own Ennis catheter at one point when it was replaced. It was noted on the CT scan to have been balloon inflated in the body of the prostate and not in the bladder. Therefore, it was removed and felt that this could worsen the hematuria situation as well. Urology was consulted and the Ennis catheter was appropriately placed and positioned and he had continuous bladder irrigation until the hematuria resolved. The patient was watched for a couple of days and put back on anticoagulation when his hematuria did not return. The Ennis catheter was discontinued. The patient was able to spontaneously void. The patient had developed some evidence of anisocoria. He was seen in consultation by Ophthalmology, was felt this was a generally benign condition and no further workup was indicated. Given the patient's cognitive impairment, he had actually appeared to be failing to thrive on the ventilator and was extubated for palliative purposes, but was able to extubate well and continued to do well post extubation with regard to his pulmonary status. He was seen in consultation by the Palliative Care Team and his sister who is his surrogate decision maker contemplated hospice services, however ultimately felt the patient could not return to his original living environment, would benefit from placement to a skilled environment. Case Management worked with the patient and ultimately secured acceptance to [facility]. The patient's sister was concerned that the patient was experiencing some evidence of depression, mostly because he had a day where he was sleeping throughout much of the day. She requested if he can go back on his imipramine. Initially, he was started on some escitalopram and however, at the time of discharge, it was felt that he had a minimal risk for significant future arrhythmias and the patient's sister felt the imipramine had been safe for him previously. She felt that given his overall relatively poor prognosis that it was worth using his original medication that had been effective for him and that was continued at discharge. PHYSICAL EXAMINATION: VITAL SIGNS: On the day of discharge, temperature is 98.6, pulse 83, respirations 20, O2 saturation 94% on room air, BP was 178/99. GENERAL: The patient was morbidly obese awake, alert, in no distress. HEART: Regular without murmurs. LUNGS: Clear bilaterally. ABDOMEN: Obese, soft, nontender, and nondistended. EXTREMITIES: No significant edema. He does have chronic stasis bronzing. DISPOSITION: The patient is discharged to [facility]. DISCHARGE MEDICATIONS: He will be on: 1. Tylenol p.r.n. 2. Benadryl p.r.n. 3. B complex vitamin. 4. Hydrochlorothiazide. 5. Allopurinol. 6. Eliquis. 7. Imipramine. 8. Metoprolol. 9. Amlodipine. 10. B12. 11. Vitamin D3. ACTIVITY: As tolerated. He will be on mechanical soft diet. FOLLOWUP: He is to follow up with Dr. Carpio and Dr. Bolaños. He can return to the hospital should he have any problems prior to that time. TIME SPENT: Discharge time dedicated to discharge activities including face-to- face time with the patient was 40 minutes. Job ID: [id number] [facility]
[2019-01-11 11:08] LABS: Fungus Culture Final report (.)
== END 2019-01-02 12:45 | DRG 207 ==
LOC: ERS 15:14 → IMCU/EMU 16:50 → CCU 12-06 12:59 → T4-B 12-17 15:34 → T4-A 12-21 13:50
PROVIDERS: ADMIT Internal Medicine; ATTEND Internal Medicine
PROC: 0B9C8ZX Drainage of Right Upper Lung Lobe, Via Natural or Artificial Opening Endoscopic, Diagnostic (ICD-10-PCS; principal; 2018-12-06)
PROC: 5A1955Z Respiratory Ventilation, Greater than 96 Consecutive Hours (ICD-10-PCS; 2018-12-06)
PROC: 0BH18EZ Insertion of Endotracheal Airway into Trachea, Via Natural or Artificial Opening Endoscopic (ICD-10-PCS; 2018-12-06)
PROC: 5A09557 Assistance with Respiratory Ventilation, Greater than 96 Consecutive Hours, Continuous Positive Airway Pressure (ICD-10-PCS; 2018-12-18)
DX: J96.21 Acute and chronic respiratory failure with hypoxia (principal); I50.31 Acute diastolic (congestive) heart failure; G93.41 Metabolic encephalopathy; I50.33 Acute on chronic diastolic (congestive) heart failure; J16.8 Pneumonia due to other specified infectious organisms; A41.9 Sepsis, unspecified organism; Z68.42 Body mass index [BMI] 45.0-49.9, adult; N17.9 Acute kidney failure, unspecified; I82.502 Chronic embolism and thrombosis of unspecified deep veins of left lower extremity; I82.402 Acute embolism and thrombosis of unspecified deep veins of left lower extremity; R04.89 Hemorrhage from other sites in respiratory passages; E87.0 Hyperosmolality and hypernatremia; B49 Unspecified mycosis; L97.819 Non-pressure chronic ulcer of other part of right lower leg with unspecified severity; B37.0 Candidal stomatitis; K91.72 Accidental puncture and laceration of a digestive system organ or structure during other procedure; I13.0 Hypertensive heart and chronic kidney disease with heart failure and stage 1 through stage 4 chronic kidney disease, or unspecified chronic kidney disease; E87.1 Hypo-osmolality and hyponatremia; E66.2 Morbid (severe) obesity with alveolar hypoventilation; L03.116 Cellulitis of left lower limb; L03.115 Cellulitis of right lower limb; S37.39XA Other injury of urethra, initial encounter; R31.0 Gross hematuria; J96.22 Acute and chronic respiratory failure with hypercapnia; Z66 Do not resuscitate; I48.0 Paroxysmal atrial fibrillation; Z79.01 Long term (current) use of anticoagulants; H57.02 Anisocoria; B18.2 Chronic viral hepatitis C; Z51.5 Encounter for palliative care; I48.2 Chronic atrial fibrillation; R91.8 Other nonspecific abnormal finding of lung field; F32.9 Major depressive disorder, single episode, unspecified; Z91.81 History of falling; S81.802A Unspecified open wound, left lower leg, initial encounter; S81.801A Unspecified open wound, right lower leg, initial encounter; M10.9 Gout, unspecified; I87.8 Other specified disorders of veins; R62.50 Unspecified lack of expected normal physiological development in childhood; I87.2 Venous insufficiency (chronic) (peripheral); F41.9 Anxiety disorder, unspecified; E87.5 Hyperkalemia; D63.1 Anemia in chronic kidney disease; N18.3 Chronic kidney disease, stage 3 (moderate); E87.6 Hypokalemia; F81.9 Developmental disorder of scholastic skills, unspecified; E87.8 Other disorders of electrolyte and fluid balance, not elsewhere classified; E11.65 Type 2 diabetes mellitus with hyperglycemia; E11.22 Type 2 diabetes mellitus with diabetic chronic kidney disease; F79 Unspecified intellectual disabilities; Z74.01 Bed confinement status; F42.8 Other obsessive-compulsive disorder; M19.90 Unspecified osteoarthritis, unspecified site; I45.10 Unspecified right bundle-branch block; Y92.230 Patient room in hospital as the place of occurrence of the external cause
CPT/HCPCS: 36415; 36416; 70450; 71045; 71250; 74178; 80048; 80053; 80076; 81001; 81003; 81015; 82787; 82805; 83520; 83605; 83690; 83735; 83880; 84100; 84145; 84484; 85007; 85025; 85027; 85060; 85610; 86038; 86200; 86225; 86235; 86256; 87040; 87070; 87086; 87102; 87116; 87206; 87324; 87389; 87449; 87633; 89051; 93005; 93306; 93970; 94002; 94003; 94640; 94660; J0360; J0456; J0692; J0696; J1610; J1630; J1650; J1815; J1940; J2020; J2060; J2248; J2250; J2270; J2704; J2920; J3010; J3370; J3490; J7050; J7512; J7620; Q0163; Q9966

== ENCOUNTER 2019-08-05 10:48 | Emergency (ER) | payer BC, MEDICAID ==
[2019-08-05 11:34] LABS: #Eosinphils 0.1 thou/uL (0.0-0.7); #Lymphocytes 1.2 thou/uL (1.20-3.40); #Monocytes 0.9 thou/uL (0.11-0.59); #Neutrophils 9.5 thou/uL (1.40-6.50); %Basophils 0.4 % (0.0-1.0); %Eosinophils 0.5 % (0.0-10.0); %Lymphocytes 10.3 % (21.0-51.0); %Monocytes 7.3 % (0.0-10.0); %Neutrophils 81.6 % (42.0-75.0); Hemoglobin 15.2 g/dL (14.0-18.0); Mean Corpuscular HGB CONC 33.3 g/dL (32.0-36.0); Mean Corpuscular Hemoglobin 31.8 pg (27.0-31.0); Mean Corpuscular Volume 95.6 fL (78.0-98.0); Mean Platelet Volume 6.4 fL (7.4-10.4); Platelet Count 212 thou/uL (130-400); Red Blood Cell (RBC) Count 4.77 mill/uL (4.70-6.10); White Blood Cell (WBC) Count 11.6 thou/uL (4.8-10.8)
[2019-08-05 12:00] LABS: ALT (SGPT) 12 U/L (8-55); AST (SGOT) 12 U/L (5-34); Albumin 4.1 g/dL (3.4-4.8); Alkaline Phosphatase 73 U/L (40-110); Anion Gap 14 mmol/L (10-20); BUN (Urea Nitrogen) 23 mg/dL (8.4-25.7); Bilirubin, Total 1.5 mg/dL (0.2-1.2); Calc. Creatinine Clearance 0 mL/min (70-130); Calcium 9.5 mg/dL (7.8-10.44); Carbon Dioxide 27 mmol/L (23-31); Chloride 105 mmol/L (98-107); Estimated GFR-MDRD 54; Globulin 2.8 g/dL (2.4-3.5); Glucose 104 mg/dL (80-115); Potassium 3.8 mmol/L (3.5-5.1); Protein, Total 6.9 g/dL (5.8-8.1); Sodium 142 mmol/L (136-145)
[2019-08-05 12:16] LABS: Bilirubin Negative (Negative); Blood, Urine Negative (Negative); Clarity Turbid (Clear); Glucose, Urine (Dipstick) Normal (Negative); Leukocyte Negative Leu/uL (Negative); Nitrite Negative (Negative); Protein, Urine (Dipstick) 100 mg/dL (Neg-Trace); RBC/HPF 0-3 HPF (0-3); Urobilinogen 3 mg/dL (Less than 2)
[2019-08-05 12:17] LABS: Bacteria/HPF 1+ HPF (None Seen)
== END 2019-08-05 12:53 ==
LOC: ERS 10:48
DX: S80.212A Abrasion, left knee, initial encounter (principal); I11.0 Hypertensive heart disease with heart failure; I50.9 Heart failure, unspecified; E66.9 Obesity, unspecified; I48.91 Unspecified atrial fibrillation; F41.9 Anxiety disorder, unspecified; F25.9 Schizoaffective disorder, unspecified; F32.9 Major depressive disorder, single episode, unspecified; M10.9 Gout, unspecified; K21.9 Gastro-esophageal reflux disease without esophagitis; Z86.718 Personal history of other venous thrombosis and embolism; Z79.891 Long term (current) use of opiate analgesic; Z79.899 Other long term (current) drug therapy; Z79.01 Long term (current) use of anticoagulants; W06.XXXA Fall from bed, initial encounter
CPT/HCPCS: 36415; 80053; 81003; 81015; 84484; 85025; 93005

== ENCOUNTER 2019-08-10 12:51 | Outpatient (CLI) | payer BC, MEDICAID ==
--- NOTE | 2019-08-10 13:09 | RAD ---
EXAM: Two views chest PROVIDED CLINICAL HISTORY: Dyspnea COMPARISON: 12/16/2018 FINDINGS: Endotracheal tube and nasogastric tube noted on the prior exam where longer seen. Cardiac silhouette remains in enlarged. The pulmonary vasculature is within normal limits. Calcified granuloma seen in the right lung apex. The lungs are otherwise clear. Degenerative changes are again seen in the thorac ic spine. IMPRESSION: 1. Cardiomegaly. 2. No acute cardiopulmonary process..
== END 2019-08-10 12:52 | disposition home or self-care (01) ==
LOC: RAD 12:51
PROVIDERS: ATTEND Internal Medicine Critical Care Medicine
DX: R06.00 Dyspnea, unspecified (principal); I51.7 Cardiomegaly
CPT/HCPCS: 71046

== ENCOUNTER 2019-09-13 19:30 | Outpatient (CLI) | payer BC, MEDICAID | END 2019-09-13 19:31 | disposition home or self-care (01) | LOC: SLEEPLAB 19:30 | PROVIDERS: ATTEND Internal Medicine Critical Care Medicine | DX: G47.33 Obstructive sleep apnea (adult) (pediatric) (principal); E66.9 Obesity, unspecified; Z68.41 Body mass index [BMI] 40.0-44.9, adult | CPT/HCPCS: 95811 ==

== ENCOUNTER 2020-09-09 15:35 | Emergency (ER) | payer BC, OTHER ==
--- NOTE | 2020-09-09 16:25 | CT ---
Head CT without contrast 09/09/2020: COMPARISON: 12/25/2018 HISTORY: Fall, head trauma, left anterior scalp swelling TECHNIQUE: Axial CT imaging at 2.5 mm intervals from vertex through skull base without contrast FINDINGS: There is mild bilateral maxillary sinus mucosal thickening. There is no displaced calvarial fracture. There is no intracranial hemorrhage, midline shift, or mass effect. No ventricular enlargement. There is mild scalp swelling in the left frontal/supraorbital region. IMPRESSION: No intracranial hemorrhage or displaced calvarial fracture.
--- NOTE | 2020-09-09 16:39 | RAD ---
Exam: XR Knee Lt 4 View STANDARD HISTORY: Left knee pain and swelling after a fall. COMPARISON: None FINDINGS: Tiny scattered osteophytes are present. No fracture, dislocation, or other osseous abnormality seen i nvolving the left knee. Vascular calcifications are seen posterior to the knee. IMPRESSION: No acute osseous abnormality is identified.
--- NOTE | 2020-09-09 16:40 | RAD ---
Exam: XR Shoulder Lt 3 View STANDARD HISTORY: Injury after a fall. COMPARISON: None FINDINGS: Coracoclavicular and acromioclavicular distances are within normal limits. No fracture or dislocation is seen involving the left shoulder. IMPRESSION: No acute osseous abnormality is identified.
--- NOTE | 2020-09-09 16:43 | RAD ---
Left hand 3 views HISTORY: Left hand injury. FINDINGS: Osteophytosis, joint space narrowing, and subchondral sclerosis are most pronounced at the first carpometacarpal joint where there are also mild lateral subluxation and subcortical cyst formation. No acute fracture, dislocation, or aggressive osseous erosions are apparent. IMPRESSION : Osteoarthritic changes, most pronounced at the first carpometacarpal joint. No acute osseous abnormalities are demonstrated.
== END 2020-09-09 17:40 | disposition home or self-care (01) ==
LOC: ERS 15:35
DX: S00.03XA Contusion of scalp, initial encounter (principal); S60.222A Contusion of left hand, initial encounter; S80.212A Abrasion, left knee, initial encounter; I11.0 Hypertensive heart disease with heart failure; I50.9 Heart failure, unspecified; K21.9 Gastro-esophageal reflux disease without esophagitis; N40.0 Benign prostatic hyperplasia without lower urinary tract symptoms; M10.9 Gout, unspecified; E66.9 Obesity, unspecified; I48.91 Unspecified atrial fibrillation; W01.0XXA Fall on same level from slipping, tripping and stumbling without subsequent striking against object, initial encounter; Z86.718 Personal history of other venous thrombosis and embolism
CPT/HCPCS: 70450

== ENCOUNTER 2020-09-11 12:03 | Emergency (ER) | payer BC, OTHER ==
--- NOTE | 2020-09-11 14:15 | CT ---
EXAM: CT Upper Ext Lt WO Con PROVIDED CLINICAL HISTORY: Left hand pain post fall Saturday. Swelling not improving. COMPARISON: None FINDINGS: As noted on radiographs of the left hand on 09/09/2020, there is osteoarthritis involving the carpal b ones as well as the first carpal metacarpal joint with scattered subchondral cystic changes involving the carpal bones. No fracture is visualized, and there is no evidence of a dislocation. There is subcutaneous soft tissue swelling most prominent at the dorsal aspect of the left hand. IMPRESSION: 1. Subcutaneous soft tissue swelling dorsal aspect right hand and at the dorsal medial aspect of the wrist. 2. 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 3. No displaced fracture is seen.
--- NOTE | 2020-09-11 14:39 | ULT ---
EXAM: Left lower extremity venous Doppler HISTORY: Left wrist and hand swelling. FINDINGS: Grayscale, color-flow, Doppler evaluation, spectral analysis of the left upper extremity venous struc tures is performed with 2-D imaging. Normal flow is present left subclavian vein. There is normal luminal compressibility and flow seen in the visualized right internal jugular, axillary, brachial, and ulnar veins. Normal luminal compressibility and flow is seen in the visualized left upper study basilic and cephal ic veins. IMPRESSION: No evidence of a deep vein thrombosis in the visualized deep venous structures left lower extremity.
== END 2020-09-11 15:13 | disposition home or self-care (01) ==
LOC: ERS 12:03
DX: S60.222A Contusion of left hand, initial encounter (principal); F84.0 Autistic disorder; K21.9 Gastro-esophageal reflux disease without esophagitis; I11.0 Hypertensive heart disease with heart failure; I50.9 Heart failure, unspecified; I48.91 Unspecified atrial fibrillation; N40.0 Benign prostatic hyperplasia without lower urinary tract symptoms; M10.9 Gout, unspecified; J96.10 Chronic respiratory failure, unspecified whether with hypoxia or hypercapnia; E66.9 Obesity, unspecified; E11.9 Type 2 diabetes mellitus without complications; W19.XXXA Unspecified fall, initial encounter

== ENCOUNTER 2020-09-19 15:47 | Emergency (ER) | payer BC, OTHER | END 2020-09-19 19:14 | disposition home or self-care (01) | LOC: ERS 15:47 | DX: S00.81XA Abrasion of other part of head, initial encounter (principal); S50.312A Abrasion of left elbow, initial encounter; S60.512A Abrasion of left hand, initial encounter; I11.0 Hypertensive heart disease with heart failure; I50.9 Heart failure, unspecified; K21.9 Gastro-esophageal reflux disease without esophagitis; N40.0 Benign prostatic hyperplasia without lower urinary tract symptoms; Z86.718 Personal history of other venous thrombosis and embolism; E66.9 Obesity, unspecified; I48.91 Unspecified atrial fibrillation; M10.9 Gout, unspecified; Z79.899 Other long term (current) drug therapy; W01.10XA Fall on same level from slipping, tripping and stumbling with subsequent striking against unspecified object, initial encounter | CPT/HCPCS: 70450; 72125 ==

== ENCOUNTER 2020-09-23 20:08 | Emergency (ER) | payer BC, OTHER ==
[2020-09-23 23:22] LABS: #Eosinphils 0.1 thou/uL (0.0-0.7); #Lymphocytes 1.4 thou/uL (1.20-3.40); #Monocytes 0.9 thou/uL (0.11-0.59); #Neutrophils 6.2 thou/uL (1.40-6.50); %Basophils 0.4 % (0.0-1.0); %Eosinophils 1.3 % (0.0-10.0); %Lymphocytes 15.8 % (21.0-51.0); %Monocytes 10.4 % (0.0-10.0); %Neutrophils 72.1 % (42.0-75.0); Hemoglobin 13.1 g/dL (14.0-18.0); Mean Corpuscular HGB CONC 35.1 g/dL (32.0-36.0); Mean Corpuscular Hemoglobin 34.8 pg (27.0-31.0); Mean Corpuscular Volume 99.2 fL (78.0-98.0); Mean Platelet Volume 6.7 fL (7.4-10.4); Platelet Count 202 thou/uL (130-400); RBC Distribution Width 13.1 % (11.5-14.5); Red Blood Cell (RBC) Count 3.77 mill/uL (4.70-6.10); White Blood Cell (WBC) Count 8.6 thou/uL (4.8-10.8)
[2020-09-23 23:47] LABS: Albumin 3.9 g/dL (3.4-4.8)
[2020-09-23 23:48] LABS: Chloride 107 mmol/L (98-107); Potassium 4.1 mmol/L (3.5-5.1); Sodium 143 mmol/L (136-145)
[2020-09-23 23:49] LABS: Calcium 8.6 mg/dL (7.8-10.44)
[2020-09-23 23:50] LABS: Globulin 2.2 g/dL (2.4-3.5); Glucose 103 mg/dL (80-115); Protein, Total 6.1 g/dL (5.8-8.1)
[2020-09-23 23:51] LABS: Anion Gap 16 mmol/L (10-20); Carbon Dioxide 24 mmol/L (23-31)
[2020-09-23 23:52] LABS: Bacteria/HPF None Seen HPF (None Seen); Bilirubin Negative (Negative); Blood, Urine Negative (Negative); Clarity Clear (Clear); Glucose, Urine (Dipstick) Normal (Negative); Ketone, Urine Negative (Negative); Leukocyte Negative Leu/uL (Negative); Nitrite Negative (Negative); Protein, Urine (Dipstick) 30 mg/dL (Neg-Trace); RBC/HPF 0-3 HPF (0-3); Specific Gravity, Urine 1.032 (1.002-1.036); Squamous Epithelial 0-3 HPF (0-3); WBC/HPF 0-3 HPF (0-3); pH, Urine 7.5 (5.0-9.0)
[2020-09-23 23:52] LABS: Bilirubin, Total 1.5 mg/dL (0.2-1.2)
[2020-09-23 23:53] LABS: Alkaline Phosphatase 81 U/L (40-110); Calc. Creatinine Clearance 0 mL/min (70-130)
[2020-09-23 23:54] LABS: BUN (Urea Nitrogen) 30 mg/dL (8.4-25.7)
[2020-09-23 23:55] LABS: AST (SGOT) 19 U/L (5-34)
[2020-09-23 23:56] LABS: ALT (SGPT) 16 U/L (8-55)
[2020-09-24] MEDS ORDERED: Clindamycin/D5W 600 mg/50 ml Premix Bag ONE (01:13)
[2020-09-24 02:02] LABS: Troponin I 0.015 ng/mL (< 0.028)
== END 2020-09-24 02:41 | disposition home or self-care (01) ==
LOC: ERS 20:08
DX: L03.116 Cellulitis of left lower limb (principal); R53.82 Chronic fatigue, unspecified; K21.9 Gastro-esophageal reflux disease without esophagitis; I11.0 Hypertensive heart disease with heart failure; I50.9 Heart failure, unspecified; M10.9 Gout, unspecified; I48.91 Unspecified atrial fibrillation; Z86.73 Personal history of transient ischemic attack (TIA), and cerebral infarction without residual deficits
CPT/HCPCS: 36415; 80053; 81003; 81015; 82553; 84484; 85025; 93005; 96365; J3490

== ENCOUNTER 2020-09-27 09:44 | Outpatient (CLI) | payer BC, OTHER | END 2020-09-27 09:45 | disposition home or self-care (01) | LOC: BICRAD 09:44 | PROVIDERS: ATTEND Family Medicine | DX: M54.5 Low back pain (principal); M47.816 Spondylosis without myelopathy or radiculopathy, lumbar region; M43.16 Spondylolisthesis, lumbar region; M48.8X4 Other specified spondylopathies, thoracic region | CPT/HCPCS: 72100 ==

== ENCOUNTER 2021-02-28 | Emergency (ER) | payer OTHER, BC | END 2021-02-28 15:32 | disposition home or self-care (01) ==

== ENCOUNTER 2021-03-03 13:20 | Emergency (ER) | payer BC, OTHER ==
[2021-03-03 14:33] LABS: #Basophils 0.1 thou/uL (0.0-0.2); #Eosinphils 0.1 thou/uL (0.0-0.7); #Lymphocytes 1.2 thou/uL (1.20-3.40); #Monocytes 0.5 thou/uL (0.11-0.59); #Neutrophils 4.7 thou/uL (1.40-6.50); %Basophils 1.3 % (0.0-1.0); %Eosinophils 0.9 % (0.0-10.0); %Lymphocytes 17.7 % (21.0-51.0); %Monocytes 8.1 % (0.0-10.0); Hemoglobin 12.8 g/dL (14.0-18.0); Mean Corpuscular HGB CONC 35.6 g/dL (32.0-36.0); Mean Corpuscular Hemoglobin 36.4 pg (27.0-31.0); Mean Platelet Volume 7.3 fL (7.4-10.4); Platelet Count 148 thou/uL (130-400); RBC Distribution Width 12.5 % (11.5-14.5); Red Blood Cell (RBC) Count 3.51 mill/uL (4.70-6.10); White Blood Cell (WBC) Count 6.5 thou/uL (4.8-10.8)
[2021-03-03 14:57] LABS: ALT (SGPT) 16 U/L (8-55); AST (SGOT) 15 U/L (5-34); Albumin 3.7 g/dL (3.4-4.8); Alkaline Phosphatase 57 U/L (40-110); Anion Gap 8 mmol/L (10-20); BUN (Urea Nitrogen) 26 mg/dL (8.4-25.7); Bilirubin, Total 1.2 mg/dL (0.2-1.2); Calc. Creatinine Clearance 0 mL/min (70-130); Calcium 9.3 mg/dL (7.8-10.44); Carbon Dioxide 30 mmol/L (23-31); Chloride 105 mmol/L (98-107); Globulin 2.3 g/dL (2.4-3.5); Glucose 121 mg/dL (80-115); Sodium 139 mmol/L (136-145)
[2021-03-03 15:15] LABS: Bilirubin Negative (Negative); Blood, Urine Negative (Negative); Clarity Clear (Clear); Glucose, Urine (Dipstick) Normal (Negative); Ketone, Urine Negative (Negative); Leukocyte Negative Leu/uL (Negative); Nitrite Negative (Negative); Protein, Urine (Dipstick) Negative (Neg-Trace); Specific Gravity, Urine 1.027 (1.002-1.036); pH, Urine 7.5 (5.0-9.0)
== END 2021-03-03 17:50 | disposition home or self-care (01) ==
LOC: ERS 13:20
DX: E66.01 Morbid (severe) obesity due to excess calories (principal); I11.0 Hypertensive heart disease with heart failure; I50.9 Heart failure, unspecified; K21.9 Gastro-esophageal reflux disease without esophagitis; Z86.718 Personal history of other venous thrombosis and embolism; M10.9 Gout, unspecified; Z79.01 Long term (current) use of anticoagulants; Z79.82 Long term (current) use of aspirin; Z79.899 Other long term (current) drug therapy; W19.XXXA Unspecified fall, initial encounter
CPT/HCPCS: 36415; 81003; 99283

== ENCOUNTER 2021-06-26 08:38 | Emergency (ER) | payer BC, OTHER ==
[2021-06-26 11:09] LABS: #Eosinphils 0.1 thou/uL (0.0-0.7); #Lymphocytes 0.7 thou/uL (1.20-3.40); #Monocytes 0.7 thou/uL (0.11-0.59); #Neutrophils 5.3 thou/uL (1.40-6.50); %Basophils 0.2 % (0.0-1.0); %Eosinophils 0.8 % (0.0-10.0); %Lymphocytes 10.4 % (21.0-51.0); %Monocytes 10.5 % (0.0-10.0); %Neutrophils 78.1 % (42.0-75.0); Hemoglobin 10.6 g/dL (14.0-18.0); Mean Corpuscular HGB CONC 33.2 g/dL (32.0-36.0); Mean Corpuscular Hemoglobin 34.8 pg (27.0-31.0); Mean Platelet Volume 6.2 fL (7.4-10.4); Platelet Count 205 thou/uL (130-400); RBC Distribution Width 12.8 % (11.5-14.5); Red Blood Cell (RBC) Count 3.04 mill/uL (4.70-6.10); White Blood Cell (WBC) Count 6.8 thou/uL (4.8-10.8)
[2021-06-26 11:31] LABS: ALT (SGPT) 16 U/L (8-55); AST (SGOT) 21 U/L (5-34); Albumin 3.2 g/dL (3.4-4.8); Alkaline Phosphatase 95 U/L (40-110); Anion Gap 8 mmol/L (10-20); BUN (Urea Nitrogen) 34 mg/dL (8.4-25.7); Bilirubin, Total 2.1 mg/dL (0.2-1.2); Calc. Creatinine Clearance 0 mL/min (70-130); Calcium 9.3 mg/dL (7.8-10.44); Carbon Dioxide 26 mmol/L (23-31); Chloride 108 mmol/L (98-107); Globulin 2.3 g/dL (2.4-3.5); Glucose 88 mg/dL (80-115); Potassium 4.4 mmol/L (3.5-5.1); Protein, Total 5.5 g/dL (5.8-8.1); Sodium 138 mmol/L (136-145)
== END 2021-06-26 12:50 | disposition home or self-care (01) ==
LOC: ERS 08:38
DX: S70.01XA Contusion of right hip, initial encounter (principal); R19.00 Intra-abdominal and pelvic swelling, mass and lump, unspecified site; I50.9 Heart failure, unspecified; K21.9 Gastro-esophageal reflux disease without esophagitis; N40.1 Benign prostatic hyperplasia with lower urinary tract symptoms; I10 Essential (primary) hypertension; E66.9 Obesity, unspecified; W06.XXXA Fall from bed, initial encounter
CPT/HCPCS: 36415; 70450; 72192; 80053; 85025; 93005

== ENCOUNTER 2021-11-22 13:06 | Outpatient (CLI) | payer BC, OTHER | END 2021-11-22 13:07 | disposition home or self-care (01) | LOC: BICULT 13:06 | PROVIDERS: ATTEND Otolaryngology Plastic Surgery within the Head & Neck | DX: E04.1 Nontoxic single thyroid nodule (principal) | CPT/HCPCS: 76536 ==

== ENCOUNTER → 2021-12-13 | Day surgery (SDC) | payer BC, OTHER ==
[2021-12-12 14:23] VITALS: BMI 34.9
[~2021-12-13] MED LIST changes: +Lidocaine 1% PF 5 ML VIAL ONE; +Sodium Bicarbonate 2.5 MEQ/5 ML VIAL ONE; -Sodium Chloride 0.9% 15 ML NEB ONE
[2021-12-13 13:18] VITALS: BP 154/76
== END | disposition home or self-care (01) ==
LOC: ULT 12:23
PROVIDERS: ATTEND Otolaryngology Plastic Surgery within the Head & Neck
PROC: 0G9G3ZX Drainage of Left Thyroid Gland Lobe, Percutaneous Approach, Diagnostic (ICD-10-PCS; principal; 2021-12-13)
DX: E04.1 Nontoxic single thyroid nodule (principal); Z79.01 Long term (current) use of anticoagulants; Z79.899 Other long term (current) drug therapy; Z91.048 Other nonmedicinal substance allergy status
CPT/HCPCS: 10005; 88173

== ENCOUNTER 2022-01-24 05:20 | Emergency (ER) | payer BC, OTHER ==
[2022-01-24 06:17] LABS: #Lymphocytes 1.1 thou/uL (1.20-3.40); #Monocytes 0.6 thou/uL (0.11-0.59); #Neutrophils 4.4 thou/uL (1.40-6.50); %Basophils 0.1 % (0.0-1.0); %Eosinophils 0.3 % (0.0-10.0); %Lymphocytes 17.6 % (21.0-51.0); %Monocytes 9.8 % (0.0-10.0); %Neutrophils 72.2 % (42.0-75.0); Hemoglobin 13.2 g/dL (14.0-18.0); Mean Corpuscular HGB CONC 34.1 g/dL (32.0-36.0); Mean Corpuscular Hemoglobin 35.4 pg (27.0-31.0); Mean Platelet Volume 6.7 fL (7.4-10.4); Platelet Count 142 thou/uL (130-400); Red Blood Cell (RBC) Count 3.73 mill/uL (4.70-6.10); White Blood Cell (WBC) Count 6.1 thou/uL (4.8-10.8)
[2022-01-24 06:33] LABS: ALT (SGPT) 13 U/L (8-55); AST (SGOT) 25 U/L (5-34); Albumin 3.8 g/dL (3.4-4.8); Alkaline Phosphatase 55 U/L (40-110); Anion Gap 15 mmol/L (10-20); BUN (Urea Nitrogen) 20 mg/dL (8.4-25.7); Bilirubin, Total 2.8 mg/dL (0.2-1.2); Calc. Creatinine Clearance 0 mL/min (70-130); Calcium 9.6 mg/dL (7.8-10.44); Carbon Dioxide 26 mmol/L (23-31); Chloride 107 mmol/L (98-107); Estimated GFR 74; Globulin 2.6 g/dL (2.4-3.5); Glucose 74 mg/dL (80-115); Potassium 4.7 mmol/L (3.5-5.1); Protein, Total 6.4 g/dL (5.8-8.1); Sodium 143 mmol/L (136-145)
== END 2022-01-24 07:09 | disposition home or self-care (01) ==
LOC: ERS 05:20
DX: R53.1 Weakness (principal); R19.7 Diarrhea, unspecified; I48.91 Unspecified atrial fibrillation; I45.10 Unspecified right bundle-branch block; K21.9 Gastro-esophageal reflux disease without esophagitis; D36.7 Benign neoplasm of other specified sites; I11.0 Hypertensive heart disease with heart failure; I50.9 Heart failure, unspecified; J96.20 Acute and chronic respiratory failure, unspecified whether with hypoxia or hypercapnia; M10.9 Gout, unspecified; E66.9 Obesity, unspecified; W18.11XA Fall from or off toilet without subsequent striking against object, initial encounter; Z68.45 Body mass index [BMI] 70 or greater, adult; Z86.718 Personal history of other venous thrombosis and embolism
CPT/HCPCS: 80053; 84484; 85025; 93005; 96360

== ENCOUNTER 2022-02-26 13:37 | Inpatient (IN) | payer BC, OTHER ==
[~2022-02-26 13:37] MED LIST changes: +Iopamidol 370 76% 100 ML VIAL ONE; -Lidocaine 1% PF 5 ML VIAL ONE; -Sodium Bicarbonate 2.5 MEQ/5 ML VIAL ONE
[2022-02-26 14:32] LABS: #Eosinphils 0.1 thou/uL (0.0-0.7); #Lymphocytes 0.7 thou/uL (1.20-3.40); #Monocytes 0.8 thou/uL (0.11-0.59); #Neutrophils 7.2 thou/uL (1.40-6.50); %Basophils 0.3 % (0.0-1.0); %Lymphocytes 8.3 % (21.0-51.0); %Monocytes 9.4 % (0.0-10.0); Hemoglobin 12.1 g/dL (14.0-18.0); Mean Corpuscular HGB CONC 32.7 g/dL (32.0-36.0); Mean Platelet Volume 7.2 fL (7.4-10.4); Platelet Count 137 thou/uL (130-400); RBC Distribution Width 13.3 % (11.5-14.5); Red Blood Cell (RBC) Count 3.46 mill/uL (4.70-6.10); White Blood Cell (WBC) Count 8.9 thou/uL (4.8-10.8)
[2022-02-26 14:43] LABS: INR-International Normal Ratio 2.3; PTT 51.7 sec (22.9-36.1); Prothrombin Time 25.3 sec (12.0-14.7)
[2022-02-26 14:48] LABS: Burr Cells SLIGHT = 2-5 cells (100X) (0-1/hpf); MDiff Complete? YES; Macrocytosis SLIGHT = 6-15 cells (100X) (0-5/hpf); Platelet Morphology Comment Appears Adequate; Polychromasia SLIGHT = 2-3 cells (100X) (0-2/hpf)
[2022-02-26 14:54] LABS: ALT (SGPT) 14 U/L (8-55); AST (SGOT) 25 U/L (5-34); Albumin 3.5 g/dL (3.4-4.8); Alkaline Phosphatase 60 U/L (40-110); Anion Gap 15 mmol/L (10-20); BUN (Urea Nitrogen) 41 mg/dL (8.4-25.7); CK (CPK) 560 U/L (30-200); Calc. Creatinine Clearance 0 mL/min (70-130); Calcium 8.8 mg/dL (7.8-10.44); Carbon Dioxide 23 mmol/L (23-31); Chloride 109 mmol/L (98-107); Estimated GFR 44; Globulin 2.2 g/dL (2.4-3.5); Glucose 100 mg/dL (80-115); Potassium 3.8 mmol/L (3.5-5.1); Protein, Total 5.7 g/dL (5.8-8.1); Sodium 143 mmol/L (136-145)
[2022-02-26] MEDS ORDERED: Lactated Ringer's 1,000 ML IV SCH (17:30)
[2022-02-26 21:58] LABS: Free T4 (Free Thyroxine) 0.72 ng/dL (0.70-1.48); Thyroid Stimulating Hormone 0.6841 uIU/mL (0.35-4.94)
[2022-02-26] MEDS: Acetaminophen 325 MG TAB PO PRN (23:35)
[2022-02-26] MEDS: Gabapentin 300 MG CAP PO SCH (23:36)
[2022-02-26] MEDS: Melatonin 3 MG TAB PO PRN (23:36)
[2022-02-26] MEDS: risperiDONE 1 MG TAB PO SCH (23:36)
[2022-02-27] MEDS: hydrALAZINE 20 MG/ML VIAL SLOW IVP PRN ×2 (00:34→04:51)
[2022-02-27] MEDS: Acetaminophen 325 MG TAB PO PRN (03:42)
[2022-02-27 04:21] LABS: #Eosinphils 0.1 thou/uL (0.0-0.7); #Lymphocytes 0.7 thou/uL (1.20-3.40); #Monocytes 0.8 thou/uL (0.11-0.59); #Neutrophils 7.2 thou/uL (1.40-6.50); %Eosinophils 1.1 % (0.0-10.0); %Lymphocytes 8.3 % (21.0-51.0); %Monocytes 9.1 % (0.0-10.0); %Neutrophils 81.5 % (42.0-75.0); Mean Corpuscular HGB CONC 34.1 g/dL (32.0-36.0); Mean Corpuscular Hemoglobin 35.9 pg (27.0-31.0); Platelet Count 150 thou/uL (130-400); RBC Distribution Width 13.3 % (11.5-14.5); Red Blood Cell (RBC) Count 3.63 mill/uL (4.70-6.10); White Blood Cell (WBC) Count 8.9 thou/uL (4.8-10.8)
[2022-02-27 04:50] LABS: ALT (SGPT) 16 U/L (8-55); AST (SGOT) 40 U/L (5-34); Albumin 3.8 g/dL (3.4-4.8); Alkaline Phosphatase 64 U/L (40-110); Anion Gap 14 mmol/L (10-20); BUN (Urea Nitrogen) 36 mg/dL (8.4-25.7); Bilirubin, Total 1.6 mg/dL (0.2-1.2); Calc. Creatinine Clearance 87 mL/min (70-130); Calcium 9.3 mg/dL (7.8-10.44); Carbon Dioxide 22 mmol/L (23-31); Chloride 110 mmol/L (98-107); Estimated GFR 63; Globulin 2.8 g/dL (2.4-3.5); Glucose 123 mg/dL (80-115); Protein, Total 6.6 g/dL (5.8-8.1); Sodium 142 mmol/L (136-145)
[2022-02-27] MEDS ORDERED: Rivaroxaban 10 MG TAB PO SCH ×2 (06:00→09:00)
[2022-02-27] MEDS: Gabapentin 300 MG CAP PO SCH ×2 (10:31→21:30)
[2022-02-27] MEDS: Tamsulosin HCl 0.4 MG CAP PO SCH (10:31)
[2022-02-27] MEDS: Finasteride 5 MG TAB PO SCH (10:32)
[2022-02-27] MEDS: Multivit, Therapeutic 1 TAB PO SCH (10:32)
[2022-02-27] MEDS: Lisinopril 10 MG TAB PO SCH (10:32)
[2022-02-27] MEDS: Atorvastatin Calcium 40 MG TAB PO SCH (10:33)
[2022-02-27] MEDS: Magnesium Oxide 400 MG TAB PO SCH (10:33)
[2022-02-27] MEDS: Escitalopram Oxalate 20 mg Tablet PO SCH (10:33)
[2022-02-27] MEDS: cefTRIAXone\\ROCEPHIN 2 GM in Sodium Chloride 0.9% 100 ML IVPB SCH (14:22)
[2022-02-27] MEDS: risperiDONE 1 MG TAB PO SCH (21:30)
[2022-02-28 08:05] LABS: Anion Gap 17 mmol/L (10-20); BUN (Urea Nitrogen) 26 mg/dL (8.4-25.7); Calc. Creatinine Clearance 137 mL/min (70-130); Calcium 8.3 mg/dL (7.8-10.44); Carbon Dioxide 13 mmol/L (23-31); Chloride 113 mmol/L (98-107); Estimated GFR 98; Glucose 90 mg/dL (80-115); Potassium 4.6 mmol/L (3.5-5.1); Sodium 138 mmol/L (136-145)
[2022-02-28 08:57] LABS: #Eosinphils 0.1 thou/uL (0.0-0.7); #Lymphocytes 1.3 thou/uL (1.20-3.40); #Monocytes 0.9 thou/uL (0.11-0.59); #Neutrophils 6.1 thou/uL (1.40-6.50); %Basophils 0.4 % (0.0-1.0); %Eosinophils 1.6 % (0.0-10.0); %Lymphocytes 15.2 % (21.0-51.0); %Monocytes 10.5 % (0.0-10.0); %Neutrophils 72.2 % (42.0-75.0); Hemoglobin 13.3 g/dL (14.0-18.0); Mean Corpuscular HGB CONC 32.5 g/dL (32.0-36.0); Mean Corpuscular Hemoglobin 35.1 pg (27.0-31.0); Mean Platelet Volume 7.3 fL (7.4-10.4); Platelet Count 127 thou/uL (130-400); RBC Distribution Width 13.4 % (11.5-14.5); Red Blood Cell (RBC) Count 3.78 mill/uL (4.70-6.10); White Blood Cell (WBC) Count 8.5 thou/uL (4.8-10.8)
[2022-02-28] MEDS ORDERED: Iopamidol 370 76% 100 ML VIAL ONE (10:11)
[2022-02-28] MEDS: Lisinopril 10 MG TAB PO SCH (11:42)
[2022-02-28] MEDS: Tamsulosin HCl 0.4 MG CAP PO SCH (11:42)
[2022-02-28] MEDS: Escitalopram Oxalate 20 mg Tablet PO SCH (11:43)
[2022-02-28] MEDS: Finasteride 5 MG TAB PO SCH (11:43)
[2022-02-28] MEDS: Gabapentin 300 MG CAP PO SCH ×2 (11:43→21:56)
[2022-02-28] MEDS: Multivit, Therapeutic 1 TAB PO SCH (11:43)
[2022-02-28] MEDS: Atorvastatin Calcium 40 MG TAB PO SCH (11:43)
[2022-02-28] MEDS: Magnesium Oxide 400 MG TAB PO SCH (11:44)
[2022-02-28] MEDS: cefTRIAXone\\ROCEPHIN 2 GM in Sodium Chloride 0.9% 100 ML IVPB SCH (13:58)
[2022-02-28] MEDS ORDERED: Atropine Sulfate 1 mg/10 ml Syringe ONE (17:24)
[2022-02-28] MEDS ORDERED: DOPamine 400 MG/D5W 250 ML 250 ML ONE (17:26)
[2022-02-28] MEDS ORDERED: DOBUTamine 500 mg/250 ml 250 ML ONE (18:03)
[2022-02-28] MEDS ORDERED: Vancomycin 1.5 GRAM/300 ML BAG 1.5 GM in Premix Bag 1 BAG IVPB SCH (19:04)
[2022-02-28] MEDS ORDERED: Lactated Ringer's 1,000 ML IV SCH (19:15)
[2022-02-28] MEDS ORDERED: Sodium Chloride 0.9% 1,000 ML IV SCH (19:30)
[2022-02-28] MEDS: NOREPINEPHRINE 8 MG/250 ML-D5W 250 ML IVPB SCH ×2 (19:31→23:09)
[2022-02-28 19:39] LABS: #Eosinphils 0.2 thou/uL (0.0-0.7); #Lymphocytes 1.6 thou/uL (1.20-3.40); #Neutrophils 6.1 thou/uL (1.40-6.50); %Basophils 0.2 % (0.0-1.0); %Lymphocytes 17.9 % (21.0-51.0); %Monocytes 11.1 % (0.0-10.0); %Neutrophils 68.8 % (42.0-75.0); Hemoglobin 12.8 g/dL (14.0-18.0); Mean Corpuscular HGB CONC 33.6 g/dL (32.0-36.0); Mean Corpuscular Hemoglobin 35.9 pg (27.0-31.0); Platelet Count 163 thou/uL (130-400); RBC Distribution Width 13.2 % (11.5-14.5); Red Blood Cell (RBC) Count 3.56 mill/uL (4.70-6.10); White Blood Cell (WBC) Count 8.8 thou/uL (4.8-10.8)
[2022-02-28 20:05] LABS: Magnesium 1.8 mg/dL (1.6-2.6)
[2022-02-28 20:22] LABS: ALT (SGPT) 13 U/L (8-55); AST (SGOT) 21 U/L (5-34); Albumin 3.1 g/dL (3.4-4.8); Alkaline Phosphatase 62 U/L (40-110); Anion Gap 14 mmol/L (10-20); BUN (Urea Nitrogen) 30 mg/dL (8.4-25.7); Bilirubin, Total 1.2 mg/dL (0.2-1.2); Calc. Creatinine Clearance 84 mL/min (70-130); Calcium 8.6 mg/dL (7.8-10.44); Carbon Dioxide 23 mmol/L (23-31); Chloride 107 mmol/L (98-107); Estimated GFR 60; Globulin 2.4 g/dL (2.4-3.5); Glucose 140 mg/dL (80-115); Phosphorus 3.4 mg/dL (2.3-4.7); Potassium 4.1 mmol/L (3.5-5.1); Protein, Total 5.5 g/dL (5.8-8.1); Sodium 140 mmol/L (136-145)
[2022-02-28] MEDS: Vasopressin 20 UNIT, Admixture Fee 1 EACH in Sodium Chloride 0.9% 50 ML IV SCH (20:23)
[2022-02-28] MEDS ORDERED: Sodium Chloride 0.9% 500 ML IV SCH (21:15)
[2022-02-28 21:33] LABS: Lactic Acid 1.5 mmol/L (0.5-2.2)
[2022-02-28 21:41] LABS: Actual Bicarbonate (HCO3a) 20.4 mEq/L (22-28); Base Excess (BEa) -4.1 mEq/L (-2.0 to +3.0); CO2 Tension 35.6 mmHg (35.0-45.0); Calcium, Ionized (arterial) 1.15 mmol/L (1.12-1.30); Carboxyhemoglobin (COHb) 0.5 gm% (0.0-3.0); Hemoglobin (Hb) 12.8 g/dL (14.0-18.0); O2 Tension (PaO2), arterial 88.1 mmHg (> 80.0); Potassium - ABG Lab 3.63 mmol/L (3.70-5.30); pH, Arterial 7.38 (7.35-7.45)
[2022-02-28 21:41] LABS: Troponin I Less than 0.010 ng/mL (< 0.028)
[2022-02-28 21:44] LABS: Puncture Site LRA
[2022-02-28] MEDS: risperiDONE 1 MG TAB PO SCH (21:56)
[2022-02-28] MEDS: Lactated Ringer's 1,000 ML IV SCH (21:59)
[2022-02-28] MEDS: DOPamine 400 MG/D5W 250 ML 250 ML IVPB SCH (22:00)
[2022-02-28 23:03] LABS: Bacteria/HPF 2+ HPF (None Seen); Bilirubin Negative (Negative); Blood, Urine 3+ (Negative); Clarity Extra Turbid (Clear); Glucose, Urine (Dipstick) 30 mg/dL (Negative); Ketone, Urine Negative (Negative); Leukocyte 250 Leu/uL (Negative); Nitrite Negative (Negative); Protein, Urine (Dipstick) 100 mg/dL (Neg-Trace); RBC/HPF Greater than 50 HPF (0-3); Specific Gravity, Urine 1.026 (1.002-1.036); Squamous Epithelial 0-3 HPF (0-3); pH, Urine 5.5 (5.0-9.0)
[2022-02-28 23:05] LABS: Urine Culture Reflex Yes Yes
[2022-02-28 23:06] LABS: Amphetamine Not Detected (NotDetected); Barbiturates Screen Not Detected (NotDetected); Benzodiazepine Screen Not Detected (NotDetected); Cocaine Metabolite Screen Not Detected (NotDetected); Methadone Not Detected (NotDetected); Methamphetamine Not Detected (NotDetected); Opiate Screen Not Detected (NotDetected); Oxycodone Screen Not Detected (NotDetected); Phencyclidine (PCP) Not Detected (NotDetected); THC/Cannabinoid Screen Not Detected (NotDetected); Tricyclic Screen Detected (NotDetected)
[2022-02-28] MEDS: DOBUTamine 500 mg/250 ml 250 ML IVPB SCH (23:10)
[2022-02-28] MEDS ORDERED: VANCOMYCIN 2 GRAM/500 ML BAG 2 GM in Premix Bag 1 BAG IVPB SCH (23:59)
[2022-03-01] MEDS: Vasopressin 20 UNIT, Admixture Fee 1 EACH in Sodium Chloride 0.9% 50 ML IV SCH (02:07)
[2022-03-01] MEDS: DOPamine 400 MG/D5W 250 ML 250 ML IVPB SCH ×5 (02:07→18:12)
[2022-03-01 04:08] LABS: #Lymphocytes 0.6 thou/uL (1.20-3.40); #Monocytes 1.2 thou/uL (0.11-0.59); #Neutrophils 9.9 thou/uL (1.40-6.50); %Basophils 0.1 % (0.0-1.0); %Eosinophils 0.1 % (0.0-10.0); %Monocytes 10.5 % (0.0-10.0); %Neutrophils 84.2 % (42.0-75.0); Hemoglobin 11.8 g/dL (14.0-18.0); Mean Corpuscular HGB CONC 33.7 g/dL (32.0-36.0); Mean Corpuscular Hemoglobin 35.5 pg (27.0-31.0); Mean Platelet Volume 7.2 fL (7.4-10.4); Platelet Count 155 thou/uL (130-400); Red Blood Cell (RBC) Count 3.32 mill/uL (4.70-6.10); White Blood Cell (WBC) Count 11.7 thou/uL (4.8-10.8)
[2022-03-01 04:31] LABS: Anion Gap 14 mmol/L (10-20); BUN (Urea Nitrogen) 31 mg/dL (8.4-25.7); Calc. Creatinine Clearance 76 mL/min (70-130); Calcium 8.4 mg/dL (7.8-10.44); Carbon Dioxide 21 mmol/L (23-31); Chloride 106 mmol/L (98-107); Estimated GFR 53; Glucose 188 mg/dL (80-115); Potassium 3.2 mmol/L (3.5-5.1); Sodium 138 mmol/L (136-145)
[2022-03-01] MEDS: Lactated Ringer's 1,000 ML IV SCH ×4 (04:35→21:32)
[2022-03-01] MEDS: DOBUTamine 500 mg/250 ml 250 ML IVPB SCH ×4 (04:58→18:12)
[2022-03-01] MEDS ORDERED: Lactated Ringer's 1,000 ML IV SCH (05:34)
[2022-03-01] MEDS: Gabapentin 300 MG CAP PO SCH ×2 (07:21→21:29)
[2022-03-01] MEDS: Atorvastatin Calcium 40 MG TAB PO SCH (07:21)
[2022-03-01] MEDS: Finasteride 5 MG TAB PO SCH (07:21)
[2022-03-01] MEDS: Escitalopram Oxalate 20 mg Tablet PO SCH (07:21)
[2022-03-01] MEDS: Magnesium Oxide 400 MG TAB PO SCH (07:21)
[2022-03-01] MEDS: Multivit, Therapeutic 1 TAB PO SCH (07:21)
[2022-03-01] MEDS: Potassium Chloride 20 MEQ in Premix Bag 1 BAG IVPB SCH ×2 (07:31→07:47)
[2022-03-01] MEDS ORDERED: Vancomycin 1.5 GRAM/300 ML BAG 1.5 GM in Premix Bag 1 BAG IVPB SCH (09:00)
[2022-03-01] MEDS ORDERED: Cosyntropin 250 MCG VIAL SLOW IVP SCH (10:00)
[2022-03-01] MEDS: Famotidine/PF 20 mg/2ml Vial SLOW IVP SCH (11:36)
[2022-03-01] MEDS: Vancomycin 1 GM in Premix Bag 1 BAG IVPB SCH ×2 (11:36→23:35)
[2022-03-01] MEDS: Cefepime 2 GM in Sodium Chloride 0.9% 100 ML IVPB SCH ×2 (11:36→18:08)
[2022-03-01 16:29] LABS: ALT (SGPT) 13 U/L (8-55); AST (SGOT) 18 U/L (5-34); Albumin 3.1 g/dL (3.4-4.8); Alkaline Phosphatase 62 U/L (40-110); Bilirubin, Direct 0.5 mg/dL (0.1-0.3); Bilirubin, Total 1.1 mg/dL (0.2-1.2); Protein, Total 5.4 g/dL (5.8-8.1)
[2022-03-01] MEDS ORDERED: Rivaroxaban 10 MG TAB PO SCH (18:00)
[2022-03-01] MEDS: risperiDONE 1 MG TAB PO SCH (21:30)
[2022-03-01] MEDS: hydrOXYzine 25 MG TAB PO PRN (21:31)
[2022-03-01] MEDS: Melatonin 3 MG TAB PO PRN (23:34)
[2022-03-01] MEDS ORDERED: risperiDONE 0.25 MG TAB PO SCH (23:59)
[2022-03-02] MEDS: DOBUTamine 500 mg/250 ml 250 ML IVPB SCH (00:44)
[2022-03-02] MEDS: Cefepime 2 GM in Sodium Chloride 0.9% 100 ML IVPB SCH ×3 (02:27→17:31)
[2022-03-02] MEDS: Lactated Ringer's 1,000 ML IV SCH (02:41)
[2022-03-02 04:27] LABS: #Eosinphils 0.1 thou/uL (0.0-0.7); #Lymphocytes 0.9 thou/uL (1.20-3.40); #Monocytes 0.7 thou/uL (0.11-0.59); #Neutrophils 7.1 thou/uL (1.40-6.50); %Basophils 0.1 % (0.0-1.0); %Eosinophils 0.6 % (0.0-10.0); %Lymphocytes 10.3 % (21.0-51.0); %Monocytes 8.4 % (0.0-10.0); %Neutrophils 80.6 % (42.0-75.0); Hemoglobin 10.2 g/dL (14.0-18.0); Mean Corpuscular Hemoglobin 35.8 pg (27.0-31.0); Mean Platelet Volume 7.4 fL (7.4-10.4); Platelet Count 131 thou/uL (130-400); RBC Distribution Width 13.3 % (11.5-14.5); Red Blood Cell (RBC) Count 2.85 mill/uL (4.70-6.10); White Blood Cell (WBC) Count 8.8 thou/uL (4.8-10.8)
[2022-03-02 04:56] LABS: ALT (SGPT) 10 U/L (8-55); AST (SGOT) 14 U/L (5-34); Albumin 2.8 g/dL (3.4-4.8); Alkaline Phosphatase 52 U/L (40-110); Anion Gap 12 mmol/L (10-20); BUN (Urea Nitrogen) 21 mg/dL (8.4-25.7); Bilirubin, Total 1.2 mg/dL (0.2-1.2); Calc. Creatinine Clearance 121 mL/min (70-130); Calcium 8.5 mg/dL (7.8-10.44); Carbon Dioxide 22 mmol/L (23-31); Chloride 108 mmol/L (98-107); Estimated GFR 89; Globulin 2.2 g/dL (2.4-3.5); Glucose 90 mg/dL (80-115); Potassium 3.9 mmol/L (3.5-5.1); Sodium 138 mmol/L (136-145)
[2022-03-02 11:22] LABS: Vancomycin, Trough 12.8 ug/mL
[2022-03-02] MEDS: Escitalopram Oxalate 20 mg Tablet PO SCH (11:23)
[2022-03-02] MEDS: Multivit, Therapeutic 1 TAB PO SCH (11:23)
[2022-03-02] MEDS: Magnesium Oxide 400 MG TAB PO SCH (11:23)
[2022-03-02] MEDS: Atorvastatin Calcium 40 MG TAB PO SCH (11:23)
[2022-03-02] MEDS: Finasteride 5 MG TAB PO SCH (11:23)
[2022-03-02] MEDS: Famotidine/PF 20 mg/2ml Vial SLOW IVP SCH (11:24)
[2022-03-02] MEDS: Gabapentin 300 MG CAP PO SCH ×2 (11:24→20:48)
[2022-03-02] MEDS ORDERED: Lisinopril 10 MG TAB PO SCH (12:15)
[2022-03-02] MEDS: VANCOMYCIN 1.25 GM/250 ML BAG 1.25 GM in Premix Bag 1 BAG IVPB SCH (14:22)
[2022-03-02] MEDS: hydrALAZINE 20 MG/ML VIAL SLOW IVP PRN ×2 (17:32→21:04)
[2022-03-02] MEDS: Enoxaparin Sodium 120 MG/0.8 ML SYRINGE SC SCH (20:48)
[2022-03-02] MEDS: risperiDONE 1 MG TAB PO SCH (20:49)
[2022-03-02] MEDS: Melatonin 3 MG TAB PO PRN (20:50)
[2022-03-03] MEDS: hydrOXYzine 25 MG TAB PO PRN (00:10)
[2022-03-03] MEDS: VANCOMYCIN 1.25 GM/250 ML BAG 1.25 GM in Premix Bag 1 BAG IVPB SCH ×2 (00:10→12:54)
[2022-03-03] MEDS: Cefepime 2 GM in Sodium Chloride 0.9% 100 ML IVPB SCH ×3 (02:52→17:12)
[2022-03-03] MEDS: hydrALAZINE 20 MG/ML VIAL SLOW IVP PRN (05:20)
[2022-03-03 05:39] LABS: Anion Gap 15 mmol/L (10-20); BUN (Urea Nitrogen) 20 mg/dL (8.4-25.7); Calc. Creatinine Clearance 150 mL/min (70-130); Calcium 8.3 mg/dL (7.8-10.44); Carbon Dioxide 16 mmol/L (23-31); Chloride 109 mmol/L (98-107); Estimated GFR 100; Glucose 80 mg/dL (80-115); Potassium 4.2 mmol/L (3.5-5.1); Sodium 136 mmol/L (136-145)
[2022-03-03] MEDS ORDERED: Furosemide 40 MG/4 ML VIAL SLOW IVP SCH (06:00)
[2022-03-03 06:14] LABS: Hemoglobin 11.6 g/dL (14.0-18.0); Lymphocytes 17 % (21-51); MDiff Complete? YES; Macrocytosis MODERATE=16-30 cells (100X) (0-5/hpf); Mean Corpuscular HGB CONC 33.3 g/dL (32.0-36.0); Mean Corpuscular Hemoglobin 35.5 pg (27.0-31.0); Mean Platelet Volume 8.6 fL (7.4-10.4); Monocytes 11 % (0-10); Neutrophil 72 % (42-75); Platelet Count 113 thou/uL (130-400); Platelet Morphology Comment Appears Decreased; RBC Distribution Width 13.3 % (11.5-14.5); Red Blood Cell (RBC) Count 3.26 mill/uL (4.70-6.10); White Blood Cell (WBC) Count 9.2 thou/uL (4.8-10.8)
[2022-03-03] MEDS: Acetaminophen 325 MG TAB PO PRN (06:23)
[2022-03-03] MEDS ORDERED: Lisinopril 10 MG TAB PO SCH (09:00)
[2022-03-03] MEDS: Finasteride 5 MG TAB PO SCH (10:09)
[2022-03-03] MEDS: Escitalopram Oxalate 20 mg Tablet PO SCH (10:09)
[2022-03-03] MEDS: Magnesium Oxide 400 MG TAB PO SCH (10:09)
[2022-03-03] MEDS: Gabapentin 300 MG CAP PO SCH ×2 (10:09→20:25)
[2022-03-03] MEDS: Atorvastatin Calcium 40 MG TAB PO SCH (10:10)
[2022-03-03] MEDS: Tamsulosin HCl 0.4 MG CAP PO SCH (10:10)
[2022-03-03] MEDS: Enoxaparin Sodium 120 MG/0.8 ML SYRINGE SC SCH ×2 (10:10→20:26)
[2022-03-03] MEDS: Multivit, Therapeutic 1 TAB PO SCH (10:10)
[2022-03-03] MEDS ORDERED: hydrALAZINE 20 MG/ML VIAL SLOW IVP PRN (11:37)
[2022-03-03] MEDS: risperiDONE 1 MG TAB PO SCH (20:25)
[2022-03-03 23:36] LABS: Vancomycin, Trough 15.2 ug/mL
[2022-03-04] MEDS: VANCOMYCIN 1.25 GM/250 ML BAG 1.25 GM in Premix Bag 1 BAG IVPB SCH ×2 (00:23→11:49)
[2022-03-04] MEDS: Cefepime 2 GM in Sodium Chloride 0.9% 100 ML IVPB SCH ×3 (02:02→17:02)
[2022-03-04 04:56] LABS: #Basophils 0.1 thou/uL (0.0-0.2); #Eosinphils 0.1 thou/uL (0.0-0.7); #Lymphocytes 1.3 thou/uL (1.20-3.40); #Monocytes 0.9 thou/uL (0.11-0.59); #Neutrophils 4.9 thou/uL (1.40-6.50); %Basophils 0.7 % (0.0-1.0); %Lymphocytes 17.9 % (21.0-51.0); %Monocytes 12.3 % (0.0-10.0); %Neutrophils 67.1 % (42.0-75.0); Hemoglobin 11.7 g/dL (14.0-18.0); Mean Corpuscular HGB CONC 34.3 g/dL (32.0-36.0); Mean Corpuscular Hemoglobin 36.1 pg (27.0-31.0); Mean Platelet Volume 9.1 fL (7.4-10.4); Platelet Count 90 thou/uL (130-400); RBC Distribution Width 13.1 % (11.5-14.5); Red Blood Cell (RBC) Count 3.24 mill/uL (4.70-6.10); White Blood Cell (WBC) Count 7.3 thou/uL (4.8-10.8)
[2022-03-04 05:16] LABS: Anion Gap 15 mmol/L (10-20); BUN (Urea Nitrogen) 18 mg/dL (8.4-25.7); Calc. Creatinine Clearance 149 mL/min (70-130); Calcium 8.4 mg/dL (7.8-10.44); Carbon Dioxide 21 mmol/L (23-31); Chloride 106 mmol/L (98-107); Estimated GFR 99; Glucose 89 mg/dL (80-115); Potassium 4.1 mmol/L (3.5-5.1); Sodium 138 mmol/L (136-145)
[2022-03-04] MEDS: Atorvastatin Calcium 40 MG TAB PO SCH (10:02)
[2022-03-04] MEDS: Finasteride 5 MG TAB PO SCH (10:02)
[2022-03-04] MEDS: Escitalopram Oxalate 20 mg Tablet PO SCH (10:03)
[2022-03-04] MEDS: Gabapentin 300 MG CAP PO SCH ×2 (10:03→21:32)
[2022-03-04] MEDS: Magnesium Oxide 400 MG TAB PO SCH (10:03)
[2022-03-04] MEDS: Lisinopril 20 MG TAB PO SCH (10:03)
[2022-03-04] MEDS: Tamsulosin HCl 0.4 MG CAP PO SCH (10:04)
[2022-03-04] MEDS: Multivit, Therapeutic 1 TAB PO SCH (10:04)
[2022-03-04] MEDS ORDERED: Furosemide 40 MG/4 ML VIAL SLOW IVP SCH (11:00)
[2022-03-04] MEDS ORDERED: Rivaroxaban 10 MG TAB PO SCH (17:00)
[2022-03-04] MEDS: risperiDONE 1 MG TAB PO SCH (21:31)
[2022-03-05] MEDS: VANCOMYCIN 1.25 GM/250 ML BAG 1.25 GM in Premix Bag 1 BAG IVPB SCH ×3 (00:44→23:47)
[2022-03-05] MEDS: Cefepime 2 GM in Sodium Chloride 0.9% 100 ML IVPB SCH ×3 (02:28→16:49)
[2022-03-05 04:28] LABS: #Eosinphils 0.2 thou/uL (0.0-0.7); #Monocytes 0.8 thou/uL (0.11-0.59); #Neutrophils 4.2 thou/uL (1.40-6.50); %Basophils 0.5 % (0.0-1.0); %Eosinophils 2.9 % (0.0-10.0); %Lymphocytes 16.7 % (21.0-51.0); %Monocytes 13.5 % (0.0-10.0); %Neutrophils 66.5 % (42.0-75.0); Hemoglobin 10.6 g/dL (14.0-18.0); Mean Corpuscular HGB CONC 34.9 g/dL (32.0-36.0); Mean Corpuscular Hemoglobin 36.3 pg (27.0-31.0); Platelet Count 142 thou/uL (130-400); RBC Distribution Width 12.9 % (11.5-14.5); Red Blood Cell (RBC) Count 2.92 mill/uL (4.70-6.10); White Blood Cell (WBC) Count 6.3 thou/uL (4.8-10.8)
[2022-03-05 04:46] LABS: Anion Gap 12 mmol/L (10-20); BUN (Urea Nitrogen) 17 mg/dL (8.4-25.7); Calc. Creatinine Clearance 155 mL/min (70-130); Calcium 8.3 mg/dL (7.8-10.44); Carbon Dioxide 23 mmol/L (23-31); Chloride 109 mmol/L (98-107); Estimated GFR 100; Glucose 104 mg/dL (80-115); Potassium 3.4 mmol/L (3.5-5.1); Sodium 141 mmol/L (136-145)
[2022-03-05 07:18] LABS: SARS-CoV-2 NAA Rapid Test Not Detected (NotDetected)
[2022-03-05 07:41] LABS: Magnesium 1.7 mg/dL (1.6-2.6)
[2022-03-05] MEDS: Tamsulosin HCl 0.4 MG CAP PO SCH (09:14)
[2022-03-05] MEDS: Escitalopram Oxalate 20 mg Tablet PO SCH (09:14)
[2022-03-05] MEDS: Lisinopril 20 MG TAB PO SCH (09:15)
[2022-03-05] MEDS: Potassium Chloride 20 MEQ TAB PO SCH ×2 (09:15→16:49)
[2022-03-05] MEDS: Atorvastatin Calcium 40 MG TAB PO SCH (09:15)
[2022-03-05] MEDS: Finasteride 5 MG TAB PO SCH (09:15)
[2022-03-05] MEDS: Gabapentin 300 MG CAP PO SCH ×2 (09:16→21:40)
[2022-03-05] MEDS: Magnesium Oxide 400 MG TAB PO SCH ×2 (09:17→21:42)
[2022-03-05] MEDS: Multivit, Therapeutic 1 TAB PO SCH (09:17)
[2022-03-05] MEDS: risperiDONE 1 MG TAB PO SCH (21:42)
[2022-03-05] MEDS: Acetaminophen 325 MG TAB PO PRN (21:46)
[2022-03-06] MEDS: Cefepime 2 GM in Sodium Chloride 0.9% 100 ML IVPB SCH (02:54)
[2022-03-06] MEDS: Acetaminophen 325 MG TAB PO PRN ×2 (05:28→20:53)
[2022-03-06] MEDS: Finasteride 5 MG TAB PO SCH (08:04)
[2022-03-06] MEDS: Lisinopril 20 MG TAB PO SCH (08:04)
[2022-03-06] MEDS: Gabapentin 300 MG CAP PO SCH ×2 (08:04→20:53)
[2022-03-06] MEDS: Atorvastatin Calcium 40 MG TAB PO SCH (08:05)
[2022-03-06] MEDS: Escitalopram Oxalate 20 mg Tablet PO SCH (08:05)
[2022-03-06] MEDS: Magnesium Oxide 400 MG TAB PO SCH ×2 (08:05→08:13)
[2022-03-06] MEDS: Multivit, Therapeutic 1 TAB PO SCH (08:05)
[2022-03-06] MEDS: Tamsulosin HCl 0.4 MG CAP PO SCH (08:05)
[2022-03-06 08:33] LABS: #Eosinphils 0.2 thou/uL (0.0-0.7); #Lymphocytes 1.5 thou/uL (1.20-3.40); #Monocytes 0.8 thou/uL (0.11-0.59); #Neutrophils 3.8 thou/uL (1.40-6.50); %Basophils 0.6 % (0.0-1.0); %Eosinophils 3.3 % (0.0-10.0); %Lymphocytes 23.5 % (21.0-51.0); %Monocytes 12.1 % (0.0-10.0); %Neutrophils 60.6 % (42.0-75.0); Hemoglobin 10.1 g/dL (14.0-18.0); Mean Corpuscular HGB CONC 33.7 g/dL (32.0-36.0); Mean Corpuscular Hemoglobin 35.3 pg (27.0-31.0); Mean Platelet Volume 6.6 fL (7.4-10.4); Platelet Count 139 thou/uL (130-400); RBC Distribution Width 13.1 % (11.5-14.5); Red Blood Cell (RBC) Count 2.85 mill/uL (4.70-6.10); White Blood Cell (WBC) Count 6.4 thou/uL (4.8-10.8)
[2022-03-06 08:47] LABS: Anion Gap 12 mmol/L (10-20); BUN (Urea Nitrogen) 17 mg/dL (8.4-25.7); Calc. Creatinine Clearance 130 mL/min (70-130); Calcium 8.5 mg/dL (7.8-10.44); Carbon Dioxide 25 mmol/L (23-31); Chloride 110 mmol/L (98-107); Estimated GFR 96; Glucose 83 mg/dL (80-115); Magnesium 1.8 mg/dL (1.6-2.6); Sodium 143 mmol/L (136-145)
[2022-03-06] MEDS ORDERED: Iopamidol 370 76% 50 ML VIAL FS ONE (08:52)
[2022-03-06] MEDS ORDERED: Lidocaine 1% PF 5 ML VIAL ONE (13:27)
[2022-03-06] MEDS ORDERED: CEFAZOLIN 1 GM VIAL ONE (13:27)
[2022-03-06] MEDS ORDERED: Gentamicin 80 MG/50 ML BAG ONE (14:08)
[2022-03-06] MEDS ORDERED: Fentanyl 100 MCG/2 ML VIAL ONE (14:18)
[2022-03-06] MEDS ORDERED: Ondansetron PF 4 MG/2 ML Vial ONE (14:19)
[2022-03-06] MEDS ORDERED: Lidocaine 1% (PF) 30 ML VIAL ONE (14:19)
[2022-03-06] MEDS ORDERED: Dexamethasone 20 MG/5 ML VIAL ONE (14:19)
[2022-03-06] MEDS ORDERED: ePHEDrine 50 MG/ML VIAL ONE (14:19)
[2022-03-06] MEDS ORDERED: PROPOFOL 200 MG/20 ML VIAL ONE (14:19)
[2022-03-06] MEDS ORDERED: Atropine Sulfate 1 mg/1 ml Vial ONE (14:50)
[2022-03-06] MEDS ORDERED: Dexmedetomidine 200 MCG/2 ML VIAL ONE (15:23)
[2022-03-06] MEDS: risperiDONE 1 MG TAB PO SCH (20:53)
[2022-03-07] MEDS: Acetaminophen 325 MG TAB PO PRN ×2 (01:36→22:11)
[2022-03-07 06:49] LABS: #Lymphocytes 0.7 thou/uL (1.20-3.40); #Monocytes 0.5 thou/uL (0.11-0.59); #Neutrophils 7.7 thou/uL (1.40-6.50); %Basophils 0.1 % (0.0-1.0); %Eosinophils 0.3 % (0.0-10.0); %Lymphocytes 7.5 % (21.0-51.0); %Monocytes 5.6 % (0.0-10.0); %Neutrophils 86.6 % (42.0-75.0); Hemoglobin 10.4 g/dL (14.0-18.0); Mean Corpuscular HGB CONC 33.7 g/dL (32.0-36.0); Mean Corpuscular Hemoglobin 35.5 pg (27.0-31.0); Mean Platelet Volume 6.9 fL (7.4-10.4); Platelet Count 178 thou/uL (130-400); RBC Distribution Width 12.9 % (11.5-14.5); Red Blood Cell (RBC) Count 2.94 mill/uL (4.70-6.10); White Blood Cell (WBC) Count 8.9 thou/uL (4.8-10.8)
[2022-03-07 07:09] LABS: Anion Gap 12 mmol/L (10-20); BUN (Urea Nitrogen) 18 mg/dL (8.4-25.7); Calc. Creatinine Clearance 138 mL/min (70-130); Calcium 8.7 mg/dL (7.8-10.44); Carbon Dioxide 24 mmol/L (23-31); Chloride 107 mmol/L (98-107); Estimated GFR 97; Glucose 144 mg/dL (80-115); Potassium 4.3 mmol/L (3.5-5.1); Sodium 139 mmol/L (136-145)
[2022-03-07] MEDS: Escitalopram Oxalate 20 mg Tablet PO SCH (09:38)
[2022-03-07] MEDS: Tamsulosin HCl 0.4 MG CAP PO SCH (09:38)
[2022-03-07] MEDS: Atorvastatin Calcium 40 MG TAB PO SCH (09:38)
[2022-03-07] MEDS: Magnesium Oxide 400 MG TAB PO SCH (09:38)
[2022-03-07] MEDS: Lisinopril 20 MG TAB PO SCH (09:38)
[2022-03-07] MEDS: Finasteride 5 MG TAB PO SCH (09:39)
[2022-03-07] MEDS: Gabapentin 300 MG CAP PO SCH ×2 (09:39→22:14)
[2022-03-07] MEDS: Multivit, Therapeutic 1 TAB PO SCH (09:39)
[2022-03-07] MEDS: risperiDONE 1 MG TAB PO SCH (22:13)
[2022-03-08 04:49] LABS: #Eosinphils 0.2 thou/uL (0.0-0.7); #Monocytes 0.9 thou/uL (0.11-0.59); #Neutrophils 7.7 thou/uL (1.40-6.50); %Basophils 0.2 % (0.0-1.0); %Eosinophils 1.6 % (0.0-10.0); %Lymphocytes 18.3 % (21.0-51.0); %Monocytes 8.6 % (0.0-10.0); %Neutrophils 71.3 % (42.0-75.0); Hemoglobin 10.3 g/dL (14.0-18.0); Mean Corpuscular HGB CONC 32.6 g/dL (32.0-36.0); Mean Corpuscular Hemoglobin 34.9 pg (27.0-31.0); Platelet Count 182 thou/uL (130-400); RBC Distribution Width 13.3 % (11.5-14.5); Red Blood Cell (RBC) Count 2.95 mill/uL (4.70-6.10); White Blood Cell (WBC) Count 10.8 thou/uL (4.8-10.8)
[2022-03-08 04:58] LABS: Anion Gap 12 mmol/L (10-20); BUN (Urea Nitrogen) 17 mg/dL (8.4-25.7); Calc. Creatinine Clearance 141 mL/min (70-130); Calcium 8.7 mg/dL (7.8-10.44); Carbon Dioxide 24 mmol/L (23-31); Chloride 107 mmol/L (98-107); Estimated GFR 98; Glucose 99 mg/dL (80-115); Potassium 4.1 mmol/L (3.5-5.1); Sodium 139 mmol/L (136-145)
[2022-03-08] MEDS: Multivit, Therapeutic 1 TAB PO SCH (10:06)
[2022-03-08] MEDS: Atorvastatin Calcium 40 MG TAB PO SCH (10:06)
[2022-03-08] MEDS: Folic Acid/Vit B Comp W-C PO SCH (10:06)
[2022-03-08] MEDS: Gabapentin 300 MG CAP PO SCH ×2 (10:06→20:37)
[2022-03-08] MEDS: Hydrochlorothiazide 25 MG TAB PO SCH (10:06)
[2022-03-08] MEDS: Magnesium Oxide 400 MG TAB PO SCH (10:06)
[2022-03-08] MEDS: Finasteride 5 MG TAB PO SCH (10:07)
[2022-03-08] MEDS: Lisinopril 20 MG TAB PO SCH (10:07)
[2022-03-08] MEDS: Escitalopram Oxalate 20 mg Tablet PO SCH (10:07)
[2022-03-08] MEDS: Tamsulosin HCl 0.4 MG CAP PO SCH (10:07)
[2022-03-08] MEDS: risperiDONE 1 MG TAB PO SCH (20:37)
[2022-03-08] MEDS: hydrOXYzine 25 MG TAB PO PRN (20:38)
[2022-03-09] MEDS: Acetaminophen 325 MG TAB PO PRN (03:04)
[2022-03-09] MEDS: Polyethylene Glycol 3350 17 GM Packet PO PRN (03:05)
[2022-03-09 06:55] LABS: #Basophils 0.1 thou/uL (0.0-0.2); #Eosinphils 0.5 thou/uL (0.0-0.7); #Monocytes 0.8 thou/uL (0.11-0.59); #Neutrophils 7.2 thou/uL (1.40-6.50); %Basophils 0.5 % (0.0-1.0); %Eosinophils 4.8 % (0.0-10.0); %Lymphocytes 18.6 % (21.0-51.0); %Monocytes 7.6 % (0.0-10.0); %Neutrophils 68.5 % (42.0-75.0); Hemoglobin 11.5 g/dL (14.0-18.0); Mean Corpuscular HGB CONC 33.7 g/dL (32.0-36.0); Mean Corpuscular Hemoglobin 35.5 pg (27.0-31.0); Platelet Count 177 thou/uL (130-400); RBC Distribution Width 13.4 % (11.5-14.5); Red Blood Cell (RBC) Count 3.23 mill/uL (4.70-6.10); White Blood Cell (WBC) Count 10.5 thou/uL (4.8-10.8)
[2022-03-09 07:17] LABS: Anion Gap 13 mmol/L (10-20); BUN (Urea Nitrogen) 17 mg/dL (8.4-25.7); Calc. Creatinine Clearance 130 mL/min (70-130); Calcium 8.7 mg/dL (7.8-10.44); Carbon Dioxide 26 mmol/L (23-31); Chloride 105 mmol/L (98-107); Estimated GFR 96; Glucose 95 mg/dL (80-115); Potassium 4.3 mmol/L (3.5-5.1); Sodium 140 mmol/L (136-145)
[2022-03-09 08:23] LABS: PTT 30.2 sec (22.9-36.1); Prothrombin Time 13.2 sec (12.0-14.7)
[2022-03-09] MEDS: Escitalopram Oxalate 20 mg Tablet PO SCH (12:57)
[2022-03-09] MEDS: Atorvastatin Calcium 40 MG TAB PO SCH (12:57)
[2022-03-09] MEDS: Tamsulosin HCl 0.4 MG CAP PO SCH (12:57)
[2022-03-09] MEDS: Lisinopril 20 MG TAB PO SCH (12:57)
[2022-03-09] MEDS: Hydrochlorothiazide 25 MG TAB PO SCH (12:58)
[2022-03-09] MEDS: Multivit, Therapeutic 1 TAB PO SCH (12:58)
[2022-03-09] MEDS: Magnesium Oxide 400 MG TAB PO SCH (12:59)
[2022-03-09] MEDS: Finasteride 5 MG TAB PO SCH (12:59)
[2022-03-09] MEDS: Folic Acid/Vit B Comp W-C PO SCH (12:59)
[2022-03-09] MEDS: Gabapentin 300 MG CAP PO SCH ×2 (12:59→22:27)
[2022-03-09] MEDS: risperiDONE 1 MG TAB PO SCH (22:29)
[2022-03-10] MEDS: Acetaminophen 325 MG TAB PO PRN ×3 (04:12→23:24)
[2022-03-10] MEDS: Folic Acid/Vit B Comp W-C PO SCH (09:24)
[2022-03-10] MEDS: Atorvastatin Calcium 40 MG TAB PO SCH (09:24)
[2022-03-10] MEDS: Hydrochlorothiazide 25 MG TAB PO SCH (09:24)
[2022-03-10] MEDS: Lisinopril 20 MG TAB PO SCH (09:24)
[2022-03-10] MEDS: Magnesium Oxide 400 MG TAB PO SCH (09:24)
[2022-03-10] MEDS: Tamsulosin HCl 0.4 MG CAP PO SCH (09:25)
[2022-03-10] MEDS: Finasteride 5 MG TAB PO SCH (09:25)
[2022-03-10] MEDS: Gabapentin 300 MG CAP PO SCH ×2 (09:25→20:01)
[2022-03-10] MEDS: Multivit, Therapeutic 1 TAB PO SCH (09:25)
[2022-03-10] MEDS: Escitalopram Oxalate 20 mg Tablet PO SCH (09:25)
[2022-03-10] MEDS: risperiDONE 1 MG TAB PO SCH (20:02)
[2022-03-11] MEDS: Multivit, Therapeutic 1 TAB PO SCH (09:05)
[2022-03-11] MEDS: Lisinopril 20 MG TAB PO SCH (09:06)
[2022-03-11] MEDS: Finasteride 5 MG TAB PO SCH (09:06)
[2022-03-11] MEDS: Folic Acid/Vit B Comp W-C PO SCH (09:06)
[2022-03-11] MEDS: Gabapentin 300 MG CAP PO SCH ×2 (09:06→20:29)
[2022-03-11] MEDS: Escitalopram Oxalate 20 mg Tablet PO SCH (09:06)
[2022-03-11] MEDS: Atorvastatin Calcium 40 MG TAB PO SCH (09:06)
[2022-03-11] MEDS: Tamsulosin HCl 0.4 MG CAP PO SCH (09:06)
[2022-03-11] MEDS: Magnesium Oxide 400 MG TAB PO SCH (09:07)
[2022-03-11] MEDS: Hydrochlorothiazide 25 MG TAB PO SCH (09:07)
[2022-03-11] MEDS: Acetaminophen 325 MG TAB PO PRN ×2 (09:08→14:09)
[2022-03-11] MEDS: risperiDONE 1 MG TAB PO SCH (20:28)
[2022-03-11] MEDS: Melatonin 3 MG TAB PO PRN (20:37)
[2022-03-11] MEDS: Polyethylene Glycol 3350 17 GM Packet PO PRN (20:37)
[2022-03-12 05:34] LABS: #Eosinphils 0.4 thou/uL (0.0-0.7); #Lymphocytes 1.9 thou/uL (1.20-3.40); #Monocytes 0.7 thou/uL (0.11-0.59); #Neutrophils 6.1 thou/uL (1.40-6.50); %Basophils 0.5 % (0.0-1.0); %Eosinophils 4.2 % (0.0-10.0); %Lymphocytes 20.4 % (21.0-51.0); %Monocytes 7.7 % (0.0-10.0); %Neutrophils 67.2 % (42.0-75.0); Hemoglobin 11.4 g/dL (14.0-18.0); Mean Corpuscular HGB CONC 33.8 g/dL (32.0-36.0); Mean Corpuscular Hemoglobin 35.9 pg (27.0-31.0); Mean Platelet Volume 6.7 fL (7.4-10.4); Platelet Count 188 thou/uL (130-400); RBC Distribution Width 13.4 % (11.5-14.5); Red Blood Cell (RBC) Count 3.19 mill/uL (4.70-6.10); White Blood Cell (WBC) Count 9.1 thou/uL (4.8-10.8)
[2022-03-12 06:00] LABS: Anion Gap 13 mmol/L (10-20); BUN (Urea Nitrogen) 18 mg/dL (8.4-25.7); Calc. Creatinine Clearance 137 mL/min (70-130); Calcium 8.6 mg/dL (7.8-10.44); Carbon Dioxide 23 mmol/L (23-31); Chloride 106 mmol/L (98-107); Estimated GFR 98; Glucose 103 mg/dL (80-115); Potassium 4.4 mmol/L (3.5-5.1); Sodium 138 mmol/L (136-145)
[2022-03-12] MEDS ORDERED: Piperacillin/Tazobactam 3.375 GM in Sodium Chloride 0.9% 100 ML IVPB SCH (08:00)
[2022-03-12] MEDS ORDERED: Piperacillin/Tazobactam 3.375 GM VIAL ONE (08:50)
[2022-03-12] MEDS ORDERED: Sodium Chloride 0.9% 100 ML ONE (08:51)
[2022-03-12] MEDS ORDERED: Bacitracin Zinc Ointment 30 gm TUBE ONE (09:56)
[2022-03-12] MEDS ORDERED: fentaNYL Citrate/PF 100 MCG/2 ML SYRINGE ONE ×2 (10:56→13:37)
[2022-03-12] MEDS ORDERED: ePHEDrine 50 MG/ML VIAL ONE (11:06)
[2022-03-12] MEDS ORDERED: NEOSTIGMINE 3 MG/3 ML SYR 3 MG/3 ML SYRINGE ONE (11:06)
[2022-03-12] MEDS ORDERED: PROPOFOL 200 MG/20 ML VIAL ONE (11:06)
[2022-03-12] MEDS ORDERED: Rocuronium Bromide 10 MG/ML (10ML VIAL) ONE (11:06)
[2022-03-12] MEDS ORDERED: Lidocaine 1% MPF 2 ML VIAL ONE (11:06)
[2022-03-12] MEDS ORDERED: Glycopyrrolate 0.2 MG/ML 5 ML SYRINGE ONE (11:06)
[2022-03-12] MEDS ORDERED: Dexamethasone 20 MG/5 ML VIAL ONE (11:06)
[2022-03-12] MEDS ORDERED: Ondansetron PF 4 MG/2 ML Vial ONE (11:06)
[2022-03-12] MEDS ORDERED: Phenylephrine 10 MG/ML VIAL ONE (11:06)
[2022-03-12] MEDS ORDERED: Promethazine HCl 25 MG/ML VIAL IM PRN (12:15)
[2022-03-12] MEDS ORDERED: HYDROmorphone 2 MG/ML VIAL SLOW IVP PRN (12:15)
[2022-03-12] MEDS ORDERED: Promethazine HCl 25 MG/ML VIAL IVPB PRN (12:15)
[2022-03-12] MEDS ORDERED: Morphine Sulfate 2 MG/ML SYRINGE SLOW IVP PRN (12:15)
[2022-03-12] MEDS ORDERED: PACU-Morphine 4MG/ML VIAL SLOW IVP PRN (12:15)
[2022-03-12] MEDS ORDERED: Ondansetron HCl/PF 4 MG/2 ML Vial IVP PRN (12:15)
[2022-03-12] MEDS ORDERED: Phenazopyridine HCl 95 MG TAB PO PRN (13:13)
[2022-03-12] MEDS: Finasteride 5 MG TAB PO SCH (13:27)
[2022-03-12] MEDS: Escitalopram Oxalate 20 mg Tablet PO SCH (13:27)
[2022-03-12] MEDS: Hydrochlorothiazide 25 MG TAB PO SCH (13:28)
[2022-03-12] MEDS: Folic Acid/Vit B Comp W-C PO SCH (13:28)
[2022-03-12] MEDS: Gabapentin 300 MG CAP PO SCH ×2 (13:28→20:54)
[2022-03-12] MEDS: Magnesium Oxide 400 MG TAB PO SCH (13:29)
[2022-03-12] MEDS: Multivit, Therapeutic 1 TAB PO SCH (13:29)
[2022-03-12] MEDS: Tamsulosin HCl 0.4 MG CAP PO SCH (13:29)
[2022-03-12] MEDS: Lisinopril 20 MG TAB PO SCH (13:29)
[2022-03-12 14:02] LABS: #Eosinphils 0.2 thou/uL (0.0-0.7); #Lymphocytes 1.1 thou/uL (1.20-3.40); #Monocytes 0.3 thou/uL (0.11-0.59); %Basophils 0.3 % (0.0-1.0); %Eosinophils 1.7 % (0.0-10.0); %Lymphocytes 9.7 % (21.0-51.0); %Monocytes 2.7 % (0.0-10.0); %Neutrophils 85.6 % (42.0-75.0); Hemoglobin 12.9 g/dL (14.0-18.0); Mean Corpuscular Hemoglobin 34.9 pg (27.0-31.0); Mean Platelet Volume 6.8 fL (7.4-10.4); Platelet Count 192 thou/uL (130-400); RBC Distribution Width 13.5 % (11.5-14.5); Red Blood Cell (RBC) Count 3.68 mill/uL (4.70-6.10); White Blood Cell (WBC) Count 11.7 thou/uL (4.8-10.8)
[2022-03-12 14:22] LABS: Anion Gap 14 mmol/L (10-20); BUN (Urea Nitrogen) 19 mg/dL (8.4-25.7); Calc. Creatinine Clearance 124 mL/min (70-130); Calcium 8.8 mg/dL (7.8-10.44); Carbon Dioxide 19 mmol/L (23-31); Chloride 107 mmol/L (98-107); Estimated GFR 96; Glucose 111 mg/dL (80-115); Potassium 4.4 mmol/L (3.5-5.1); Sodium 136 mmol/L (136-145)
[2022-03-12] MEDS: Piperacillin/Tazobactam 3.375 GM in Sodium Chloride 0.9% 100 ML IVPB SCH (17:23)
[2022-03-12] MEDS: Sodium Chloride 0.9% 1,000 ML IV SCH (17:31)
[2022-03-12] MEDS: Atorvastatin Calcium 40 MG TAB PO SCH ×2 (17:34→20:53)
[2022-03-12] MEDS: Docusate 100 MG CAP PO SCH (20:53)
[2022-03-12] MEDS: risperiDONE 1 MG TAB PO SCH (20:54)
[2022-03-12] MEDS: Acetaminophen 325 MG TAB PO PRN (21:04)
[2022-03-12] MEDS: Melatonin 3 MG TAB PO PRN (21:04)
[2022-03-13] MEDS: Piperacillin/Tazobactam 3.375 GM in Sodium Chloride 0.9% 100 ML IVPB SCH ×3 (00:02→17:45)
[2022-03-13] MEDS: Sodium Chloride 0.9% 1,000 ML IV SCH ×2 (00:03→14:00)
[2022-03-13 06:10] LABS: #Lymphocytes 0.6 thou/uL (1.20-3.40); #Monocytes 0.6 thou/uL (0.11-0.59); #Neutrophils 13.4 thou/uL (1.40-6.50); %Basophils 0.1 % (0.0-1.0); %Eosinophils 0.1 % (0.0-10.0); %Lymphocytes 4.4 % (21.0-51.0); %Monocytes 3.9 % (0.0-10.0); %Neutrophils 91.6 % (42.0-75.0); Hemoglobin 12.2 g/dL (14.0-18.0); Mean Corpuscular HGB CONC 33.2 g/dL (32.0-36.0); Mean Platelet Volume 6.8 fL (7.4-10.4); Platelet Count 224 thou/uL (130-400); RBC Distribution Width 13.3 % (11.5-14.5); Red Blood Cell (RBC) Count 3.48 mill/uL (4.70-6.10); White Blood Cell (WBC) Count 14.6 thou/uL (4.8-10.8)
[2022-03-13 06:26] LABS: Anion Gap 16 mmol/L (10-20); BUN (Urea Nitrogen) 20 mg/dL (8.4-25.7); Calc. Creatinine Clearance 108 mL/min (70-130); Calcium 9.1 mg/dL (7.8-10.44); Carbon Dioxide 23 mmol/L (23-31); Chloride 105 mmol/L (98-107); Estimated GFR 81; Glucose 136 mg/dL (80-115); Potassium 4.6 mmol/L (3.5-5.1); Sodium 139 mmol/L (136-145)
[2022-03-13] MEDS: Escitalopram Oxalate 20 mg Tablet PO SCH (09:16)
[2022-03-13] MEDS: Docusate 100 MG CAP PO SCH ×2 (09:16→20:28)
[2022-03-13] MEDS: Folic Acid/Vit B Comp W-C PO SCH (09:17)
[2022-03-13] MEDS: Finasteride 5 MG TAB PO SCH (09:17)
[2022-03-13] MEDS: Gabapentin 300 MG CAP PO SCH ×2 (09:17→20:28)
[2022-03-13] MEDS: Tamsulosin HCl 0.4 MG CAP PO SCH (09:17)
[2022-03-13] MEDS: Hydrochlorothiazide 25 MG TAB PO SCH (09:19)
[2022-03-13] MEDS: Lisinopril 20 MG TAB PO SCH (09:20)
[2022-03-13] MEDS: Magnesium Oxide 400 MG TAB PO SCH (09:21)
[2022-03-13] MEDS: Multivit, Therapeutic 1 TAB PO SCH (09:21)
[2022-03-13] MEDS ORDERED: Iopamidol-370 76% 500 ML 1 ML ONE (09:31)
[2022-03-13] MEDS: Atorvastatin Calcium 40 MG TAB PO SCH (20:28)
[2022-03-13] MEDS: risperiDONE 1 MG TAB PO SCH (20:29)
[2022-03-13] MEDS: Melatonin 3 MG TAB PO PRN (20:32)
[2022-03-13] MEDS: Acetaminophen 325 MG TAB PO PRN (20:36)
[2022-03-14] MEDS: Piperacillin/Tazobactam 3.375 GM in Sodium Chloride 0.9% 100 ML IVPB SCH ×3 (00:21→15:33)
[2022-03-14] MEDS: Sodium Chloride 0.9% 1,000 ML IV SCH ×2 (06:12→15:33)
[2022-03-14] MEDS: Magnesium Oxide 400 MG TAB PO SCH (09:39)
[2022-03-14] MEDS: Folic Acid/Vit B Comp W-C PO SCH (09:39)
[2022-03-14] MEDS: Docusate 100 MG CAP PO SCH ×2 (09:42→21:40)
[2022-03-14] MEDS: Tamsulosin HCl 0.4 MG CAP PO SCH (09:42)
[2022-03-14] MEDS: Gabapentin 300 MG CAP PO SCH ×2 (09:42→21:38)
[2022-03-14] MEDS: Hydrochlorothiazide 25 MG TAB PO SCH (09:43)
[2022-03-14] MEDS: Multivit, Therapeutic 1 TAB PO SCH (09:43)
[2022-03-14] MEDS: Lisinopril 20 MG TAB PO SCH (09:43)
[2022-03-14] MEDS: Escitalopram Oxalate 20 mg Tablet PO SCH (09:43)
[2022-03-14] MEDS: Finasteride 5 MG TAB PO SCH (09:43)
[2022-03-14] MEDS: Atorvastatin Calcium 40 MG TAB PO SCH (21:40)
[2022-03-14] MEDS: Melatonin 3 MG TAB PO PRN (21:41)
[2022-03-14] MEDS: risperiDONE 1 MG TAB PO SCH (21:41)
[2022-03-15] MEDS: Piperacillin/Tazobactam 3.375 GM in Sodium Chloride 0.9% 100 ML IVPB SCH ×3 (00:07→17:25)
[2022-03-15] MEDS: Sodium Chloride 0.9% 1,000 ML IV SCH ×2 (06:00→17:31)
[2022-03-15] MEDS: Escitalopram Oxalate 20 mg Tablet PO SCH (11:36)
[2022-03-15] MEDS: Docusate 100 MG CAP PO SCH ×2 (11:36→20:25)
[2022-03-15] MEDS: Magnesium Oxide 400 MG TAB PO SCH (11:37)
[2022-03-15] MEDS: Tamsulosin HCl 0.4 MG CAP PO SCH (11:39)
[2022-03-15] MEDS: Multivit, Therapeutic 1 TAB PO SCH (11:39)
[2022-03-15] MEDS: Folic Acid/Vit B Comp W-C PO SCH (11:40)
[2022-03-15] MEDS: Hydrochlorothiazide 25 MG TAB PO SCH (11:41)
[2022-03-15] MEDS: Gabapentin 300 MG CAP PO SCH ×2 (11:42→20:23)
[2022-03-15] MEDS: Lisinopril 20 MG TAB PO SCH (15:09)
[2022-03-15] MEDS: Finasteride 5 MG TAB PO SCH (15:09)
[2022-03-15] MEDS: hydrOXYzine 25 MG TAB PO PRN (18:07)
[2022-03-15] MEDS: Atorvastatin Calcium 40 MG TAB PO SCH (20:23)
[2022-03-15] MEDS: risperiDONE 1 MG TAB PO SCH (20:24)
[2022-03-15] MEDS: Melatonin 3 MG TAB PO PRN (20:27)
[2022-03-16] MEDS: Piperacillin/Tazobactam 3.375 GM in Sodium Chloride 0.9% 100 ML IVPB SCH ×3 (02:00→17:24)
[2022-03-16] MEDS: hydrOXYzine 25 MG TAB PO PRN (06:39)
[2022-03-16] MEDS: Sodium Chloride 0.9% 1,000 ML IV SCH ×2 (06:47→17:24)
[2022-03-16] MEDS: Finasteride 5 MG TAB PO SCH (09:34)
[2022-03-16] MEDS: Folic Acid/Vit B Comp W-C PO SCH (09:34)
[2022-03-16] MEDS: Docusate 100 MG CAP PO SCH ×2 (09:34→21:02)
[2022-03-16] MEDS: Hydrochlorothiazide 25 MG TAB PO SCH (09:34)
[2022-03-16] MEDS: Gabapentin 300 MG CAP PO SCH ×2 (09:34→20:33)
[2022-03-16] MEDS: Tamsulosin HCl 0.4 MG CAP PO SCH (09:35)
[2022-03-16] MEDS: Lisinopril 20 MG TAB PO SCH (09:35)
[2022-03-16] MEDS: Multivit, Therapeutic 1 TAB PO SCH (09:35)
[2022-03-16] MEDS: Magnesium Oxide 400 MG TAB PO SCH (09:35)
[2022-03-16] MEDS: Escitalopram Oxalate 20 mg Tablet PO SCH (09:35)
[2022-03-16 10:30] LABS: Hemoglobin 12.5 g/dL (14.0-18.0); Mean Corpuscular HGB CONC 32.6 g/dL (32.0-36.0); Mean Corpuscular Hemoglobin 34.7 pg (27.0-31.0); Mean Platelet Volume 7.2 fL (7.4-10.4); Platelet Count 179 thou/uL (130-400); RBC Distribution Width 13.5 % (11.5-14.5)
[2022-03-16 10:31] LABS: Band 1 % (5-11); Eosinophils 1 % (0-10); Lymphocytes 23 % (21-51); MDiff Complete? YES; Monocytes 7 % (0-10); Neutrophil 67 % (42-75); Platelet Morphology Comment Appears Adequate; RBC Morphology Normal
[2022-03-16] MEDS: Atorvastatin Calcium 40 MG TAB PO SCH (20:32)
[2022-03-16] MEDS: risperiDONE 1 MG TAB PO SCH (20:33)
[2022-03-17] MEDS: hydrOXYzine 25 MG TAB PO PRN ×2 (03:35→21:07)
[2022-03-17] MEDS: Sodium Chloride 0.9% 1,000 ML IV SCH (05:44)
[2022-03-17] MEDS: Folic Acid/Vit B Comp W-C PO SCH (08:36)
[2022-03-17] MEDS: Multivit, Therapeutic 1 TAB PO SCH (08:36)
[2022-03-17] MEDS: Finasteride 5 MG TAB PO SCH (08:36)
[2022-03-17] MEDS: Magnesium Oxide 400 MG TAB PO SCH (08:36)
[2022-03-17] MEDS: Tamsulosin HCl 0.4 MG CAP PO SCH (08:37)
[2022-03-17] MEDS: Escitalopram Oxalate 20 mg Tablet PO SCH (08:37)
[2022-03-17] MEDS: Lisinopril 20 MG TAB PO SCH (08:37)
[2022-03-17] MEDS: Gabapentin 300 MG CAP PO SCH ×2 (08:37→21:03)
[2022-03-17] MEDS: Hydrochlorothiazide 25 MG TAB PO SCH (08:37)
[2022-03-17] MEDS: Docusate 100 MG CAP PO SCH ×2 (08:37→21:07)
[2022-03-17 09:40] LABS: Anion Gap 13 mmol/L (10-20); BUN (Urea Nitrogen) 21 mg/dL (8.4-25.7); Calc. Creatinine Clearance 133 mL/min (70-130); Calcium 9.2 mg/dL (7.8-10.44); Carbon Dioxide 23 mmol/L (23-31); Chloride 106 mmol/L (98-107); Estimated GFR 98; Glucose 90 mg/dL (80-115); Potassium 3.8 mmol/L (3.5-5.1); Sodium 138 mmol/L (136-145)
[2022-03-17] MEDS: Atorvastatin Calcium 40 MG TAB PO SCH ×2 (21:05→21:07)
[2022-03-17] MEDS: risperiDONE 1 MG TAB PO SCH (21:06)
[2022-03-17] MEDS: Melatonin 3 MG TAB PO PRN (21:09)
[2022-03-18] MEDS: Acetaminophen 325 MG TAB PO PRN ×3 (00:22→20:17)
[2022-03-18] MEDS: Multivit, Therapeutic 1 TAB PO SCH (10:04)
[2022-03-18] MEDS: Folic Acid/Vit B Comp W-C PO SCH (10:04)
[2022-03-18] MEDS: Magnesium Oxide 400 MG TAB PO SCH (10:04)
[2022-03-18] MEDS: Finasteride 5 MG TAB PO SCH (10:04)
[2022-03-18] MEDS: Escitalopram Oxalate 20 mg Tablet PO SCH (10:04)
[2022-03-18] MEDS: Lisinopril 20 MG TAB PO SCH (10:04)
[2022-03-18] MEDS: Gabapentin 300 MG CAP PO SCH ×2 (10:05→20:17)
[2022-03-18] MEDS: Hydrochlorothiazide 25 MG TAB PO SCH (10:05)
[2022-03-18] MEDS: Tamsulosin HCl 0.4 MG CAP PO SCH (10:05)
[2022-03-18] MEDS: Docusate 100 MG CAP PO SCH ×2 (10:10→20:18)
[2022-03-18] MEDS: Melatonin 3 MG TAB PO PRN (20:18)
[2022-03-18] MEDS: risperiDONE 1 MG TAB PO SCH (20:18)
[2022-03-19] MEDS: Acetaminophen 325 MG TAB PO PRN ×3 (03:20→21:39)
[2022-03-19] MEDS: Lisinopril 20 MG TAB PO SCH (09:14)
[2022-03-19] MEDS: Gabapentin 300 MG CAP PO SCH ×2 (09:14→21:35)
[2022-03-19] MEDS: Escitalopram Oxalate 20 mg Tablet PO SCH (09:14)
[2022-03-19] MEDS: Finasteride 5 MG TAB PO SCH (09:14)
[2022-03-19] MEDS: Tamsulosin HCl 0.4 MG CAP PO SCH (09:14)
[2022-03-19] MEDS: Hydrochlorothiazide 25 MG TAB PO SCH (09:14)
[2022-03-19] MEDS: Magnesium Oxide 400 MG TAB PO SCH (09:14)
[2022-03-19] MEDS: Multivit, Therapeutic 1 TAB PO SCH (09:15)
[2022-03-19] MEDS: Docusate 100 MG CAP PO SCH ×2 (09:15→21:41)
[2022-03-19] MEDS: Folic Acid/Vit B Comp W-C PO SCH (09:15)
[2022-03-19 13:40] VITALS: BMI 34.3
[2022-03-19] MEDS: risperiDONE 1 MG TAB PO SCH (21:36)
[2022-03-19] MEDS: Melatonin 3 MG TAB PO PRN (21:38)
[2022-03-19] MEDS: Atorvastatin Calcium 40 MG TAB PO SCH (21:39)
[2022-03-20] MEDS: Escitalopram Oxalate 20 mg Tablet PO SCH (09:30)
[2022-03-20] MEDS: Finasteride 5 MG TAB PO SCH (09:30)
[2022-03-20] MEDS: Magnesium Oxide 400 MG TAB PO SCH (09:30)
[2022-03-20] MEDS: Multivit, Therapeutic 1 TAB PO SCH (09:30)
[2022-03-20] MEDS: Gabapentin 300 MG CAP PO SCH ×2 (09:30→20:33)
[2022-03-20] MEDS: Lisinopril 20 MG TAB PO SCH (09:30)
[2022-03-20] MEDS: Tamsulosin HCl 0.4 MG CAP PO SCH (09:30)
[2022-03-20] MEDS: Hydrochlorothiazide 25 MG TAB PO SCH (09:31)
[2022-03-20] MEDS: Folic Acid/Vit B Comp W-C PO SCH (09:31)
[2022-03-20] MEDS: Acetaminophen 325 MG TAB PO PRN ×3 (14:49→22:50)
[2022-03-20] MEDS: Melatonin 3 MG TAB PO PRN (20:32)
[2022-03-20] MEDS: hydrOXYzine 25 MG TAB PO PRN (20:32)
[2022-03-20] MEDS: Atorvastatin Calcium 40 MG TAB PO SCH (20:32)
[2022-03-20] MEDS: risperiDONE 1 MG TAB PO SCH (20:33)
[2022-03-21] MEDS ORDERED: hydrOXYzine 25 MG TAB PO SCH (00:30)
[2022-03-21] MEDS: Multivit, Therapeutic 1 TAB PO SCH (10:17)
[2022-03-21] MEDS: Escitalopram Oxalate 20 mg Tablet PO SCH (10:17)
[2022-03-21] MEDS: Hydrochlorothiazide 25 MG TAB PO SCH (10:17)
[2022-03-21] MEDS: Lisinopril 20 MG TAB PO SCH (10:17)
[2022-03-21] MEDS: Folic Acid/Vit B Comp W-C PO SCH (10:17)
[2022-03-21] MEDS: Acetaminophen 325 MG TAB PO PRN ×3 (10:17→21:27)
[2022-03-21] MEDS: Magnesium Oxide 400 MG TAB PO SCH (10:18)
[2022-03-21] MEDS: Finasteride 5 MG TAB PO SCH (10:18)
[2022-03-21] MEDS: Tamsulosin HCl 0.4 MG CAP PO SCH (10:19)
[2022-03-21] MEDS: Gabapentin 300 MG CAP PO SCH ×2 (11:34→21:31)
[2022-03-21] MEDS: hydrOXYzine 25 MG TAB PO PRN ×2 (15:53→23:18)
[2022-03-21] MEDS: Rivaroxaban 10 MG TAB PO SCH (21:31)
[2022-03-21] MEDS: Melatonin 3 MG TAB PO PRN (21:32)
[2022-03-21] MEDS: risperiDONE 1 MG TAB PO SCH (21:32)
[2022-03-21] MEDS: Atorvastatin Calcium 40 MG TAB PO SCH (21:32)
[2022-03-22] MEDS: Acetaminophen 325 MG TAB PO PRN ×3 (01:49→22:15)
[2022-03-22] MEDS: Multivit, Therapeutic 1 TAB PO SCH (08:54)
[2022-03-22] MEDS: Tamsulosin HCl 0.4 MG CAP PO SCH (08:54)
[2022-03-22] MEDS: Gabapentin 300 MG CAP PO SCH ×2 (08:54→22:14)
[2022-03-22] MEDS: Lisinopril 20 MG TAB PO SCH (08:54)
[2022-03-22] MEDS: Hydrochlorothiazide 25 MG TAB PO SCH (08:55)
[2022-03-22] MEDS: Magnesium Oxide 400 MG TAB PO SCH (08:55)
[2022-03-22] MEDS: Folic Acid/Vit B Comp W-C PO SCH (08:55)
[2022-03-22] MEDS: Finasteride 5 MG TAB PO SCH (08:55)
[2022-03-22] MEDS: Escitalopram Oxalate 20 mg Tablet PO SCH (08:55)
[2022-03-22] MEDS: Rivaroxaban 10 MG TAB PO SCH (22:13)
[2022-03-22] MEDS: risperiDONE 1 MG TAB PO SCH (22:14)
[2022-03-22] MEDS: Atorvastatin Calcium 40 MG TAB PO SCH (22:15)
[2022-03-23] MEDS: Acetaminophen 325 MG TAB PO PRN ×2 (03:58→22:03)
[2022-03-23 07:50] LABS: #Basophils 0.1 thou/uL (0.0-0.2); #Eosinphils 0.1 thou/uL (0.0-0.7); #Lymphocytes 1.9 thou/uL (1.20-3.40); #Monocytes 0.5 thou/uL (0.11-0.59); #Neutrophils 4.5 thou/uL (1.40-6.50); %Basophils 0.7 % (0.0-1.0); %Eosinophils 1.6 % (0.0-10.0); %Lymphocytes 27.2 % (21.0-51.0); %Monocytes 7.2 % (0.0-10.0); %Neutrophils 63.2 % (42.0-75.0); Hemoglobin 14.1 g/dL (14.0-18.0); Mean Corpuscular HGB CONC 32.4 g/dL (32.0-36.0); Mean Corpuscular Hemoglobin 34.5 pg (27.0-31.0); Platelet Count 188 thou/uL (130-400); RBC Distribution Width 13.7 % (11.5-14.5); Red Blood Cell (RBC) Count 4.09 mill/uL (4.70-6.10); White Blood Cell (WBC) Count 7.1 thou/uL (4.8-10.8)
[2022-03-23 07:59] LABS: ALT (SGPT) 20 U/L (8-55); AST (SGOT) 20 U/L (5-34); Alkaline Phosphatase 83 U/L (40-110); Anion Gap 14 mmol/L (10-20); BUN (Urea Nitrogen) 19 mg/dL (8.4-25.7); Bilirubin, Total 2.1 mg/dL (0.2-1.2); Calc. Creatinine Clearance 119 mL/min (70-130); Calcium 9.6 mg/dL (7.8-10.44); Carbon Dioxide 24 mmol/L (23-31); Chloride 106 mmol/L (98-107); Estimated GFR 94; Glucose 92 mg/dL (80-115); Potassium 3.8 mmol/L (3.5-5.1); Sodium 140 mmol/L (136-145)
[2022-03-23] MEDS: hydrOXYzine 25 MG TAB PO PRN ×2 (11:32→22:03)
[2022-03-23] MEDS: Folic Acid/Vit B Comp W-C PO SCH (11:32)
[2022-03-23] MEDS: Lisinopril 20 MG TAB PO SCH (11:32)
[2022-03-23] MEDS: Tamsulosin HCl 0.4 MG CAP PO SCH (11:32)
[2022-03-23] MEDS: Magnesium Oxide 400 MG TAB PO SCH (11:32)
[2022-03-23] MEDS: Hydrochlorothiazide 25 MG TAB PO SCH (11:33)
[2022-03-23] MEDS: Multivit, Therapeutic 1 TAB PO SCH (11:33)
[2022-03-23] MEDS: Finasteride 5 MG TAB PO SCH (11:33)
[2022-03-23] MEDS: Gabapentin 300 MG CAP PO SCH ×2 (11:33→22:03)
[2022-03-23] MEDS: Escitalopram Oxalate 20 mg Tablet PO SCH (11:33)
[2022-03-23] MEDS ORDERED: Lactated Ringer's 500 ML IV SCH (17:15)
[2022-03-23] MEDS: Melatonin 3 MG TAB PO PRN (22:03)
[2022-03-23] MEDS: risperiDONE 1 MG TAB PO SCH (22:03)
[2022-03-23] MEDS: Atorvastatin Calcium 40 MG TAB PO SCH (22:04)
[2022-03-23] MEDS: Rivaroxaban 10 MG TAB PO SCH (22:04)
[2022-03-24] MEDS: Lisinopril 20 MG TAB PO SCH (08:55)
[2022-03-24] MEDS: Magnesium Oxide 400 MG TAB PO SCH (08:55)
[2022-03-24] MEDS: Escitalopram Oxalate 20 mg Tablet PO SCH (08:56)
[2022-03-24] MEDS: Finasteride 5 MG TAB PO SCH (08:56)
[2022-03-24] MEDS: Tamsulosin HCl 0.4 MG CAP PO SCH (08:56)
[2022-03-24] MEDS: Folic Acid/Vit B Comp W-C PO SCH (08:56)
[2022-03-24] MEDS: Gabapentin 300 MG CAP PO SCH ×2 (08:56→21:47)
[2022-03-24] MEDS: Multivit, Therapeutic 1 TAB PO SCH (08:57)
[2022-03-24] MEDS: Hydrochlorothiazide 25 MG TAB PO SCH (08:57)
[2022-03-24] MEDS: Atorvastatin Calcium 40 MG TAB PO SCH (21:48)
[2022-03-24] MEDS: Melatonin 3 MG TAB PO PRN (21:48)
[2022-03-24] MEDS: Rivaroxaban 10 MG TAB PO SCH (21:49)
[2022-03-24] MEDS: Acetaminophen 325 MG TAB PO PRN (21:49)
[2022-03-24] MEDS: risperiDONE 1 MG TAB PO SCH (21:53)
[2022-03-25] MEDS: hydrOXYzine 25 MG TAB PO PRN (02:02)
[2022-03-25] MEDS: Acetaminophen 325 MG TAB PO PRN ×3 (02:02→20:04)
[2022-03-25] MEDS: Magnesium Oxide 400 MG TAB PO SCH (09:22)
[2022-03-25] MEDS: Escitalopram Oxalate 20 mg Tablet PO SCH (09:22)
[2022-03-25] MEDS: Multivit, Therapeutic 1 TAB PO SCH (09:22)
[2022-03-25] MEDS: Tamsulosin HCl 0.4 MG CAP PO SCH (09:22)
[2022-03-25] MEDS: Finasteride 5 MG TAB PO SCH (09:22)
[2022-03-25] MEDS: Lisinopril 20 MG TAB PO SCH (09:22)
[2022-03-25] MEDS: Folic Acid/Vit B Comp W-C PO SCH (09:22)
[2022-03-25] MEDS: Hydrochlorothiazide 25 MG TAB PO SCH (09:22)
[2022-03-25] MEDS: Gabapentin 300 MG CAP PO SCH ×2 (09:22→20:02)
[2022-03-25] MEDS: Atorvastatin Calcium 40 MG TAB PO SCH (20:02)
[2022-03-25] MEDS: Rivaroxaban 10 MG TAB PO SCH (20:03)
[2022-03-25] MEDS: risperiDONE 1 MG TAB PO SCH (20:03)
[2022-03-25] MEDS: Melatonin 3 MG TAB PO PRN (20:04)
[2022-03-26] MEDS: Gabapentin 300 MG CAP PO SCH ×2 (08:34→20:37)
[2022-03-26] MEDS: Multivit, Therapeutic 1 TAB PO SCH (08:34)
[2022-03-26] MEDS: Lisinopril 20 MG TAB PO SCH (08:34)
[2022-03-26] MEDS: Tamsulosin HCl 0.4 MG CAP PO SCH (08:34)
[2022-03-26] MEDS: Folic Acid/Vit B Comp W-C PO SCH (08:34)
[2022-03-26] MEDS: Escitalopram Oxalate 20 mg Tablet PO SCH (08:35)
[2022-03-26] MEDS: Finasteride 5 MG TAB PO SCH (08:35)
[2022-03-26] MEDS: Hydrochlorothiazide 25 MG TAB PO SCH (08:35)
[2022-03-26] MEDS: Magnesium Oxide 400 MG TAB PO SCH (08:35)
[2022-03-26] MEDS: Acetaminophen 325 MG TAB PO PRN ×2 (12:23→20:42)
[2022-03-26] MEDS: Atorvastatin Calcium 40 MG TAB PO SCH (20:36)
[2022-03-26] MEDS: risperiDONE 1 MG TAB PO SCH (20:40)
[2022-03-26] MEDS: Rivaroxaban 10 MG TAB PO SCH (20:41)
[2022-03-26] MEDS: Melatonin 3 MG TAB PO PRN (20:42)
[2022-03-27] MEDS: Tamsulosin HCl 0.4 MG CAP PO SCH (08:51)
[2022-03-27] MEDS: hydrOXYzine 25 MG TAB PO PRN ×2 (08:51→22:27)
[2022-03-27] MEDS: Gabapentin 300 MG CAP PO SCH ×2 (08:51→22:29)
[2022-03-27] MEDS: Multivit, Therapeutic 1 TAB PO SCH (08:51)
[2022-03-27] MEDS: Escitalopram Oxalate 20 mg Tablet PO SCH (08:51)
[2022-03-27] MEDS: Folic Acid/Vit B Comp W-C PO SCH (08:51)
[2022-03-27] MEDS: Magnesium Oxide 400 MG TAB PO SCH (08:51)
[2022-03-27] MEDS: Finasteride 5 MG TAB PO SCH (08:51)
[2022-03-27] MEDS: Lisinopril 20 MG TAB PO SCH (08:52)
[2022-03-27] MEDS: Hydrochlorothiazide 25 MG TAB PO SCH (08:52)
[2022-03-27] MEDS: Acetaminophen 325 MG TAB PO PRN ×2 (08:53→22:27)
[2022-03-27] MEDS: Melatonin 3 MG TAB PO PRN (22:27)
[2022-03-27] MEDS: Atorvastatin Calcium 40 MG TAB PO SCH (22:27)
[2022-03-27] MEDS: risperiDONE 1 MG TAB PO SCH (22:29)
[2022-03-27] MEDS: Rivaroxaban 10 MG TAB PO SCH (22:29)
[2022-03-28] MEDS: Folic Acid/Vit B Comp W-C PO SCH (10:12)
[2022-03-28] MEDS: Finasteride 5 MG TAB PO SCH (10:12)
[2022-03-28] MEDS: Hydrochlorothiazide 25 MG TAB PO SCH (10:12)
[2022-03-28] MEDS: Lisinopril 20 MG TAB PO SCH (10:12)
[2022-03-28] MEDS: Magnesium Oxide 400 MG TAB PO SCH (10:13)
[2022-03-28] MEDS: Tamsulosin HCl 0.4 MG CAP PO SCH (10:13)
[2022-03-28] MEDS: Gabapentin 300 MG CAP PO SCH (10:13)
[2022-03-28] MEDS: Multivit, Therapeutic 1 TAB PO SCH (10:14)
[2022-03-28] MEDS: Escitalopram Oxalate 20 mg Tablet PO SCH (10:14)
[2022-03-28 11:55] VITALS: BP 157/83; TEMP 97.5
== END 2022-03-28 15:17 | DRG 242 ==
LOC: ERS 13:37 → 2NO 16:59 → OBSVTOIN 02-27 11:54 → IMCU/EMU 02-27 12:51 → CCU 02-28 19:33 → 2NO 03-02 10:07 → MSONC 03-11 12:55 → SURG A 03-12 16:11 → SJJU 03-12 16:34
PROVIDERS: ADMIT Student in an Organized Health Care Education/Training Program; ATTEND Student in an Organized Health Care Education/Training Program
PROC: 0T9B80Z Drainage of Bladder with Drainage Device, Via Natural or Artificial Opening Endoscopic (ICD-10-PCS; 2022-02-27)
PROC: 05HY33Z Insertion of Infusion Device into Upper Vein, Percutaneous Approach (ICD-10-PCS; 2022-02-28)
PROC: 3E033XZ Introduction of Vasopressor into Peripheral Vein, Percutaneous Approach (ICD-10-PCS; 2022-02-28)
PROC: 5A09357 Assistance with Respiratory Ventilation, Less than 24 Consecutive Hours, Continuous Positive Airway Pressure (ICD-10-PCS; 2022-03-01)
PROC: 0JH606Z Insertion of Pacemaker, Dual Chamber into Chest Subcutaneous Tissue and Fascia, Open Approach (ICD-10-PCS; principal; 2022-03-06)
PROC: 02H63JZ Insertion of Pacemaker Lead into Right Atrium, Percutaneous Approach (ICD-10-PCS; 2022-03-06)
PROC: 02HK3JZ Insertion of Pacemaker Lead into Right Ventricle, Percutaneous Approach (ICD-10-PCS; 2022-03-06)
PROC: 0VB08ZZ Excision of Prostate, Via Natural or Artificial Opening Endoscopic (ICD-10-PCS; 2022-03-12)
DX: I44.2 Atrioventricular block, complete (principal); A41.9 Sepsis, unspecified organism; R65.21 Severe sepsis with septic shock; R57.0 Cardiogenic shock; J18.9 Pneumonia, unspecified organism; N17.9 Acute kidney failure, unspecified; J81.1 Chronic pulmonary edema; K21.9 Gastro-esophageal reflux disease without esophagitis; F25.9 Schizoaffective disorder, unspecified; I25.10 Atherosclerotic heart disease of native coronary artery without angina pectoris; G47.33 Obstructive sleep apnea (adult) (pediatric); I48.0 Paroxysmal atrial fibrillation; I11.0 Hypertensive heart disease with heart failure; I73.9 Peripheral vascular disease, unspecified; I50.9 Heart failure, unspecified; J44.9 Chronic obstructive pulmonary disease, unspecified; G62.9 Polyneuropathy, unspecified; D64.9 Anemia, unspecified; N40.1 Benign prostatic hyperplasia with lower urinary tract symptoms; R33.8 Other retention of urine; M10.9 Gout, unspecified; F41.9 Anxiety disorder, unspecified; F32.A Depression, unspecified; E86.0 Dehydration; E66.01 Morbid (severe) obesity due to excess calories; N47.1 Phimosis; N28.1 Cyst of kidney, acquired; R31.9 Hematuria, unspecified; T83.091A Other mechanical complication of indwelling urethral catheter, initial encounter; Y83.8 Other surgical procedures as the cause of abnormal reaction of the patient, or of later complication, without mention of misadventure at the time of the procedure; B18.2 Chronic viral hepatitis C; I48.19 Other persistent atrial fibrillation; Z20.822 Contact with and (suspected) exposure to COVID-19; Z68.34 Body mass index [BMI] 34.0-34.9, adult; Z88.8 Allergy status to other drugs, medicaments and biological substances; Z79.899 Other long term (current) drug therapy; Z90.49 Acquired absence of other specified parts of digestive tract
CPT/HCPCS: 0439T; 33208; 36415; 36416; 36600; 51798; 70450; 71045; 71260; 71275; 72125; 74177; 74178; 80048; 80053; 80076; 80202; 80306; 81001; 82533; 82550; 82607; 82805; 83605; 83735; 83880; 84100; 84145; 84439; 84443; 84484; 85025; 85379; 85610; 85730; 86140; 86850; 86900; 86901; 87040; 87086; 87811; 88305; 93005; 93010; 93306; 94760; 96360; 96361; 97139; C1785; C1898; G0378; J0360; J0461; J0690; J0692; J0696; J0834; J1100; J1250; J1265; J1580; J1650; J1940; J2001; J2370; J2405; J2543; J2704; J3010; J3370; J3480; J3490; J7050; J7120; Q9967; S0028; U0002; U0003; U0005

== ENCOUNTER 2022-04-02 16:06 | Inpatient (IN) | payer BC, OTHER ==
[2022-04-02 19:02] LABS: #Basophils 0.1 thou/uL (0.0-0.2); #Monocytes 0.7 thou/uL (0.11-0.59); #Neutrophils 7.3 thou/uL (1.40-6.50); %Basophils 0.6 % (0.0-1.0); %Eosinophils 0.2 % (0.0-10.0); %Monocytes 7.5 % (0.0-10.0); %Neutrophils 80.7 % (42.0-75.0); Hemoglobin 14.2 g/dL (14.0-18.0); Mean Corpuscular HGB CONC 33.9 g/dL (32.0-36.0); Mean Corpuscular Hemoglobin 35.3 pg (27.0-31.0); Platelet Count 167 thou/uL (130-400); RBC Distribution Width 13.1 % (11.5-14.5); Red Blood Cell (RBC) Count 4.02 mill/uL (4.70-6.10); White Blood Cell (WBC) Count 9.1 thou/uL (4.8-10.8)
[2022-04-02 19:35] LABS: Bacteria/HPF 4+ HPF (None Seen); Bilirubin Negative (Negative); Blood, Urine 3+ (Negative); Clarity Extra Turbid (Clear); Glucose, Urine (Dipstick) Normal (Negative); Ketone, Urine Trace mg/dL (Negative); Leukocyte 250 Leu/uL (Negative); Nitrite Negative (Negative); Protein, Urine (Dipstick) 100 mg/dL (Neg-Trace); RBC/HPF Greater than 50 HPF (0-3); Specific Gravity, Urine 1.026 (1.002-1.036); Urobilinogen Normal mg/dL (Less than 2); WBC/HPF Greater than 50 HPF (0-3); pH, Urine 5.5 (5.0-9.0)
[2022-04-02 19:36] LABS: ALT (SGPT) 32 U/L (8-55); AST (SGOT) 28 U/L (5-34); Albumin 4.1 g/dL (3.4-4.8); Alkaline Phosphatase 87 U/L (40-110); Anion Gap 16 mmol/L (10-20); BUN (Urea Nitrogen) 41 mg/dL (8.4-25.7); Calc. Creatinine Clearance 0 mL/min (70-130); Carbon Dioxide 23 mmol/L (23-31); Chloride 110 mmol/L (98-107); Estimated GFR 38; Globulin 2.9 g/dL (2.4-3.5); Glucose 106 mg/dL (80-115); Potassium 4.5 mmol/L (3.5-5.1); Sodium 144 mmol/L (136-145)
[2022-04-02] MEDS ORDERED: Ondansetron ODT 4 MG TAB SL PRN (22:15)
[2022-04-02] MEDS ORDERED: Sodium Chloride 0.9% 1,000 ML IV SCH (22:15)
[2022-04-02] MEDS ORDERED: Ondansetron PF 4 MG/2 ML Vial IVP PRN (22:15)
[2022-04-02] MEDS ORDERED: cefTRIAXone\\ROCEPHIN 1 GM VIAL ONE (22:35)
[2022-04-02] MEDS ORDERED: Lactated Ringer's 1,000 ML IV SCH (23:00)
[2022-04-03] MEDS ORDERED: Acetaminophen 325 MG TAB ONE ×2 (01:09→05:57)
[2022-04-03] MEDS: Acetaminophen 325 MG TAB PO PRN ×2 (01:33→06:01)
[2022-04-03 05:19] LABS: #Eosinphils 0.2 thou/uL (0.0-0.7); #Lymphocytes 1.3 thou/uL (1.20-3.40); #Monocytes 0.7 thou/uL (0.11-0.59); #Neutrophils 4.9 thou/uL (1.40-6.50); %Basophils 0.3 % (0.0-1.0); %Eosinophils 2.4 % (0.0-10.0); %Lymphocytes 18.2 % (21.0-51.0); %Monocytes 9.8 % (0.0-10.0); %Neutrophils 69.3 % (42.0-75.0); Mean Corpuscular HGB CONC 32.8 g/dL (32.0-36.0); Mean Corpuscular Hemoglobin 34.4 pg (27.0-31.0); Mean Platelet Volume 6.9 fL (7.4-10.4); Platelet Count 131 thou/uL (130-400); RBC Distribution Width 13.1 % (11.5-14.5)
[2022-04-03 05:34] LABS: SARS-CoV-2 NAA Rapid Test Not Detected (NotDetected)
[2022-04-03 05:35] LABS: Anion Gap 12 mmol/L (10-20); BUN (Urea Nitrogen) 37 mg/dL (8.4-25.7); Calc. Creatinine Clearance 0 mL/min (70-130); Carbon Dioxide 24 mmol/L (23-31); Chloride 109 mmol/L (98-107); Estimated GFR 63; Glucose 93 mg/dL (80-115); Potassium 3.9 mmol/L (3.5-5.1); Sodium 141 mmol/L (136-145)
[2022-04-03 06:28] LABS: Creatinine, Urine 245.33 mg/dL (63-166)
[2022-04-03] MEDS ORDERED: Nystatin Powder 15 GM BOT TOP PRN ×2 (07:10→07:29)
[2022-04-03] MEDS ORDERED: Non-Formulary Item 1 EACH (Hydrochlorothiazide [Hydrochlorothiazide] 12.5 MG Capsule) PO SCH (09:00)
[2022-04-03] MEDS ORDERED: FOLIC PO SCH (09:00)
[2022-04-03] MEDS ORDERED: MULTIVIT MINS PO SCH (09:00)
[2022-04-03] MEDS ORDERED: LYCOP PO SCH (09:00)
[2022-04-03] MEDS ORDERED: [UNRECOGNIZED DRUG - OTHER] PO SCH (09:00)
[2022-04-03] MEDS ORDERED: [UNRECOGNIZED DRUG - OTHER] PO SCH (09:00)
[2022-04-03] MEDS ORDERED: LACTOBACILLUS ACIDOPHILUS PO SCH (09:00)
[2022-04-03] MEDS ORDERED: IRON PO SCH (09:00)
[2022-04-03] MEDS ORDERED: LACTOBACILLUS BULGARICUS PO SCH (09:00)
[2022-04-03] MEDS ORDERED: Non-Formulary Item 1 EACH (Magnesium [Magnesium] 200 MG Tablet) PO SCH (09:00)
[2022-04-03] MEDS ORDERED: Non-Formulary Item 1 EACH (Ranolazine [Ranexa] 1,000 MG Tab.Er.12h) PO SCH (09:00)
[2022-04-03] MEDS: Atorvastatin Calcium 40 MG TAB PO SCH (10:20)
[2022-04-03] MEDS: Escitalopram Oxalate 20 mg Tablet PO SCH (10:21)
[2022-04-03] MEDS: Finasteride 5 MG TAB PO SCH (10:22)
[2022-04-03] MEDS: Gabapentin 300 MG CAP PO SCH ×2 (10:23→21:44)
[2022-04-03] MEDS: Folic Acid/Vit B Comp W-C PO SCH (10:23)
[2022-04-03] MEDS: Hydrochlorothiazide 25 MG TAB PO SCH (10:26)
[2022-04-03] MEDS: Lisinopril 20 MG TAB PO SCH (10:27)
[2022-04-03] MEDS: Multivit, Therapeutic 1 TAB PO SCH (10:28)
[2022-04-03] MEDS: Magnesium Oxide 400 MG TAB PO SCH (10:28)
[2022-04-03] MEDS: Tamsulosin HCl 0.4 MG CAP PO SCH (10:29)
[2022-04-03] MEDS: Floranex 1 GM Packet PO SCH (11:01)
[2022-04-03 14:44] VITALS: BMI 31.4
[2022-04-03 16:32] LABS: Bilirubin Negative (Negative); Blood, Urine 3+ (Negative); Clarity Turbid (Clear); Glucose, Urine (Dipstick) Normal (Negative); Ketone, Urine Negative (Negative); Leukocyte 75 Leu/uL (Negative); Nitrite Negative (Negative); Protein, Urine (Dipstick) 30 mg/dL (Neg-Trace); RBC/HPF Greater than 50 HPF (0-3); Specific Gravity, Urine 1.016 (1.002-1.036); Squamous Epithelial None Seen HPF (0-3); Urobilinogen Normal mg/dL (Less than 2)
[2022-04-03 16:39] LABS: Bacteria/HPF 1+ HPF (None Seen)
[2022-04-03 16:40] LABS: Yeast-Budding Rare HPF (None Seen)
[2022-04-03 16:41] LABS: Urine Culture Reflex Yes Yes
[2022-04-03] MEDS ORDERED: IMIPRAMINE PAMOATE 100 MG PO SCH (21:00)
[2022-04-03] MEDS: risperiDONE 1 MG TAB PO SCH (21:43)
[2022-04-04 04:40] LABS: #Eosinphils 0.3 thou/uL (0.0-0.7); #Lymphocytes 1.7 thou/uL (1.20-3.40); #Monocytes 0.6 thou/uL (0.11-0.59); #Neutrophils 3.8 thou/uL (1.40-6.50); %Basophils 0.2 % (0.0-1.0); %Eosinophils 4.8 % (0.0-10.0); %Lymphocytes 26.8 % (21.0-51.0); %Monocytes 8.9 % (0.0-10.0); %Neutrophils 59.3 % (42.0-75.0); Hemoglobin 12.2 g/dL (14.0-18.0); Mean Corpuscular HGB CONC 33.7 g/dL (32.0-36.0); Mean Corpuscular Hemoglobin 35.2 pg (27.0-31.0); Platelet Count 129 thou/uL (130-400); RBC Distribution Width 12.9 % (11.5-14.5); Red Blood Cell (RBC) Count 3.47 mill/uL (4.70-6.10); White Blood Cell (WBC) Count 6.3 thou/uL (4.8-10.8)
[2022-04-04 05:35] LABS: Anion Gap 11 mmol/L (10-20); BUN (Urea Nitrogen) 20 mg/dL (8.4-25.7); Calc. Creatinine Clearance 124 mL/min (70-130); Calcium 8.8 mg/dL (7.8-10.44); Carbon Dioxide 23 mmol/L (23-31); Chloride 107 mmol/L (98-107); Estimated GFR 97; Glucose 114 mg/dL (80-115); Potassium 3.9 mmol/L (3.5-5.1); Sodium 137 mmol/L (136-145)
[2022-04-04] MEDS: Atorvastatin Calcium 40 MG TAB PO SCH (09:15)
[2022-04-04] MEDS: Folic Acid/Vit B Comp W-C PO SCH (09:15)
[2022-04-04] MEDS: Magnesium Oxide 400 MG TAB PO SCH (09:15)
[2022-04-04] MEDS: Hydrochlorothiazide 25 MG TAB PO SCH (09:15)
[2022-04-04] MEDS: Finasteride 5 MG TAB PO SCH (09:15)
[2022-04-04] MEDS: Gabapentin 300 MG CAP PO SCH ×2 (09:16→20:21)
[2022-04-04] MEDS: Floranex 1 GM Packet PO SCH (09:16)
[2022-04-04] MEDS: Escitalopram Oxalate 20 mg Tablet PO SCH (09:16)
[2022-04-04] MEDS: Multivit, Therapeutic 1 TAB PO SCH (09:16)
[2022-04-04] MEDS: Lisinopril 20 MG TAB PO SCH (09:16)
[2022-04-04] MEDS: Tamsulosin HCl 0.4 MG CAP PO SCH (09:16)
[2022-04-04] MEDS: Sodium Chloride 0.9% 1,000 ML IV SCH ×2 (10:00→21:43)
[2022-04-04] MEDS ORDERED: Lactated Ringer's 500 ML IV SCH (10:15)
[2022-04-04] MEDS: Acetaminophen 325 MG TAB PO PRN ×2 (17:49→21:39)
[2022-04-04] MEDS: risperiDONE 1 MG TAB PO SCH (20:23)
[2022-04-04] MEDS: Melatonin 3 MG TAB PO PRN (21:41)
[2022-04-05] MEDS: Acetaminophen 325 MG TAB PO PRN ×2 (02:42→08:38)
[2022-04-05] MEDS: Sodium Chloride 0.9% 1,000 ML IV SCH ×2 (07:33→14:18)
[2022-04-05] MEDS: Floranex 1 GM Packet PO SCH (08:21)
[2022-04-05] MEDS: Folic Acid/Vit B Comp W-C PO SCH (08:22)
[2022-04-05] MEDS: Hydrochlorothiazide 25 MG TAB PO SCH (08:23)
[2022-04-05] MEDS: Multivit, Therapeutic 1 TAB PO SCH (08:23)
[2022-04-05] MEDS: Magnesium Oxide 400 MG TAB PO SCH (08:23)
[2022-04-05] MEDS: Finasteride 5 MG TAB PO SCH (08:24)
[2022-04-05] MEDS: Gabapentin 300 MG CAP PO SCH ×2 (08:24→20:25)
[2022-04-05] MEDS: Lisinopril 20 MG TAB PO SCH (08:24)
[2022-04-05] MEDS: Escitalopram Oxalate 20 mg Tablet PO SCH (08:25)
[2022-04-05] MEDS: Atorvastatin Calcium 40 MG TAB PO SCH (08:25)
[2022-04-05] MEDS: risperiDONE 1 MG TAB PO SCH (20:23)
[2022-04-05] MEDS: Melatonin 3 MG TAB PO PRN (20:24)
[2022-04-06] MEDS: Sodium Chloride 0.9% 1,000 ML IV SCH (03:39)
[2022-04-06] MEDS: Hydrochlorothiazide 25 MG TAB PO SCH (08:02)
[2022-04-06] MEDS: Atorvastatin Calcium 40 MG TAB PO SCH (08:03)
[2022-04-06] MEDS: Magnesium Oxide 400 MG TAB PO SCH (08:03)
[2022-04-06] MEDS: Finasteride 5 MG TAB PO SCH (08:04)
[2022-04-06] MEDS: Gabapentin 300 MG CAP PO SCH (08:05)
[2022-04-06] MEDS: Multivit, Therapeutic 1 TAB PO SCH (08:05)
[2022-04-06] MEDS: Folic Acid/Vit B Comp W-C PO SCH (08:05)
[2022-04-06] MEDS: Lisinopril 20 MG TAB PO SCH (08:05)
[2022-04-06] MEDS: Escitalopram Oxalate 20 mg Tablet PO SCH (08:05)
[2022-04-06] MEDS: Floranex 1 GM Packet PO SCH (08:06)
[2022-04-06] MEDS: Acetaminophen 325 MG TAB PO PRN (08:28)
[2022-04-06 09:42] VITALS: BP 152/84; TEMP 96.8
== END 2022-04-06 16:22 | disposition home or self-care (01) | DRG 312 ==
LOC: ERS 16:06 → ERHOLD 21:53 → 2NO 04-03 13:09 → OBSVTOIN 04-04 12:33 → T4-B 04-05 14:45
PROVIDERS: ADMIT Family Medicine; ATTEND Emergency Medicine
PROC: 4B02XSZ Measurement of Cardiac Pacemaker, External Approach (ICD-10-PCS; principal; 2022-04-04)
DX: I95.1 Orthostatic hypotension (principal); I50.32 Chronic diastolic (congestive) heart failure; N17.9 Acute kidney failure, unspecified; Z20.822 Contact with and (suspected) exposure to COVID-19; I11.0 Hypertensive heart disease with heart failure; I25.10 Atherosclerotic heart disease of native coronary artery without angina pectoris; I45.10 Unspecified right bundle-branch block; J44.9 Chronic obstructive pulmonary disease, unspecified; K21.9 Gastro-esophageal reflux disease without esophagitis; G47.33 Obstructive sleep apnea (adult) (pediatric); G62.9 Polyneuropathy, unspecified; D50.8 Other iron deficiency anemias; D51.9 Vitamin B12 deficiency anemia, unspecified; R29.6 Repeated falls; I48.0 Paroxysmal atrial fibrillation; F25.9 Schizoaffective disorder, unspecified; E66.9 Obesity, unspecified; I73.9 Peripheral vascular disease, unspecified; E66.01 Morbid (severe) obesity due to excess calories; N40.1 Benign prostatic hyperplasia with lower urinary tract symptoms; R33.8 Other retention of urine; R31.0 Gross hematuria; S00.81XA Abrasion of other part of head, initial encounter; W18.30XA Fall on same level, unspecified, initial encounter; Z91.81 History of falling; Z91.19 Patient's noncompliance with other medical treatment and regimen; Z95.0 Presence of cardiac pacemaker; Z91.09 Other allergy status, other than to drugs and biological substances; Z79.899 Other long term (current) drug therapy; Z83.79 Family history of other diseases of the digestive system; Z84.2 Family history of other diseases of the genitourinary system; Z68.31 Body mass index [BMI] 31.0-31.9, adult; Z86.718 Personal history of other venous thrombosis and embolism
CPT/HCPCS: 36415; 70450; 80048; 80053; 81001; 81003; 81015; 82570; 84300; 85025; 87086; 87205; 93005; 96365; 97139; G0378; J0696; J7050; J7120; U0002

== ENCOUNTER 2022-07-11 10:06 | Outpatient (CLI) | payer BC, MEDICAID | END 2022-07-11 10:07 | disposition home or self-care (01) | LOC: BICCT 10:06 | PROVIDERS: ATTEND Urology | DX: N28.89 Other specified disorders of kidney and ureter (principal); N28.1 Cyst of kidney, acquired; K80.20 Calculus of gallbladder without cholecystitis without obstruction; R16.0 Hepatomegaly, not elsewhere classified; N28.9 Disorder of kidney and ureter, unspecified | CPT/HCPCS: 74150; 82565 ==

== ENCOUNTER 2022-10-08 08:21 | Outpatient (CLI) | payer MEDICARE, BC, MEDICAID | END 2022-10-08 08:22 | disposition home or self-care (01) | LOC: BICCT 08:21 | PROVIDERS: ATTEND Urology | DX: N28.89 Other specified disorders of kidney and ureter (principal); N28.9 Disorder of kidney and ureter, unspecified; N28.1 Cyst of kidney, acquired; R19.09 Other intra-abdominal and pelvic swelling, mass and lump; K80.20 Calculus of gallbladder without cholecystitis without obstruction | CPT/HCPCS: 74170; 82565 ==

== ENCOUNTER 2022-10-23 11:59 | Emergency (ER) | payer MEDICARE, BC, MEDICAID ==
[2022-10-23 13:47] LABS: #Basophils 0.1 thou/uL (0.0-0.2); #Monocytes 0.6 thou/uL (0.11-0.59); #Neutrophils 4.7 thou/uL (1.40-6.50); %Eosinophils 0.7 % (0.0-10.0); %Monocytes 9.4 % (0.0-10.0); Hemoglobin 13.4 g/dL (14.0-18.0); Mean Corpuscular HGB CONC 33.1 g/dL (32.0-36.0); Mean Corpuscular Hemoglobin 35.4 pg (27.0-31.0); Mean Platelet Volume 6.8 fL (7.4-10.4); Platelet Count 160 10x3/uL (130-400); RBC Distribution Width 12.8 % (11.5-14.5); Red Blood Cell (RBC) Count 3.77 mill/uL (4.70-6.10); White Blood Cell (WBC) Count 6.4 10x3/uL (4.8-10.8)
[2022-10-23 14:02] LABS: MDiff Complete? YES; Macrocytosis SLIGHT = 6-15 cells (100X) (0-5/hpf); Platelet Morphology Comment Appears Adequate; Small Platelets SLIGHT
[2022-10-23 14:06] LABS: ALT (SGPT) 12 U/L (8-55); AST (SGOT) 15 U/L (5-34); Alkaline Phosphatase 74 U/L (40-110); Anion Gap 12 mmol/L (10-20); BUN (Urea Nitrogen) 30 mg/dL (8.4-25.7); Bilirubin, Total 1.3 mg/dL (0.2-1.2); Calc. Creatinine Clearance 0 mL/min (70-130); Calcium 9.5 mg/dL (7.8-10.44); Carbon Dioxide 27 mmol/L (23-31); Chloride 108 mmol/L (98-107); Estimated GFR 72; Globulin 2.8 g/dL (2.4-3.5); Glucose 91 mg/dL (80-115); Potassium 4.8 mmol/L (3.5-5.1); Protein, Total 6.8 g/dL (5.8-8.1); Sodium 142 mmol/L (136-145)
[2022-10-23] MEDS ORDERED: Boostrix 0.5 ML (Tdap) VIAL (>/=7 yrs of age) ONE (14:37)
[2022-10-23] MEDS ORDERED: Bacitracin 1 PK ONE (14:37)
== END 2022-10-23 15:17 | disposition home or self-care (01) ==
LOC: ERS 11:59
DX: S80.812A Abrasion, left lower leg, initial encounter (principal); L97.529 Non-pressure chronic ulcer of other part of left foot with unspecified severity; R53.1 Weakness; K21.9 Gastro-esophageal reflux disease without esophagitis; I10 Essential (primary) hypertension; E66.9 Obesity, unspecified; W18.30XA Fall on same level, unspecified, initial encounter; Z79.82 Long term (current) use of aspirin; Z23 Encounter for immunization
CPT/HCPCS: 36415; 80053; 84484; 85025; 90471; 90715; 93005

== ENCOUNTER 2023-03-04 21:33 | Emergency (ER) | payer MEDICARE, BC, MEDICAID ==
[2023-03-04 22:48] LABS: #Eosinphils 0.1 thou/uL (0.0-0.7); #Monocytes 0.6 thou/uL (0.11-0.59); #Neutrophils 3.5 thou/uL (1.40-6.50); %Basophils 0.2 % (0.0-1.0); %Eosinophils 1.1 % (0.0-10.0); %Lymphocytes 24.3 % (21.0-51.0); %Monocytes 10.1 % (0.0-10.0); %Neutrophils 63.8 % (42.0-75.0); Hematocrit 38.9 % (42.0-52.0); Hemoglobin 13.4 g/dL (14.0-18.0); Mean Corpuscular HGB CONC 34.4 g/dL (32.0-36.0); Mean Corpuscular Volume 104.6 fl (78.0-98.0); Mean Platelet Volume 9.2 fL (7.4-10.4); Platelet Count 142 10x3/uL (130-400); RBC Distribution Width 13.7 % (11.5-14.5); Red Blood Cell (RBC) Count 3.72 mill/uL (4.70-6.10); White Blood Cell (WBC) Count 5.5 10x3/uL (4.8-10.8)
[2023-03-04 23:08] LABS: Bacteria/HPF None Seen HPF (None Seen); Bilirubin Negative (Negative); Blood, Urine Negative (Negative); CAUTI Indications for Culture Alt mental st,lethar; Clarity Clear (Clear); Glucose, Urine (Dipstick) Normal (Negative); Ketone, Urine Negative (Negative); Leukocyte Negative Leu/uL (Negative); Nitrite Negative (Negative); Protein, Urine (Dipstick) 10 mg/dL (Neg-Trace); RBC/HPF 0-3 HPF (0-3); Specific Gravity, Urine 1.019 (1.002-1.036); Squamous Epithelial None Seen HPF (0-3); Urobilinogen 6 mg/dL (Less than 2); WBC/HPF 0-3 HPF (0-3)
[2023-03-04 23:09] LABS: ALT (SGPT) 9 U/L (8-55); AST (SGOT) 15 U/L (5-34); Albumin 3.8 g/dL (3.4-4.8); Alkaline Phosphatase 64 U/L (40-110); Anion Gap 13 mmol/L (10-20); BUN (Urea Nitrogen) 29 mg/dL (8.4-25.7); Calc. Creatinine Clearance 0 mL/min (70-130); Calcium 9.5 mg/dL (7.8-10.44); Carbon Dioxide 24 mmol/L (23-31); Chloride 108 mmol/L (98-107); Estimated GFR 58; Globulin 2.4 g/dL (2.4-3.5); Glucose 99 mg/dL (80-115); Potassium 4.1 mmol/L (3.5-5.1); Protein, Total 6.2 g/dL (5.8-8.1); Sodium 141 mmol/L (136-145)
[2023-03-04 23:10] LABS: Urine Culture Reflex No No
== END 2023-03-05 00:58 | disposition home or self-care (01) ==
LOC: ERS 21:33
DX: I13.0 Hypertensive heart and chronic kidney disease with heart failure and stage 1 through stage 4 chronic kidney disease, or unspecified chronic kidney disease (principal); I50.9 Heart failure, unspecified; N18.9 Chronic kidney disease, unspecified; I48.91 Unspecified atrial fibrillation
CPT/HCPCS: 36415; 51701; 70450; 80053; 81001; 83735; 83880; 84443; 85025; 93005

== ENCOUNTER 2023-05-11 16:00 | Emergency (ER) | payer BC, OTHER ==
[2023-05-11 16:51] LABS: Bacteria/HPF None Seen HPF (None Seen); Bilirubin Negative (Negative); Blood, Urine Negative (Negative); CAUTI Indications for Culture Alt mental st,lethar; Clarity Clear (Clear); Glucose, Urine (Dipstick) Normal (Negative); Ketone, Urine Trace mg/dL (Negative); Leukocyte Negative Leu/uL (Negative); Nitrite Negative (Negative); Protein, Urine (Dipstick) 30 mg/dL (Neg-Trace); RBC/HPF 0-3 HPF (0-3); Specific Gravity, Urine 1.028 (1.002-1.036); Squamous Epithelial 0-3 HPF (0-3); Urobilinogen Normal mg/dL (Less than 2); WBC/HPF 0-3 HPF (0-3)
[2023-05-11 16:55] LABS: Urine Culture Reflex No No
[2023-05-11 16:57] LABS: Amphetamine Not Detected (NotDetected); Barbiturates Screen Not Detected (NotDetected); Benzodiazepine Screen Not Detected (NotDetected); Cocaine Metabolite Screen Not Detected (NotDetected); Methadone Not Detected (NotDetected); Methamphetamine Not Detected (NotDetected); Opiate Screen Not Detected (NotDetected); Oxycodone Screen Not Detected (NotDetected); Phencyclidine (PCP) Not Detected (NotDetected); THC/Cannabinoid Screen Not Detected (NotDetected); Tricyclic Screen Detected (NotDetected)
[2023-05-11 17:39] LABS: #Monocytes 0.9 thou/uL (0.11-0.59); #Neutrophils 8.6 thou/uL (1.40-6.50); %Basophils 0.1 % (0.0-1.0); %Eosinophils 0.2 % (0.0-10.0); %Lymphocytes 7.5 % (21.0-51.0); %Monocytes 8.4 % (0.0-10.0); %Neutrophils 83.3 % (42.0-75.0); Hematocrit 38.8 % (42.0-52.0); Hemoglobin 13.5 g/dL (14.0-18.0); Mean Corpuscular HGB CONC 34.8 g/dL (32.0-36.0); Mean Corpuscular Hemoglobin 36.5 pg (27.0-31.0); Mean Corpuscular Volume 104.9 fl (78.0-98.0); Mean Platelet Volume 9.1 fL (7.4-10.4); Platelet Count 158 10x3/uL (130-400); RBC Distribution Width 13.2 % (11.5-14.5); White Blood Cell (WBC) Count 10.3 10x3/uL (4.8-10.8)
[2023-05-11 17:53] LABS: INR-International Normal Ratio 2.3; Prothrombin Time 26.6 sec (12.0-14.7)
[2023-05-11] MEDS ORDERED: Ondansetron PF 4 MG/2 ML Vial ONE (17:56)
[2023-05-11] MEDS ORDERED: Loperamide HCl 2 MG CAP ONE (17:57)
[2023-05-11 18:02] LABS: Acetaminophen Less than 10 mcg/mL (10.0-30.0); Alcohol Less than 10.0 mg/dL (Less than 10); Salicylate Less than 8.0 mg/dL (15.0-30.0)
[2023-05-11 18:03] LABS: ALT (SGPT) 12 U/L (8-55); AST (SGOT) 18 U/L (5-34); Albumin 4.2 g/dL (3.4-4.8); Alkaline Phosphatase 81 U/L (40-110); Anion Gap 15 mmol/L (10-20); BUN (Urea Nitrogen) 30 mg/dL (8.4-25.7); Bilirubin, Total 1.1 mg/dL (0.2-1.2); Calc. Creatinine Clearance 0 mL/min (70-130); Calcium 9.3 mg/dL (7.8-10.44); Carbon Dioxide 20 mmol/L (23-31); Chloride 108 mmol/L (98-107); Estimated GFR 92; Glucose 113 mg/dL (80-115); Potassium 4.4 mmol/L (3.5-5.1); Protein, Total 6.2 g/dL (5.8-8.1); Sodium 139 mmol/L (136-145)
[2023-05-11 18:05] LABS: Troponin I Less than 0.010 ng/mL (< 0.028)
== END 2023-05-11 19:40 ==
LOC: ERS 16:00
DX: R53.1 Weakness (principal); I10 Essential (primary) hypertension; I48.91 Unspecified atrial fibrillation; Z76.5 Malingerer [conscious simulation]
CPT/HCPCS: 36415; 70450; 71045; 80053; 80306; 80307; 81001; 84484; 85025; 85610; 85730; 93005; 96374; J2405

== ENCOUNTER 2023-08-30 02:34 | Emergency (ER) | payer MEDICARE, MEDICAID, OTHER ==
[2023-08-30 03:40] LABS: #Monocytes 0.7 thou/uL (0.11-0.59); #Neutrophils 4.4 thou/uL (1.40-6.50); %Basophils 0.2 % (0.0-1.0); %Eosinophils 0.3 % (0.0-10.0); %Lymphocytes 11.6 % (21.0-51.0); %Monocytes 12.2 % (0.0-10.0); %Neutrophils 74.2 % (42.0-75.0); Hematocrit 36.1 % (42.0-52.0); Hemoglobin 12.3 g/dL (14.0-18.0); Mean Corpuscular HGB CONC 34.1 g/dL (32.0-36.0); Mean Corpuscular Hemoglobin 35.5 pg (27.0-31.0); Mean Corpuscular Volume 104.3 fl (78.0-98.0); Mean Platelet Volume 8.7 fL (7.4-10.4); Platelet Count 125 10x3/uL (130-400); RBC Distribution Width 13.9 % (11.5-14.5); Red Blood Cell (RBC) Count 3.46 mill/uL (4.70-6.10); White Blood Cell (WBC) Count 5.9 10x3/uL (4.8-10.8)
[2023-08-30 04:05] LABS: ALT (SGPT) 12 U/L (8-55); AST (SGOT) 18 U/L (5-34); Albumin 3.5 g/dL (3.4-4.8); Alkaline Phosphatase 74 U/L (40-110); Anion Gap 8 mmol/L (10-20); BUN (Urea Nitrogen) 27 mg/dL (8.4-25.7); Calc. Creatinine Clearance 0 mL/min (70-130); Carbon Dioxide 27 mmol/L (23-31); Chloride 106 mmol/L (98-107); Estimated GFR 68; Globulin 2.8 g/dL (2.4-3.5); Glucose 90 mg/dL (80-115); Potassium 4.4 mmol/L (3.5-5.1); Protein, Total 6.3 g/dL (5.8-8.1); Sodium 137 mmol/L (136-145)
== END 2023-08-30 07:24 | disposition home or self-care (01) ==
LOC: ERS 02:34
DX: S01.312A Laceration without foreign body of left ear, initial encounter (principal); I11.0 Hypertensive heart disease with heart failure; I50.9 Heart failure, unspecified; I48.91 Unspecified atrial fibrillation; W01.198A Fall on same level from slipping, tripping and stumbling with subsequent striking against other object, initial encounter
CPT/HCPCS: 12011; 36415; 70450; 72125; 80053; 85025

== ENCOUNTER 2023-08-30 12:46 | Emergency (ER) | payer MEDICARE, MEDICAID ==
[2023-08-30 13:51] LABS: #Monocytes 0.7 thou/uL (0.11-0.59); #Neutrophils 7.2 thou/uL (1.40-6.50); %Basophils 0.2 % (0.0-1.0); %Lymphocytes 4.2 % (21.0-51.0); %Monocytes 8.5 % (0.0-10.0); Hematocrit 37.3 % (42.0-52.0); Hemoglobin 12.7 g/dL (14.0-18.0); Mean Corpuscular Hemoglobin 35.5 pg (27.0-31.0); Mean Corpuscular Volume 104.2 fl (78.0-98.0); Mean Platelet Volume 8.7 fL (7.4-10.4); Platelet Count 129 10x3/uL (130-400); RBC Distribution Width 13.9 % (11.5-14.5); Red Blood Cell (RBC) Count 3.58 mill/uL (4.70-6.10); White Blood Cell (WBC) Count 8.4 10x3/uL (4.8-10.8)
[2023-08-30 14:14] LABS: ALT (SGPT) 18 U/L (8-55); AST (SGOT) 27 U/L (5-34); Albumin 3.8 g/dL (3.4-4.8); Alkaline Phosphatase 78 U/L (40-110); Anion Gap 12 mmol/L (10-20); BUN (Urea Nitrogen) 26 mg/dL (8.4-25.7); Bilirubin, Total 1.7 mg/dL (0.2-1.2); Calc. Creatinine Clearance 0 mL/min (70-130); Calcium 9.2 mg/dL (7.8-10.44); Carbon Dioxide 24 mmol/L (23-31); Chloride 105 mmol/L (98-107); Estimated GFR 67; Globulin 2.7 g/dL (2.4-3.5); Glucose 78 mg/dL (80-115); Potassium 4.1 mmol/L (3.5-5.1); Protein, Total 6.5 g/dL (5.8-8.1); Sodium 137 mmol/L (136-145)
== END 2023-08-30 16:05 | disposition home or self-care (01) ==
LOC: ERS 12:46
DX: S00.432A Contusion of left ear, initial encounter (principal); S80.12XA Contusion of left lower leg, initial encounter; S80.812A Abrasion, left lower leg, initial encounter; S80.811A Abrasion, right lower leg, initial encounter; I11.0 Hypertensive heart disease with heart failure; I50.9 Heart failure, unspecified; I48.91 Unspecified atrial fibrillation; S01.312A Laceration without foreign body of left ear, initial encounter; W01.198A Fall on same level from slipping, tripping and stumbling with subsequent striking against other object, initial encounter
CPT/HCPCS: 12011; 36415; 70450; 72125; 80053; 85025; 93005